=== PATIENT | male | born 1940 | race Hispanic/Latino ===

== ENCOUNTER 2017-07-30 11:17 | Observation (INO) | payer MEDICARE ==
[2017-07-30] MEDS ORDERED: Dextrose 50% SYRINGE Inj (50 ml) ONE (11:34)
[2017-07-30 11:49] LABS: VENOUS BLOOD GAS BASE EXCESS -1.8 mmol/L (0.0-2.0); VENOUS BLOOD PH 7.32 (7.32-7.43)
--- NOTE | 2017-07-30 11:58 | ED PDOC ---
Arrival/HPI - General Chief Complaint: Altered Mental Status Time Seen by Provider: 07/30/17 11:31 Historian: Spouse - History of Present Illness Narrative History of Present Illness (Text): 07/30/17 11:52 A 77 year old male h/o Afib (on Xarelto), DM, RA, CVAx3, brought into the emergency department by EMS for altered mental status. reports patient was very drowsy this morning and was unable to wake him up. Patient last seen normal yesterday night. On evaluation, patients glucose level in the 50's, amp of D50 administered. reports similar symptoms to prior hypoglycemia episodes. denies any other complaints. ROS limited due to patients state. PMD: Dr. Loren Huerta Time/Duration: Prior to Arrival Symptom Course: Unchanged Quality: Other Context: Home Past Medical History - Provider Review Nursing Documentation Reviewed: Yes - Infectious Disease Hx of Infectious Diseases: None - Tetanus Immunization Tetanus Immunization: Up to Date - Cardiac Hx Cardiac Arrhythmia: Yes (Afib) Hx Hypertension: Yes Hx Pacemaker: No - Neurological HX Cerebrovascular Accident: Yes (x 3) Hx Dementia: Yes - Endocrine/Metabolic Hx Diabetes Mellitus Type 2: Yes - Hematological/Oncological Hx Blood Transfusions: (pt unable to verify) Hx Blood Transfusion Reaction: (pt unable to verify) - Musculoskeletal/Rheumatological Hx Musculoskeletal Disorders: Yes - Psychiatric Hx Depression: No Hx Emotional Abuse: No Hx Physical Abuse: No Hx Substance Use: No - Surgical History Hx Orthopedic Surgery: Yes (titanium bess in back, left hip) - Anesthesia Hx Anesthesia Reactions: (pt unable to verify) Hx Malignant Hyperthermia: (pt unable to verify) - Suicidal Assessment Feels Threatened In Home Enviroment: No Family/Social History - Physician Review Nursing Documentation Reviewed: Yes Family/Social History: No Known Family HX Smoking Status: Never Smoked Hx Alcohol Use: Yes (SOCIAL) Hx Substance Use: No Hx Substance Use Treatment: No Allergies/Home Meds Allergies/Adverse Reactions: Allergies morphine Allergy (Verified 07/30/17 11:28) DIZZINESS Home Medications: Home Meds Medication Instructions Recorded Confirmed Dronedarone HCl [Multaq] 400 mg PO BID 10/03/12 07/30/17 Glipizide [Glipizide Xl] 10 mg PO DAILY 10/03/12 07/30/17 Metformin HCl [Metformin] 500 mg PO BID 10/03/12 07/30/17 Metoprolol Tartrate 50 mg PO BID 10/03/12 07/30/17 Sertraline [Zoloft] 100 mg PO BID 10/03/12 07/30/17 predniSONE [Prednisone] 5 mg PO DAILY 10/03/12 07/30/17 Amlodipine Besylate 10 mg PO DAILY 01/28/13 07/30/17 Atorvastatin Calcium 40 mg PO DAILY 01/28/13 07/30/17 Folic Acid 1 mg PO DAILY 01/28/13 07/30/17 Memantine [Namenda] 10 mg PO BID 01/28/13 07/30/17 Rivastigmine 9.5 mg/24 hr [Exelon 1 ea TD DAILY 01/28/13 07/30/17 9.5 mg Patch] Trazodone Hydrochloride [Trazodone 50 mg PO HS 01/28/13 07/30/17 HCl] Rivaroxaban [Xarelto] 20 mg PO DAILY 06/07/16 07/30/17 Cholecalciferol (Vitamin D3) 1,000 unit PO DAILY 07/30/17 07/30/17 [Vitamin D3] Cranberry Fruit Extract/Vit C [Azo 1 each PO BID 07/30/17 07/30/17 Cranberry Softgel] Cyanocobalamin [Vitamin B12 1000 1,000 mcg PO BID 07/30/17 07/30/17 mcg Tab] Review of Systems - Review of Systems Systems not reviewed;Unavailable: Altered Mental Status Physical Exam Vital Signs Reviewed: Yes Vital Signs Temp Pulse Resp BP Pulse Ox 07/30/17 11:20 98.4 F 45 L 20 146/55 L 98 Blood Pressure: Hypertensive Pulse: Bradycardic Respiratory Rate: Normal Appearance: Positive for: Non-Toxic, Comfortable, Ill-Appearing Mental Status: Positive for: Confused - Systems Exam Head: Present: Atraumatic, Normocephalic Pupils: Present: PERRL (3mm diameter, PEERL bilaterally) Extroacular Muscles: Present: EOMI Conjunctiva: Present: Normal Mouth: Present: Moist Mucous Membranes Nose (External): No: Atraumatic Neck: Present: Normal Range of Motion. No: Meningeal Signs, MIDLINE TENDERNESS Respiratory/Chest: Present: Clear to Auscultation, Good Air Exchange. No: Respiratory Distress, Accessory Muscle Use Cardiovascular: Present: Regular Rate and Rhythm, Normal S1, S2. No: Murmurs Abdomen: Present: Normal Bowel Sounds. No: Tenderness, Distention, Peritoneal Signs Upper Extremity: Present: Normal Inspection. No: Cyanosis, Edema Lower Extremity: Present: Normal Inspection. No: Edema Skin: Present: Warm, Dry, Normal Color. No: Rashes Psychiatric: Present: Other (Arousable to painful stimuli in all extremities) Medical Decision Making ED Course and Treatment: 07/30/17 11:52 Impression: A 77 year old male brought in for altered mental status. Differential Diagnosis included but are not limited to: Altered Mental Status secondary to Hypoglycemia vs CVA vs Electrolyte Abnormalities Plan: -- Head CT -- Chest xray -- EKG -- Labs -- Blood and Urine culture -- Urinalysis -- Reassess and disposition Progress Notes: EKG shows sinus bradycardia at 48 BPM with bifascicular block. Interpreted by me. 07/30/17 12:11 On re-evaluation, patient is alert and speaking full sentences after D50. Report Date : 07/30/2017 13:18:50 Procedure: Chest xray Dictator : Hernan Diaz MD IMPRESSION: Trace left basilar atelectasis is favored over infiltrate infiltrate. No right-sided infiltrate. No pleural effusion bilaterally. Prominence of the paratracheal soft tissues at the upper chest is noted for which potential CT of the chest with contrast may be useful for better characterization. This may reflect great vessel ectasis or substernal thyroid tissue. 07/30/17 13:10 Patient woke up and started to become more at this baseline as per . He is AAOx3 and tells me that he is in the hospital but is unsure why he came. He denies fever, cough or urinary symptoms. Case discussed with Dr. Loren Carbajal, patient's PMD who agrees to place on observation for UTI, Hypoglycemia, WINDY. States to admit to the hospitalist. I discussed this case with Dr. Zaman who will admit the patient. 07/30/17 14:00 Patient's CXR with LLL PNA. Treated with Rocephin and Azithromycin. - Critical Care Critical Care Minutes: 30 minutes - Lab Interpretations Lab Results: 07/30/17 11:45 07/30/17 11:45 Lab Results 07/30/17 12:46: Triglycerides 173 H, Cholesterol 100 L, LDL Cholesterol Direct 36, HDL Cholesterol 26 L 07/30/17 11:56: Urine Color Yellow, Urine Appearance Clear, Urine pH 6.0, Ur Specific Chandler 1.020, Urine Protein 100 H, Urine Glucose (UA) Negative, Urine Ketones Negative, Urine Blood Large H, Urine Nitrate Negative, Urine Bilirubin Negative, Urine Urobilinogen 0.2, Ur Leukocyte Esterase Trace H, Urine RBC 1 - 3 , Urine WBC Tntc, Urine Bacteria Few 07/30/17 11:45: Sodium 142, Chloride 111 H, Potassium 4.2, Carbon Dioxide 24, Anion Gap 11, BUN 28 H, Creatinine 1.5 H, Est GFR ( Amer) 55, Est GFR ( Non-Af Amer) 46, Random Glucose 51 L, Calcium 10.2, Phosphorus 2.5, Magnesium 1.9, Total Bilirubin 0.4, AST 18, ALT 25, Alkaline Phosphatase 70, Troponin I < 0.01, NT-Pro-B Natriuret Pep 2630 H, Total Protein 6.1, Albumin 3.4, Globulin 2.7, Albumin/Globulin Ratio 1.3 07/30/17 11:45: pO2 52, VBG pH 7.32, VBG pCO2 48.0, VBG HCO3 24.7, VBG Total CO2 26.2, VBG O2 Sat (Calc) 92.4 H, VBG Base Excess -1.8 L, VBG Potassium 4.2, Sodium 139.0, Chloride 112.0 H, Glucose 53 L, Lactate 0.7, FiO2 21.0, Venous Blood Potassium 4.2 07/30/17 11:45: PT 12.4 H, INR 1.15 H, APTT 29.7 07/30/17 11:45: WBC 8.7, RBC 3.74, Hgb 10.6 L, Hct 34.4 L, MCV 92.0, MCH 28.3, MCHC 30.8 L, RDW 14.9 H, Plt Count 244, MPV 9.0, Gran % 68.4 H, Lymph % (Auto) 18.5 L, Florence % (Auto) 10.7 H, Eos % (Auto) 2.3, Baso % (Auto) 0.1, Gran # 5.97, Lymph # 1.6, Florence # 0.9 H, Eos # 0.2, Baso # 0.01 07/30/17 11:31: POC Glucose (mg/dL) 54 L I have reviewed the lab results: Yes Interpretation: Abnormal lab values (BUN/Cr elevation) - RAD Interpretation Radiology Orders: 07/30/17 11:43 CHEST PORTABLE [RAD] Stat 07/30/17 11:45 HEAD W/O CONTRAST [CT] Stat CXR shows LLL PNA. Advanced Solutions Architect: ED Physician, Radiologist - Medication Orders Current Medication Orders: Amlodipine Besylate (Norvasc) 10 mg PO DAILY BONNIE Atorvastatin Calcium (Lipitor) 40 mg PO DAILY BONNIE Dextrose/Sodium Chloride (Dextrose 5%/0.45% Ns 1000 Ml) 1,000 mls @ 100 mls/hr IV .Q10H BONNIE Last Admin: 07/30/17 13:13 Dose: 100 mls/hr eMAR Start Stop Document 07/30/17 13:13 CNR (Rec: 07/30/17 13:15 CNR [id number]) Intravenous Solution Start Date 07/30/17 Start Time 13:15 Memantine (Namenda) 10 mg PO BID BONNIE Metoprolol Tartrate (Lopressor) 25 mg PO BID BONNIE Non-Formulary Medication (Dronedarone Hcl [Multaq]) 400 mg PO BID BONNIE Rivaroxaban (Xarelto) 20 mg PO DAILY BONNIE PRN Reason: Protocol Discontinued Medications Dextrose (Dextrose 50% Inj) Confirm Administered Dose 50 ml .ROUTE .STK-MED ONE Stop: 07/30/17 11:35 Last Admin: 07/30/17 11:34 Dose: 50 ml Ceftriaxone Sodium (Rocephin 1 Gram Ivpb) 1 gm in 100 mls @ 200 mls/hr IVPB STAT STA PRN Reason: Protocol Stop: 07/30/17 12:42 Last Admin: 07/30/17 12:43 Dose: 200 mls/hr eMAR Start Stop Document 07/30/17 12:43 CNR (Rec: 07/30/17 12:49 CNR [id number]) Intravenous Solution Start Date 07/30/17 Start Time 12:49 - Scribe Statement The provider has reviewed the documentation as recorded by the Scribjane Benitez Provider Scribe Attestation: All medical record entries made by the Scribe were at my direction and personally dictated by me. I have reviewed the chart and agree that the record accurately reflects my personal performance of the history, physical exam, medical decision making, and the department course for this patient. I have also personally directed, reviewed, and agree with the discharge instructions and disposition. Disposition/Present on Arrival - Present on Arrival Any Indicators Present on Arrival: No History of DVT/PE: No History of Uncontrolled Diabetes: No Urinary Catheter: No History of Decub. Ulcer: No History Surgical Site Infection Following: Orthopedic Procedures - Disposition Have Diagnosis and Disposition been Completed?: Yes Diagnosis: Pneumonia, UTI (urinary tract infection), Hypoglycemia, Altered mental status Disposition: HOSPITALIZED Disposition Time: 13:10 Patient Plan: Observation Condition: FAIR
[2017-07-30 12:00] LABS: INR 1.15 (0.93-1.08); PARTIAL THROMBOPLASTIN TIME 29.7 Seconds (23.7-30.8)
[2017-07-30 12:00] LABS: URINE BILIRUBIN NEGATIVE (NEGATIVE); URINE BLOOD LARGE (NEGATIVE); URINE GLUCOSE (UA) NEGATIVE (NEGATIVE); URINE KETONE NEGATIVE (NEGATIVE); URINE LEUKOCYTE ESTERASE TRACE Leu/uL (NEGATIVE); URINE PROTEIN 100 mg/dL (<30 mg/dL); URINE UROBILINOGEN 0.2 E.U./dL (<1 E.U./dL)
[2017-07-30 12:01] LABS: URINE APPEARANCE CLEAR (CLEAR); URINE COLOR YELLOW (YELLOW)
[2017-07-30 12:03] LABS: ALB/GLOB RATIO 1.3 (1.1-1.8); ALKALINE PHOSPHATASE 70 U/L (38-126); ALT/SGPT 25 U/L (7-56); AST/SGOT 18 U/L (17-59); BILIRUBIN,TOTAL 0.4 mg/dL (0.2-1.3); BLOOD UREA NITROGEN 28 mg/dL (7-21); CALCIUM 10.2 mg/dL (8.4-10.5); CARBON DIOXIDE 24 mmol/L (21-33); CHLORIDE 111 mmol/L (98-107); GFR AFRICAN-AMERICAN 55; GLUCOSE,RANDOM 51 mg/dL (70-110); MAGNESIUM 1.9 mg/dL (1.7-2.2); PHOSPHOROUS 2.5 mg/dL (2.5-4.5); POTASSIUM 4.2 mmol/L (3.6-5.0); SODIUM 142 mmol/L (132-148); TOTAL PROTEIN 6.1 g/dL (5.8-8.3)
[2017-07-30 12:07] LABS: BASO # 0.01 K/mm3 (0.0-2.0); BASO % 0.1 % (0.0-3.0); EOS # 0.2 (0.0-0.7); EOS % 2.3 % (1.5-5.0); GRAN # 5.97 (1.4-6.5); GRAN % 68.4 % (50.0-68.0); HEMATOCRIT 34.4 % (42.0-52.0); LYMPH # 1.6 (1.2-3.4); LYMPH % 18.5 % (22.0-35.0); MEAN CORPUSCULAR HEMOGLOBIN 28.3 pg (25.0-35.0); MEAN CORPUSCULAR HGB CONC 30.8 g/dl (31.0-37.0); MONO # 0.9 (0.1-0.6); MONO % 10.7 % (1.0-6.0); RED CELL DISTRIBUTION WIDTH 14.9 % (11.5-14.5); WHITE BLOOD COUNT 8.7 10^3/ul (4.5-11.0)
[2017-07-30 12:12] LABS: TROPONIN I < 0.01 ng/mL
[2017-07-30 12:12] LABS: URINE BACTERIA FEW (NEG); URINE WBC TNTC /hpf (0-6)
[2017-07-30] MEDS ORDERED: cefTRIAXone 1 gm 1 GM/100 ML BAG IVPB STA (12:13)
[2017-07-30 12:54] LABS: CHOLESTEROL 100 mg/dL (130-200)
[2017-07-30] MEDS: Dextrose 5%/0.45% NS 1,000 ML IV SCH (13:13)
--- NOTE | 2017-07-30 13:20 | RAD ---
HISTORY: Sepsis Patient COMPARISON: Right rib series with chest 01/28/2013. FINDINGS: LUNGS: Trace atelectasis favored over potential infiltrate at the left base obscuring left hemidiaphragm somewhat. Right chest remains clear appearing. PLEURA: No significant pleural effusion identified, no pneumothorax apparent. CARDIOVASCULAR: Cardiac silhouette appears stable. No pulmonary vascular derangement identified. Peritracheal soft tissues at the upper mediastinum appear prominent in the interval potentially reflecting substernal thyroid prominence or increasing great vessel ectasis. This pattern may be exaggerated by frontal technique and angle of capture. OSSEOUS STRUCTURES: No significant abnormalities. VISUALIZED UPPER ABDOMEN: Normal. OTHER FINDINGS: None. IMPRESSION: Trace left basilar atelectasis is favored over infiltrate infiltrate. No right-sided infiltrate. No pleural effusion bilaterally. Prominence of the paratracheal soft tissues at the upper chest is noted for which potential CT of the chest with contrast may be useful for better characterization. This may reflect great vessel ectasis or substernal thyroid tissue.
--- NOTE | 2017-07-30 14:35 | CP.PCM.HP ---
<SHAWN LOCK - Last Filed: 07/30/17 16:44> History of Present Illness - History of Present Illness History of Present Illness: Mr. Cox is a 77yo Male with PMH DM2, CVA, HTN, Dementia, AFib, Anemia, B12 def, and polymyalgia rheumatica who presents with AMS and difficulty arising from sleep this morning. Pt is altered at baseline due to dementia and HPI was obtained through who is bedside. states that the pt woke up to get some water and went back to sleep, and then was lethargic and would not wake up after. Pt was scheduled for a neurology outpatient appointment this morning, and was getting picked up by the ambulance and so the ambulance instead took the patient to the ED. On presentation, the pt's FS was 54, and he was given D50 x1 amp. Pt now more awake and at baseline, per . When asked about eating, the states that there are times when the pt will not eat dinner because he doesn't want to or because he doesn't like the food, and that it is those times that he has these hypoglycemic episodes, which he has had in the past. the pt was not given anything at home or ED, to my knowledge. The states that the pt is wheelchair bound due to dementia, and that his hx of CVA, which she states was " 3 mini strokes" left no focal deficits. 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 Per , the patient urinates in a bottle and sometimes she can't get to him in time and he would have urinary or bowel incontinence because of immobility. The patient is aware that his heart beats slowly and says it's always been like that and that he doesn't have episodes of palpitation. The patient is also chronically anemic and f/u Dr. Phoenix for its management. the pt denies cp, palpitations, sob, fever, cough, dysuria, abdominal pain, numbness /tingling, slurring of speech, facial droop or other focal deficits. 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 10-point ROS reviewed and is otherwise unremarkable. PMH: DM2, CVA, HTN, Dementia, AFib, Anemia of chronic dz, B12 def, PMR PSH: L hip surgery, spinal surgery (2010) Meds: prednosone 5mg daily prescribed by Dr Huerta, rivastigamine 9.5mg daily, xarelto 20mg daily, norvasc 10mg daily, lipitor 40mg daily, multaq 400mg bid, sertraline prescribed by Dr. Perez, trazodone 50mg, folic acid 1mg prescribed by Dr. Phoenix. Metformin and Metoprolol haven't been filled since February. Allergies: morphine SHx: former smoker and ETOH use; denies substance use. former [employer] worker FHx: non-contributory PMD: Deanna Heme: Alban Neuro: Ana Present on Admission - Present on Admission Any Indicators Present on Admission: No History of DVT/PE: No History of Uncontrolled Diabetes: No Review of Systems - Review of Systems All systems: reviewed and no additional remarkable complaints except (as per HPI ) Past Patient History - Infectious Disease Hx of Infectious Diseases: None - Tetanus Immunizations Tetanus Immunization: Up to Date - Past Medical History & Family History Past Medical History?: Yes Pertinent Family History: reviewed and non-significant - Past Social History Smoking Status: Former Smoker Alcohol: None Drugs: Denies Home Situation {Lives}: With Family - CARDIAC Hx Atrial Fibrillation: Yes Hx Hypertension: Yes Hx Pacemaker: No - PULMONARY Hx Respiratory Disorders: No - NEUROLOGICAL Hx Neurological Disorder: Yes HX Cerebrovascular Accident: Yes (x 3) Hx Dementia: Yes Other/Comment: dementia (unclassified) - HEENT Hx HEENT Problems: No - RENAL Hx Chronic Kidney Disease: Yes Hx Renal Failure: Yes - ENDOCRINE/METABOLIC Hx Endocrine Disorders: Yes Hx Diabetes Mellitus Type 2: Yes - HEMATOLOGICAL/ONCOLOGICAL Hx Blood Transfusions: (pt unable to verify) Hx Blood Transfusion Reaction: (pt unable to verify) - MUSCULOSKELETAL/RHEUMATOLOGICAL Hx Musculoskeletal Disorders: Yes Hx Falls: Yes Hx Fractures: Yes Hx Unsteady Gait: Yes - GASTROINTESTINAL Hx Gastrointestinal Disorders: No - GENITOURINARY/GYNECOLOGICAL Hx Genitourinary Disorders: Yes Hx Prostate Problems: Yes (BPH) - PSYCHIATRIC Hx Depression: No Hx Emotional Abuse: No Hx Physical Abuse: No Hx Substance Use: No - SURGICAL HISTORY Hx Orthopedic Surgery: Yes (titanium bess in back, left hip) - ANESTHESIA Hx Anesthesia Reactions: (pt unable to verify) Hx Malignant Hyperthermia: (pt unable to verify) Meds Allergies/Adverse Reactions: Allergies Allergy/AdvReac Type Severity Reaction Status Date / Time morphine Allergy DIZZINESS Verified 07/30/17 19:39 Physical Exam - Constitutional Appears: Well, No Acute Distress, Confused, Chronically Ill - Head Exam Head Exam: ATRAUMATIC, NORMAL INSPECTION - Eye Exam Eye Exam: EOMI, Normal appearance, PERRL Pupil Exam: NORMAL ACCOMODATION - ENT Exam ENT Exam: Mucous Membranes Dry, Normal Exam - Neck Exam Neck exam: Positive for: Normal Inspection - Respiratory Exam Respiratory Exam: Clear to Auscultation Bilateral, NORMAL BREATHING PATTERN. absent: Accessory Muscle Use, Rales, Wheezes, Respiratory Distress - Cardiovascular Exam Cardiovascular Exam: Bradycardia, REGULAR RHYTHM, +S1, +S2 - GI/Abdominal Exam GI & Abdominal Exam: Normal Bowel Sounds, Soft. absent: Distended, Guarding, Rebound, Tenderness - Extremities Exam Extremities exam: Positive for: normal inspection. Negative for: pedal edema - Back Exam Additional comments: kyphosis noted - Neurological Exam Neurological exam: Alert Additional comments: gait was not assessed - Expanded Neurological Exam Expanded Neurological exam: Memory Loss-Recent Event, Tremor (R hand pill-rolling tremor at rest) Patient oriented to: person Speech: Fluid Speech Cranial nerves: EOM's Intact: Normal, Facial Palsey w/Forehead Movement: Normal , Facial Palsey w/o Forehead Movement: Normal, Facial Sensation: Normal Neuro motor strength exam: Left Upper Extremity: 5, Right Upper Extremity: 5, Left Lower Extremity: 4, Right Lower Extremity: 5 - Psychiatric Exam Psychiatric exam: Normal Affect, Normal Mood - Skin Skin Exam: Normal Color, Warm Additional comments: multiple areas of ecchymosis - Additional Findings Additional findings: wearing adult diaper Results - Vital Signs Recent Vital Signs: Last Vital Signs Temp 98.4 F 07/30/17 11:20 Pulse 42 L 07/30/17 13:18 Resp 14 07/30/17 13:18 BP 137/55 L 07/30/17 13:18 Pulse Ox 99 07/30/17 13:18 - Labs Result Diagrams: 07/30/17 11:45 07/30/17 11:45 Assessment & Plan - Assessment and Plan (Free Text) Assessment: 77yo M with PMH DM2, CVA, HTN, Dementia, AFib, Anemia of chronic dz, B12 def, PMR and prior falls who presents w/ AMS and trouble waking up from sleep. Patient found to have FS 54 in Ed and improved after 1amp of D50. AMS likely 2/ 2 hypoglycemia r/o CVA. Anemia is likely secondary due to B12 deficiency vs chronic disease. Cr elevation likely 2/2 WINDY due to dehydration. UA shows UTI. Plan: 1. AMS likely 2/2 hypoglycemia vs CVA vs dementia - FS 54 in ED - mental status improved w/ D50 - metformin held, especially in setting of WINDY - ISS - FS QACHS - CT Head shows no acute hemorrhage with moderate chronic ischemic changes - no focal deficits so CVA is unlikely - High fall risk - PT eval - Neurology consulted, recs appreciated 2. WINDY - likely due to dehydration - D5 1/2 NS @ 100 - monitor signs of renal failure 3. UTI - Rocephin and Zithromax x1 in ED - cont cefepime d1 - blood and urine cx - procal ordered - ID consulted, recs appreciated 4. HTN - cont Norvasc, Metoprolol 5. Anemia - likely 2/2 B12 deficiency - macrocytic anemia - folic acid 6. BPH - salcedo inserted - monitor post-void residual on bladder scanner - bladder not currently distended - renal U/S to r/o hydronephrosis 7. Dementia - cont home meds - neurology consulted, recs appreciated HHD D5 1/2 NS @ 100 Xarelto/PTX Patient was seen, evaluated and discussed with attending, Dr. Jose Lock PGY1 - Date & Time Date: 07/30/17 Time: 14:00 <Kirti Garcia - Last Filed: 07/31/17 17:30> Results - Vital Signs Recent Vital Signs: Last Vital Signs Temp 97.7 F 07/31/17 06:00 Pulse 49 L 07/31/17 06:00 Resp 20 07/31/17 06:00 BP 150/70 07/31/17 10:28 Pulse Ox 98 07/31/17 06:00 - Labs Result Diagrams: 07/31/17 06:46 07/31/17 06:46 Attending/Attestation - Attestation I have personally seen and examined this patient.: Yes I have fully participated in the care of the patient.: Yes I have reviewed all pertinent clinical information: Yes Notes (Text): 07/31/17 15:41 attending note; Patient seen and examined with resident. Patient is a 77yo Male with PMH DM2, CVA, HTN, Dementia, AFib, Anemia , B12 def, and polymyalgia rheumatica who presents with AMS. The patient was found to have hypoglycemia with fingerstick of 51. Patient had poor by mouth intake and continue to take metformin and glipizide. metformin and glipizide stopped. acute kidney injury; secondary to poor by mouth intake.Patient also had elevated creatinine. Started on IVF. Patient's mental status improved. Baseline dementia.CT head is negative for acute infarct.neurology evaluation appreciated. Cardiology evaluation appreciated. UA urine culture, blood culture ordered. Started on cefepime. Monitor closely. 07/31/17 17:29
--- NOTE | 2017-07-30 14:47 | CT ---
PROCEDURE: CT HEAD WITHOUT CONTRAST. HISTORY: altered mental status COMPARISON: Comparison made with CT scan of the brain dated 01/28/2013. TECHNIQUE: Axial computed tomography images were obtained through the head/brain without intravenous contrast. Radiation dose: Total exam DLP = 746.78 mGy-cm. This CT exam was performed using one or more of the following dose reduction techniques: Automated exposure control, adjustment of the mA and/or kV according to patient size, and/or use of iterative reconstruction technique. FINDINGS: HEMORRHAGE: No int acute parenchymal, subarachnoid or extra-axial hemorrhage. BRAIN: Moderate chronic white matter ischemic changes seen extending peripherally into the deep and subcortical white matter both cerebral hemispheres. Additionally, there is a chronic appearing right posterior temporoparietal watershed zone infarct. More discrete chronic right superior frontal lobe infarct also present. . . . Chronic infarct right anterolateral basal ganglia also again seen. Note that the possibility of an underlying hyperacute -acute infarcts may not be visualized on initial -early CT imaging and therefore cannot be completely excluded. Need Moderate to significant central volume loss evidenced by disproportionate enlargement of the ventricles compared sulci. Vascular calcifications are present. VENTRICLES: Ventricular dilatation presumed to be on ex vacuo basis. CALVARIUM: No acute calvarial fractures. . PARANASAL SINUSES: Paranasal sinuses well-developed and currently well-aerated. MASTOID AIR CELLS: Unremarkable as visualized. No inflammatory changes. OTHER FINDINGS: Orbits and contents unremarkable. IMPRESSION: No acute intracranial hemorrhage. The the Moderate confluent white matter ischemic changes with more discrete infarct changes in the right posterior temporoparietal watershed zone right frontal lobe and right anterolateral basal ganglia. Moderate -significant central volume loss as detailed above.
[2017-07-30] MEDS ORDERED: Dextrose 50% SYRINGE Inj (50 ml) IVP STA (16:06)
[2017-07-30] MEDS: Insulin Reg-LOW-Coverage SC SCH ×2 (16:46→21:40)
--- NOTE | 2017-07-30 17:15 | US ---
PROCEDURE: Ultrasound of the Kidneys HISTORY: rule out hydronephrosis COMPARISON: None available. TECHNIQUE: Sonogram of the kidneys. FINDINGS: RIGHT KIDNEY: Measures: 9.4 x 4.3 x 5.4 cm. Renal cortical atrophy is appreciated diffusely as well as poor corticomedullary differentiation. Normal size is apparent nevertheless. No definite solid mass lesion or hydronephrosis visualized. A 10 mm intrarenal calculus identified at the upper pole right kidney as well as a 5 mm calculus. At the lower pole, there is a 7 mm calculus in the medially inferior to it is an 8 mm calculus. LEFT KIDNEY: Measures: 10.9 x 5.4 x 5.2 cm. Renal cortical atrophy is appreciated diffusely as well as poor corticomedullary differentiation. The left kidney nevertheless appears normal size. No definite solid mass lesion or hydronephrosis visualized. A solitary calculus identified at the lower pole left kidney measuring 10 mm greatest dimension. OTHER FINDINGS: None. IMPRESSION: 1. No obstructive uropathy is appreciated bilaterally although multiple intrarenal calculi are identified bilaterally as discussed above. 2. Intrinsic medical renal diseases is suggested bilateral as discussed above.
[2017-07-30] MEDS ORDERED: DRONEDARONE HCL 400 MG PO SCH (18:00)
--- NOTE | 2017-07-30 18:32 | CP.PCM.CON ---
<Jose Sparks - Last Filed: 07/30/17 18:14> History of Present Illness - History of Present Illness History of Present Illness: Neurology Consult Note for Dr. Diaz service Consulted for: dementia, AMS This is a 77 yo M with PMH of AFib on Xarelto, DM, RA, 3x CVA, and Dementia who [place] [facility] [place] becoming increasingly somnolent and unarousable. HPI and ROS limited as patient is demented (unreliable historian) , and is not present at time of exam. As per ED and Primary team, reported patient woke early this AM for water, had a drink, then went back to sleep, and became excessively somnolent/lethargic. He was scheduled to present to his outpatient Neurologist (Dr. Perez) office today, but when Medical Transport came to pick him up, he was brought to the ED. Blood Glucose in the ED was noted to be 51, so patient was given x1 amp of D50, and he gradually become more awake and responsive. As per , he has had prior hypoglycemic episodes, due to not eating some meals, and has had similar symptoms with prior hypoglycemic episodes. Patient admits to days where he won't eat despite taking his insulin medications, due to lack of appetite. At time of exam, he is awake, alert, and oriented to self and location, but not to time. He thinks that his mother is alive and is 77 (his current age). He has wandering thought and speech. Denies acute complaint, has no recall of event causing him to come to the hospital, only reports a sensation of "being really out of it." PMH: as above PSH: L hip surgery, spinal surgery (2010) SHx: former tobacco/ETOH use, denies current use; denies IVDA/illicits FHx: patient unsure/unable to recall PMD: Dr. Huerta Review of Systems - Review of Systems Systems not reviewed;Unavailable: Dementia Past Patient History - Infectious Disease Hx of Infectious Diseases: None - Tetanus Immunizations Tetanus Immunization: Up to Date - Past Medical History & Family History Past Medical History?: Yes - Past Social History Smoking Status: Former Smoker Alcohol: None Drugs: Denies Home Situation {Lives}: With Family - CARDIAC Hx Atrial Fibrillation: Yes Hx Hypertension: Yes Hx Pacemaker: No - PULMONARY Hx Respiratory Disorders: No - NEUROLOGICAL Hx Neurological Disorder: Yes HX Cerebrovascular Accident: Yes (x 3) Hx Dementia: Yes Other/Comment: dementia (unclassified) - HEENT Hx HEENT Problems: No - RENAL Hx Chronic Kidney Disease: Yes Hx Renal Failure: Yes - ENDOCRINE/METABOLIC Hx Endocrine Disorders: Yes Hx Diabetes Mellitus Type 2: Yes - HEMATOLOGICAL/ONCOLOGICAL Hx Blood Transfusions: (pt unable to verify) Hx Blood Transfusion Reaction: (pt unable to verify) - MUSCULOSKELETAL/RHEUMATOLOGICAL Hx Musculoskeletal Disorders: Yes Hx Falls: Yes Hx Fractures: Yes Hx Unsteady Gait: Yes - GASTROINTESTINAL Hx Gastrointestinal Disorders: No - GENITOURINARY/GYNECOLOGICAL Hx Genitourinary Disorders: Yes Hx Prostate Problems: Yes (BPH) - PSYCHIATRIC Hx Depression: No Hx Emotional Abuse: No Hx Physical Abuse: No Hx Substance Use: No - SURGICAL HISTORY Hx Orthopedic Surgery: Yes (titanium bess in back, left hip) - ANESTHESIA Hx Anesthesia Reactions: (pt unable to verify) Hx Malignant Hyperthermia: (pt unable to verify) Meds Allergies/Adverse Reactions: Allergies Allergy/AdvReac Type Severity Reaction Status Date / Time morphine Allergy DIZZINESS Verified 07/30/17 19:39 - Medications Medications: Current Medications Amlodipine Besylate (Norvasc) 10 mg PO DAILY [facility] Atorvastatin Calcium (Lipitor) 40 mg PO DAILY [facility] Cholecalciferol (Vitamin D) 1,000 iu PO DAILY [facility] Cyanocobalamin (Vitamin B12 1000 Mcg Tab) 1,000 mcg PO BID [facility] Folic Acid (Folic Acid) 1 mg PO DAILY [facility] Dextrose/Sodium Chloride (Dextrose 5%/0.45% Ns 1000 Ml) 1,000 mls @ 100 mls/hr IV .Q10H [facility] Last Admin: 07/30/17 13:13 Dose: 100 mls/hr Cefepime HCl (Maxipime 1gm) 1 gm in 100 mls @ 100 mls/hr IVPB Q12 [facility] PRN Reason: Protocol Insulin Human Regular (Humulin R Low) 0 units SC ACHS [facility] PRN Reason: Protocol Last Admin: 07/30/17 16:46 Dose: Not Given Memantine (Namenda) 10 mg PO BID [facility] Metoprolol Tartrate (Lopressor) 25 mg PO BID [facility] Dronedarone Hcl [ (Multaq] 400 Mg) 400 mg PO BID [facility] Pantoprazole Sodium (Protonix Ec Tab) 40 mg PO 0600 [facility] Prednisone (Prednisone Tab) 5 mg PO DAILY [facility] Rivaroxaban (Xarelto) 20 mg PO DAILY [facility] PRN Reason: Protocol Physical Exam - Constitutional Appears: Non-toxic, No Acute Distress - Head Exam Head Exam: ATRAUMATIC, NORMAL INSPECTION, NORMOCEPHALIC - Eye Exam Eye Exam: EOMI, Normal appearance, PERRL. absent: Conjunctival injection, Nystagmus, Scleral icterus Pupil Exam: NORMAL ACCOMODATION, PERRL. absent: Fixed, Irregular, Unequal - ENT Exam ENT Exam: Mucous Membranes Moist - Neck Exam Neck exam: Positive for: Full Rom. Negative for: Lymphadenopathy, Thyromegaly - Respiratory Exam Respiratory Exam: Clear to Auscultation Bilateral, NORMAL BREATHING PATTERN. absent: Accessory Muscle Use, Chest Wall Tenderness, Decreased Breath Sounds, Rales, Rhonchi, Wheezes - Cardiovascular Exam Cardiovascular Exam: Irregular Rhythm, +S1, +S2. absent: Bradycardia, Tachycardia, REGULAR RHYTHM, JVD, RRR, +S4 - GI/Abdominal Exam GI & Abdominal Exam: Normal Bowel Sounds, Soft. absent: Diminished Bowel Sounds , Distended, Firm, Hyperactive Bowel Sounds, Hypoactive Bowel Sounds, Rigid, Tenderness - Extremities Exam Extremities exam: Positive for: normal capillary refill, normal inspection, pedal pulses present (+2 radials, faintly palpable dorsalis pedis bilaterally). Negative for: calf tenderness, joint swelling, pedal edema, tenderness - Neurological Exam Additional comments: awake and alert, following all commands appropriately, moving all extremities spontaneously motor strength 5/5 for RLE, RUE, LUE, and bilateral special services coordinator; 3/5 for LLE - Psychiatric Exam Psychiatric exam: Normal Affect, Normal Mood - Skin Skin Exam: Dry, Intact, Warm Additional comments: multiple scattered echymosis along bilateral arms Results - Vital Signs Recent Vital Signs: Last Vital Signs Temp 98.6 F 07/30/17 16:00 Pulse 60 07/30/17 16:00 Resp 18 07/30/17 16:00 BP 126/55 L 07/30/17 16:00 Pulse Ox 97 07/30/17 16:00 - Labs Result Diagrams: 07/30/17 11:45 07/30/17 11:45 Labs: Laboratory Results - last 24 hr 07/30/17 07/30/17 07/30/17 13:13 16:00 18:09 POC Glucose (mg/dL) 63 L 130 H Blood Type AB POSITIVE Antibody Screen Negative BBK History Checked Patient has bt Assessment & Plan - Assessment and Plan (Free Text) Assessment: This is a 77 yo M with PMH of AFib on Xarelto, DM, RA, 3x CVA, and Dementia who was [place] [facility] [place] becoming increasingly somnolent and unarousable. He was found to be hypoglycemic to the 50's, but after given an amp of D50 and increasing his blood glucose, his symptoms appear to have improved. His altered mental status is mostly likely 2/2 acute hypoglycemia in the setting of poor PO intake while on Glipizide. May also have been underlying cardiac factor as he has been fluctuating bradycardic to the 40's, which is not his baseline per prior charting. He has a history of multiple prior CVAs and residual LLE weakness, which appears to be at baseline. Otherwise no clear sided-deficits. CT head was negative for acute process. Plan: 1) ASA and Lipitor for stroke prevention, already on Xarelto for AC in setting of AFib 2) Continue home Namenda for Dementia, avoid any Aricept in given his current Bradycardia 3) Maintain Blood glucose 140-180; reviewed need to maintain PO intake while on oral hypoglycemia agents with patient 4) F/u Cardio's recs for Bradycardia 5) PT/OT Patient reviewed and discussed with attending, Dr. Diaz. <Andrey Diaz - Last Filed: 07/31/17 10:27> Meds - Medications Medications: Current Medications Amlodipine Besylate (Norvasc) 10 mg PO DAILY [facility] Atorvastatin Calcium (Lipitor) 40 mg PO DAILY [facility] Cholecalciferol (Vitamin D) 1,000 iu PO DAILY [facility] Cyanocobalamin (Vitamin B12 1000 Mcg Tab) 1,000 mcg PO BID [facility] Last Admin: 07/30/17 18:05 Dose: 1,000 mcg Folic Acid (Folic Acid) 1 mg PO DAILY [facility] Cefepime HCl (Maxipime 1gm) 1 gm in 100 mls @ 100 mls/hr IVPB Q12 [facility] PRN Reason: Protocol Last Admin: 07/30/17 21:19 Dose: 100 mls/hr Insulin Human Regular (Humulin R Low) 0 units SC ACHS [facility] PRN Reason: Protocol Last Admin: 07/31/17 08:18 Dose: 2 units Memantine (Namenda) 10 mg PO BID [facility] Last Admin: 07/30/17 18:20 Dose: 10 mg Metoprolol Tartrate (Lopressor) 25 mg PO BID [facility] Last Admin: 07/30/17 18:24 Dose: Not Given Dronedarone Hcl [ (Multaq] 400 Mg) 400 mg PO BID [facility] Last Admin: 07/30/17 18:45 Dose: Not Given Pantoprazole Sodium (Protonix Ec Tab) 40 mg PO 0600 [facility] Last Admin: 07/31/17 05:35 Dose: 40 mg Prednisone (Prednisone Tab) 5 mg PO DAILY [facility] Last Admin: 07/30/17 18:31 Dose: 5 mg Rivaroxaban (Xarelto) 20 mg PO DAILY [facility] PRN Reason: Protocol Tamsulosin HCl (Flomax) 0.4 mg PO DAILY [facility] Results - Vital Signs Recent Vital Signs: Last Vital Signs Temp 97.7 F 07/31/17 06:00 Pulse 49 L 07/31/17 06:00 Resp 20 07/31/17 06:00 BP 150/70 07/31/17 06:00 Pulse Ox 98 07/31/17 06:00 - Labs Result Diagrams: 07/31/17 06:46 07/31/17 06:46 Labs: Laboratory Results - last 24 hr 07/30/17 07/30/17 07/30/17 13:13 16:00 18:09 WBC RBC Hgb Hct MCV MCH MCHC RDW Plt Count MPV Gran % Lymph % (Auto) [place] % (Auto) Eos % (Auto) Baso % (Auto) Gran # Lymph # [place] # Eos # Baso # Sodium Potassium Chloride Carbon Dioxide Anion Gap BUN Creatinine Est GFR ( Amer) Est GFR (Non-Af Amer) POC Glucose (mg/dL) 63 L 130 H Random Glucose Calcium Phosphorus Magnesium Total Bilirubin AST ALT Alkaline Phosphatase Total Protein Albumin Globulin Albumin/Globulin Ratio Triglycerides Cholesterol LDL Cholesterol Direct HDL Cholesterol Prostate Specific Ag TSH 3rd Generation Blood Type AB POSITIVE Blood Type Confirm Antibody Screen Negative BBK History Checked Patient has bt 07/30/17 07/31/17 07/31/17 21:04 05:00 06:46 WBC RBC Hgb Hct MCV MCH MCHC RDW Plt Count MPV Gran % Lymph % (Auto) [place] % (Auto) Eos % (Auto) Baso % (Auto) Gran # Lymph # [place] # Eos # Baso # Sodium Potassium Chloride Carbon Dioxide Anion Gap BUN Creatinine Est GFR ( Amer) Est GFR (Non-Af Amer) POC Glucose (mg/dL) 221 H Random Glucose Calcium Phosphorus Magnesium Total Bilirubin AST ALT Alkaline Phosphatase Total Protein Albumin Globulin Albumin/Globulin Ratio Triglycerides Cholesterol LDL Cholesterol Direct HDL Cholesterol Prostate Specific Ag 0.2 TSH 3rd Generation 1.32 Blood Type Blood Type Confirm AB POSITIVE Antibody Screen BBK History Checked 07/31/17 07/31/17 07/31/17 06:46 06:46 07:42 WBC 6.8 D RBC 3.68 Hgb 10.3 L Hct 33.5 L MCV 91.0 MCH 28.0 MCHC 30.7 L RDW 14.7 H Plt Count 229 MPV 9.1 Gran % 70.9 H Lymph % (Auto) 16.5 L [place] % (Auto) 10.5 H Eos % (Auto) 2.0 Baso % (Auto) 0.1 Gran # 4.84 Lymph # 1.1 L [place] # 0.7 H Eos # 0.1 Baso # 0.01 Sodium 139 Potassium 4.4 Chloride 107 Carbon Dioxide 25 Anion Gap 11 BUN 26 H Creatinine 1.4 Est GFR ( Amer) 60 Est GFR (Non-Af Amer) 49 POC Glucose (mg/dL) 246 H Random Glucose 223 H Calcium 10.0 Phosphorus 2.5 Magnesium 1.9 Total Bilirubin 0.3 AST 24 ALT 27 Alkaline Phosphatase 68 Total Protein 6.0 Albumin 3.3 Globulin 2.7 Albumin/Globulin Ratio 1.2 Triglycerides 135 Cholesterol 105 L LDL Cholesterol Direct 47 HDL Cholesterol 30 Prostate Specific Ag TSH 3rd Generation Blood Type Blood Type Confirm Antibody Screen BBK History Checked Attending/Attestation - Attestation I have personally seen and examined this patient.: Yes I have fully participated in the care of the patient.: Yes I have reviewed all pertinent clinical information: Yes
--- NOTE | 2017-07-30 18:44 | CARD ---
APPROVED REPORT EKG Measurement Heart [id number] <Conclusion> Marked sinus bradycardia Right bundle branch block Left anterior fascicular block Bifascicular block Moderate voltage criteria for LVH, may be normal variant Abnormal ECG
[2017-07-30] MEDS: Cefepime 1gm in NS 100ml 1 GM/100 ML BAG IVPB SCH (21:19)
[2017-07-30 21:45] VITALS: BMI 22.1
--- NOTE | 2017-07-31 00:17 | CON ---
DATE: 07/30/2017 REASON FOR CONSULTATION: Followup cardiac evaluation, history of CVA, admitted with hypoglycemia, urinary tract infection, hypertension. BRIEF CLINICAL HISTORY: This is a 77-year-old male with past medical history significant for dementia, being followed by Dr. Perez; CVA and hypertension, being followed by Dr. Huerta; who took glipizide and Glucophage in the morning and did not wake up in the night. He was supposed to have the breakfast, but the patient did not wake up until 10:00 or11:00, by the time the ambulance came in to pick him up to take to Dr. Perez for office visit, but the patient was very weak and lethargic, tried to wake him up, but the EMT people found the patient very weak, so they refused to take to Dr. Perez's office and suggested to take to the emergency room. The patient was brought to the emergency room, found to have blood sugar 50, one amp of D50 was given, the patient woke up. The patient said that he feels he was awake, but his jaw got locked and so he was unable to talk and was very weak and lethargic. PAST MEDICAL HISTORY: Significant for diabetes, hypertension, hyperlipidemia, Alzheimer disease, history of CVA, multiple stroke with residual left-sided weakness, especially more in the lower extremity than upper extremity. PAST SURGICAL HISTORY: Significant for back surgery in 2010. ALLERGIES: POSSIBLE ALLERGY TO MORPHINE. THE PATIENT REFUSES ALLERGY, BUT IT IS DOCUMENTED IN THE CHART THAT HE IS PROBABLY ALLERGIC TO MORPHINE. CURRENT MEDICATIONS: The patient before coming to the emergency room was taking vitamin D3, B12, trazodone hydrochloride, Namenda, folic acid, Xarelto, metformin, glipizide, prednisone, metoprolol tartrate, atorvastatin, and amlodipine. SOCIAL HISTORY: Denies any history of alcohol abuse. REVIEW OF SYSTEMS: As per HPI. PHYSICAL EXAMINATION VITAL SIGNS: Temperature afebrile, heart rate 60, and blood pressure 142/55. HEENT: PERRLA, Intact. NECK: Supple. No carotid bruits. No thyromegaly. CHEST: Clear to auscultation. CARDIOPULMONARY: S1 and S2, regular. ABDOMEN: Soft. EXTREMITIES: Clubbing and cyanosis negative LABORATORY DATA: WBC 8.7, hemoglobin 10.7, hematocrit 34.4, platelet count 244. Chemistry shows sodium 142, potassium 4.2, chloride 111, carbon dioxide 24, anion gap of 11, BUN 20, creatinine 1.5. BNP 2630. Troponin negative. Urine looks large blood, trace leukocyte. Blood sugar 54 and . ASSESSMENT AND PLAN: A 77-year-old male with past medical history of diabetes, hypertension, hyperlipidemia, and cerebrovascular accident, admitted with hypoglycemia, probably worsened renal insufficiency precipitated as well as the urinary tract infection. Recommended broad spectrum antibiotics, ceron-culture and gentle hydration. Though BNP is elevated, but clinically the patient is not in failure. Echo to assess left ventricular function. We will get lipid profile, TSH, and hemoglobin A1c. Also, chest x-ray is consistent with more emphysematous chest. We will follow with you. Thank you Dr. Garcia for providing us the opportunity in taking care of Yaakov Benymontrell. Charo Coto MD
[2017-07-31] MEDS: Dextrose 5%/0.45% NS 1,000 ML IV SCH (03:03)
[2017-07-31] MEDS ORDERED: Pantoprazole 40 mg EC Tab PO SCH (06:00)
[2017-07-31 07:04] LABS: BASO # 0.01 K/mm3 (0.0-2.0); BASO % 0.1 % (0.0-3.0); EOS # 0.1 (0.0-0.7); GRAN # 4.84 (1.4-6.5); GRAN % 70.9 % (50.0-68.0); HEMATOCRIT 33.5 % (42.0-52.0); LYMPH # 1.1 (1.2-3.4); LYMPH % 16.5 % (22.0-35.0); MEAN CORPUSCULAR HGB CONC 30.7 g/dl (31.0-37.0); MEAN PLATELET VOLUME 9.1 fl (7.0-11.0); MONO # 0.7 (0.1-0.6); MONO % 10.5 % (1.0-6.0); RED CELL DISTRIBUTION WIDTH 14.7 % (11.5-14.5); WHITE BLOOD COUNT 6.8 10^3/ul (4.5-11.0)
[2017-07-31 07:14] LABS: ALB/GLOB RATIO 1.2 (1.1-1.8); BILIRUBIN,TOTAL 0.3 mg/dL (0.2-1.3); MAGNESIUM 1.9 mg/dL (1.7-2.2); PHOSPHOROUS 2.5 mg/dL (2.5-4.5); POTASSIUM 4.4 mmol/L (3.6-5.0)
[2017-07-31 07:41] LABS: PROSTATE SPECIFIC ANTIGEN 0.2 ng/mL (0.00-2.5); THYROID STIMULATING HORMONE 1.32 mIU/mL (0.46-4.68)
[2017-07-31] MEDS: Insulin Reg-LOW-Coverage SC SCH ×2 (08:18→12:24)
[2017-07-31 09:46] VITALS: BP 150/70; PULSE 49; RESP 20; TEMP 97.7; O2SAT 98
[2017-07-31] MEDS: Cefepime 1gm in NS 100ml 1 GM/100 ML BAG IVPB SCH (10:29)
[2017-07-31] MEDS ORDERED: Home Med 1 UNIT PO SCH (11:00)
--- NOTE | 2017-07-31 12:20 | CP.PCM.CON ---
History of Present Illness - History of Present Illness History of Present Illness: 77 year old male with PMH of HTN, DM, atrial fibrillation on anticoagulation, CVA, S/P left hip and back surgery was brought in to [facility] because of lethargy. In the ED, he was found to be hypoglycemic and was given D50 and improved. Work up was done in the ED, which showing pyuria. Infectious Diseases consult is requested to further evaluate and manage. Currently the patient is resting comfortably in bed, no fever or chills, no nausea or vomiting , no hematuria, no dysuria, has some urinary frequency, no flank pain, no SOB, no cough or colds, no headache or dizziness. Review of Systems - Review of Systems All systems: reviewed and no additional remarkable complaints except (as per HPI ) Past Patient History - Infectious Disease Hx of Infectious Diseases: None - Tetanus Immunizations Tetanus Immunization: Up to Date - Past Social History Smoking Status: Never Smoked - CARDIAC Hx Cardia Arrhythmia: Yes (Afib) Hx Hypertension: Yes Hx Pacemaker: No - NEUROLOGICAL HX Cerebrovascular Accident: Yes (x 3) Hx Dementia: Yes - ENDOCRINE/METABOLIC Hx Diabetes Mellitus Type 2: Yes - HEMATOLOGICAL/ONCOLOGICAL Hx Blood Transfusions: (pt unable to verify) Hx Blood Transfusion Reaction: (pt unable to verify) - MUSCULOSKELETAL/RHEUMATOLOGICAL Hx Musculoskeletal Disorders: Yes - PSYCHIATRIC Hx Depression: No Hx Emotional Abuse: No Hx Physical Abuse: No Hx Substance Use: No - SURGICAL HISTORY Hx Orthopedic Surgery: Yes (titanium bess in back, left hip) - ANESTHESIA Hx Anesthesia Reactions: (pt unable to verify) Hx Malignant Hyperthermia: (pt unable to verify) Meds Allergies/Adverse Reactions: Allergies Allergy/AdvReac Type Severity Reaction Status Date / Time morphine Allergy DIZZINESS Verified 07/30/17 19:39 - Medications Medications: Current Medications Amlodipine Besylate (Norvasc) 10 mg PO DAILY [facility] Atorvastatin Calcium (Lipitor) 40 mg PO DAILY [facility] Dextrose/Sodium Chloride (Dextrose 5%/0.45% Ns 1000 Ml) 1,000 mls @ 100 mls/hr IV .Q10H [facility] Last Admin: 07/30/17 13:13 Dose: 100 mls/hr Cefepime HCl (Maxipime 1gm) 1 gm in 100 mls @ 100 mls/hr IVPB Q12 [facility] PRN Reason: Protocol Insulin Human Regular (Humulin R Low) 0 units SC ACHS [facility] PRN Reason: Protocol Memantine (Namenda) 10 mg PO BID [facility] Metoprolol Tartrate (Lopressor) 25 mg PO BID [facility] Dronedarone Hcl [ (Multaq] 400 Mg) 400 mg PO BID [facility] Rivaroxaban (Xarelto) 20 mg PO DAILY [facility] PRN Reason: Protocol Physical Exam - Constitutional Appears: Non-toxic, No Acute Distress - Head Exam Head Exam: NORMAL INSPECTION - ENT Exam ENT Exam: Mucous Membranes Moist - Neck Exam Neck exam: Negative for: Lymphadenopathy, Meningismus - Respiratory Exam Respiratory Exam: Decreased Breath Sounds - Cardiovascular Exam Cardiovascular Exam: +S1, +S2 - GI/Abdominal Exam GI & Abdominal Exam: Soft. absent: Tenderness Results - Vital Signs Recent Vital Signs: Last Vital Signs Temp 98.4 F 07/30/17 11:20 Pulse 42 L 07/30/17 13:18 Resp 14 07/30/17 13:18 BP 137/55 L 07/30/17 13:18 Pulse Ox 99 07/30/17 13:18 - Labs Result Diagrams: 07/31/17 06:46 07/31/17 06:46 Assessment & Plan - Assessment and Plan (Free Text) Plan: Assessment consider urinary tract infection in this patient with multiple non-obstructing renal calculi S/P hypoglycemic episode with encephalopathy HTN DM atrial fibrillation on anticoagulation CVA S/P left hip and back surgery Plan Started Cefepime pending blood and urine cx; PSA levels are normal; reviewed renal ultrasound which showed the kidney stones will monitor clinically
--- NOTE | 2017-07-31 14:09 | CP.PCM.PN ---
<SHAWN PURVIS - Last Filed: 07/31/17 14:22> Subjective - Date & Time of Evaluation Date of Evaluation: 07/31/17 Time of Evaluation: 10:25 - Subjective Subjective: patient was seen and examined bedside. the is not bedside today. the patient offers no complaints of cp, sob, fevers, n/v/d, coughs, hematuria or abd pain. Objective - Vital Signs/Intake and Output Vital Signs (last 24 hours): Temp Pulse Resp BP Pulse Ox 97.7 F 49 L 20 150/70 98 07/31/17 06:00 07/31/17 06:00 07/31/17 06:00 07/31/17 10:28 07/31/17 06:00 - Medications Medications: Current Medications Amlodipine Besylate (Norvasc) 10 mg PO DAILY [facility] Last Admin: 07/31/17 10:28 Dose: 10 mg Atorvastatin Calcium (Lipitor) 40 mg PO DAILY [facility] Last Admin: 07/31/17 10:28 Dose: 40 mg Cholecalciferol (Vitamin D) 1,000 iu PO DAILY [facility] Last Admin: 07/31/17 10:28 Dose: 1,000 iu Cyanocobalamin (Vitamin B12 1000 Mcg Tab) 1,000 mcg PO BID [facility] Last Admin: 07/31/17 10:29 Dose: 1,000 mcg Folic Acid (Folic Acid) 1 mg PO DAILY [facility] Last Admin: 07/31/17 10:30 Dose: 1 mg Home Med (Home Med) 1 unit PO BID [facility] Last Admin: 07/31/17 11:09 Dose: 1 unit Cefepime HCl (Maxipime 1gm) 1 gm in 100 mls @ 100 mls/hr IVPB Q12 [facility] PRN Reason: Protocol Last Admin: 07/31/17 10:29 Dose: 100 mls/hr Insulin Human Regular (Humulin R Low) 0 units SC ACHS [facility] PRN Reason: Protocol Last Admin: 07/31/17 12:24 Dose: 1 units Memantine (Namenda) 10 mg PO BID [facility] Last Admin: 07/31/17 10:29 Dose: 10 mg Metoprolol Tartrate (Lopressor) 25 mg PO BID [facility] Last Admin: 07/31/17 10:29 Dose: 25 mg Pantoprazole Sodium (Protonix Ec Tab) 40 mg PO 0600 [facility] Last Admin: 07/31/17 05:35 Dose: 40 mg Prednisone (Prednisone Tab) 5 mg PO DAILY [facility] Last Admin: 07/31/17 10:29 Dose: 5 mg Rivaroxaban (Xarelto) 20 mg PO DAILY [facility] PRN Reason: Protocol Last Admin: 07/31/17 10:29 Dose: 20 mg Tamsulosin HCl (Flomax) 0.4 mg PO DAILY [facility] Last Admin: 07/31/17 10:29 Dose: 0.4 mg - Labs Labs: PT 12.4 Seconds (9.9-11.8) H 07/30/17 11:45 INR 1.15 (0.93-1.08) H 07/30/17 11:45 APTT 29.7 Seconds (23.7-30.8) 07/30/17 11:45 - Additional Findings Additional findings: - Constitutional Appears: Well, No Acute Distress, Confused, Chronically Ill - Head Exam Head Exam: ATRAUMATIC, NORMAL INSPECTION - Eye Exam Eye Exam: EOMI, Normal appearance, PERRL Pupil Exam: NORMAL ACCOMODATION - ENT Exam ENT Exam: Mucous Membranes Dry, Normal Exam - Neck Exam Neck exam: Positive for: Normal Inspection - Respiratory Exam Respiratory Exam: Clear to Auscultation Bilateral, NORMAL BREATHING PATTERN. absent: Accessory Muscle Use, Rales, Wheezes, Respiratory Distress - Cardiovascular Exam Cardiovascular Exam: Bradycardia, REGULAR RHYTHM, +S1, +S2 - GI/Abdominal Exam GI & Abdominal Exam: Normal Bowel Sounds, Soft. absent: Distended, Guarding, Rebound, Tenderness - Extremities Exam Extremities exam: Positive for: normal inspection. Negative for: pedal edema - Back Exam Additional comments: kyphosis noted - Neurological Exam Neurological exam: Alert Additional comments: gait was not assessed Memory Loss-Recent Event, Tremor (R hand pill-rolling tremor at rest) Oriented to person only, fluid Speech - Psychiatric Exam Psychiatric exam: Normal Affect, Normal Mood - Skin Skin Exam: Normal Color, Warm Additional comments: multiple areas of ecchymosis wearing adult diaper Assessment and Plan - Assessment and Plan (Free Text) Assessment: 77 yo M with PMH DM2, CVA, HTN, Dementia, AFib, Anemia of chronic dz, B12 def, PMR and prior falls who presents w/ AMS and trouble waking up from sleep. Patient found to have FS 54 in ED and improved after 1 amp of D50. AMS likely 2/ 2 hypoglycemia r/o CVA. Anemia is likely secondary due to B12 deficiency vs chronic disease. Cr elevation likely 2/2 WINDY due to dehydration. UA shows UTI. Plan: 1. AMS likely 2/2 hypoglycemia (less likely CVA or dementia) - mental status improved to baseline - metformin held, especially in setting of WINDY - A1C 6.8 - given A1C, the patient may not need to be on dual anti-glycemic agents ( Metformin and Glipizide) - ISS - FS QACHS - no focal deficits so CVA is unlikely - High fall risk - PT eval - Neurology consulted, recs appreciated - echo ordered, f/u results 2. WINDY - likely due to dehydration - D5 1/2 NS @ 100 - monitor renal function - cont to measure I/O - improving 3. UTI - cont cefepime d2 - blood and urine cx show no growth after 24 hrs - procal ordered, f/u results - ID consulted, recs appreciated 4. Bradycardia (pt at baseline) - chronic - monitor for any changes - cardiology consulted, recs appreciated 5. Hypocalcemia - cont vit D - start calcium supp 6. Hx HTN - cont Norvasc, Metoprolol 7. Anemia - likely 2/2 B12 deficiency - macrocytic anemia - cont folic acid and B12 8. BPH - salcedo inserted - cont Flomax - renal U/S showed no hydronephrosis, multiple R renal calculi (largest 10mm) 9. Dementia - cont home meds - neurology consulted, recs appreciated HHD Xarelto/PTX Patient was seen, evaluated and discussed with attending, Dr. Jose Purvis PGY1 <Kirti Garcia - Last Filed: 07/31/17 17:32> Objective - Vital Signs/Intake and Output Vital Signs (last 24 hours): Temp Pulse Resp BP Pulse Ox 97.7 F 49 L 20 150/70 98 07/31/17 06:00 07/31/17 06:00 07/31/17 06:00 07/31/17 10:28 07/31/17 06:00 Intake and Output: 07/31/17 07/31/17 06:59 18:59 Intake Total 1740 Output Total 400 Balance 1340 - Medications Medications: Current Medications Amlodipine Besylate (Norvasc) 10 mg PO DAILY [facility] Last Admin: 07/31/17 10:28 Dose: 10 mg Atorvastatin Calcium (Lipitor) 40 mg PO DAILY [facility] Last Admin: 07/31/17 10:28 Dose: 40 mg Cholecalciferol (Vitamin D) 1,000 iu PO DAILY [facility] Last Admin: 07/31/17 10:28 Dose: 1,000 iu Cyanocobalamin (Vitamin B12 1000 Mcg Tab) 1,000 mcg PO BID [facility] Last Admin: 07/31/17 10:29 Dose: 1,000 mcg Folic Acid (Folic Acid) 1 mg PO DAILY [facility] Last Admin: 07/31/17 10:30 Dose: 1 mg Home Med (Home Med) 1 unit PO BID [facility] Last Admin: 07/31/17 11:09 Dose: 1 unit Cefepime HCl (Maxipime 1gm) 1 gm in 100 mls @ 100 mls/hr IVPB Q12 [facility] PRN Reason: Protocol Last Admin: 07/31/17 10:29 Dose: 100 mls/hr Insulin Human Regular (Humulin R Low) 0 units SC ACHS [facility] PRN Reason: Protocol Last Admin: 07/31/17 12:24 Dose: 1 units Memantine (Namenda) 10 mg PO BID [facility] Last Admin: 07/31/17 10:29 Dose: 10 mg Metoprolol Tartrate (Lopressor) 25 mg PO BID [facility] Last Admin: 07/31/17 10:29 Dose: 25 mg Pantoprazole Sodium (Protonix Ec Tab) 40 mg PO 0600 [facility] Last Admin: 07/31/17 05:35 Dose: 40 mg Prednisone (Prednisone Tab) 5 mg PO DAILY [facility] Last Admin: 07/31/17 10:29 Dose: 5 mg Rivaroxaban (Xarelto) 20 mg PO DAILY [facility] PRN Reason: Protocol Last Admin: 07/31/17 10:29 Dose: 20 mg Tamsulosin HCl (Flomax) 0.4 mg PO DAILY [facility] Last Admin: 07/31/17 10:29 Dose: 0.4 mg - Labs Labs: 07/31/17 06:46 07/31/17 06:46 PT 12.4 Seconds (9.9-11.8) H 07/30/17 11:45 INR 1.15 (0.93-1.08) H 07/30/17 11:45 APTT 29.7 Seconds (23.7-30.8) 07/30/17 11:45 Attending/Attestation - Attestation I have personally seen and examined this patient.: Yes I have fully participated in the care of the patient.: Yes I have reviewed all pertinent clinical information, including history, physical exam and plan: Yes Notes (Text): 07/31/17 17:30 attending note; Patient seen and examined with resident. Patient is a 77yo Male with PMH DM2, CVA, HTN, Dementia, AFib, Anemia , B12 def, and polymyalgia rheumatica who presents with AMS. The patient was found to have hypoglycemia with fingerstick of 51. hypoglycemia and acute kidney injury resolved; treated with IV fluids. Advised to stop metformin. Started on glipizide only if fingerstick is [id number] and patient is able to take adequate diet. Patient's mental status improved. Baseline dementia.CT head is negative for acute infarct.neurology evaluation appreciated. Cardiology evaluation appreciated. urine culture, blood culture is negative. Patient will be discharged home. Follow-up with PMD . diagnosis; Hypoglycemia History of CVA Diabetes Bedbound Anemia Atrial fibrilation
--- NOTE | 2017-07-31 16:22 | CARD ---
APPROVED REPORT EXAM: Two-dimensional and M-mode echocardiogram with Doppler and color Doppler. INDICATION CVA/TIA Congestive Heart Failure 2D DIMENSIONS Left Atrium (2D)4.1 (1.6-4.0cm)IVSd1.1 (0.7-1.1cm) LVDd5.2 (3.9-5.9cm)PWd1.3 (0.7-1.1cm) M-Mode DIMENSIONS Aortic Root3.40 (2.2-3.7cm)Aortic Cusp Exc.1.50 (1.5-2.0cm) Aortic Valve AoV Peak Kxpkxbvk925.0cm/Katelyn Peak GR.6mmHg Mitral Valve MV E Dhznwpsl67.6cm/sMV A Kqtmdloi39.0cm/sE/A ratio0.9 TDI Lateral E' Peak V7.21cm/sE/Lateral E'9.2E/Medial E'0.0 Pulmonary Valve PV Peak Hdzmeyol09.7cm/sPV Peak Grad.2mmHg Tricuspid Valve TR Peak Vqgifzcd167um/sRAP QPNNRMGB18qzQrTX Peak Gr.11mmHg [id number] LEFT VENTRICLE The left ventricle is normal size. There is mild concentric left ventricular hypertrophy. The systolic function is mildly impaired.EF-40-45% There is normal LV segmental wall motion. Transmitral Doppler flow pattern is Grade III-reversible restrictive diastolic dysfunction. No left ventricle thrombus noted on this study. There is no ventricular septal defect visualized. There is no left ventricular aneurysm. There is no mass noted in the left ventricle. RIGHT VENTRICLE The right ventricle is normal size. There is normal right ventricular wall thickness. The right ventricular systolic function is normal. ATRIA The left atrium is borderline dilated. The right atrium size is normal. The interatrial septum is intact with no evidence for an atrial septal defect. AORTIC VALVE The aortic valve is calcified and displays decreased opening. There is trace to mild aortic regurgitation. Aortic Sclerosis Vs Mild There is no aortic valvular vegetation. MITRAL VALVE The mitral valve is thickened but opens well. Mitral regurgitation is mild. There is no mitral valve stenosis. There is no evidence of mitral valve prolapse. TRICUSPID VALVE The tricuspid valve leaflets are thickened , but open well. There is trace tricuspid regurgitation.RVSP-21 mmof Hg. There is no tricuspid valve stenosis. There is no tricuspid valve prolapse or vegetation. PULMONIC VALVE The pulmonary valve is normal in structure. There is no pulmonic valvular regurgitation. There is no pulmonic valvular stenosis. GREAT VESSELS The aortic root is normal in size. The ascending aorta is normal in size. The pulmonary artery is normal. The IVC is normal in size and collapses >50% with inspiration. PERICARDIAL EFFUSION There is no pleural effusion. There is no pericardial effusion. <Conclusion> The left ventricle is normal size. There is mild concentric left ventricular hypertrophy. The systolic function is mildly impaired.EF-40-45% There is trace to mild aortic regurgitation. Aortic Sclerosis Vs Mild There is trace tricuspid regurgitation.RVSP-21 mmof Hg. No Vegetation or thrombus noted
--- NOTE | 2017-07-31 17:57 | CP.PCM.PN ---
<Jose Sparks - Last Filed: 07/31/17 19:09> Subjective - Date & Time of Evaluation Date of Evaluation: 07/31/17 Time of Evaluation: 10:00 - Subjective Subjective: Neurology Progress Note for Dr. Diaz Service Patient seen and examined at bedside. No acute events overnight. Resting comfortably in bed. Still only oriented to self and location, remains pleasantly demented with wandering thought content. No acute complaints, denies shortness of breath, chest pain, vision changes, or feeling of pending syncope. Objective - Vital Signs/Intake and Output Vital Signs (last 24 hours): Temp Pulse Resp BP Pulse Ox 97.7 F 49 L 20 150/70 98 07/31/17 06:00 07/31/17 06:00 07/31/17 06:00 07/31/17 10:28 07/31/17 06:00 Intake and Output: 07/31/17 07/31/17 06:59 18:59 Intake Total 1740 Output Total 400 Balance 1340 - Medications Medications: Current Medications Amlodipine Besylate (Norvasc) 10 mg PO DAILY [facility] Last Admin: 07/31/17 10:28 Dose: 10 mg Atorvastatin Calcium (Lipitor) 40 mg PO DAILY [facility] Last Admin: 07/31/17 10:28 Dose: 40 mg Cholecalciferol (Vitamin D) 1,000 iu PO DAILY [facility] Last Admin: 07/31/17 10:28 Dose: 1,000 iu Cyanocobalamin (Vitamin B12 1000 Mcg Tab) 1,000 mcg PO BID [facility] Last Admin: 07/31/17 10:29 Dose: 1,000 mcg Folic Acid (Folic Acid) 1 mg PO DAILY [facility] Last Admin: 07/31/17 10:30 Dose: 1 mg Home Med (Home Med) 1 unit PO BID [facility] Last Admin: 07/31/17 11:09 Dose: 1 unit Cefepime HCl (Maxipime 1gm) 1 gm in 100 mls @ 100 mls/hr IVPB Q12 [facility] PRN Reason: Protocol Last Admin: 07/31/17 10:29 Dose: 100 mls/hr Insulin Human Regular (Humulin R Low) 0 units SC ACHS [facility] PRN Reason: Protocol Last Admin: 07/31/17 12:24 Dose: 1 units Memantine (Namenda) 10 mg PO BID [facility] Last Admin: 07/31/17 10:29 Dose: 10 mg Metoprolol Tartrate (Lopressor) 25 mg PO BID [facility] Last Admin: 07/31/17 10:29 Dose: 25 mg Pantoprazole Sodium (Protonix Ec Tab) 40 mg PO 0600 [facility] Last Admin: 07/31/17 05:35 Dose: 40 mg Prednisone (Prednisone Tab) 5 mg PO DAILY [facility] Last Admin: 07/31/17 10:29 Dose: 5 mg Rivaroxaban (Xarelto) 20 mg PO DAILY [facility] PRN Reason: Protocol Last Admin: 07/31/17 10:29 Dose: 20 mg Tamsulosin HCl (Flomax) 0.4 mg PO DAILY [facility] Last Admin: 07/31/17 10:29 Dose: 0.4 mg - Labs Labs: 07/31/17 06:46 07/31/17 06:46 PT 12.4 Seconds (9.9-11.8) H 07/30/17 11:45 INR 1.15 (0.93-1.08) H 07/30/17 11:45 APTT 29.7 Seconds (23.7-30.8) 07/30/17 11:45 - Additional Findings Additional findings: - Constitutional Appears: Non-toxic, No Acute Distress - Head Exam Head Exam: ATRAUMATIC, NORMAL INSPECTION, NORMOCEPHALIC - Eye Exam Eye Exam: EOMI, Normal appearance. absent: Conjunctival injection, Nystagmus, Scleral icterus - ENT Exam ENT Exam: Mucous Membranes Moist - Neck Exam Neck exam: Positive for: Full Rom - Respiratory Exam Respiratory Exam: Clear to Auscultation Bilateral, NORMAL BREATHING PATTERN. absent: Accessory Muscle Use, Chest Wall Tenderness, Decreased Breath Sounds, Rales, Rhonchi, Wheezes - Cardiovascular Exam Cardiovascular Exam: Irregular Rhythm, Bradycardic +S1, +S2. absent: Tachycardia, REGULAR RHYTHM, JVD, RRR, +S4 - GI/Abdominal Exam GI & Abdominal Exam: Normal Bowel Sounds, Soft. absent: Diminished Bowel Sounds , Distended, Firm, Hyperactive Bowel Sounds, Hypoactive Bowel Sounds, Rigid, Tenderness - Extremities Exam Extremities exam: Positive for: normal capillary refill, normal inspection, pedal pulses present (+2 radials, faintly palpable dorsalis pedis bilaterally). Negative for: calf tenderness, joint swelling, pedal edema, tenderness - Neurological Exam awake and alert, following all commands appropriately, moving all extremities spontaneously motor strength 5/5 for RLE, RUE, LUE, and bilateral corporate development associate; 3/5 for LLE - Psychiatric Exam Psychiatric exam: Normal Affect, Normal Mood, Pleasantly demented - Skin Skin Exam: Dry, Intact, Warm multiple scattered echymosis along bilateral arms Assessment and Plan - Assessment and Plan (Free Text) Assessment: This is a 77 yo M with PMH of AFib on Xarelto, DM, RA, 3x CVA, and Dementia who was sent to [facility] [place] after becoming increasingly somnolent and unarousable. He was found to be hypoglycemic to the 50's, but after given an amp of D50 and increasing his blood glucose, his symptoms appear to have improved. His altered mental status is mostly likely 2/2 acute hypoglycemia in the setting of poor PO intake while on Glipizide. May also have been underlying cardiac factor as he has been fluctuating bradycardic to the 40's, which is not his baseline per prior charting. He has a history of multiple prior CVAs and residual LLE weakness, which appears to be at baseline. Otherwise no clear sided-deficits. CT head was negative for acute process. His alertness and mentation have remained stable since the resolution of his hypoglycemia. Neurologically stable at this time, will sign off. Plan: 1) ASA and Lipitor for stroke prevention, already on Xarelto for AC in setting of AFib 2) Continue home Namenda for Dementia, avoid any Aricept in given his current Bradycardia 3) Maintain Blood glucose 140-180; reviewed need to maintain PO intake while on oral hypoglycemia agents with patient 4) F/u Cardio's recs for Bradycardia 5) PT/OT Patient reviewed and discussed with attending, Dr. Diaz. <Andrey Diaz - Last Filed: 07/31/17 22:35> Objective - Vital Signs/Intake and Output Vital Signs (last 24 hours): Temp Pulse Resp BP Pulse Ox 97.7 F 49 L 20 150/70 98 07/31/17 06:00 07/31/17 06:00 07/31/17 06:00 07/31/17 10:28 07/31/17 06:00 - Labs Labs: 07/31/17 06:46 07/31/17 06:46 PT 12.4 Seconds (9.9-11.8) H 09/21/17 11:45 INR 1.15 (0.93-1.08) H 07/30/17 11:45 APTT 29.7 Seconds (23.7-30.8) 07/30/17 11:45 Attending/Attestation - Attestation I have personally seen and examined this patient.: Yes I have fully participated in the care of the patient.: Yes I have reviewed all pertinent clinical information, including history, physical exam and plan: Yes
--- NOTE | 2017-08-01 11:35 | CP.PCM.DIS ---
<SHAWN LOCK - Last Filed: 08/01/17 11:41> Provider - Provider Date of Admission: 07/30/17 13:10 Attending physician: Kirti Garcia MD Primary care physician: Charo Huerta MD Time Spent in preparation of Discharge (in minutes): 45 Hospital Course - Lab Results Lab Results: Most Recent Lab Values WBC 6.8 10^3/ul (4.5-11.0) D 07/31/17 06:46 RBC 3.68 10^6/uL (3.5-6.1) 07/31/17 06:46 Hgb 10.3 g/dL (14.0-18.0) L 07/31/17 06:46 Hct 33.5 % (42.0-52.0) L 07/31/17 06:46 MCV 91.0 fl (80.0-105.0) 07/31/17 06:46 MCH 28.0 pg (25.0-35.0) 07/31/17 06:46 MCHC 30.7 g/dl (31.0-37.0) L 07/31/17 06:46 RDW 14.7 % (11.5-14.5) H 07/31/17 06:46 Plt Count 229 10^3/uL (120.0-450.0) 07/31/17 06:46 MPV 9.1 fl (7.0-11.0) 07/31/17 06:46 Gran % 70.9 % (50.0-68.0) H 07/31/17 06:46 Lymph % (Auto) 16.5 % (22.0-35.0) L 07/31/17 06:46 [place] % (Auto) 10.5 % (1.0-6.0) H 07/31/17 06:46 Eos % (Auto) 2.0 % (1.5-5.0) 07/31/17 06:46 Baso % (Auto) 0.1 % (0.0-3.0) 07/31/17 06:46 Gran # 4.84 (1.4-6.5) 07/31/17 06:46 Lymph # 1.1 (1.2-3.4) L 07/31/17 06:46 [place] # 0.7 (0.1-0.6) H 07/31/17 06:46 Eos # 0.1 (0.0-0.7) 07/31/17 06:46 Baso # 0.01 K/mm3 (0.0-2.0) 07/31/17 06:46 PT 12.4 Seconds (9.9-11.8) H 07/30/17 11:45 INR 1.15 (0.93-1.08) H 07/30/17 11:45 APTT 29.7 Seconds (23.7-30.8) 07/30/17 11:45 pO2 52 mm/Hg (30-55) 07/30/17 11:45 VBG pH 7.32 (7.32-7.43) 07/30/17 11:45 VBG pCO2 48.0 (40-60) 07/30/17 11:45 VBG HCO3 24.7 mmol/l (21-28) 07/30/17 11:45 VBG Total CO2 26.2 mmol.L (22-28) 07/30/17 11:45 VBG O2 Sat (Calc) 92.4 % (40-65) H 07/30/17 11:45 VBG Base Excess -1.8 mmol/L (0.0-2.0) L 07/30/17 11:45 VBG Potassium 4.2 mmol/L (3.6-5.2) 07/30/17 11:45 Sodium 139.0 mmol/L (132-148) 07/30/17 11:45 Chloride 112.0 mmol/L (98-107) H 07/30/17 11:45 Glucose 53 mg/dl (75-110) L 07/30/17 11:45 Lactate 0.7 mmol/L (0.7-2.1) 07/30/17 11:45 FiO2 21.0 % 07/30/17 11:45 Sodium 139 mmol/L (132-148) 07/31/17 06:46 Potassium 4.4 mmol/L (3.6-5.0) 07/31/17 06:46 Chloride 107 mmol/L (98-107) 07/31/17 06:46 Carbon Dioxide 25 mmol/L (21-33) 07/31/17 06:46 Anion Gap 11 (10-20) 07/31/17 06:46 BUN 26 mg/dL (7-21) H 07/31/17 06:46 Creatinine 1.4 mg/dL (0.5-1.4) 07/31/17 06:46 Est GFR ( Amer) 60 07/31/17 06:46 Est GFR (Non-Af Amer) 49 07/31/17 06:46 POC Glucose (mg/dL) 163 mg/dL (65-110) H 07/31/17 11:13 Random Glucose 223 mg/dL (70-110) H 07/31/17 06:46 Hemoglobin A1c 6.8 % (4.2-6.5) H 07/31/17 06:46 Calcium 10.0 mg/dL (8.4-10.5) 07/31/17 06:46 Phosphorus 2.5 mg/dL (2.5-4.5) 07/31/17 06:46 Magnesium 1.9 mg/dL (1.7-2.2) 07/31/17 06:46 Total Bilirubin 0.3 mg/dL (0.2-1.3) 07/31/17 06:46 AST 24 U/L (17-59) 07/31/17 06:46 ALT 27 U/L (7-56) 07/31/17 06:46 Alkaline Phosphatase 68 U/L (38-126) 07/31/17 06:46 Troponin I < 0.01 ng/mL 07/30/17 11:45 NT-Pro-B Natriuret Pep 2630 pg/mL (0-450) H 07/30/17 11:45 Total Protein 6.0 g/dL (5.8-8.3) 07/31/17 06:46 Albumin 3.3 g/dL (3.0-4.8) 07/31/17 06:46 Globulin 2.7 gm/dL 07/31/17 06:46 Albumin/Globulin Ratio 1.2 (1.1-1.8) 07/31/17 06:46 Triglycerides 135 mg/dL (35-160) 07/31/17 06:46 Cholesterol 105 mg/dL (130-200) L 07/31/17 06:46 LDL Cholesterol Direct 47 mg/dL (0-129) 07/31/17 06:46 HDL Cholesterol 30 mg/dL (29-60) 07/31/17 06:46 Prostate Specific Ag 0.2 ng/mL (0.00-2.5) 07/31/17 06:46 Procalcitonin 0.07 NG/ML (0.19-0.49) L 07/30/17 11:45 TSH 3rd Generation 1.32 mIU/mL (0.46-4.68) 07/31/17 06:46 Venous Blood Potassium 4.2 mmol/L (3.6-5.2) 07/30/17 11:45 Urine Color Yellow (YELLOW) 07/30/17 11:56 Urine Appearance Clear (CLEAR) 07/30/17 11:56 Urine pH 6.0 (4.7-8.0) 07/30/17 11:56 Ur Specific [place] 1.020 (1.005-1.035) 07/30/17 11:56 Urine Protein 100 mg/dL (<30 mg/dL) H 07/30/17 11:56 Urine Glucose (UA) Negative mg/dL (NEGATIVE) 07/30/17 11:56 Urine Ketones Negative mg/dL (NEGATIVE) 07/30/17 11:56 Urine Blood Large (NEGATIVE) H 07/30/17 11:56 Urine Nitrate Negative (NEGATIVE) 07/30/17 11:56 Urine Bilirubin Negative (NEGATIVE) 07/30/17 11:56 Urine Urobilinogen 0.2 E.U./dL (<1 E.U./dL) 07/30/17 11:56 Ur Leukocyte Esterase Trace Isaías/uL (NEGATIVE) H 07/30/17 11:56 Urine RBC 1 - 3 /hpf (0-2) 07/30/17 11:56 Urine WBC Tntc /hpf (0-6) 07/30/17 11:56 Urine Bacteria Few (NEG) 07/30/17 11:56 Blood Type AB POSITIVE 07/30/17 13:13 Blood Type Confirm AB POSITIVE 07/31/17 05:00 Antibody Screen Negative 07/30/17 13:13 BBK History Checked Patient has bt 07/30/17 13:13 - Hospital Course Hospital Course: Mr. Cox is a 77yo Male with PMH DM2, CVA, HTN, Dementia, AFib, Anemia, B12 def, and polymyalgia rheumatica who presents with AMS and difficulty arising from sleep this morning. Pt is altered at baseline due to dementia and HPI was obtained through who is bedside. states that the pt woke up to get some water and went back to sleep, and then was lethargic and would not wake up after. Pt was scheduled for a neurology outpatient appointment this morning w/ Dr. Perez, and was getting picked up by the ambulance and so the ambulance instead took the patient to the ED. On presentation, the pt's FS was 54, and he was given D50 x1 amp in ED. Pt now more awake and at baseline, per . When asked about eating, the states that there are times when the pt will not eat dinner because he doesn't want to or because he doesn't like the food, and that it is those times that he has these hypoglycemic episodes, which he has had in the past. The states that the pt is wheelchair bound due to dementia, and that his hx of CVA, which she states was " 3 mini strokes" left no focal deficits. CT head was done and showed no acute intracranial hemorrhage, but was positive for moderate to significant central volume loss. Patient was transferred to remote Telemetry unit for closer monitoring. Cardiology was consulted. Echo was done and showed mild concentric left ventricular hypertrophy, and EF of 40 to 45%. ID was consulted for a possible UTI, and started on antibiotics. Neurology was also consulted due to the AMS and history of dementia. A renal ultrasound was done And showed no obstructive uropathy but was positive for multiple intrarenal calculi b/l. PT evaluated the patient and recommended home with Services as patient has who takes close care of him at home full-time. Patient was cleared for discharge and on the morning of the discharge, the patient had no complaints and had returned to baseline. Urine cultures showed that there was no bacterial growth and UTI was ruled out. Patient was cleared by ID for discharge on no PO antibiotics. Patient is to follow up with his PMD in 3 days, and due to his optimal A1c, the team recommended that he hold metformin and continue with only Glipizide if his finger stick is above 160 to avoid hypoglycemic episodes. Patient is encouraged to increase his PO intake. Also patient should follow up with Dr. Perez for continued dementia management. Discharge Exam - Additional Findings Additional findings: - Constitutional Appears: Well, No Acute Distress, Confused, Chronically Ill - Head Exam Head Exam: ATRAUMATIC, NORMAL INSPECTION - Eye Exam Eye Exam: EOMI, Normal appearance, PERRL Pupil Exam: NORMAL ACCOMODATION - ENT Exam ENT Exam: Mucous Membranes Dry, Normal Exam - Neck Exam Neck exam: Positive for: Normal Inspection - Respiratory Exam Respiratory Exam: Clear to Auscultation Bilateral, NORMAL BREATHING PATTERN. absent: Accessory Muscle Use, Rales, Wheezes, Respiratory Distress - Cardiovascular Exam Cardiovascular Exam: Bradycardia, REGULAR RHYTHM, +S1, +S2 - GI/Abdominal Exam GI & Abdominal Exam: Normal Bowel Sounds, Soft. absent: Distended, Guarding, Rebound, Tenderness - Extremities Exam Extremities exam: Positive for: normal inspection. Negative for: pedal edema - Back Exam Additional comments: kyphosis noted - Neurological Exam Neurological exam: Alert Additional comments: gait was not assessed due to pt being wheelchair bound Memory Loss-Recent Event, Tremor (R hand pill-rolling tremor at rest) Oriented to person only, fluid Speech - Psychiatric Exam Psychiatric exam: Normal Affect, Normal Mood - Skin Skin Exam: Normal Color, Warm Additional comments: multiple areas of ecchymosis wearing adult diaper Discharge Plan - Follow Up Plan Condition: FAIR Disposition: HOME/ ROUTINE Instructions: Urinary Tract Infection in Men (DC), Diabetic Hypoglycemia (GEN) Additional Instructions: 1. Follow up with PMd DR. Huerta in 3 days. 2. Hold metformin. Start glipizide only if the FS above 160. Dont give glipizide if he is not eating. 3. Encourage increase po intake. 4. Follow up with Dr. Perez Neurology. Referrals: Charo Huerta MD [Primary Care Provider] - <Kirti Garcia - Last Filed: 08/01/17 13:12> Provider - Provider Date of Admission: 07/30/17 13:10 Attending physician: Kirti Garcia MD Primary care physician: Charo Huerta MD Hospital Course - Lab Results Lab Results: Most Recent Lab Values WBC 6.8 10^3/ul (4.5-11.0) D 07/31/17 06:46 RBC 3.68 10^6/uL (3.5-6.1) 07/31/17 06:46 Hgb 10.3 g/dL (14.0-18.0) L 07/31/17 06:46 Hct 33.5 % (42.0-52.0) L 07/31/17 06:46 MCV 91.0 fl (80.0-105.0) 07/31/17 06:46 MCH 28.0 pg (25.0-35.0) 07/31/17 06:46 MCHC 30.7 g/dl (31.0-37.0) L 07/31/17 06:46 RDW 14.7 % (11.5-14.5) H 07/31/17 06:46 Plt Count 229 10^3/uL (120.0-450.0) 07/31/17 06:46 MPV 9.1 fl (7.0-11.0) 07/31/17 06:46 Gran % 70.9 % (50.0-68.0) H 07/31/17 06:46 Lymph % (Auto) 16.5 % (22.0-35.0) L 07/31/17 06:46 [place] % (Auto) 10.5 % (1.0-6.0) H 07/31/17 06:46 Eos % (Auto) 2.0 % (1.5-5.0) 07/31/17 06:46 Baso % (Auto) 0.1 % (0.0-3.0) 07/31/17 06:46 Gran # 4.84 (1.4-6.5) 07/31/17 06:46 Lymph # 1.1 (1.2-3.4) L 07/31/17 06:46 [place] # 0.7 (0.1-0.6) H 07/31/17 06:46 Eos # 0.1 (0.0-0.7) 07/31/17 06:46 Baso # 0.01 K/mm3 (0.0-2.0) 07/31/17 06:46 PT 12.4 Seconds (9.9-11.8) H 07/30/17 11:45 INR 1.15 (0.93-1.08) H 07/30/17 11:45 APTT 29.7 Seconds (23.7-30.8) 07/30/17 11:45 pO2 52 mm/Hg (30-55) 07/30/17 11:45 VBG pH 7.32 (7.32-7.43) 07/30/17 11:45 VBG pCO2 48.0 (40-60) 07/30/17 11:45 VBG HCO3 24.7 mmol/l (21-28) 07/30/17 11:45 VBG Total CO2 26.2 mmol.L (22-28) 07/30/17 11:45 VBG O2 Sat (Calc) 92.4 % (40-65) H 07/30/17 11:45 VBG Base Excess -1.8 mmol/L (0.0-2.0) L 07/30/17 11:45 VBG Potassium 4.2 mmol/L (3.6-5.2) 07/30/17 11:45 Sodium 139.0 mmol/L (132-148) 07/30/17 11:45 Chloride 112.0 mmol/L (98-107) H 07/30/17 11:45 Glucose 53 mg/dl (75-110) L 07/30/17 11:45 Lactate 0.7 mmol/L (0.7-2.1) 07/30/17 11:45 FiO2 21.0 % 07/30/17 11:45 Sodium 139 mmol/L (132-148) 07/31/17 06:46 Potassium 4.4 mmol/L (3.6-5.0) 07/31/17 06:46 Chloride 107 mmol/L (98-107) 07/31/17 06:46 Carbon Dioxide 25 mmol/L (21-33) 07/31/17 06:46 Anion Gap 11 (10-20) 07/31/17 06:46 BUN 26 mg/dL (7-21) H 07/31/17 06:46 Creatinine 1.4 mg/dL (0.5-1.4) 07/31/17 06:46 Est GFR ( Amer) 60 07/31/17 06:46 Est GFR (Non-Af Amer) 49 07/31/17 06:46 POC Glucose (mg/dL) 163 mg/dL (65-110) H 07/31/17 11:13 Random Glucose 223 mg/dL (70-110) H 07/31/17 06:46 Hemoglobin A1c 6.8 % (4.2-6.5) H 07/31/17 06:46 Calcium 10.0 mg/dL (8.4-10.5) 07/31/17 06:46 Phosphorus 2.5 mg/dL (2.5-4.5) 07/31/17 06:46 Magnesium 1.9 mg/dL (1.7-2.2) 07/31/17 06:46 Total Bilirubin 0.3 mg/dL (0.2-1.3) 07/31/17 06:46 AST 24 U/L (17-59) 07/31/17 06:46 ALT 27 U/L (7-56) 07/31/17 06:46 Alkaline Phosphatase 68 U/L (38-126) 07/31/17 06:46 Troponin I < 0.01 ng/mL 07/30/17 11:45 NT-Pro-B Natriuret Pep 2630 pg/mL (0-450) H 07/30/17 11:45 Total Protein 6.0 g/dL (5.8-8.3) 07/31/17 06:46 Albumin 3.3 g/dL (3.0-4.8) 07/31/17 06:46 Globulin 2.7 gm/dL 07/31/17 06:46 Albumin/Globulin Ratio 1.2 (1.1-1.8) 07/31/17 06:46 Triglycerides 135 mg/dL (35-160) 07/31/17 06:46 Cholesterol 105 mg/dL (130-200) L 07/31/17 06:46 LDL Cholesterol Direct 47 mg/dL (0-129) 07/31/17 06:46 HDL Cholesterol 30 mg/dL (29-60) 07/31/17 06:46 Prostate Specific Ag 0.2 ng/mL (0.00-2.5) 07/31/17 06:46 Procalcitonin 0.07 NG/ML (0.19-0.49) L 07/30/17 11:45 TSH 3rd Generation 1.32 mIU/mL (0.46-4.68) 07/31/17 06:46 Venous Blood Potassium 4.2 mmol/L (3.6-5.2) 07/30/17 11:45 Urine Color Yellow (YELLOW) 07/30/17 11:56 Urine Appearance Clear (CLEAR) 07/30/17 11:56 Urine pH 6.0 (4.7-8.0) 07/30/17 11:56 Ur Specific [place] 1.020 (1.005-1.035) 07/30/17 11:56 Urine Protein 100 mg/dL (<30 mg/dL) H 07/30/17 11:56 Urine Glucose (UA) Negative mg/dL (NEGATIVE) 07/30/17 11:56 Urine Ketones Negative mg/dL (NEGATIVE) 07/30/17 11:56 Urine Blood Large (NEGATIVE) H 07/30/17 11:56 Urine Nitrate Negative (NEGATIVE) 07/30/17 11:56 Urine Bilirubin Negative (NEGATIVE) 07/30/17 11:56 Urine Urobilinogen 0.2 E.U./dL (<1 E.U./dL) 07/30/17 11:56 Ur Leukocyte Esterase Trace Isaías/uL (NEGATIVE) H 07/30/17 11:56 Urine RBC 1 - 3 /hpf (0-2) 07/30/17 11:56 Urine WBC Tntc /hpf (0-6) 07/30/17 11:56 Urine Bacteria Few (NEG) 07/30/17 11:56 Blood Type AB POSITIVE 07/30/17 13:13 Blood Type Confirm AB POSITIVE 07/31/17 05:00 Antibody Screen Negative 07/30/17 13:13 BBK History Checked Patient has bt 07/30/17 13:13 Attending/Attestation - Attestation I have personally seen and examined this patient.: Yes I have fully participated in the care of the patient.: Yes I have reviewed all pertinent clinical information, including history, physical exam and plan: Yes Notes (Text): 08/01/17 13:12 attending note; Patient seen and examined with resident. Patient is a 77yo Male with PMH DM2, CVA, HTN, Dementia, AFib, Anemia , B12 def, and polymyalgia rheumatica who presents with AMS. The patient was found to have hypoglycemia with fingerstick of 51. hypoglycemia and acute kidney injury resolved; treated with IV fluids. Advised to stop metformin. Started on glipizide only if fingerstick is [id number] and patient is able to take adequate diet. Patient's mental status improved. Baseline dementia.CT head is negative for acute infarct.neurology evaluation appreciated. Cardiology evaluation appreciated. urine culture, blood culture is negative. Patient will be discharged home. Follow-up with PMD . diagnosis; Hypoglycemia History of CVA Diabetes Bedbound Anemia Atrial fibrilation
--- NOTE | 2017-08-03 08:52 | PN ---
DATE: 07/31/2017 LOCATION: The patient is in room 362, bed 2. REASON FOR CONSULTATION: Followup of CVA, hypoglycemia, urinary tract infection, hypertension. The patient was drowsy, has hard time to waking him up. SUBJECTIVE: The patient is conscious, alert, answers all questions, moving all extremities. Denies any chest pain, shortness of breath, or palpitation. PHYSICAL EXAMINATION: VITAL SIGNS: Blood pressure 150/70, respirations 20, pulse 49, and temperature 97.7. HEENT: Head is normocephalic. Eyes: Pupils normal, conjunctivae slightly pale. NECK: JVP low. Carotids are equal. Thorax, AP diameter normal. LUNGS: Clear. CARDIOVASCULAR: S1 and S2. ABDOMEN: Soft. No tenderness. No organomegaly. EXTREMITIES: No clubbing. No cyanosis. LABORATORY DATA: WBC 6.8, hemoglobin 10.3, hematocrit 33.5, platelets 229. Sodium 139, potassium 4.4, BUN 26, creatinine 1.4, random sugar 153. Calcium, phosphorous, magnesium, bilirubin, AST, ALT, total protein, albumin normal. On admission, sugar was 54. DIAGNOSES: Diabetes mellitus, episodes of hypoglycemia, hypertension, hyperlipidemia, old CVA, renal insufficiency, urinary tract infection. PLAN: The patient had echocardiogram today. We will follow that. In the meantime, the patient's sugar is elevated now. The patient is on Flomax 0.4 daily, folic acid 1 mg daily, metoprolol 25 b.i.d., amlodipine 10 mg daily, Namenda 10 mg b.i.d., prednisone 5 mg p.o. daily, Protonix 40 daily, Rocephin 1 g IV was given 1 time, vitamin D 1000 international units p.o. daily, cefepime 1 g IV q. 12 hours, Lipitor 40 daily. We will monitor heart rate. If heart rate stays persistently low, then we will start the metoprolol. We will follow up. Charo Huerta MD
== END 2017-07-31 17:50 | disposition home or self-care (01) ==
LOC: ED 11:17 → ERH 13:10 → 3RNO 15:01 → INTOOBSV 07-31 11:26 → OBSVTOIN 07-31 11:26
PROVIDERS: ADMIT Internal Medicine; ATTEND Internal Medicine
DX: E11.649 Type 2 diabetes mellitus with hypoglycemia without coma (principal); I12.9 Hypertensive chronic kidney disease with stage 1 through stage 4 chronic kidney disease, or unspecified chronic kidney disease; N18.9 Chronic kidney disease, unspecified; G93.40 Encephalopathy, unspecified; M35.3 Polymyalgia rheumatica; G30.9 Alzheimer's disease, unspecified; F02.80 Dementia in other diseases classified elsewhere, unspecified severity, without behavioral disturbance, psychotic disturbance, mood disturbance, and anxiety; N17.9 Acute kidney failure, unspecified; N39.0 Urinary tract infection, site not specified; E11.22 Type 2 diabetes mellitus with diabetic chronic kidney disease; E86.0 Dehydration; D53.9 Nutritional anemia, unspecified; I69.354 Hemiplegia and hemiparesis following cerebral infarction affecting left non-dominant side; N20.0 Calculus of kidney; D63.8 Anemia in other chronic diseases classified elsewhere; D51.9 Vitamin B12 deficiency anemia, unspecified; N40.0 Benign prostatic hyperplasia without lower urinary tract symptoms; I48.91 Unspecified atrial fibrillation; E78.5 Hyperlipidemia, unspecified; E83.51 Hypocalcemia; Z74.01 Bed confinement status; Z88.5 Allergy status to narcotic agent; Z79.84 Long term (current) use of oral hypoglycemic drugs; Z79.01 Long term (current) use of anticoagulants; Z87.891 Personal history of nicotine dependence
CPT/HCPCS: 36415; 70450; 71010; 76770; 80053; 80061; 81001; 82803; 82948; 83036; 83735; 83880; 84100; 84145; 84153; 84443; 84484; 85025; 85610; 85730; 86850; 86900; 87040; 87086; 93005; 93306; 96365; 96366; 96375; 97162; 97530; 99285; G0378; G8978; G8979; G8980; J0692; J0696; J7042

== ENCOUNTER 2017-08-28 14:43 | Inpatient (IN) | payer MEDICARE ==
[2017-08-28 14:49] VITALS: BMI 21.8
--- NOTE | 2017-08-28 15:04 | ED PDOC ---
Arrival/HPI - General Chief Complaint: Chest Pain Time Seen by Provider: 08/28/17 14:49 - History of Present Illness Narrative History of Present Illness (Text): 08/28/17 15:03 77 yo mal,e hx of afib on xarelto, htn, dm, chf, presnets with cp/sob. pt reports chronic cough x 2 weeks, but noted cp this am, midsternal pressure pain , now resolved. called pmd, and came to er. no fevers, no n/v/d, no abd pain, no diaphoreisis. Past Medical History - Provider Review Nursing Documentation Reviewed: Yes - Infectious Disease Hx of Infectious Diseases: None - Tetanus Immunization Tetanus Immunization: Up to Date - Cardiac Hx Hypertension: Yes - Pulmonary Hx Respiratory Disorders: Yes (SMOKED CIGARETTES SOCIALLY) Hx Pneumonia: Yes (H/O OF 3 CVA'S) - Neurological HX Cerebrovascular Accident: Yes (x 3) Hx Dementia: Yes - HEENT Hx HEENT Disorder: No - Renal Hx Renal Disorder: Yes Hx Renal Failure: Yes - Endocrine/Metabolic Hx Diabetes Mellitus Type 2: Yes - Hematological/Oncological Hx Blood Transfusions: (pt unable to verify) Hx Blood Transfusion Reaction: (pt unable to verify) - Musculoskeletal/Rheumatological Hx Musculoskeletal Disorders: Yes - Gastrointestinal Hx Gastrointestinal Disorders: No - Genitourinary/Gynecological Hx Genitourinary Disorders: Yes Hx Prostate Problems: Yes (BPH) - Psychiatric Hx Depression: Yes Hx Emotional Abuse: No Hx Physical Abuse: No Hx Substance Use: No - Surgical History Hx Orthopedic Surgery: Yes (titanium bess in back, left hip) - Anesthesia Hx Anesthesia Reactions: (pt unable to verify) Hx Malignant Hyperthermia: (pt unable to verify) - Suicidal Assessment Feels Threatened In Home Enviroment: No Family/Social History - Physician Review Nursing Documentation Reviewed: Yes Family/Social History: Unknown Family HX Smoking Status: Never Smoked Hx Alcohol Use: No Hx Substance Use: No Hx Substance Use Treatment: No Allergies/Home Meds Allergies/Adverse Reactions: Allergies morphine Allergy (Verified 07/30/17 19:39) DIZZINESS Home Medications: Home Meds Medication Instructions Recorded Confirmed Dronedarone HCl [Multaq] 400 mg PO BID 10/03/12 08/28/17 Sertraline [Zoloft] 100 mg PO BID 10/03/12 08/28/17 predniSONE [predniSONE Oral Soln] 5 mg PO DAILY 10/03/12 08/28/17 Amlodipine Besylate 10 mg PO DAILY 01/28/13 08/28/17 Memantine [Namenda] 10 mg PO BID 01/28/13 08/28/17 Rivastigmine 9.5 mg/24 hr [Exelon 1 ea TD DAILY 01/28/13 08/28/17 9.5 mg/24 hr Patch] Rivaroxaban [Xarelto] 20 mg PO DAILY 06/07/16 08/28/17 Atorvastatin Calcium 40 mg PO DAILY 07/30/17 08/28/17 Cholecalciferol (Vitamin D3) 1,000 unit PO DAILY 07/30/17 08/28/17 [Vitamin D3] Cranberry Fruit Extract/Vit C [Azo 1 each PO BID 07/30/17 08/28/17 Cranberry Softgel] Cyanocobalamin [Vitamin B12 1000 1,000 mcg PO BID 07/30/17 08/28/17 mcg Tab] Folic Acid 1 mg PO DAILY 07/30/17 08/28/17 GlipiZIDE [Glucotrol] 10 mg PO DAILY 07/30/17 08/28/17 Metoprolol Tartrate [Lopressor] 50 mg PO BID 07/30/17 08/28/17 traZODone [Desyrel] 50 mg PO HS 07/30/17 08/28/17 Review of Systems - Review of Systems Constitutional: Normal Eyes: Normal ENT: Normal Respiratory: SOB, Cough Cardiovascular: Chest Pain Gastrointestinal: Normal Genitourinary Male: Normal Musculoskeletal: Normal Skin: Normal Neurological: Normal Endocrine: Normal Hemo/Lymphatic: Normal Psychiatric: Normal Physical Exam Vital Signs Pulse Pulse Resp BP BP Pulse Ox 08/28/17 17:03 56 L 22 140/68 98 08/28/17 16:58 140/68 08/28/17 15:24 53 L 155/62 H 08/28/17 14:52 55 L 18 155/62 H 93 L Temperature: Afebrile Blood Pressure: Normal Pulse: Regular Respiratory Rate: Normal Appearance: Positive for: Well-Appearing, Non-Toxic, Comfortable Pain Distress: None Mental Status: Positive for: Alert and Oriented X 3 - Systems Exam Head: Present: Atraumatic, Normocephalic Pupils: Present: PERRL Extroacular Muscles: Present: EOMI Conjunctiva: Present: Normal Mouth: Present: Moist Mucous Membranes Neck: Present: Normal Range of Motion Respiratory/Chest: Present: Good Air Exchange, Decreased Breath Sounds (at bases ). No: Respiratory Distress, Accessory Muscle Use Cardiovascular: Present: Regular Rate and Rhythm, Normal S1, S2. No: Murmurs Abdomen: Present: Normal Bowel Sounds. No: Tenderness, Distention, Peritoneal Signs Back: Present: Normal Inspection Upper Extremity: Present: Normal Inspection. No: Cyanosis, Edema Lower Extremity: Present: Normal Inspection. No: Edema Neurological: Present: GCS=15, CN II-XII Intact, Speech Normal Skin: Present: Warm, Dry, Normal Color. No: Rashes Psychiatric: Present: Alert, Oriented x 3, Normal Insight, Normal Concentration Medical Decision Making ED Course and Treatment: 08/28/17 15:04 ekg sinus [place] [address] t wave chagnes, no interval changes rbbb 08/28/17 15:56 chest xray: Creator : Matt Mederos MD FINDINGS: LUNGS: No infiltrate identified. There is mild diffuse interstitial prominence. This is nonspecific. PLEURA: Small left pleural effusion. No right pleural effusion. No pneumothorax. CARDIOVASCULAR: Normal heart size. Mild congestive change. Please note that in conjunction with a small left pleural effusion and interstitial prominence the findings may reflect interstitial pulmonary edema. Please correlate. OSSEOUS STRUCTURES: No significant abnormalities. VISUALIZED UPPER ABDOMEN: Normal. IMPRESSION: Possible interstitial pulmonary edema. Small left pleural effusion. Mild congestive change. No acute infiltrate. - Lab Interpretations Lab Results: 08/28/17 15:30 08/28/17 15:30 Lab Results 08/28/17 15:30: Sodium 141, Potassium 4.5, Chloride 109 H, Carbon Dioxide 21, Anion Gap 16, BUN 39 H, Creatinine 1.5, Est GFR ( Amer) 55, Est GFR (Non- Af Amer) 46, Random Glucose 154 H, Calcium 10.5, Magnesium 2.1, Total Bilirubin 0.4, AST 34, ALT 68 H, Alkaline Phosphatase 118, Lactate Dehydrogenase 330 L, Total Creatine Kinase < 20 L, Troponin I < 0.01, NT-Pro-B Natriuret Pep 1540 H, Total Protein 6.9, Albumin 3.8, Globulin 3.0, Albumin/Globulin Ratio 1.3 08/28/17 15:30: PT 17.3 H, INR 1.57 H, APTT 33.6 08/28/17 15:30: WBC 9.6 D, RBC 4.20, Hgb 12.1 L, Hct 39.3 L, MCV 93.6, MCH 28.8 , MCHC 30.8 L, RDW 15.9 H, Plt Count 301, MPV 9.3, Gran % 82.5 H, Lymph % (Auto ) 8.2 L, [place] % (Auto) 7.5 H, Eos % (Auto) 1.7, Baso % (Auto) 0.1, Gran # 7.89 H , Lymph # 0.8 L, [place] # 0.7 H, Eos # 0.2, Baso # 0.01 - RAD Interpretation Radiology Orders: 08/28/17 15:01 CHEST PORTABLE [RAD] Stat - Medication Orders Current Medication Orders: Amlodipine Besylate (Norvasc) 10 mg PO DAILY [facility] Atorvastatin Calcium (Lipitor) 40 mg PO DIN [facility] Cholecalciferol (Vitamin D) 1,000 iu PO DAILY [facility] Cyanocobalamin (Vitamin B12 1000 Mcg Tab) 1,000 mcg PO BID [facility] Folic Acid (Folic Acid) 1 mg PO DAILY [facility] Glipizide (Glucotrol) 10 mg PO ACB [facility] Home Med (Home Med) 1 unit PO BID [facility] Home Med (Home Med) 1 unit PO BID [facility] Levofloxacin/Dextrose (Levaquin 500mg) 500 mg in 100 mls @ 100 mls/hr IVPB DAILY [facility] Insulin Human Regular (Humulin R Low) 0 units SC ACHS [facility] PRN Reason: Protocol Memantine (Namenda) 10 mg PO BID [facility] Metoprolol Tartrate (Lopressor) 25 mg PO BRKDIN [facility] Pantoprazole Sodium (Protonix Ec Tab) 40 mg PO ACB [facility] Prednisone (Prednisone Tab) 5 mg PO DAILY [facility] Rivaroxaban (Xarelto) 20 mg PO DIN [facility] PRN Reason: Protocol Rivastigmine (Exelon 9.5 Mg/24 Hr Patch) 1 patch TD DAILY [facility] Sertraline HCl (Zoloft) 100 mg PO BID [facility] Trazodone HCl (Desyrel) 50 mg PO HS [facility] Discontinued Medications Aspirin (Aspirin) 325 mg PO STAT STA Stop: 08/28/17 16:13 Last Admin: 08/28/17 16:58 Dose: 325 mg Furosemide (Lasix) 40 mg IVP STAT STA Stop: 08/28/17 16:13 Last Admin: 08/28/17 16:58 Dose: 40 mg MAR Blood Pressure Document 08/28/17 16:58 MR (Rec: 08/28/17 16:58 [id number]) Blood Pressure Blood Pressure (100/60-150/90) 140/68 IVP Administration Document 08/28/17 16:58 MR (Rec: 08/28/17 16:58 MR [id number]) Charges for Administration # of IVP Administrations 1 Metoprolol Tartrate (Lopressor) 50 mg PO BID [facility] Disposition/Present on Arrival - Present on Arrival Any Indicators Present on Arrival: No History of DVT/PE: No History of Uncontrolled Diabetes: No Urinary Catheter: No History of Decub. Ulcer: No History Surgical Site Infection Following: None - Disposition Have Diagnosis and Disposition been Completed?: Yes Diagnosis: CHF (congestive heart failure), Chest pain Disposition: HOSPITALIZED Disposition Time: 06:00 Patient Problems: Current Active Problems Problem Status Onset CHF (congestive heart failure) Acute Chest pain Acute Condition: STABLE
[2017-08-28 15:37] LABS: BASO # 0.01 K/mm3 (0.0-2.0); BASO % 0.1 % (0.0-3.0); EOS # 0.2 (0.0-0.7); EOS % 1.7 % (1.5-5.0); GRAN # 7.89 (1.4-6.5); GRAN % 82.5 % (50.0-68.0); HEMATOCRIT 39.3 % (42.0-52.0); LYMPH # 0.8 (1.2-3.4); LYMPH % 8.2 % (22.0-35.0); MEAN CELL VOLUME 93.6 fl (80.0-105.0); MEAN CORPUSCULAR HEMOGLOBIN 28.8 pg (25.0-35.0); MEAN CORPUSCULAR HGB CONC 30.8 g/dl (31.0-37.0); MEAN PLATELET VOLUME 9.3 fl (7.0-11.0); MONO # 0.7 (0.1-0.6); MONO % 7.5 % (1.0-6.0); RED CELL DISTRIBUTION WIDTH 15.9 % (11.5-14.5); WHITE BLOOD COUNT 9.6 10^3/ul (4.5-11.0)
[2017-08-28 15:49] LABS: INR 1.57 (0.93-1.08); PARTIAL THROMBOPLASTIN TIME 33.6 Seconds (25.1-36.5)
[2017-08-28 15:53] LABS: ALB/GLOB RATIO 1.3 (1.1-1.8); ALKALINE PHOSPHATASE 118 U/L (38-126); ALT/SGPT 68 U/L (7-56); AST/SGOT 34 U/L (17-59); BILIRUBIN,TOTAL 0.4 mg/dL (0.2-1.3); BLOOD UREA NITROGEN 39 mg/dL (7-21); CALCIUM 10.5 mg/dL (8.4-10.5); CARBON DIOXIDE 21 mmol/L (21-33); CHLORIDE 109 mmol/L (98-107); GFR AFRICAN-AMERICAN 55; GLUCOSE,RANDOM 154 mg/dL (70-110); MAGNESIUM 2.1 mg/dL (1.7-2.2); POTASSIUM 4.5 mmol/L (3.6-5.0); SODIUM 141 mmol/L (132-148); TOTAL PROTEIN 6.9 g/dL (5.8-8.3)
--- NOTE | 2017-08-28 15:53 | RAD ---
HISTORY: cp COMPARISON: 07/30/2017 FINDINGS: LUNGS: No infiltrate identified. There is mild diffuse interstitial prominence. This is nonspecific. PLEURA: Small left pleural effusion. No right pleural effusion. No pneumothorax. CARDIOVASCULAR: Normal heart size. Mild congestive change. Please note that in conjunction with a small left pleural effusion and interstitial prominence the findings may reflect interstitial pulmonary edema. Please correlate. OSSEOUS STRUCTURES: No significant abnormalities. VISUALIZED UPPER ABDOMEN: Normal. OTHER FINDINGS: None. IMPRESSION: Possible interstitial pulmonary edema. Small left pleural effusion. Mild congestive change. No acute infiltrate.
[2017-08-28 16:07] LABS: TROPONIN I < 0.01 ng/mL
[2017-08-28] MEDS ORDERED: DRONEDARONE HCL 400 MG PO SCH ×2 (18:00)
[2017-08-28] MEDS ORDERED: VIT C PO SCH (18:00)
[2017-08-28] MEDS ORDERED: CRANBERRY FRUIT EXTRACT PO SCH (18:00)
--- NOTE | 2017-08-28 18:19 | CP.PCM.HP ---
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 He describes the pain as a mid sternal pressure , 10/10 and non radiating. He stated that he also felt phlegm in his throat at the moment he felt the pain. The pain did not increased with exertion. He cleared his throat, burped and the pain went away. Currently, he states the pain is no longer present. Patients was at bedside to help with history. Patient ambulated with wheelchair at [facility] and lives with . He denies any SOB, palpitations, nausea, vomiting, sweating, numbness, tingling, or any other complaints. PMH: DM2, CVA, HTN, Dementia, AFib, Anemia of chronic dz, B12 def, PMR PSH: L hip surgery, spinal surgery/laminectomy 2010 Medicine: Amlodipine 10mg, Atorvastatin 40mg, Metoprolol, Multaq 400, Prednisone 5mg, xarelto 20mg , glipizide XL 10mg, folic acid 1mg, memantine 10mg , sertraline 100mg, trazadone 50mg, rivastigmine 9.5ml/24hr 1 patch each day Allergies: Morphine- patient states he zones out SHx: former smoker and ETOH use; denies substance use. 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 absent: Diaphoresis, Dyspnea, Dyspnea on Exertion, Irregular Heart Rhythm, Pain Radiating to Arm/Neck/Jaw, Lightheadedness, Palpitations, Pedal Edema, Radiating Pain, Rapid Heart Rate - Respiratory Respiratory: Excessive Mucous Production Additional comments: clear mucous - Gastrointestinal Gastrointestinal: absent: Abdominal Pain, Constipation, Diarrhea, Dysphagia, Nausea, Vomiting - Genitourinary Genitourinary: absent: Difficulty Urinating, Dysuria - Musculoskeletal Musculoskeletal: absent: Arthralgias, Numbness, Tingling - Neurological Neurological: absent: Dizziness, Numbness, Headaches, Syncope, Tingling, Vertigo , Weakness Past Patient History - Infectious Disease Hx of Infectious Diseases: None - Tetanus Immunizations Tetanus Immunization: Up to Date - Past Medical History & Family History Past Medical History?: Yes - Past Social History Smoking Status: Never Smoked - CARDIAC Hx Hypertension: Yes - PULMONARY Hx Respiratory Disorders: Yes (SMOKED CIGARETTES SOCIALLY) Hx Pneumonia: Yes (H/O OF 3 CVA'S) - NEUROLOGICAL HX Cerebrovascular Accident: Yes (x 3) Hx Dementia: Yes - HEENT Hx HEENT Problems: No - RENAL Hx Chronic Kidney Disease: Yes Hx Renal Failure: Yes - ENDOCRINE/METABOLIC Hx Diabetes Mellitus Type 2: Yes - HEMATOLOGICAL/ONCOLOGICAL Hx Blood Transfusions: (pt unable to verify) Hx Blood Transfusion Reaction: (pt unable to verify) - MUSCULOSKELETAL/RHEUMATOLOGICAL Hx Musculoskeletal Disorders: Yes - GASTROINTESTINAL Hx Gastrointestinal Disorders: No - GENITOURINARY/GYNECOLOGICAL Hx Genitourinary Disorders: Yes Hx Prostate Problems: Yes (BPH) - PSYCHIATRIC Hx Depression: Yes Hx Emotional Abuse: No Hx Physical Abuse: No Hx Substance Use: No - SURGICAL HISTORY Hx Orthopedic Surgery: Yes (titanium bess in back, left hip) - ANESTHESIA Hx Anesthesia Reactions: (pt unable to verify) Hx Malignant Hyperthermia: (pt unable to verify) Meds Home Medications: Home Medication List Medication Instructions Recorded Confirmed Type Furosemide [Lasix] 40 mg PO DAILY #30 tab 08/29/17 Rx Metoprolol Tartrate 25 mg PO BID #60 tablet 08/29/17 Rx levoFLOXacin [Levaquin] 500 mg PO DAILY #5 tab 08/29/17 Rx Allergies/Adverse Reactions: Allergies Allergy/AdvReac Type Severity Reaction Status Date / Time morphine Allergy DIZZINESS Verified 07/30/17 19:39 Physical Exam - Constitutional Appears: Non-toxic, No Acute Distress - Head Exam Head Exam: ATRAUMATIC, NORMAL INSPECTION, NORMOCEPHALIC - Eye Exam Eye Exam: EOMI, Normal appearance, PERRL Pupil Exam: NORMAL ACCOMODATION, PERRL - ENT Exam ENT Exam: Normal Exam - Neck Exam Neck exam: Positive for: Normal Inspection - Respiratory Exam Respiratory Exam: Rhonchi, NORMAL BREATHING PATTERN Additional comments: rhonchi lung bases bilaterally - Cardiovascular Exam Cardiovascular Exam: REGULAR RHYTHM, +S1, +S2 - GI/Abdominal Exam GI & Abdominal Exam: Normal Bowel Sounds - Extremities Exam Extremities exam: Positive for: normal inspection - Neurological Exam Neurological exam: Alert, Oriented x3 - Psychiatric Exam Psychiatric exam: Normal Affect - Skin Skin Exam: Normal Color Results - Vital Signs Recent Vital Signs: Last Vital Signs Temp 97.7 F 08/28/17 14:52 Pulse 56 L 08/28/17 17:03 Resp 22 08/28/17 17:03 BP 140/68 08/28/17 17:03 Pulse Ox 98 08/28/17 17:03 - Labs Result Diagrams: 08/28/17 15:30 08/28/17 15:30 Assessment & Plan - Assessment and Plan (Free Text) Assessment: 77yo Male with PMH DM2, CVA, HTN, Dementia, AFib, Anemia, B12 def, and polymyalgia rheumatica presents with chest pain which began this morning. Patient is being treated for chest pain and rule out ACS. Plan: 1. Chest Pain - rule out ACS, possibly secondary to URI -EKG ordered and obtained: sinus [place] no specific ST chages, pending official reead -Chest xray ordered and obtained : possible interstitial pulmonary edema, small left pleural effusion, mild congestive change, no acute infiltrate -intial troponins: negative, follow serial trops -cardio consulted: Nnamdi -Lipitor 40 -Mag 2.1 -Phosphate ordered -TSH ordered -Sputum culture ordered, urine culture ordered, will follw up -Started on Levo 500mg -Aspiration precautions -Strict I/O 2. Afib -chronic - continue xarelto - continue Multaq 3. HTN -cont Norvasc, Metoprolol 4. Dementia -cont home meds memantine and rivastigmine, -continue sertraline, trazadone 5. DM -continue glipizide -ISS Humulin low with ACHS -A1c ordered 6. B12 defiency-chronic -continue B12 -continue folic acid 7. Polymyalgia Rheumatica -continue prednisone 8. GI/DVT Prophylaxis -xarelto, protonix <Rangasamy,Ajantha - Last Filed: 08/29/17 16:47> Results - Vital Signs Recent Vital Signs: Last Vital Signs Temp 98.7 F 08/29/17 12:00 Pulse 56 L 08/29/17 12:00 Resp 20 08/29/17 12:00 BP 138/95 H 08/29/17 12:00 Pulse Ox 97 08/29/17 06:00 - Labs Result Diagrams: 08/29/17 07:59 08/29/17 07:59 Labs: Laboratory Results - last 24 hr 08/28/17 08/28/17 08/29/17 21:34 22:54 07:59 WBC 7.9 RBC 3.99 Hgb 11.6 L Hct 37.0 L MCV 92.7 MCH 29.1 MCHC 31.4 RDW 15.7 H Plt Count 275 MPV 8.7 Gran % 72.4 H Lymph % (Auto) 14.2 L [place] % (Auto) 9.7 H Eos % (Auto) 3.6 Baso % (Auto) 0.1 Gran # 5.69 Lymph # 1.1 L [place] # 0.8 H Eos # 0.3 Baso # 0.01 Sodium Potassium Chloride Carbon Dioxide Anion Gap BUN Creatinine Est GFR ( Amer) Est GFR (Non-Af Amer) POC Glucose (mg/dL) 181 H Random Glucose Calcium Phosphorus Magnesium Total Bilirubin AST ALT Alkaline Phosphatase Troponin I 0.02 D Total Protein Albumin Globulin Albumin/Globulin Ratio Triglycerides Cholesterol LDL Cholesterol Direct HDL Cholesterol TSH 3rd Generation Urine Color Urine Appearance Urine pH Ur Specific [place] Urine Protein Urine Glucose (UA) Urine Ketones Urine Blood Urine Nitrate Urine Bilirubin Urine Urobilinogen Ur Leukocyte Esterase Urine RBC Urine WBC Ur Epithelial Cells Amorphous Sediment Urine Bacteria Hyaline Casts 08/29/17 08/29/17 08/29/17 07:59 07:59 09:39 WBC RBC Hgb Hct MCV MCH MCHC RDW Plt Count MPV Gran % Lymph % (Auto) [place] % (Auto) Eos % (Auto) Baso % (Auto) Gran # Lymph # [place] # Eos # Baso # Sodium 140 Potassium 4.3 Chloride 107 Carbon Dioxide 23 Anion Gap 10 BUN 36 H Creatinine 1.5 Est GFR ( Amer) 55 Est GFR (Non-Af Amer) 46 POC Glucose (mg/dL) Random Glucose 119 H Calcium 10.3 Phosphorus 3.2 Magnesium 2.0 Total Bilirubin 0.5 AST 27 ALT 58 H Alkaline Phosphatase 98 Troponin I 0.01 D Total Protein 6.3 Albumin 3.6 Globulin 2.7 Albumin/Globulin Ratio 1.3 Triglycerides 183 H Cholesterol 125 L LDL Cholesterol Direct 57 HDL Cholesterol 29 TSH 3rd Generation 3.11 Urine Color Light yellow Urine Appearance Clear Urine pH 5.5 Ur Specific [place] 1.015 Urine Protein Negative Urine Glucose (UA) Negative Urine Ketones Negative Urine Blood Large H Urine Nitrate Negative Urine Bilirubin Negative Urine Urobilinogen 0.2 Ur Leukocyte Esterase Negative Urine RBC 25 - 30 Urine WBC 0 - 2 Ur Epithelial Cells 0 - 2 Amorphous Sediment Few Urine Bacteria Small Hyaline Casts 0 - 2 Attending/Attestation - Attestation I have personally seen and examined this patient.: Yes I have fully participated in the care of the patient.: Yes I have reviewed all pertinent clinical information: Yes Notes (Text): 08/29/17 16:43 attending note; Patient seen and examined with resident. patient is a 77 year old male with past medical history of DM2, CVA with residual left sided weakness , HTN, Dementia, AFib, Anemia, B12 def, and polymyalgia rheumatica presents with chest pain. EKG showed right bundle branc block/left anterior fascicular block. CEx1 negative. cardiology evaluation with Dr. Coto appreciated. metoprolol dosage decreased. Started on Lasix. bronchitis; started on Levaquin. Dark urine; UA urine culture ordered. currently afebrile and nontoxic. Patient denies any urinary symptoms. dementia; continue Exelon patch. Upon discharge the patient will follow-up with PMD Dr. Huerta.
[2017-08-28] MEDS: levoFLOXacin 500 mg in D5W 500 MG/100 ML BAG IVPB SCH (21:26)
--- NOTE | 2017-08-28 22:36 | CARD ---
APPROVED REPORT EKG Measurement Heart [id number] <Conclusion> Sinus bradycardia Right bundle branch block Left anterior fascicular block Bifascicular block Minimal voltage criteria for LVH, may be normal variant Abnormal ECG
[2017-08-28] MEDS: CRANBERRY FRUIT EXTRACT PO SCH (22:38)
[2017-08-28] MEDS: VIT C PO SCH (22:38)
[2017-08-28] MEDS: DRONEDARONE HCL 400 MG PO SCH (22:39)
--- NOTE | 2017-08-28 22:45 | CARD ---
APPROVED REPORT EKG Measurement Heart [id number] <Conclusion> Sinus bradycardia Right bundle branch block Left anterior fascicular block Bifascicular block Moderate voltage criteria for LVH, may be normal variant Abnormal ECG
[2017-08-28] MEDS: Insulin Reg-LOW-Coverage SC SCH (22:55)
[2017-08-29 00:30] VITALS: O2SAT 97
[2017-08-29] MEDS ORDERED: Pantoprazole 40 mg EC Tab PO SCH (07:30)
[2017-08-29] MEDS: Insulin Reg-LOW-Coverage SC SCH ×2 (07:59→12:59)
[2017-08-29 08:03] LABS: BASO # 0.01 K/mm3 (0.0-2.0); BASO % 0.1 % (0.0-3.0); EOS # 0.3 (0.0-0.7); EOS % 3.6 % (1.5-5.0); GRAN # 5.69 (1.4-6.5); GRAN % 72.4 % (50.0-68.0); LYMPH # 1.1 (1.2-3.4); LYMPH % 14.2 % (22.0-35.0); MEAN CELL VOLUME 92.7 fl (80.0-105.0); MEAN CORPUSCULAR HEMOGLOBIN 29.1 pg (25.0-35.0); MEAN CORPUSCULAR HGB CONC 31.4 g/dl (31.0-37.0); MEAN PLATELET VOLUME 8.7 fl (7.0-11.0); MONO # 0.8 (0.1-0.6); MONO % 9.7 % (1.0-6.0); RED CELL DISTRIBUTION WIDTH 15.7 % (11.5-14.5); WHITE BLOOD COUNT 7.9 10^3/ul (4.5-11.0)
[2017-08-29 08:30] LABS: ALB/GLOB RATIO 1.3 (1.1-1.8); BILIRUBIN,TOTAL 0.5 mg/dL (0.2-1.3); CALCIUM 10.3 mg/dL (8.4-10.5); PHOSPHOROUS 3.2 mg/dL (2.5-4.5); TOTAL PROTEIN 6.3 g/dL (5.8-8.3)
--- NOTE | 2017-08-29 08:57 | CON ---
DATE: 08/28/2017 REASON FOR CONSULTATION: Followup chest pain, cough with sputum, history of atrial fibrillation, on Xarelto. BRIEF CLINICAL HISTORY: This is a 77-year-old male with past medical history significant for dementia, being followed by Dr. Perez; history of CVA; history of hypertension, being followed by Dr. Huerta; history of diabetes, who states that last two days history of atrial fibrillation on Xarelto, complaining of throat pain just below the nape of the neck and bringing some phlegm, who came to the emergency room. He states that as soon as ambulance brought him here opened the door to come to the ER, the pain completely went away. Denies any chest pain. Denies any shortness of breath or any palpitation. Denies any dyspnea on exertion. The patient has rheumatoid arthritis, so limited activity. PAST MEDICAL HISTORY: Significant for rheumatoid arthritis; diabetes; hypertension; hyperlipidemia; chronic atrial fibrillation on Xarelto; history of CVA; history of dementia; history of multiple strokes with left-sided weakness most with the lower extremity than upper extremity; history of hypertension; and hyperlipidemia. PAST SURGICAL HISTORY: Significant for back surgery in 2010, followed by a year ago a left hip surgery in 2011. ALLERGIES: TO MORPHINE BUT THE PATIENT REFUSES THAT HE IS ALLERGIC TO MORPHINE, BUT IT IS DOCUMENTED IN THE CHART THAT PROBABLY ALLERGIC TO MORPHINE. CURRENT MEDICATIONS: The patient was taking cyanocobalamin tablet 1000 mcg b.i.d., vitamin D3, trazodone, Zoloft 100 b.i.d., Xarelto 20 mg daily, Namenda, folic acid, cranberry, prednisone, glipizide, Multaq, atorvastatin, and amlodipine. SOCIAL HISTORY: The patient denies any history of alcohol abuse. Denies any history of tobacco abuse, quit more than 30 years ago. REVIEW OF SYSTEMS: As per HPI. PHYSICAL EXAMINATION: VITAL SIGNS: Temperature afebrile, heart rate , and blood pressure 140/68. HEENT: PERRLA. Extraocular muscles Intact. NECK: Supple. No carotid bruits. No thyromegaly. CHEST: Clear to auscultation. HEART: S1 and S2, regular. ABDOMEN: Soft. EXTREMITIES: Clubbing and cyanosis negative. LABORATORY DATA: WBC 9.6, hemoglobin 12.8, hematocrit 39.3, platelet count 301. Chemistry shows sodium 141, potassium 4.5, chloride 109, carbon dioxide 21, anion gap of 16, BUN 39, creatinine 1.5. AST 68, ALT 118. Troponin is 0.01, BNP 1540. Chest x-ray: Poor inspiratory effort. Possibly mild congestion, but not definitely. Mild encephalization or prominent vascular marking. Mild CHF. PREVIOUS CARDIAC WORKUP: As follows; the patient had an echocardiography on 07/31/2017 that showed aortic sclerosis with mild aortic stenosis. No vegetation or thrombus noted. Ejection fraction 40% to 45%. Trace to mild aortic regurgitation, mild mitral regurgitation. Trace tricuspid regurgitation, systolic pressure 21. No PI. EKG today shows possibly flutter with sinus bradycardia, right bundle-branch block, 3:1 conduction possibly versus sinus bradycardia, poor baseline. IMPRESSION: A 77-year-old male with past medical history significant for paroxysmal atrial fibrillation, on Xarelto; dementia; history of multiple cerebrovascular accidents with right-sided residual weakness; rheumatoid arthritis; Alzheimer's disease; hypertension; hyperlipidemia, admitted with throat pain below the nape of the neck with coughing bringing phlegm for a couple of days. Denies any left sided chest pain, but pain in the throat, rule out unstable angina, rule out non-ST myocardial infarction, history of paroxysmal atrial fibrillation, possibly flutter with 3:1 conduction, diabetes, hypertension, hyperlipidemia, and obesity. RECOMMENDATIONS: Resume back the medication, monitor for the heart rate. Follow up CPK, troponin, lipid profile, TSH, hemoglobin A1c. The patient had last echocardiography done on 08/03/2017 that shows an ejection fraction 45% to 50% mild MR, mild TR. He was started on antibiotic for bronchitis, possibly early bronchitis. His throat pain could be secondary to early bronchitis, but cannot rule out underlying coronary artery disease. We will follow up serial CPK and troponin; if remains negative, possible discharge home in a.m. with followup stress test as an outpatient with Dr. Huerta. Discussed with , discussed with the patient, discussed with Dr. Garcia. Thank you Dr. Garcia for providing us the opportunity in taking care of the patient, Yaakov Cox. Mohammad Nnamdi, MD
[2017-08-29 09:09] LABS: POTASSIUM 4.3 mmol/L (3.6-5.0)
[2017-08-29 09:13] LABS: TROPONIN I 0.01 ng/mL
[2017-08-29 09:54] LABS: PH,URINE 5.5 (4.7-8.0); URINE BILIRUBIN NEGATIVE (NEGATIVE); URINE BLOOD LARGE (NEGATIVE); URINE GLUCOSE (UA) NEGATIVE (NEGATIVE); URINE KETONE NEGATIVE (NEGATIVE); URINE LEUKOCYTE ESTERASE NEGATIVE Leu/uL (NEGATIVE); URINE PROTEIN NEGATIVE mg/dL (<30 mg/dL); URINE UROBILINOGEN 0.2 E.U./dL (<1 E.U./dL)
[2017-08-29 09:58] LABS: URINE APPEARANCE CLEAR (CLEAR); URINE COLOR LIGHT YELLOW (YELLOW)
[2017-08-29] MEDS ORDERED: Non Formulary Medication (Cholecalciferol (Vitamin D3) [Vitamin D3] 1,000 UNIT) PO SCH (10:00)
[2017-08-29] MEDS ORDERED: predniSONE 5 mg/5 mL Oral Soln UD PO SCH (10:00)
[2017-08-29] MEDS: levoFLOXacin 500 mg in D5W 500 MG/100 ML BAG IVPB SCH (10:14)
[2017-08-29 10:28] LABS: URINE EPITHELIAL CELLS 0 - 2 /hpf (0-5); URINE RBC 25 - 30 /hpf (0-2); URINE WBC 0 - 2 /hpf (0-6)
[2017-08-29 10:29] LABS: URINE AMORPHOUS SEDIMENT FEW; URINE BACTERIA SMALL (NEG)
[2017-08-29] MEDS: CRANBERRY FRUIT EXTRACT PO SCH (10:38)
[2017-08-29] MEDS: VIT C PO SCH (10:38)
[2017-08-29] MEDS: DRONEDARONE HCL 400 MG PO SCH (10:39)
--- NOTE | 2017-08-29 10:49 | CP.PCM.DIS ---
<Tere Harry - Last Filed: 08/29/17 11:28> Provider - Provider Date of Admission: 08/28/17 16:16 Attending physician: Kirti Garcia MD Primary care physician: Charo Huerta MD Consults: Cardiology: Deanna Time Spent in preparation of Discharge (in minutes): 30 Hospital Course - Lab Results Lab Results: Most Recent Lab Values WBC 7.9 10^3/ul (4.5-11.0) 08/29/17 07:59 RBC 3.99 10^6/uL (3.5-6.1) 08/29/17 07:59 Hgb 11.6 g/dL (14.0-18.0) L 08/29/17 07:59 Hct 37.0 % (42.0-52.0) L 08/29/17 07:59 MCV 92.7 fl (80.0-105.0) 08/29/17 07:59 MCH 29.1 pg (25.0-35.0) 08/29/17 07:59 MCHC 31.4 g/dl (31.0-37.0) 08/29/17 07:59 RDW 15.7 % (11.5-14.5) H 08/29/17 07:59 Plt Count 275 10^3/uL (120.0-450.0) 08/29/17 07:59 MPV 8.7 fl (7.0-11.0) 08/29/17 07:59 Gran % 72.4 % (50.0-68.0) H 08/29/17 07:59 Lymph % (Auto) 14.2 % (22.0-35.0) L 08/29/17 07:59 Pinal % (Auto) 9.7 % (1.0-6.0) H 08/29/17 07:59 Eos % (Auto) 3.6 % (1.5-5.0) 08/29/17 07:59 Baso % (Auto) 0.1 % (0.0-3.0) 08/29/17 07:59 Gran # 5.69 (1.4-6.5) 08/29/17 07:59 Lymph # 1.1 (1.2-3.4) L 08/29/17 07:59 Pinal # 0.8 (0.1-0.6) H 08/29/17 07:59 Eos # 0.3 (0.0-0.7) 08/29/17 07:59 Baso # 0.01 K/mm3 (0.0-2.0) 08/29/17 07:59 PT 17.3 SECONDS (9.4-12.5) H 08/28/17 15:30 INR 1.57 (0.93-1.08) H 08/28/17 15:30 APTT 33.6 Seconds (25.1-36.5) 08/28/17 15:30 Sodium 140 mmol/L (132-148) 08/29/17 07:59 Potassium 4.3 mmol/L (3.6-5.0) 08/29/17 07:59 Chloride 107 mmol/L (98-107) 08/29/17 07:59 Carbon Dioxide 23 mmol/L (21-33) 08/29/17 07:59 Anion Gap 10 (-20) 08/29/17 07:59 BUN 36 mg/dL (7-21) H 08/29/17 07:59 Creatinine 1.5 mg/dL (0.8-1.5) 08/29/17 07:59 Est GFR ( Amer) 55 08/29/17 07:59 Est GFR (Non-Af Amer) 46 08/29/17 07:59 POC Glucose (mg/dL) 181 mg/dL (65-110) H 08/28/17 22:54 Random Glucose 119 mg/dL (70-110) H 08/29/17 07:59 Calcium 10.3 mg/dL (8.4-10.5) 08/29/17 07:59 Phosphorus 3.2 mg/dL (2.5-4.5) 08/29/17 07:59 Magnesium 2.0 mg/dL (1.7-2.2) 08/29/17 07:59 Total Bilirubin 0.5 mg/dL (0.2-1.3) 08/29/17 07:59 AST 27 U/L (17-59) 08/29/17 07:59 ALT 58 U/L (7-56) H 08/29/17 07:59 Alkaline Phosphatase 98 U/L (38-126) 08/29/17 07:59 Lactate Dehydrogenase 330 U/L (333-699) L 08/28/17 15:30 Total Creatine Kinase < 20 U/L (35-230) L 08/28/17 15:30 Troponin I 0.01 ng/mL D 08/29/17 07:59 NT-Pro-B Natriuret Pep 1540 pg/mL (0-450) H 08/28/17 15:30 Total Protein 6.3 g/dL (5.8-8.3) 08/29/17 07:59 Albumin 3.6 g/dL (3.0-4.8) 08/29/17 07:59 Globulin 2.7 gm/dL 08/29/17 07:59 Albumin/Globulin Ratio 1.3 (1.1-1.8) 08/29/17 07:59 Triglycerides 183 mg/dL (35-160) H 08/29/17 07:59 Cholesterol 125 mg/dL (130-200) L 08/29/17 07:59 LDL Cholesterol Direct 57 mg/dL (0-129) 08/29/17 07:59 HDL Cholesterol 29 mg/dL (29-60) 08/29/17 07:59 TSH 3rd Generation 3.11 mIU/mL (0.46-4.68) 08/29/17 07:59 Urine Color Light yellow (YELLOW) 08/29/17 09:39 Urine Appearance Clear (CLEAR) 08/29/17 09:39 Urine pH 5.5 (4.7-8.0) 08/29/17 09:39 Ur Specific [place] 1.015 (1.005-1.035) 08/29/17 09:39 Urine Protein Negative mg/dL (<30 mg/dL) 08/29/17 09:39 Urine Glucose (UA) Negative mg/dL (NEGATIVE) 08/29/17 09:39 Urine Ketones Negative mg/dL (NEGATIVE) 08/29/17 09:39 Urine Blood Large (NEGATIVE) H 08/29/17 09:39 Urine Nitrate Negative (NEGATIVE) 08/29/17 09:39 Urine Bilirubin Negative (NEGATIVE) 08/29/17 09:39 Urine Urobilinogen 0.2 E.U./dL (<1 E.U./dL) 10/21/17 09:39 Ur Leukocyte Esterase Negative Isaías/uL (NEGATIVE) 08/29/17 09:39 Urine RBC 25 - 30 /hpf (0-2) 08/29/17 09:39 Urine WBC 0 - 2 /hpf (0-6) 08/29/17 09:39 Ur Epithelial Cells 0 - 2 /hpf (0-5) 08/29/17 09:39 Amorphous Sediment Few 08/29/17 09:39 Urine Bacteria Small (NEG) 08/29/17 09:39 Hyaline Casts 0 - 2 /hpf 08/29/17 09:39 - Hospital Course Hospital Course: Patient is a 77 yo male with past medical history of DM2, CVA with residual left sided weakness , HTN, Dementia, AFib, Anemia, B12 def, and polymyalgia rheumatica presents with chest pain which began laser cutter while he was sleeping. He describes the pain as a mid sternal pressure , 10/10 and non radiating. He stated that he also felt phlegm in his throat at the moment he felt the pain. Patient was admitted for chest pain, r/o ACS. Patient was monitored on telemetry. EKG on admission showed sinus bradycardia with LAFB and RBBB. Cardiology was consulted and on the case. Troponins were negative x 3. Echo from 08/03/2017 showed LVEF of 45-50% with mild TR, mild MR. BNP on admission 1450. CXR showed mild congestive changes, possible interstitial pulmondary edema (see full report). Patient was started on lasix. Patient states that chest pain had resolved. Per cardio, patient to follow up for outpatient stress test. For acute bronchitis, patient was started on levaquin. UA showed +RBCs, urine cx and sputum cx pending. Patient was started on home medications. On day of discharge, patient was feeling well. Coughing improved and chest pain resolved. Patient was tolerated diet and is medically stable for discharge. All medications were reconciled. Patient to follow up with PMD and certified orthotic fitter within 1 week. Continue Levofloxacin 500mg x 5 days. All questions and concerns were addressed. Discharge Exam - Head Exam Head Exam: ATRAUMATIC, NORMAL INSPECTION, NORMOCEPHALIC - Eye Exam Eye Exam: EOMI, Normal appearance Pupil Exam: NORMAL ACCOMODATION - Neck Exam Neck exam: Full Rom - Respiratory Exam Respiratory Exam: Rhonchi, NORMAL BREATHING PATTERN. absent: Rales, Wheezes, Respiratory Distress - Cardiovascular Exam Cardiovascular Exam: REGULAR RHYTHM, +S1, +S2 - GI/Abdominal Exam GI & Abdominal Exam: Normal Bowel Sounds, Soft. absent: Guarding, Rebound, Rigid - Extremities Exam Extremities exam: normal inspection - Back Exam Back exam: NORMAL INSPECTION - Neurological Exam Neurological exam: Alert Additional comments: AAO x 2 (not orientated to place) - Psychiatric Exam Psychiatric exam: Normal Affect, Normal Mood - Skin Skin Exam: Dry, Normal Color, Warm Discharge Plan - Discharge Medications Prescriptions: Furosemide [Lasix] 40 mg PO DAILY #30 tab levoFLOXacin [Levaquin] 500 mg PO DAILY #5 tab Metoprolol Tartrate 25 mg PO BID #60 tablet - Follow Up Plan Condition: STABLE Disposition: HOME/ ROUTINE Instructions: Heart Failure (DC), Chest Pain (DC), Acute Bronchitis (GEN), Chronic Cough (DC) Additional Instructions: 1. Continue Levofloxaxin 500 mg x 5 days 2. Continue medications as prescribed 3. Please follow up with Dr Huerta for outpatient stress test 4. Please follow up with PMD within 1 week. 5. Follow up UA as outpatient. 6. metoprolol decreased to 25 mg po bid. Referrals: Charo Huerta MD [Primary Care Provider] - <Kirti Garcia - Last Filed: 08/30/17 10:33> Provider - Provider Date of Admission: 08/28/17 16:16 Attending physician: Kirti Garcia MD Primary care physician: Charo Huerta MD Hospital Course - Lab Results Lab Results: Micro Results 08/28/17 23:00 Urine Urine Culture - Final No Growth (<1,000 CFU/ML) Most Recent Lab Values WBC 7.9 10^3/ul (4.5-11.0) 08/29/17 07:59 RBC 3.99 10^6/uL (3.5-6.1) 08/29/17 07:59 Hgb 11.6 g/dL (14.0-18.0) L 08/29/17 07:59 Hct 37.0 % (42.0-52.0) L 08/29/17 07:59 MCV 92.7 fl (80.0-105.0) 08/29/17 07:59 MCH 29.1 pg (25.0-35.0) 08/29/17 07:59 MCHC 31.4 g/dl (31.0-37.0) 08/29/17 07:59 RDW 15.7 % (11.5-14.5) H 08/29/17 07:59 Plt Count 275 10^3/uL (120.0-450.0) 08/29/17 07:59 MPV 8.7 fl (7.0-11.0) 08/29/17 07:59 Gran % 72.4 % (50.0-68.0) H 08/29/17 07:59 Lymph % (Auto) 14.2 % (22.0-35.0) L 08/29/17 07:59 Pinal % (Auto) 9.7 % (1.0-6.0) H 08/29/17 07:59 Eos % (Auto) 3.6 % (1.5-5.0) 08/29/17 07:59 Baso % (Auto) 0.1 % (0.0-3.0) 08/29/17 07:59 Gran # 5.69 (1.4-6.5) 08/29/17 07:59 Lymph # 1.1 (1.2-3.4) L 08/29/17 07:59 Pinal # 0.8 (0.1-0.6) H 08/29/17 07:59 Eos # 0.3 (0.0-0.7) 08/29/17 07:59 Baso # 0.01 K/mm3 (0.0-2.0) 08/29/17 07:59 PT 17.3 SECONDS (9.4-12.5) H 08/28/17 15:30 INR 1.57 (0.93-1.08) H 08/28/17 15:30 APTT 33.6 Seconds (25.1-36.5) 08/28/17 15:30 Sodium 140 mmol/L (132-148) 08/29/17 07:59 Potassium 4.3 mmol/L (3.6-5.0) 08/29/17 07:59 Chloride 107 mmol/L (98-107) 08/29/17 07:59 Carbon Dioxide 23 mmol/L (21-33) 08/29/17 07:59 Anion Gap 10 (10-20) 08/29/17 07:59 BUN 36 mg/dL (7-21) H 08/29/17 07:59 Creatinine 1.5 mg/dL (0.8-1.5) 08/29/17 07:59 Est GFR ( Amer) 55 08/29/17 07:59 Est GFR (Non-Af Amer) 46 08/29/17 07:59 POC Glucose (mg/dL) 152 mg/dL (65-110) H 08/29/17 11:37 Random Glucose 119 mg/dL (70-110) H 08/29/17 07:59 Calcium 10.3 mg/dL (8.4-10.5) 08/29/17 07:59 Phosphorus 3.2 mg/dL (2.5-4.5) 08/29/17 07:59 Magnesium 2.0 mg/dL (1.7-2.2) 08/29/17 07:59 Total Bilirubin 0.5 mg/dL (0.2-1.3) 08/29/17 07:59 AST 27 U/L (17-59) 08/29/17 07:59 ALT 58 U/L (7-56) H 08/29/17 07:59 Alkaline Phosphatase 98 U/L (38-126) 08/29/17 07:59 Lactate Dehydrogenase 330 U/L (333-699) L 08/28/17 15:30 Total Creatine Kinase < 20 U/L (35-230) L 08/28/17 15:30 Troponin I 0.01 ng/mL D 08/29/17 07:59 NT-Pro-B Natriuret Pep 1540 pg/mL (0-450) H 08/28/17 15:30 Total Protein 6.3 g/dL (5.8-8.3) 08/29/17 07:59 Albumin 3.6 g/dL (3.0-4.8) 08/29/17 07:59 Globulin 2.7 gm/dL 08/29/17 07:59 Albumin/Globulin Ratio 1.3 (1.1-1.8) 08/29/17 07:59 Triglycerides 183 mg/dL (35-160) H 08/29/17 07:59 Cholesterol 125 mg/dL (130-200) L 08/29/17 07:59 LDL Cholesterol Direct 57 mg/dL (0-129) 08/29/17 07:59 HDL Cholesterol 29 mg/dL (29-60) 08/29/17 07:59 TSH 3rd Generation 3.11 mIU/mL (0.46-4.68) 08/29/17 07:59 Urine Color Light yellow (YELLOW) 08/29/17 09:39 Urine Appearance Clear (CLEAR) 08/29/17 09:39 Urine pH 5.5 (4.7-8.0) 08/29/17 09:39 Ur Specific [place] 1.015 (1.005-1.035) 08/29/17 09:39 Urine Protein Negative mg/dL (<30 mg/dL) 08/29/17 09:39 Urine Glucose (UA) Negative mg/dL (NEGATIVE) 08/29/17 09:39 Urine Ketones Negative mg/dL (NEGATIVE) 08/29/17 09:39 Urine Blood Large (NEGATIVE) H 08/29/17 09:39 Urine Nitrate Negative (NEGATIVE) 08/29/17 09:39 Urine Bilirubin Negative (NEGATIVE) 08/29/17 09:39 Urine Urobilinogen 0.2 E.U./dL (<1 E.U./dL) 08/29/17 09:39 Ur Leukocyte Esterase Negative Isaías/uL (NEGATIVE) 08/29/17 09:39 Urine RBC 25 - 30 /hpf (0-2) 08/29/17 09:39 Urine WBC 0 - 2 /hpf (0-6) 08/29/17 09:39 Ur Epithelial Cells 0 - 2 /hpf (0-5) 08/29/17 09:39 Amorphous Sediment Few 08/29/17 09:39 Urine Bacteria Small (NEG) 08/29/17 09:39 Hyaline Casts 0 - 2 /hpf 08/29/17 09:39 Attending/Attestation - Attestation I have personally seen and examined this patient.: Yes I have fully participated in the care of the patient.: Yes I have reviewed all pertinent clinical information, including history, physical exam and plan: Yes Notes (Text): 08/30/17 10:32 attending note; Patient seen and examined with resident. patient is a 77 year old male with past medical history of DM2, CVA with residual left sided weakness , HTN, Dementia, AFib, Anemia, B12 def, and polymyalgia rheumatica presents with chest pain.. cardiology evaluation with Dr. Coto appreciated. metoprolol dosage decreased. Started on Lasix. Cex3 negative. currently chest pain-free. Patient wanted to go home. bronchitis; started on Levaquin. Continue by mouth Zithromax. Dark urine; UA showed RBCs. Urine culture is negative. Follow-up with urology as needed. Case discussed with PMD Dr. Huerta in detail. patient will get a stress test as outpatient. currently afebrile and nontoxic. Patient denies any urinary symptoms. Upon discharge the patient will follow-up with PMD Dr. Huerta. Diagnosis; Chest pain dementia CVA with left-sided weakness Hypertension A. fib bedbound 08/30/17 10:33
[2017-08-29 13:02] VITALS: BP 138/95; PULSE 56; RESP 20; TEMP 98.7
--- NOTE | 2017-08-31 09:10 | PN ---
DATE: 08/29/2017 LOCATION: The patient in room 276, bed 2. REASON FOR CONSULTATION AND FOLLOWUP: Chest pain, cough, history of CVAs, the patient on Xarelto. SUBJECTIVE: The patient denies any cough or chest pain at present. The patient's chest pain was at localized point below the nape of the neck and he thought that he is also bringing up some expectoration. The patient now is symptom free. PHYSICAL EXAMINATION: VITAL SIGNS: Blood pressure 130/73, respirations 20, pulse 56, and temperature 98.7. HEENT: Head is normocephalic. Eyes: Pupils normal, conjunctivae slightly pale. NECK: JVP low. Carotids are equal. THORAX: AP diameter normal. LUNGS: Clear. CARDIOVASCULAR: S1 and S2. ABDOMEN: Soft. No tenderness. No organomegaly. EXTREMITIES: No clubbing. No cyanosis. LABORATORY DATA: WBC 7.9, hemoglobin 11.6, hematocrit 37.0, platelets 275. Sodium 140, potassium 4.3, BUN 36, creatinine 1.5, random sugar 119. AST 58, ALT 98, troponin x3 negative. Triglyceride 183. Cholesterol 125, LDL 57, HDL 29. TSH 3.11. The patient had echo on 07/31/2017, which showed aortic sclerosis versus mild aortic stenosis, ejection fraction of 40% to 45%, [id number] aortic regurgitation, mild mitral regurgitation, trace tricuspid regurgitation. RV systolic pressure 21 mmHg. EKG shows sinus bradycardia, poor baseline. DIAGNOSES: Chest pain, atypical with cough, dementia, history of cerebrovascular accidents in the past, right-sided residual weakness, rheumatoid arthritis, Alzheimer's disease, hypertension, hyperlipidemia, mild left ventricular systolic dysfunction on echo, ejection fraction 40% to 45%, respiratory tract infection, diabetes mellitus, hyperlipidemia, and obesity. PLAN: Chest x-ray is read as mild congestion, but I am not sure there may be chronic changes. The patient lying flat in bed without any respiratory distress. Lungs are clear on auscultation. The patient on glipizide 10 mg daily, furosemide 40 mg p.o. daily, levofloxacin 500 mg IV was given daily, Lipitor 40 mg daily, metoprolol 25 mg twice a day, amlodipine 10 mg daily, prednisone 5 mg daily, vitamin D 1000 international units p.o. daily, Xarelto 20 mg p.o. daily, and Zoloft 100 mg b.i.d. The patient neurologically follows with Dr. Perez. We will continue present therapy and the patient has no evidence of any coronary artery syndrome, chest pain is probably atypical. We will follow with you. Charo Huerta MD
--- NOTE | 2017-09-01 15:20 | PQF CHF ---
09/01/17 Dr. Coto, You document mild CHF on your consult. Please specify type and severity, as listed below. Thank you. Clarification of your documentation is requested to better reflect the severity of illness and intensity of treatment of your patient. Indicators present [] Diagnosis of CHF and/or history of CHF [] BNP > 200 [] Imaging Finding of Pulmonary Edema /Pleural Effusions [] Fluid/Volume Overload [] Pitting edema [] Ejection Fraction < 40% (Indicative of Systolic Heart Failure) [] Ejection Fraction > 40% (Indicative of Diastolic Heart Failure) [] Dyspnea / Orthopenea / Paroxysmal Nocturnal Dyspnea [] Other: Location in the medical record that reflects the above clinical findings: [] Treatment Provided: [] PHYSICIAN'S RESPONSE Based on your medical judgment of the clinical indicators outlined above, are you treating this patient for a known or suspected: [] Acute CHF [] Systolic [] Diastolic [] Combined [] Chronic CHF [] Systolic [] Diastolic [] Combined [x] Acute on Chronic CHF [x]Systolic [] Diastolic [] Combined [] CHF due hypertension [] Acute systolic []Chronic systolic [] Acute/ chronic systolic [] Other, please indicate: [] [] If Unable to Determine, please check the box, sign and date. Present On Admission (POA) Indicator: [] Present at the time of admission [] Not present at the time of admission [] Clinically Undetermined In responding to this query, please exercise your independent professional judgment. The fact that a question is asked does not imply that any particular answer is desired or expected. Thank you for your clarification on this documentation. If you have any questions please call:[ ] * Thank you, [ ] powder blender and pourer SKYLAR
== END 2017-08-29 16:08 | disposition home or self-care (01) | DRG 291 ==
LOC: ED 14:43 → ERH 16:16 → 2RSO 17:59
PROVIDERS: ADMIT Internal Medicine; ATTEND Internal Medicine
DX: I13.0 Hypertensive heart and chronic kidney disease with heart failure and stage 1 through stage 4 chronic kidney disease, or unspecified chronic kidney disease (principal); I50.23 Acute on chronic systolic (congestive) heart failure; E11.22 Type 2 diabetes mellitus with diabetic chronic kidney disease; I69.354 Hemiplegia and hemiparesis following cerebral infarction affecting left non-dominant side; G30.9 Alzheimer's disease, unspecified; F02.80 Dementia in other diseases classified elsewhere, unspecified severity, without behavioral disturbance, psychotic disturbance, mood disturbance, and anxiety; I48.0 Paroxysmal atrial fibrillation; I45.10 Unspecified right bundle-branch block; I48.2 Chronic atrial fibrillation; D63.8 Anemia in other chronic diseases classified elsewhere; E78.5 Hyperlipidemia, unspecified; J20.9 Acute bronchitis, unspecified; M06.9 Rheumatoid arthritis, unspecified; M35.3 Polymyalgia rheumatica; N18.9 Chronic kidney disease, unspecified; N40.0 Benign prostatic hyperplasia without lower urinary tract symptoms; Z74.01 Bed confinement status; Z79.01 Long term (current) use of anticoagulants; Z79.899 Other long term (current) drug therapy; Z87.01 Personal history of pneumonia (recurrent); Z87.891 Personal history of nicotine dependence; F32.89 Other specified depressive episodes; Z88.5 Allergy status to narcotic agent; I08.3 Combined rheumatic disorders of mitral, aortic and tricuspid valves

== ENCOUNTER 2017-11-26 18:42 | Inpatient (IN) | payer MEDICARE ==
[2017-11-26] MEDS ORDERED: Oxycodone/Acetaminophen 5/325 mg Tab PO STA (19:20)
[2017-11-26] MEDS ORDERED: Sodium Chloride 0.9% 500 ML IV STA (19:20)
--- NOTE | 2017-11-26 19:20 | ED PDOC ---
Arrival/HPI <Alexandria Herndon - Last Filed: 11/26/17 20:44> <Aviva Colunga Vic - Last Filed: 11/26/17 22:03> - General Chief Complaint: Male Genitourinary Time Seen by Provider: 11/26/17 18:47 - History of Present Illness Narrative History of Present Illness (Text): 11/26/17 19:13 CC: Left sided abdominal/flank pain and red-urine HPI: Patient's answers most of the questions at bedside due to dementia. Patient 's is worried about red colored urine and the patient's left sided flank and left sided abdominal pain. is worried patient had diluted lopez colored urine for the past two days. Patient does not always drink a lot of fluid so his urine color changes. Patient states his pain is sharp and can be dull. Patient states it's worse when he moves. It's present when he's sitting. Patient feels that he may have pulled a muscle. Patient states he stood during physical therapy and may have pulled a muscle. Patient also has a history of constipation for which his gives patient an enema. Last BM 3 days ago. PMH: DM2, CVA, CHF, HTN, Dementia, AFib, Anemia of chronic disease, Vitamin B12 def, PMR, Patient takes Epocrit for inability to form enough hemoglobin. PSH: L hip surgery, spinal surgery/laminectomy 2010 Medicine: Amlodipine 10mg, Atorvastatin 40mg, Metoprolol, Multaq 400, Prednisone 5mg, Xarelto 20mg , glipizide XL 10mg, folic acid 1mg, memantine 10mg , sertraline 100mg, trazadone 50mg, rivastigmine 9.5ml/24hr 1 patch each day Allergies: Morphine ("zones out" per prior EHR notes) SHx: former smoker and ETOH use; denies substance use. former truck railroad and bus motor mechanic FHx: non-contributory PMD: Dr. Huerta Heme: Dr. Phoenix Neuro: Dr. Perez 11/26/17 19:38 (Alexandria Herndon) Past Medical History - Infectious Disease Hx of Infectious Diseases: None - Tetanus Immunization Tetanus Immunization: Up to Date - Cardiac Hx Cardiac Disorders: Yes Hx Hypertension: Yes - Pulmonary Hx Respiratory Disorders: Yes (SMOKED CIGARETTES SOCIALLY) Hx Pneumonia: Yes (H/O OF 3 CVA'S) - Neurological HX Cerebrovascular Accident: Yes (x 3) Hx Dementia: Yes - HEENT Hx HEENT Disorder: No - Renal Hx Renal Disorder: Yes Hx Renal Failure: Yes - Endocrine/Metabolic Hx Diabetes Mellitus Type 2: Yes - Hematological/Oncological Hx Blood Disorders: Yes (B12 DEFIECIENCY) Hx Anemia: Yes - Musculoskeletal/Rheumatological Hx Musculoskeletal Disorders: Yes Hx Falls: No - Gastrointestinal Hx Gastrointestinal Disorders: No - Genitourinary/Gynecological Hx Genitourinary Disorders: Yes Hx Prostate Problems: Yes (BPH) - Psychiatric Hx Depression: Yes Hx Emotional Abuse: No Hx Physical Abuse: No Hx Substance Use: No - Surgical History Hx Orthopedic Surgery: Yes (titanium bess in back, left hip) - Anesthesia Hx Anesthesia Reactions: (pt unable to verify) Hx Malignant Hyperthermia: (pt unable to verify) - Suicidal Assessment Feels Threatened In Home Enviroment: No <Alexandria Herndon - Last Filed: 11/26/17 20:44> Family/Social History Family/Social History: Unknown Family HX Smoking Status: Former Smoker Hx Alcohol Use: No Hx Substance Use: No Hx Substance Use Treatment: No <Alexandria Herndon - Last Filed: 11/26/17 20:44> Allergies/Home Meds <Alexandria Herndon - Last Filed: 11/26/17 20:44> <Aviva Colunga - Last Filed: 11/26/17 22:03> Allergies/Adverse Reactions: Allergies morphine Allergy (Verified 07/30/17 19:39) DIZZINESS Home Medications: Home Meds Medication Instructions Recorded Confirmed Dronedarone HCl [Multaq] 400 mg PO BID 10/03/12 11/26/17 Sertraline [Zoloft] 100 mg PO BID 10/03/12 11/26/17 predniSONE [predniSONE Oral Soln] 5 mg PO DAILY 10/03/12 11/26/17 Amlodipine Besylate 10 mg PO DAILY 01/28/13 11/26/17 Memantine [Namenda] 10 mg PO BID 01/28/13 11/26/17 Rivastigmine 9.5 mg/24 hr [Exelon 1 ea TD DAILY 01/28/13 11/26/17 9.5 mg/24 hr Patch] Rivaroxaban [Xarelto] 20 mg PO DAILY 06/07/16 11/26/17 Atorvastatin Calcium 40 mg PO DAILY 07/30/17 11/26/17 Cholecalciferol (Vitamin D3) 1,000 unit PO DAILY 07/30/17 11/26/17 [Vitamin D3] Cranberry Fruit Extract/Vit C [Azo 1 each PO BID 07/30/17 11/26/17 Cranberry Softgel] Cyanocobalamin [Vitamin B12 1000 1,000 mcg PO BID 07/30/17 11/26/17 mcg Tab] Folic Acid 1 mg PO DAILY 07/30/17 11/26/17 GlipiZIDE [Glucotrol] 10 mg PO DAILY 07/30/17 11/26/17 traZODone [Desyrel] 50 mg PO HS 07/30/17 11/26/17 Review of Systems - Physician Review All systems were reviewed & negative as marked: Yes (Full ROS was unable to be updated due to patient has a history of dementia) - Review of Systems Constitutional: Normal. absent: Fatigue, Weight Change Eyes: Normal. absent: Vision Changes, Photophobia ENT: Normal Respiratory: Normal. absent: SOB, Cough, Sputum Cardiovascular: Normal. absent: Chest Pain, Palpitations Gastrointestinal: Abdominal Pain, Constipation. absent: Stool Changes, Diarrhea , Nausea, Vomiting, Appetite Changes Genitourinary Male: Hematuria (per ) Musculoskeletal: Back Pain (flank pain (right sided)). absent: Arthralgias Skin: absent: Rash, Pruritis, Skin Lesions Neurological: Normal. absent: Headache, Dizziness, Focal Weakness Endocrine: absent: Diaphoresis, Polyuria, Polydipsia Hemo/Lymphatic: Easy Bruising Psychiatric: Other (patient is pleasantly demented) <Alexandria Herndon - Last Filed: 11/26/17 20:44> Physical Exam Temperature: Afebrile Blood Pressure: Hypertensive Pulse: Bradycardic Appearance: Positive for: Comfortable Mental Status: Positive for: Alert and Oriented X 3 - Systems Exam Pupils: Present: PERRL Extroacular Muscles: Present: EOMI Conjunctiva: Present: Normal Ears: Present: Normal. No: NORMAL TM, Erythema, Normal Canal Mouth: Present: Moist Mucous Membranes. No: Dry, Drooling, Trismus Pharnyx: No: ERYTHEMA, EXUDATE, TONSILS ENLARGED, Peritonsilar Swelling Nose (External): Present: Atraumatic Neck: Present: Normal Range of Motion. No: Trachea Midline Respiratory/Chest: Present: Accessory Muscle Use. No: Clear to Auscultation, Good Air Exchange, Respiratory Distress Cardiovascular: Present: Regular Rate and Rhythm, Normal S1, S2. No: Murmurs Abdomen: Present: Distention, Normal Bowel Sounds. No: Peritoneal Signs, Rebound, Guarding Back: No: CVA Tenderness, Paraspinal Tenderness Upper Extremity: Present: Normal Inspection, Capillary Refill < 2s Lower Extremity: Present: Normal Inspection, NORMAL PULSES, Normal ROM, Capillary Refill < 2 s. No: Edema Neurological: Present: GCS=15, CN II-XII Intact Skin: Present: Warm, Dry Psychiatric: Present: Alert, Other (patient has a history of dementia. said this is his baseline. patient is not oriented to time, place, but is alert to person (AAOx1)) <Alexandria Herndon - Last Filed: 11/26/17 20:44> Vital Signs Temp Pulse Resp BP Pulse Ox 11/26/17 18:56 98.7 F 54 L 14 189/85 H 99 Medical Decision Making - Lab Interpretations I have reviewed the lab results: Yes Interpretation: Abnormal lab values <Alexandria Herndon - Last Filed: 11/26/17 20:44> <Aviva Colunga - Last Filed: 11/26/17 22:03> ED Course and Treatment: Urinalysis, Urine cx, tylenol for pain CT abd&pelvis w/o po or IV contrast f/u PT/PTT/INR f/u CBC f/u CMP (Alexandria Herndon) 11/26/17 21:37 CT shows Large staghorn calculus causing obstructive change in the right kidney, appears chronic. Approximately 1 x 2 cm calculus in the left kidney near the ureteropelvic junction with moderate left hydroureteronephrosis and surrounding perinephric stranding. Bladder wall appears mildly thickened. Correlate clinically to evaluate for superimposed infection. Please see additional details/findings as above. Correlate clinically. Followup as warranted. Please note evaluation for underlying visceral lesions/abnormalities limited without intravenous contrast. 11/26/17 21:45 Patient given 250cc IVF and now getting 80cc/hr due to CHF. Patient has WBC:12 , worsening renal function 1.5 to 2.3 in 3 months, positive ua and obstruction on CT, combined with co-morbid condition of dementia, will place in observation under Dr. Crump for IV hydration, antibiotics and flomax, pending ucx with urology consult. (Aviva Colunga) - Lab Interpretations Lab Results: 11/26/17 20:05 11/26/17 20:05 Lab Results 11/26/17 20:05: Sodium 132, Potassium 4.5, Chloride 103, Carbon Dioxide 19 L, Anion Gap 14, BUN 48 H, Creatinine 2.3 H, Est GFR ( Amer) 34, Est GFR ( Non-Af Amer) 28, Random Glucose 235 H, Calcium 10.1, Phosphorus 4.1, Magnesium 2.2, Total Bilirubin 0.4, AST 39, ALT 94 H, Alkaline Phosphatase 123, Total Protein 6.7, Albumin 3.7, Globulin 3.1, Albumin/Globulin Ratio 1.2 11/26/17 20:05: PT 15.0 H, INR 1.31 H, APTT 32.9 11/26/17 20:05: WBC 12.0 H D, RBC 4.06, Hgb 11.4 L, Hct 37.3 L, MCV 91.9, MCH 28.1, MCHC 30.6 L, RDW 15.5 H, Plt Count 255, MPV 9.4, Gran % 83.1 H, Lymph % ( Auto) 7.2 L, [place] % (Auto) 8.3 H, Eos % (Auto) 1.3 L, Baso % (Auto) 0.1, Gran # 9.98 H, Lymph # 0.9 L, [place] # 1.0 H, Eos # 0.2, Baso # 0.01 11/26/17 20:05: Urine Color Yellow, Urine Appearance Cloudy, Urine pH 6.0, Ur Specific [place] 1.020, Urine Protein 30 H, Urine Glucose (UA) 500 H, Urine Ketones Negative, Urine Blood Large H, Urine Nitrate Negative, Urine Bilirubin Negative, Urine Urobilinogen 0.2, Ur Leukocyte Esterase Small H, Urine RBC Tntc , Urine WBC 2 - 5, Ur Epithelial Cells 3 - 4, Urine Bacteria Few Urinalysis glucose 500, small leukocyte esterase, negative nitrate. tntc urine RBC WBC 12.0 BUN/Cr 48/2.3 elevated from previous visit in August 2017 36/1.5 (Alexandria Herndon) - RAD Interpretation Radiology Orders: 11/26/17 19:18 ABD & PELVIS W/O PO OR IV CONT [CT] Stat - Medication Orders Current Medication Orders: Ceftriaxone Sodium (Rocephin 1 Gram Ivpb) 1 gm in 100 mls @ 200 mls/hr IVPB STAT STA Stop: 11/26/17 22:12 Sodium Chloride (Sodium Chloride 0.9%) 500 mls @ 80 mls/hr IV .Q6H15M ONE Stop: 11/27/17 04:14 Discontinued Medications Acetaminophen (Tylenol 325mg Tab) 650 mg PO STAT STA Stop: 11/26/17 19:21 Last Admin: 11/26/17 19:35 Dose: 650 mg Re-Assess: LAMINE Pain/Vitals Document 11/26/17 20:35 RG (Rec: 11/26/17 20:47 RG [id number]) Pain Reassessment Is This A Pain ReAssessment? Yes Sleep Is patient sleeping during reassessment? No Presence of Pain Presence of Pain Yes Pain Scale Used Pain Scale Used Numeric Location Intensity 2 Scale Used Numeric Tamsulosin HCl (Flomax) 0.4 mg PO STAT STA Stop: 11/26/17 21:39 Disposition/Present on Arrival - Present on Arrival Any Indicators Present on Arrival: No History of DVT/PE: No History of Uncontrolled Diabetes: No Urinary Catheter: No History of Decub. Ulcer: Yes (Patient's treats ulcers when found) History Surgical Site Infection Following: None <Alexandria Herndon - Last Filed: 11/26/17 20:44> - Present on Arrival Any Indicators Present on Arrival: No - Disposition Have Diagnosis and Disposition been Completed?: Yes Disposition Time: 22:02 Patient Plan: Observation <Aviva Colunga - Last Filed: 11/26/17 22:03> - Disposition Diagnosis: UTI (urinary tract infection), Renal stone, Acute kidney injury, Dementia Disposition: HOSPITALIZED Condition: FAIR
[2017-11-26 20:20] LABS: URINE BILIRUBIN NEGATIVE (NEGATIVE); URINE BLOOD LARGE (NEGATIVE); URINE GLUCOSE (UA) 500 mg/dL (NEGATIVE); URINE LEUKOCYTE ESTERASE SMALL Leu/uL (NEGATIVE); URINE NITRATE NEGATIVE (NEGATIVE); URINE PROTEIN 30 mg/dL (<30 mg/dL); URINE UROBILINOGEN 0.2 E.U./dL (<1 E.U./dL)
[2017-11-26 20:22] LABS: BASO # 0.01 K/mm3 (0.0-2.0); BASO % 0.1 % (0.0-3.0); EOS # 0.2 (0.0-0.7); EOS % 1.3 % (1.5-5.0); GRAN # 9.98 (1.4-6.5); GRAN % 83.1 % (50.0-68.0); HEMOGLOBIN 11.4 g/dL (14.0-18.0); LYMPH # 0.9 (1.2-3.4); LYMPH % 7.2 % (22.0-35.0); MEAN CELL VOLUME 91.9 fl (80.0-105.0); MEAN CORPUSCULAR HEMOGLOBIN 28.1 pg (25.0-35.0); MEAN CORPUSCULAR HGB CONC 30.6 g/dl (31.0-37.0); MEAN PLATELET VOLUME 9.4 fl (7.0-11.0); MONO % 8.3 % (1.0-6.0); RBC 4.06 10^6/uL (3.5-6.1); RED CELL DISTRIBUTION WIDTH 15.5 % (11.5-14.5)
[2017-11-26 20:24] LABS: URINE APPEARANCE CLOUDY (CLEAR); URINE COLOR YELLOW (YELLOW)
[2017-11-26 20:28] LABS: URINE RBC TNTC /hpf (0-2)
[2017-11-26 20:29] LABS: URINE BACTERIA FEW (NEG)
[2017-11-26 20:30] LABS: ALB/GLOB RATIO 1.2 (1.1-1.8); ALBUMIN 3.7 g/dL (3.0-4.8); CALCIUM 10.1 mg/dL (8.4-10.5); MAGNESIUM 2.2 mg/dL (1.7-2.2)
[2017-11-26 20:34] LABS: INR 1.31 (0.93-1.08); PARTIAL THROMBOPLASTIN TIME 32.9 Seconds (25.1-36.5)
[2017-11-26] MEDS ORDERED: Sodium Chloride 0.9% 250 ML IV SCH (20:45)
[2017-11-26] MEDS ORDERED: Sodium Chloride 0.9% 1,000 ML IV SCH (21:00)
--- NOTE | 2017-11-26 21:27 | CT ---
EXAM: CT Abdomen and Pelvis Without Intravenous Contrast CLINICAL HISTORY: 77 years old, male; Pain; Abdominal pain; Flank; Left; Additional info: Hematuria TECHNIQUE: Axial computed tomography images of the abdomen and pelvis without intravenous contrast. All CT scans at this facility use one or more dose reduction techniques, viz.: automated exposure control; ma/kV adjustment per patient size (including targeted exams where dose is matched to indication; i.e. head); or iterative reconstruction technique. Coronal and sagittal reformatted images were created and reviewed. COMPARISON: US - RENAL 2017-07-30 16:38 FINDINGS: Lower thorax: Atelectasis. ABDOMEN: Liver: No acute abnormality as visualized. Gallbladder and bile ducts: No acute abnormality as visualized. Ultrasound can provide more sensitive evaluation of the biliary system as warranted. Pancreas: Extensive pancreatic calcifications and atrophy. Correlate for history of pancreatitis. Spleen: No splenomegaly. Adrenals: Question sub-centimeter nodule involving the right adrenal gland. Kidneys and ureters/bladder: Large staghorn calculus causing obstructive change in the right kidney, appears chronic. Approximately 1 x 2 cm calculus in the left kidney near the ureteropelvic junction with moderate left hydroureteronephrosis and surrounding perinephric stranding. Bladder wall appears mildly thickened. Stomach and bowel: Minimal hiatal hernia/thickening of distal esophageal wall. Evaluation of bowel limited without enteric contrast. No small bowel obstruction. Some retained fecal material in the colon. Reproductive: No acute abnormality as visualized. Intraperitoneal space: No free air. No significant fluid collection. Bones: Degenerative changes. Rods and screws stabilize L3-S1. The Vasculature: Significant atherosclerosis. Descending thoracic aorta measured at 2.9 cm. Benjamin and screw stabilizes left femur. IMPRESSION: Large staghorn calculus causing obstructive change in the right kidney, appears chronic. Approximately 1 x 2 cm calculus in the left kidney near the ureteropelvic junction with moderate left hydroureteronephrosis and surrounding perinephric stranding. Bladder wall appears mildly thickened. Correlate clinically to evaluate for superimposed infection. Please see additional details/findings as above. Correlate clinically. Followup as warranted. Please note evaluation for underlying visceral lesions/abnormalities limited without intravenous contrast.
[2017-11-26] MEDS ORDERED: cefTRIAXone (Rocephin) 1 gm Inj IVPB STA (21:38)
[2017-11-26] MEDS ORDERED: cefTRIAXone 1 GM/100 ML BAG IVPB STA (21:43)
[2017-11-26] MEDS ORDERED: Sodium Chloride 0.9% 500 ML IV ONE (22:00)
[2017-11-26 22:45] VITALS: BMI 24.4
[2017-11-27] MEDS: Sodium Chloride 0.9% 1,000 ML IV SCH (14:37)
[2017-11-27] MEDS: cefTRIAXone 1 gm 1 GM/100 ML BAG IVPB SCH (14:37)
[2017-11-28] MEDS: Sodium Chloride 0.9% 1,000 ML IV SCH (00:44)
[2017-11-28 08:20] LABS: ALBUMIN 2.8 g/dL (3.0-4.8); CALCIUM 9.3 mg/dL (8.4-10.5)
[2017-11-28 08:45] LABS: HEMOGLOBIN 10.1 g/dL (14.0-18.0); MEAN CELL VOLUME 89.5 fl (80.0-105.0); MEAN CORPUSCULAR HEMOGLOBIN 27.2 pg (25.0-35.0); MEAN CORPUSCULAR HGB CONC 30.3 g/dl (31.0-37.0); MEAN PLATELET VOLUME 9.7 fl (7.0-11.0); RBC 3.72 10^6/uL (3.5-6.1); RED CELL DISTRIBUTION WIDTH 15.5 % (11.5-14.5); WHITE BLOOD COUNT 10.7 10^3/ul (4.5-11.0)
[2017-11-28] MEDS: cefTRIAXone 1 gm 1 GM/100 ML BAG IVPB SCH (13:28)
--- NOTE | 2017-11-29 00:03 | CP.PCM.HP ---
History of Present Illness - History of Present Illness History of Present Illness: Patient is a 77 year old male presented with left flank pain. He had hematuria also. CT abdomen showed large staghorn calculus in right kidney and large calculus in left kidney. He has chronic anemia of CKD . B12 deficiency. CBC showed leukocytosis. No chest pain. No nausea, vomiting. CKD is stable. BP controlled . anemia stable. Has not required blood transfusion. Present on Admission - Present on Admission Any Indicators Present on Admission: No Review of Systems - Constitutional Constitutional: As Per HPI - EENT Eyes: absent: As Per HPI, Blind Spots, Blurred Vision, Change in Vision, Decreased Night Vision, Diplopia, Discharge, Dry Eye, Exophthalmos, Floaters, Irritation, Itchy Eyes, Loss of Peripheral Vision, Pain, Photophobia, Requires Corrective Lenses, Sees Flashes, Spots in Vision, Tunnel Vision, Other Visual Disturbances, Loss of Vision, Other Ears: absent: As Per HPI, Decreased Hearing, Ear Discharge, Ear Pain, Tinnitus, Abnormal Hearing, Disequilibrium, Dizziness, Other - Cardiovascular Cardiovascular: As Per HPI - Respiratory Respiratory: absent: As Per HPI, Cough, Dyspnea, Hemoptysis, Dyspnea on Exertion , Wheezing, Snoring, Stridor, Pain on Inspiration, Chest Congestion, Excessive Mucous Production, Change in Mucous Color, Pain with Coughing, Other - Gastrointestinal Gastrointestinal: absent: As Per HPI, Abdominal Pain, Belching, Bloating, Change in Bowel Habits, Change in Stool Character, Coffee Ground Emesis, Constipation, Cramping, Diarrhea, Dyspepsia, Dysphagia, Early Satiety, Excessive Flatus, Fecal Incontinence, Heartburn, Hematemesis, Hematochezia, Loose Stools, Melena, Nausea, Odynophagia, Temesmus, Vomiting, Other - Genitourinary Genitourinary: As Per HPI - Musculoskeletal Musculoskeletal: absent: As Per HPI, Abnormal Gait, Arthralgias, Atrophy, Back Pain, Deformity, Joint Swelling, Limited Range of Motion, Loss of Height, Muscle Cramps, Muscle Weakness, Myalgias, Neck Pain, Numbness, Radiating Pain into Limb, Stiffness, Tingling, Other - Integumentary Integumentary: absent: As Per HPI, Acne, Alopecia, Bleeding Lesions, Change in Hair, Change in Nails, Change in Pigmentation, Changing Lesions, Dry Skin, Erythema, Furuncle, Hirsutism, Lesions, New Lesions, Non-Healing Lesions, Photosensitivity, Pruritus, Rash, Skin Pain, Skin Ulcer, Sores, Striae, Swelling , Unusual Bruising, Wounds, Jaundice, Other - Neurological Neurological: absent: As Per HPI, Abnormal Gait, Abnormal Hearing, Abnormal Movements, Abnormal Speech, Behavioral Changes, Burning Sensations, Confusion, Convulsions, Disequilibrium, Dizziness, Numbness, Focal Weakness, Frequent Falls , Headaches, Lack of Coordination, Loss of Vision, Memory Loss, Paresthesias, Radicular Pain, Restless Legs, Sensory Deficit, Syncope, Tingling, Tremor, Vertigo, Weakness, Other Visual Disturbances, Other - Psychiatric Psychiatric: absent: As Per HPI, Abnormal Sleep Pattern, Anhedonia, Anxiety, Auditory Hallucinations, Behavioral Changes, Change in Appetite, Change in Libido, Confusion, Depression, Difficulty Concentrating, Hallucinations, Homicidal Ideation, Hopelessness, Irritability, Memory Loss, Mood Swings, Panic Attacks, Paranoia, Suicidal Ideation, Visual Hallucinations, Tactile Hallucinations, Other - Endocrine Endocrine: absent: As Per HPI, Change in Body Appearance, Change in Libido, Cold Intolorance, Deepening of Voice, Excessive Sweating, Fatigue, Flushing, Heat Intolorance, Increase in Ring/Shoe/Hat Size, Palpitations, Polydipsia, Polyphagia, Polyuria, Other - Hematologic/Lymphatic Hematologic: As Per HPI Past Patient History - Infectious Disease Hx of Infectious Diseases: None - Tetanus Immunizations Tetanus Immunization: Up to Date - Past Medical History & Family History Past Medical History?: Yes - Past Social History Smoking Status: Former Smoker - CARDIAC Hx Cardiac Disorders: Yes Hx Cardia Arrhythmia: Yes Hx Congestive Heart Failure: Yes Other/Comment: A-Fib - PULMONARY Hx Respiratory Disorders: No - NEUROLOGICAL Hx Neurological Disorder: Yes Hx Dementia: Yes - HEENT Hx HEENT Problems: No - RENAL Hx Kidney Stones: Yes Hx Renal Failure: Yes - ENDOCRINE/METABOLIC Hx Endocrine Disorders: Yes Hx Diabetes Mellitus Type 2: Yes - HEMATOLOGICAL/ONCOLOGICAL Hx Blood Disorders: Yes Hx Anemia: Yes - INTEGUMENTARY Hx Dermatological Problems: No - MUSCULOSKELETAL/RHEUMATOLOGICAL Hx Musculoskeletal Disorders: Yes Hx Falls: Yes Hx Fractures: Yes (left hip fracture about 2 yrs ago) - GASTROINTESTINAL Hx Gastrointestinal Disorders: No - GENITOURINARY/GYNECOLOGICAL Hx Genitourinary Disorders: Yes Hx Hematuria: Yes Hx Urinary Tract Infection: Yes - PSYCHIATRIC Hx Psychophysiologic Disorder: Yes Hx Depression: Yes Hx Substance Use: No - SURGICAL HISTORY Hx Surgeries: Yes - ANESTHESIA Hx Anesthesia Reactions: (pt unable to verify) Hx Malignant Hyperthermia: (pt unable to verify) Meds Allergies/Adverse Reactions: Allergies Allergy/AdvReac Type Severity Reaction Status Date / Time morphine Allergy DIZZINESS Verified 07/30/17 19:39 Physical Exam - Constitutional Appears: Well, Non-toxic - Head Exam Head Exam: ATRAUMATIC, NORMAL INSPECTION, NORMOCEPHALIC - Eye Exam Eye Exam: Normal appearance - ENT Exam ENT Exam: Mucous Membranes Moist - Neck Exam Neck exam: Positive for: Normal Inspection - Respiratory Exam Respiratory Exam: Clear to Auscultation Bilateral, NORMAL BREATHING PATTERN - Cardiovascular Exam Cardiovascular Exam: REGULAR RHYTHM, +S1, +S2 - Extremities Exam Extremities exam: Positive for: normal inspection - Neurological Exam Neurological exam: Alert, CN II-XII Intact, Normal Gait, Oriented x3 - Psychiatric Exam Psychiatric exam: Normal Affect, Normal Mood - Skin Skin Exam: Normal Color, Warm Results - Vital Signs Recent Vital Signs: Last Vital Signs Temp 99.4 F 11/28/17 16:30 Pulse 54 L 11/28/17 16:30 Resp 20 11/28/17 16:30 BP 145/72 11/28/17 17:29 Pulse Ox 96 11/28/17 16:30 - Labs Result Diagrams: 11/28/17 07:30 11/28/17 07:30 Assessment & Plan - Assessment and Plan (Free Text) Assessment: 1. Renal colic left. 2. Hematuria 3. leukocytosis 4. Chronic anemia 5. CKD stage III. Plan : admit hospital. IVF NS at 70 cc/hr. IV ceftrioxone, urine culture to be sent. Urology consult Dr. Velazco . Renal ; BUN, creatinine stable. Montior CBC. Hb/Hct stable. Pain : dilaudid 0.5 mg IV prn. Monitor urine output.
--- NOTE | 2017-11-29 00:10 | CP.PCM.PN ---
Subjective - Date & Time of Evaluation Date of Evaluation: 11/28/17 Time of Evaluation: 12:00 - Subjective Subjective: comfortable in bed. Hematuria resolved. No abdominal pain. No fever, cough. ambulating in room. No nausea,vomiting. Objective - Vital Signs/Intake and Output Vital Signs (last 24 hours): Temp Pulse Resp BP Pulse Ox 99.4 F 54 L 20 145/72 96 11/28/17 16:30 11/28/17 16:30 11/28/17 16:30 11/28/17 17:29 11/28/17 16:30 Intake and Output: 11/28/17 11/29/17 18:59 06:59 Intake Total 300 Output Total 200 Balance 100 - Medications Medications: Current Medications Amlodipine Besylate (Norvasc) 10 mg PO DAILY [facility] Last Admin: 11/28/17 10:30 Dose: 10 mg Atorvastatin Calcium (Lipitor) 40 mg PO DAILY [facility] Last Admin: 11/28/17 10:30 Dose: 40 mg Glipizide (Glucotrol) 10 mg PO DAILY [facility] Last Admin: 11/28/17 10:31 Dose: 10 mg Ceftriaxone Sodium (Rocephin 1 Gram Ivpb) 1 gm in 100 mls @ 100 mls/hr IVPB Q24H [facility] PRN Reason: Protocol Stop: 12/01/17 14:01 Last Admin: 11/28/17 13:28 Dose: 100 mls/hr Sodium Chloride (Sodium Chloride 0.9%) 1,000 mls @ 100 mls/hr IV .Q10H [facility] Last Admin: 11/28/17 00:44 Dose: 100 mls/hr Memantine (Namenda) 10 mg PO BID [facility] Last Admin: 11/28/17 17:30 Dose: 10 mg Metoprolol Tartrate (Lopressor) 25 mg PO BID [facility] Last Admin: 11/28/17 17:29 Dose: 25 mg (Dronedarone Hcl [ (Multaq] 400 Mg)) 400 mg PO BID [facility] Last Admin: 11/28/17 17:29 Dose: 400 mg Rivastigmine (Exelon 9.5 Mg/24 Hr Patch) 1 patch TD DAILY [facility] Sertraline HCl (Zoloft) 100 mg PO BID [facility] Last Admin: 11/28/17 17:30 Dose: 100 mg Trazodone HCl (Desyrel) 50 mg PO HS [facility] Last Admin: 11/28/17 23:01 Dose: 50 mg - Labs Labs: PT 15.0 SECONDS (9.4-12.5) H 11/26/17 20:05 INR 1.31 (0.93-1.08) H 11/26/17 20:05 APTT 32.9 Seconds (25.1-36.5) 11/26/17 20:05 - Constitutional Appears: Well, Non-toxic - Head Exam Head Exam: ATRAUMATIC, NORMAL INSPECTION, NORMOCEPHALIC - Eye Exam Eye Exam: Normal appearance - ENT Exam ENT Exam: Mucous Membranes Moist - Neck Exam Neck Exam: Normal Inspection - Respiratory Exam Respiratory Exam: Clear to Ausculation Bilateral, NORMAL BREATHING PATTERN - Cardiovascular Exam Cardiovascular Exam: REGULAR RHYTHM, +S1, +S2 - GI/Abdominal Exam GI & Abdominal Exam: Soft, Normal Bowel Sounds - Extremities Exam Extremities Exam: Normal Inspection - Back Exam Back Exam: NORMAL INSPECTION - Neurological Exam Neurological Exam: Alert, Awake, CN II-XII Intact, Normal Gait, Oriented x3 - Psychiatric Exam Psychiatric exam: Normal Affect, Normal Mood - Skin Skin Exam: Normal Color, Warm Assessment and Plan - Assessment and Plan (Free Text) Assessment: 1. B/L renal calculi- Urology Dr. Velazco consulted. Plan for ureteral stents placement on Thursday. 2. Hematuria - resolved. 3. Chronic anemia - Hb/Hct stable. 4. CKD III- stable. 5. Continue IV hydration. 6. Continue IV ceftrioxone, urine culture pending.
[2017-11-29] MEDS: POLYETHYLENE GLYCOL 3350 17 GM/Dose PACKET PO SCH ×3 (09:45→17:58)
--- NOTE | 2017-11-29 10:47 | RAD ---
HISTORY: routine COMPARISON: Chest x-ray performed 08/28/17 TECHNIQUE: Chest, one view. FINDINGS: Examination limited by habitus. LUNGS: No focal consolidation. Please note that chest x-ray has limited sensitivity for the detection of pulmonary masses. PLEURA: No significant pleural effusion identified. No definite pneumothorax . CARDIOVASCULAR: Cardiomegaly. Atherosclerotic calcifications the aortic knob. Prominent upper mediastinum possibly due to tortuous vasculature ; alternatives including adenopathy cannot be excluded. OSSEOUS STRUCTURES: Degenerative changes. Osseous demineralization. VISUALIZED UPPER ABDOMEN: Unremarkable. OTHER FINDINGS: None. IMPRESSION: No focal consolidation, significant pleural effusion, or definite pneumothorax identified. Cardiomegaly. Atherosclerotic calcifications the aortic knob. Prominent upper mediastinum possibly due to tortuous vasculature ; alternatives including adenopathy cannot be excluded.
[2017-11-29] MEDS: cefTRIAXone 1 gm 1 GM/100 ML BAG IVPB SCH (13:40)
[2017-11-29] MEDS: Sodium Chloride 0.9% 1,000 ML IV SCH (23:04)
--- NOTE | 2017-11-30 00:39 | PN ---
DATE: 11/29/2017 SUBJECTIVE: The patient has no complaints of any chest pain. No shortness of breath. No headaches. He has no pain. He states he slept well. PHYSICAL EXAMINATION: VITAL SIGNS: Temperature is 98.3, pulse is 56, blood pressure is 127/58, and respirations are 20. GENERAL: The patient is lying in bed, flat, comfortable. HEENT: No oral lesion. Anicteric sclerae. Moist mucosa. NECK: No JVD, adenopathy, or thyromegaly. CARDIOVASCULAR: S1 and S2, regular. No murmurs, rubs, or gallops. LUNGS: Clear to auscultation bilaterally. No wheeze, rales, or rhonchi. ABDOMEN: Bowel sounds are positive, soft, nontender and nondistended. EXTREMITIES: No cyanosis, clubbing or edema. LABORATORY DATA: White count of 10.7 and hemoglobin 10.1. Creatinine is 3.0 and bicarb is 17. ASSESSMENT: 1. Bilateral renal calculi. 2. Hematuria, improved. 3. Dyslipidemia. 4. Diabetes type 2. 5. Hypertension. 6. Acute kidney injury. PLAN: The patient is currently comfortable. He is on his glipizide for his diabetes. He is on Lipitor for dyslipidemia. The patient is on MiraLax for constipation. He is on amlodipine for hypertension. He is receiving IV antibiotics. The patient is on IV fluids. I will discontinue his IV fluids at this point. He has urine cultures that is 10,000 to 50,000. He is being followed by Dr. Velazco. His kidney function is elevated, we will repeat the patient's blood work. Jimmy Cox MD
[2017-11-30 06:39] LABS: HEMOGLOBIN 9.8 g/dL (14.0-18.0); MEAN CELL VOLUME 88.9 fl (80.0-105.0); MEAN CORPUSCULAR HEMOGLOBIN 27.2 pg (25.0-35.0); MEAN CORPUSCULAR HGB CONC 30.6 g/dl (31.0-37.0); MEAN PLATELET VOLUME 9.9 fl (7.0-11.0); RBC 3.6 10^6/uL (3.5-6.1); RED CELL DISTRIBUTION WIDTH 15.7 % (11.5-14.5); WHITE BLOOD COUNT 12.6 10^3/ul (4.5-11.0)
[2017-11-30 06:59] LABS: ALB/GLOB RATIO 0.9 (1.1-1.8); ALBUMIN 2.7 g/dL (3.0-4.8); CALCIUM 9.9 mg/dL (8.4-10.5)
--- NOTE | 2017-11-30 08:52 | CON ---
DATE: 11/28/2017 CHIEF COMPLAINT: Abdominal pain. HISTORY OF PRESENT ILLNESS: This is a 77-year-old male who is seen in [facility]. The patient was admitted 2 days ago with apparent left-sided abdominal pain. The patient has multiple medical issues including dementia. He is seen with his present, was providing history. The patient had a CVA in the past; has a history of CHF, hypertension, dementia, atrial fibrillation, anemia, chronic renal disease. consultation was requested as a CT scan was done which showed bilateral renal calculi on the right, there is what appears to be a large staghorn calculus. There is thinning of the renal parenchyma on the left, there appears to be a UPJ stone. There appears to be some mild fullness of the renal pelvis. The patient's reports as far as urologic history, he was never told about stones in the past. He did have a history of urinary frequency in the past and had been on Myrbetriq but that was stopped a while ago. He has been voiding without difficulty. Stream is good with no straining. He denies any dysuria. There was a question of some gross hematuria. However, the urine has now cleared. He denies any nausea or vomiting. Denies any fever or chills. PAST MEDICAL HISTORY: Significant for type 2 diabetes, CVA, CHF, hypertension, dementia, atrial fibrillation, anemia, vitamin deficiencies. MEDICATIONS: Include Epogen, trazodone, glipizide, Lipitor, Lopressor, Namenda, Norvasc, Rocephin, Zoloft. ALLERGIES: ALLERGIC TO MORPHINE. FAMILY HISTORY: Noncontributory. SOCIAL HISTORY: Positive for smoking. reports social EtOH use. REVIEW OF SYSTEMS: These are obtained from his and the patient. Positives for acute problems include abdominal pain which has resolved, chronic weakness, nonambulatory from prior CVA, dementia, blindness. PHYSICAL EXAMINATION: GENERAL: The patient is awake, alert. He is eating lunch. He is in no acute distress. VITAL SIGNS: He is afebrile. Pulse currently 80, blood pressure 126/77. NECK: Supple. No adenopathy. CHEST: Reveals normal inspiratory effort. CARDIAC: Showed an irregular rhythm. There is no peripheral edema. ABDOMEN: The abdomen is soft, nontender, nondistended. There is no hepatosplenomegaly. There is no costovertebral angle tenderness. : Phallus is normal. Bladder is not palpably distended. Scrotum is normal. Testes bilaterally descended, nontender, no masses. Epididymides are normal. LABORATORY DATA: On laboratory exam, WBC count of 10.7, creatinine 3.0 with BUN of 49. Urinalysis showed too numerous to count rbc's, 2 to 5 wbc's, positive for glucose. Urine culture 10,000 to 50,000 multiple species, likely contamination. On radiologic exam, CT scan showed bilateral stones as documented in the HPI. IMPRESSION AND PLAN: I had a long discussion with the patient and his . The patient wants to go home. My recommendation is that the patient should have a cystoscopy, bilateral retrograde pyelograms, and I would plan on a likely stent placement on the left. I discussed this with his . The patient will need to follow up for a procedure to remove the left stone. The left kidney appears to be the better functioning kidney, and I would plan on a repeat renal function testing after the stent is in place. We would consider a renal scan to assess the function of both kidneys. If the left kidney is the better functioning kidney, I would plan on either an outpatient shockwave lithotripsy or possibly a ureteroscopy with laser once the ureter has dilated enough with the stent in place. I discussed with the that the stent is not permanent, and given his multiple stones, I would not leave it for too long as it will become encrusted and will not be able to be removed. The patient has multiple other medical issues, and he will need to be optimized. I would hold any blood thinners for now, and I would keep him n.p.o. after midnight tomorrow, and I will schedule him for the elective procedure. Alternatively, the patient can go home and be scheduled as an outpatient. However, given his medical condition, it is preferable in my opinion that the patient would remain here for now on IV fluids and IV antibiotics until the stent is placed. Thank you for allowing me to participate in the care of this patient. I will follow him with you. Walter Velazco MD [facility] # [id number]
[2017-11-30] MEDS: POLYETHYLENE GLYCOL 3350 17 GM/Dose PACKET PO SCH ×2 (10:20→18:06)
--- NOTE | 2017-11-30 11:40 | PN ---
DATE: SUBJECTIVE: A 77-year-old white male with history of dementia, history of Staghorn calculus, admitted to the hospital with back pain, found to have decreasing renal function. At this point, BUN and creatinine are 52 and 3.2. Potassium is okay at 4.4, bicarbonate is 16. White count is 12,600 and hemoglobin is 9.8. The patient was seen in consultation of Dr. Velazco. He is scheduled to have stents placed to alleviate obstructive uropathy and possible followup with lithotripsy to remove the stone on the one side and possibly the Staghorn calculus on the other side. The patient has history of dementia. PHYSICAL EXAMINATION: VITAL SIGNS: His temperature is 99.1 and blood pressure is 155/76. GENERAL: He is at the bedside with his family, trying to keep the patient calm despite his dementia. CHEST: Clear to auscultation and percussion. HEART: Reveals regular sinus rhythm. No S3 or murmurs. EXTREMITIES: Without cyanosis, clubbing, or edema. The patient has no pain at this point. IMPRESSION: Obstructive uropathy, bilateral renal stones, hydronephrosis, Staghorn calculus, and renal azotemia. Ray Crump MD
[2017-11-30] MEDS: cefTRIAXone 1 gm 1 GM/100 ML BAG IVPB SCH (13:22)
[2017-11-30] MEDS ORDERED: Midazolam 2 MG/2 ML VIAL ONE (14:53)
[2017-11-30] MEDS ORDERED: Propofol 10 mg/ml Inj (20 ML) ONE (14:53)
[2017-11-30] MEDS ORDERED: Lactated Ringer's 1,000 ML IV SCH (15:00)
[2017-11-30] MEDS ORDERED: Gentamicin 80mg/50ml NS 80 MG/50 ML BAG IVPB ONE (15:13)
[2017-11-30] MEDS: Iohexol 240 (50 ml) ONE ×2 (15:14→15:20)
[2017-11-30] MEDS ORDERED: Gentamicin IV 80mg/50ml NS(PREMIX) IVPB ONE (15:14)
--- NOTE | 2017-11-30 16:41 | CARD ---
APPROVED REPORT EKG Measurement Heart [id number] <Conclusion> Normal sinus rhythm Right bundle branch block Left anterior fascicular block Bifascicular block Abnormal ECG
[2017-11-30] MEDS: Sodium Chloride 0.9% 1,000 ML IV SCH (18:06)
[2017-11-30] MEDS ORDERED: Loperamide Hydrochloride 1 mg/5 ml Cup PO ONE (18:22)
[2017-11-30 18:48] VITALS: RESP 20
[2017-12-01 06:24] LABS: HEMOGLOBIN 10.3 g/dL (14.0-18.0); MEAN CELL VOLUME 90.2 fl (80.0-105.0); MEAN CORPUSCULAR HEMOGLOBIN 27.2 pg (25.0-35.0); MEAN CORPUSCULAR HGB CONC 30.2 g/dl (31.0-37.0); MEAN PLATELET VOLUME 9.3 fl (7.0-11.0); RBC 3.78 10^6/uL (3.5-6.1); RED CELL DISTRIBUTION WIDTH 16.1 % (11.5-14.5); WHITE BLOOD COUNT 7.9 10^3/ul (4.5-11.0)
[2017-12-01 07:23] LABS: ALB/GLOB RATIO 0.9 (1.1-1.8); ALBUMIN 2.8 g/dL (3.0-4.8)
--- NOTE | 2017-12-01 08:28 | OP ---
PROCEDURE DATE: 11/30/2017 PREOPERATIVE DIAGNOSES: Bilateral renal calculi and renal insufficiency. POSTOPERATIVE DIAGNOSES: Bilateral renal calculi and renal insufficiency. PROCEDURE: Cystoscopy, bilateral retrograde pyelograms, placement of a left ureteral stent. ATTENDING SURGEON: Walter Velazco MD. ANESTHESIA: General. SPECIMENS: There were none. DRAINS: A 6 x 26 left ureteral stent. COMPLICATIONS: There were none. OPERATIVE FINDINGS: After informed consent was obtained, the patient was taken to the operating room, placed on the operating table, anesthesia was administered. The patient was placed in a dorsal lithotomy position and prepped and draped in the usual sterile fashion. A 22-German cystoscope was placed in the patient's urethra, advanced proximally under direct vision until the bladder was entered. A full survey inspection of bladder was then performed which revealed no stones, tumors, or foreign bodies of the bladder. Bladder had grade 1 to 2 trabeculation noted. Both ureteral orifices were visualized and appeared within normal limits. At this point on fluoroscopy, a large calcific density was seen in the area of the left kidney, multiple large calcific densities were seen in the area of the right kidney. At this point, an open-ended ureteral catheter was advanced through the cystoscope and guided into the left ureteral orifice. Once inside the orifice, contrast was then instilled into the system. The large noted density appeared to be a large calculus in the left renal pelvis. There was some fullness above the stone. At this point, a sensor wire was obtained. It was passed through the open-ended ureteral catheter and advanced up the ureter. It was able to be guided past the renal pelvic stone which was actually pushed back into the kidney. It was coiled in the upper collecting system. A 6 x 26 stent was then obtained and passed over the wire through the cystoscope and into the left ureter. The stent was advanced proximally under direct and fluoroscopic guidance until it was in appropriate position. Guidewire was then removed. A coil was seen in the upper collecting system on fluoroscopy and a coil was seen in the bladder on cystoscopy. At this point, the open-ended ureteral catheter was re-passed and guided into the right ureteral orifice. Contrast was then instilled into the system for retrograde pyelogram. There were multiple large renal calculi noted. There was no hydronephrosis noted. There was some fullness, but there did not appear to be any obstructing calculi in the renal pelvis. At this point, the procedure was complete, the open-ended ureteral catheter was withdrawn. Bladder was drained and the cystoscope was removed. The patient tolerated the procedure well and was taken to the recovery room awake, in stable condition. Walter Velazco MD
[2017-12-01 08:32] VITALS: BP 141/70; PULSE 68; TEMP 98.2; O2SAT 97
[2017-12-01] MEDS: POLYETHYLENE GLYCOL 3350 17 GM/Dose PACKET PO SCH (10:53)
--- NOTE | 2017-12-01 17:26 | RAD ---
PROCEDURE: Fluoroscopy up to 1 hour HISTORY: RETROGRADE PYELOGRAM / STENT INSERTION (LEFT) COMPARISON: TECHNIQUE: Fluoroscopy was provided in the operating room. 48.7 seconds of fluoro time were used. Fourteen images were submitted FINDINGS: The study shows a moderate size stone at the ureteropelvic junction of the left kidney. There is passage of a wire and placement of a ureteral stent. On the right side there are multiple large stones in the renal pelvis. The stones extend into the lower pole infundibulum and calices. The study was performed by Dr. Velazco IMPRESSION: As above
--- NOTE | 2017-12-02 01:39 | DS ---
HOSPITAL COURSE: A 77-year-old white male admitted to hospital with dementia, chronic nephrolithiasis, and admitted to hospital with acute renal failure with hydronephrosis. The patient taken to surgery by that he had bilateral stents placed. He will need an outpatient procedure for lithotripsy. His BUN and creatinine is stable at 47 and 2.8. He is afebrile, vital signs are stable, and will be discharged home today on p.o. antibiotics, to be followed as an outpatient. FINAL DISCHARGE DIAGNOSES: Staghorn calculus, nephroureterolithiasis with hydronephrosis, acute renal failure, dementia, and hypertension. Ray Crump MD
== END 2017-12-01 14:42 | disposition home or self-care (01) | DRG 694 ==
LOC: ED 18:42 → ERH 21:48 → 3RNO 22:27 → OBSVTOIN 11-28 19:14
PROVIDERS: ADMIT Internal Medicine; ATTEND Internal Medicine
PROC: 0T778DZ Dilation of Left Ureter with Intraluminal Device, Via Natural or Artificial Opening Endoscopic (ICD-10-PCS; principal; 2017-11-30 14:00)
PROC: BT141ZZ Fluoroscopy of Kidneys, Ureters and Bladder using Low Osmolar Contrast (ICD-10-PCS; 2017-11-30 14:00)
DX: N13.2 Hydronephrosis with renal and ureteral calculous obstruction (principal); N17.9 Acute kidney failure, unspecified; I13.0 Hypertensive heart and chronic kidney disease with heart failure and stage 1 through stage 4 chronic kidney disease, or unspecified chronic kidney disease; E11.22 Type 2 diabetes mellitus with diabetic chronic kidney disease; N18.3 Chronic kidney disease, stage 3 (moderate); I50.9 Heart failure, unspecified; N39.0 Urinary tract infection, site not specified; R31.9 Hematuria, unspecified; I48.91 Unspecified atrial fibrillation; F03.90 Unspecified dementia, unspecified severity, without behavioral disturbance, psychotic disturbance, mood disturbance, and anxiety; E53.8 Deficiency of other specified B group vitamins; D63.1 Anemia in chronic kidney disease; E78.5 Hyperlipidemia, unspecified; K59.00 Constipation, unspecified; Z86.73 Personal history of transient ischemic attack (TIA), and cerebral infarction without residual deficits; Z79.84 Long term (current) use of oral hypoglycemic drugs; Z87.891 Personal history of nicotine dependence; Z88.5 Allergy status to narcotic agent

== ENCOUNTER 2017-12-07 11:27 | Observation (INO) | payer MEDICARE ==
--- NOTE | 2017-12-07 12:17 | ED PDOC ---
Arrival/HPI - General Chief Complaint: Altered Mental Status Time Seen by Provider: 12/07/17 11:51 Historian: Patient, Spouse - History of Present Illness Narrative History of Present Illness (Text): you were treated in the ED today for history of stroke with baseline left side weakness which your at, dementia and your at baseline, diabetes on glipizide, atrial fibrilliation on xeralto, renal stones and you had stents placed 12/01/17 and now per your confused with low blood sugar 54 and 30 and given food/ drink and now at baseline mental status and otherwise without any nausea/ vomiting/headache/dizziness/difficulty breathing/chest pain/abdomen pain/ numbness/tingling/loss of limb function/pain with urination. 12/07/17 12:14 Time/Duration: Prior to Arrival Symptom Onset: Sudden Symptom Course: Resolved Activities at Onset: Rest Context: Sitting Past Medical History - Provider Review Nursing Documentation Reviewed: Yes - Travel History Have you recently traveled outside [place] w/in the past 3 mons?: No - Infectious Disease Hx of Infectious Diseases: None - Tetanus Immunization Tetanus Immunization: Up to Date - Cardiac Hx Cardiac Disorders: Yes Hx Cardiac Arrhythmia: Yes Hx Congestive Heart Failure: Yes Other/Comment: A-Fib - Pulmonary Hx Respiratory Disorders: No - Neurological Hx Neurological Disorder: Yes Hx Dementia: Yes - HEENT Hx HEENT Disorder: No - Renal Hx Kidney Stones: Yes Hx Renal Failure: Yes - Endocrine/Metabolic Hx Endocrine Disorders: Yes Hx Diabetes Mellitus Type 2: Yes - Hematological/Oncological Hx Blood Transfusions: (pt unable to verify) Hx Blood Transfusion Reaction: (pt unable to verify) - Integumentary Hx Dermatological Disorder: No - Musculoskeletal/Rheumatological Hx Musculoskeletal Disorders: Yes Hx Falls: Yes Hx Fractures: Yes (left hip fracture about 2 yrs ago) - Gastrointestinal Hx Gastrointestinal Disorders: No - Genitourinary/Gynecological Hx Genitourinary Disorders: Yes Hx Hematuria: Yes Hx Urinary Tract Infection: Yes - Psychiatric Hx Psychophysiologic Disorder: Yes Hx Depression: Yes Hx Substance Use: No - Surgical History Hx Orthopedic Surgery: Yes (titanium bess in back, left hip) - Anesthesia Hx Anesthesia Reactions: (pt unable to verify) Hx Malignant Hyperthermia: (pt unable to verify) - Suicidal Assessment Feels Threatened In Home Enviroment: No Family/Social History - Physician Review Nursing Documentation Reviewed: Yes Family/Social History: No Known Family HX Smoking Status: Former Smoker Hx Alcohol Use: Yes (social) Hx Substance Use: No Hx Substance Use Treatment: No Allergies/Home Meds Allergies/Adverse Reactions: Allergies morphine Allergy (Verified 12/07/17 11:33) DIZZINESS Home Medications: Home Meds Medication Instructions Recorded Confirmed Dronedarone HCl [Multaq] 400 mg PO BID 10/03/12 11/26/17 Sertraline [Zoloft] 100 mg PO BID 10/03/12 11/26/17 predniSONE [predniSONE Oral Soln] 5 mg PO DAILY 10/03/12 11/26/17 Amlodipine Besylate 10 mg PO DAILY 01/28/13 11/26/17 Memantine [Namenda] 10 mg PO BID 01/28/13 11/26/17 Rivastigmine 9.5 mg/24 hr [Exelon 1 ea TD DAILY 01/28/13 11/26/17 9.5 mg/24 hr Patch] Rivaroxaban [Xarelto] 20 mg PO DAILY 06/07/16 11/26/17 Atorvastatin Calcium 40 mg PO DAILY 07/30/17 11/26/17 Cholecalciferol (Vitamin D3) 1,000 unit PO DAILY 07/30/17 11/26/17 [Vitamin D3] Cranberry Fruit Extract/Vit C [Azo 1 each PO BID 07/30/17 11/26/17 Cranberry Softgel] Cyanocobalamin [Vitamin B12 1000 1,000 mcg PO BID 07/30/17 11/26/17 mcg Tab] Folic Acid 1 mg PO DAILY 07/30/17 11/26/17 GlipiZIDE [Glucotrol] 10 mg PO DAILY 07/30/17 11/26/17 traZODone [Desyrel] 50 mg PO HS 07/30/17 11/26/17 Review of Systems - Review of Systems Constitutional: Normal Eyes: Normal ENT: Normal Respiratory: Normal Cardiovascular: Normal Gastrointestinal: Normal Genitourinary Male: Normal Musculoskeletal: Normal Skin: Normal Neurological: Normal Endocrine: Normal Hemo/Lymphatic: Normal Psychiatric: Normal Physical Exam Vital Signs Reviewed: Yes Vital Signs Temp Pulse Resp BP Pulse Ox 12/07/17 14:57 62 18 122/48 L 98 12/07/17 11:40 97.5 F L 58 L 18 124/50 L 98 Appearance: Positive for: Well-Appearing, Non-Toxic, Comfortable Pain Distress: None Mental Status: Positive for: Alert and Oriented X 3 Finger Stick Blood Glucose: 108 - Systems Exam Head: Present: Atraumatic, Normocephalic Pupils: Present: PERRL Extroacular Muscles: Present: EOMI Conjunctiva: Present: Normal Ears: Present: Normal Mouth: Present: Moist Mucous Membranes Pharnyx: Present: Normal Nose (External): Present: Atraumatic Nose (Internal): Present: Normal Inspection Neck: Present: Normal Range of Motion Respiratory/Chest: Present: Clear to Auscultation, Good Air Exchange Cardiovascular: Present: Regular Rate and Rhythm Abdomen: No: Tenderness, Distention, Normal Bowel Sounds, Peritoneal Signs, Rebound, Guarding, McBurney's Point Tender, Rovsing's Sign Present, Hernias, Feeding Tubes, Ostomy Tubes, Mass/Organomegaly, Scars, Other Back: Present: Normal Inspection Upper Extremity: Present: Normal Inspection Lower Extremity: Present: Normal Inspection Neurological: Present: GCS=15, CN II-XII Intact, Speech Normal, Motor Func Grossly Intact Skin: Present: Warm, Normal Color Psychiatric: Present: Alert, Oriented x 3, Normal Insight, Normal Concentration Medical Decision Making ED Course and Treatment: you were treated in the ED today for history of stroke with baseline left side weakness which your at, dementia and your at baseline, diabetes on glipizide, atrial fibrilliation on xeralto, renal stones and you had stents placed 12/01/17 and now per your confused with low blood sugar 54 and 30 and given food/ drink and now at baseline mental status and otherwise without any nausea/ vomiting/headache/dizziness/difficulty breathing/chest pain/abdomen pain/ numbness/tingling/loss of limb function/pain with urination. You were otherwise breathing easily, pink/moist lips, smiling talking with your , baseline strength/sensation, alert/oriented, clear lungs, no abdomen tenderness. Report Date : 12/07/2017 14:02:37 PROCEDURE: CT HEAD WITHOUT CONTRAST. Dictator : Elaine Tomas MD IMPRESSION: No acute intracranial abnormality. Old multifocal right MCA and border zone territory infarctions. Mild chronic microangiopathic changes and moderate age-related global parenchymal volume loss. Fluid levels in the maxillary and sphenoid sinus may represent acute sinusitis in the appropriate clinical setting. Report Date : 12/07/2017 14:20:12 Procedure: Chest xray Dictator : Lex Monroe MD IMPRESSION: Mild vascular congestion and small bilateral pleural effusions 12/07/17 14:[address] Crump. 12/07/17 15:33 d/w Dr. Crump who stated just oral hydration due to mild vascular congestion cxr and admit to remote telemetry for hypoglycemia and glipezide usage. - Lab Interpretations Lab Results: 12/07/17 11:47 12/07/17 11:47 Lab Results 12/07/17 11:47: Sodium 138, Potassium 3.6, Chloride 112 H, Carbon Dioxide 14 L, Anion Gap 16, BUN 47 H, Creatinine 2.4 H, Est GFR ( Amer) 32, Est GFR ( Non-Af Amer) 26, Random Glucose 142 H, Calcium 8.7, Magnesium 1.5 L, Total Bilirubin 0.1 L, AST 43, ALT 50, Alkaline Phosphatase 89, Lactate Dehydrogenase 313 L, Total Creatine Kinase 28 L, Troponin I 0.02 D, Total Protein 5.6 L, Albumin 2.8 L, Globulin 2.8, Albumin/Globulin Ratio 1.0 L 12/07/17 11:47: PT 20.3 H, INR 1.75 H, APTT 35.8 12/07/17 11:47: WBC 4.6 D, RBC 3.29 L, Hgb 8.9 L, Hct 28.6 L, MCV 86.9 D, MCH 27.1, MCHC 31.1, RDW 16.6 H, Plt Count 262, MPV 9.1, Gran % 72.1 H, Lymph % ( Auto) 13.0 L, Sampson % (Auto) 14.9 H, Eos % (Auto) 0.0 L, Baso % (Auto) 0.0, Gran # 3.28, Lymph # 0.6 L, Sampson # 0.7 H, Eos # 0.0, Baso # 0.00 I have reviewed the lab results: Yes - RAD Interpretation Radiology Orders: 12/07/17 12:12 CHEST TWO VIEWS (PA/LAT) [RAD] Stat 12/07/17 12:13 HEAD W/O CONTRAST [CT] Stat [employer]way Rep[employer] Supervisor: Radiologist - EKG Interpretation Interpreted by ED Physician: Yes (afib) Type: 12 lead EKG - Medication Orders Current Medication Orders: Discontinued Medications Magnesium Sulfate/Dextrose (Magnesium Sulfate 1 Gm/100 Ml D5w) 1 gm in 100 mls @ 100 mls/hr IVPB ONCE ONE Stop: 12/07/17 14:15 Last Admin: 12/07/17 13:58 Dose: 100 mls/hr eMAR Start Stop Document 12/07/17 13:58 RAMU (Rec: 12/07/17 13:58 RAMU [id number]) Intravenous Solution Start Date 12/07/17 Start Time 13:58 End Date 12/07/17 End time 14:58 Total Infusion Time 60 Disposition/Present on Arrival - Present on Arrival Any Indicators Present on Arrival: No History of DVT/PE: No History of Uncontrolled Diabetes: No Urinary Catheter: No History of Decub. Ulcer: No History Surgical Site Infection Following: Orthopedic Procedures - Disposition Have Diagnosis and Disposition been Completed?: Yes Diagnosis: Hypoglycemia Disposition: HOSPITALIZED Disposition Time: 15:35 Patient Plan: Admission Condition: IMPROVED Referrals: Pennie Rodriguez, [Primary Care Provider] - Follow up with primary Forms: [employer] ([place])
[2017-12-07 12:30] LABS: GRAN # 3.28 (1.4-6.5); GRAN % 72.1 % (50.0-68.0); HEMOGLOBIN 8.9 g/dL (14.0-18.0); LYMPH # 0.6 (1.2-3.4); MEAN CELL VOLUME 86.9 fl (80.0-105.0); MEAN CORPUSCULAR HEMOGLOBIN 27.1 pg (25.0-35.0); MEAN CORPUSCULAR HGB CONC 31.1 g/dl (31.0-37.0); MEAN PLATELET VOLUME 9.1 fl (7.0-11.0); MONO # 0.7 (0.1-0.6); MONO % 14.9 % (1.0-6.0); RBC 3.29 10^6/uL (3.5-6.1); RED CELL DISTRIBUTION WIDTH 16.6 % (11.5-14.5); WHITE BLOOD COUNT 4.6 10^3/ul (4.5-11.0)
[2017-12-07 12:43] LABS: INR 1.75 (0.93-1.08); PARTIAL THROMBOPLASTIN TIME 35.8 Seconds (25.1-36.5); PROTHROMBIN TIME 20.3 SECONDS (9.4-12.5)
[2017-12-07 12:46] LABS: ALBUMIN 2.8 g/dL (3.0-4.8); CALCIUM 8.7 mg/dL (8.4-10.5); MAGNESIUM 1.5 mg/dL (1.7-2.2)
[2017-12-07 12:49] LABS: TROPONIN I 0.02 ng/mL
[2017-12-07] MEDS ORDERED: Magnesium Sulfate 1 gm in D5W 1 GM/100 ML BAG IVPB ONE (13:16)
--- NOTE | 2017-12-07 14:04 | CT ---
PROCEDURE: CT HEAD WITHOUT CONTRAST. HISTORY: Altered mental status COMPARISON: 07/30/2017. TECHNIQUE: Axial computed tomography images were obtained through the head/brain without intravenous contrast. Radiation dose: Total exam DLP = 998.19 mGy-cm. This CT exam was performed using one or more of the following dose reduction techniques: Automated exposure control, adjustment of the mA and/or kV according to patient size, and/or use of iterative reconstruction technique. FINDINGS: HEMORRHAGE: No intracranial hemorrhage. BRAIN: Again seen is cystic encephalomalacia in the right frontal, parietal and parieto-occipital lobes, sequela of remote MCA and border zone territory infarctions. There is an old lacunar infarction in the right basal ganglia. There are mild chronic microangiopathic changes. There is no mass, mass effect or abnormal extra-axial fluid collection. VENTRICLES: There is moderate age-related global parenchymal volume loss and proportionate enlargement of the ventricles and cortical sulci. CALVARIUM: The skull base and calvarium are normal. PARANASAL SINUSES: There is fluid in the maxillary and sphenoid sinuses and mucoperiosteal thickening in the ethmoid air cells with retention cyst/ polyp in the right frontal sinus. MASTOID AIR CELLS: Unremarkable as visualized. No inflammatory changes. OTHER FINDINGS: None. IMPRESSION: No acute intracranial abnormality. Old multifocal right MCA and border zone territory infarctions. Mild chronic microangiopathic changes and moderate age-related global parenchymal volume loss. Fluid levels in the maxillary and sphenoid sinus may represent acute sinusitis in the appropriate clinical setting.
--- NOTE | 2017-12-07 14:22 | RAD ---
HISTORY: 77yoM, with AMS COMPARISON: 11/28/2017 TECHNIQUE: Chest PA and lateral FINDINGS: LUNGS: No active pulmonary disease. PLEURA: Minimal bilateral pleural effusions CARDIOVASCULAR: The heart is normal in size. Mild vascular congestion OSSEOUS STRUCTURES: No significant abnormalities. VISUALIZED UPPER ABDOMEN: Normal. OTHER FINDINGS: None. IMPRESSION: Mild vascular congestion and small bilateral pleural effusions
--- NOTE | 2017-12-07 18:11 | CARD ---
APPROVED REPORT EKG Measurement Heart [id number] <Conclusion> Atrial fibrillation with slow ventricular response Left axis deviation Right bundle branch block Minimal voltage criteria for LVH, may be normal variant ST- T changes, with base line artefact, Pl repeat. Abnormal ECG
[2017-12-07] MEDS ORDERED: Dextrose 50% SYRINGE Inj (50 ml) ONE (19:35)
[2017-12-07] MEDS ORDERED: Dextrose 50% SYRINGE Inj (50 ml) IVP STA (19:40)
[2017-12-07] MEDS: Insulin Reg-LOW-Coverage SC SCH (22:21)
[2017-12-07 23:14] VITALS: BMI 25.1
[2017-12-08 06:34] LABS: BASO # 0.01 K/mm3 (0.0-2.0); BASO % 0.3 % (0.0-3.0); GRAN # 2.29 (1.4-6.5); GRAN % 58.4 % (50.0-68.0); HEMOGLOBIN 8.5 g/dL (14.0-18.0); LYMPH # 0.8 (1.2-3.4); LYMPH % 20.4 % (22.0-35.0); MEAN CELL VOLUME 86.3 fl (80.0-105.0); MEAN CORPUSCULAR HEMOGLOBIN 26.6 pg (25.0-35.0); MEAN CORPUSCULAR HGB CONC 30.8 g/dl (31.0-37.0); MEAN PLATELET VOLUME 9.3 fl (7.0-11.0); MONO # 0.8 (0.1-0.6); MONO % 19.9 % (1.0-6.0); RBC 3.2 10^6/uL (3.5-6.1); RED CELL DISTRIBUTION WIDTH 16.6 % (11.5-14.5); WHITE BLOOD COUNT 3.9 10^3/ul (4.5-11.0)
[2017-12-08 06:39] LABS: IRON 15 ug/dL (45-180)
[2017-12-08 06:49] LABS: % IRON SATURATION 7 % (20-55); TOTAL IRON BINDING CAPACITY 211 ug/dL (261-462)
[2017-12-08] MEDS: Insulin Reg-LOW-Coverage SC SCH ×4 (08:12→23:21)
[2017-12-08] MEDS: Cholecalciferol 1,000 INTLU TAB PO SCH (09:19)
[2017-12-08] MEDS: DRONEDARONE HCL 400 MG PO SCH ×2 (09:27→17:30)
[2017-12-08] MEDS ORDERED: levoFLOXacin 500 MG TAB PO SCH (10:00)
--- NOTE | 2017-12-08 11:55 | CON ---
DATE: 12/08/2017 CONSULT REQUESTED BY: Ray Crump MD REASON FOR CONSULTATION: Severe anemia. HISTORY OF PRESENT ILLNESS: Mr. Cox is a 77-year-old male admitted to the hospital with hypoglycemia, hemoglobin in the ER was 8.9 gm/dl. He has a history of chronic anemia and history of hematuria because of renal stones. He is also on Xarelto for atrial fibrillation. He was recently admitted to the hospital with hematuria. He is scheduled for lithotripsy next Thursday. He has a history of stroke and left-sided weakness for which he is not able to ambulate. He denies any nausea or vomiting. No shortness of breath. He is bedbound. PAST MEDICAL HISTORY: Renal stone, atrial fibrillation, dementia, history of stroke, left-sided weakness, diabetes mellitus type 2, history of blood transfusion in the past, fractured left hip, history of UTI, and depression. PAST SURGICAL HISTORY: Left hip surgery. PERSONAL HISTORY: Former smoker. No history of alcohol abuse. SOCIAL HISTORY: He lives at home with . FAMILY HISTORY: Noncontributory. ALLERGIES: MORPHINE CAUSES DIZZINESS. MEDICATIONS: Multaq 400 mg p.o. b.i.d., Zoloft 100 mg p.o. b.i.d., prednisone 5 mg daily, amlodipine 10 mg daily, Namenda 10 mg p.o. b.i.d, Xarelto 20 mg daily, atorvastatin 40 mg daily, and B12 1000 mcg p.o. b.i.d. REVIEW OF SYSTEMS: As per HPI. Rest of 12-point review of systems reviewed and negative. PHYSICAL EXAMINATION: GENERAL: Comfortable in bed, in no acute distress. VITAL SIGNS: Temperature is 97.5, heart rate is 58 per minute, respiratory rate is 18 per minute, blood pressure is 124/50, and pulse oximetry is 98% on room air. HEENT: Pallor positive. NECK: Supple. No lymphadenopathy. CHEST: Air entry present and equal bilaterally. No added sounds CARDIOVASCULAR: S1 and S2 normal. No murmur. No gallop. ABDOMEN: Soft and nontender. No hepatosplenomegaly. EXTREMITIES: No edema. Left-sided hemiparesis present. SPINE: Nontender. DIAGNOSTIC DATA: CT head without contrast: Mild chronic microangiopathic changes present. LABORATORY DATA: White count of 4.6, hemoglobin of 8.9, and hematocrit of 28.6. Sodium of 138, potassium of 3.6, BUN of 47, creatinine of 2.4, and glucose of 142. Iron 15, percentage saturation 7. ASSESSMENT AND PLAN: 1. Severe anemia. 2. Iron-deficiency. 3. Chronic kidney disease. 4. History of renal stone. 5. Atrial fibrillation on anticoagulation with Xarelto. 6. Cerebrovascular accident, left-sided hemiparesis. PLAN: Hb is 8.2 today. His baseline is between 9-10 g/dL. 2 units of blood transfusion today. Lasix 20 mg IV in between 2 units. He has severe iron-deficiency with iron of 15, likely related to chronic bleed, hematuria. he might have occult GI bleed too because of anticoagulation use. stool occult blood for evaluation. He will need continuation of IV iron as out patient. he might need Procrit for chronic kidney disease. Discussed my recommendation with the , she agreed with the 2 units of blood transfusion. UA to rule out hematuria. He is also has B12 deficiency, On PO B12, folic acid. to continue . lithotripsy planned for Thursday. Thank you Dr. Crump for allowing us to participate in Mr. Cox's care. Jessica Crawley MD MTDJaycee
[2017-12-08 15:56] VITALS: RESP 20
--- NOTE | 2017-12-08 16:51 | HP ---
HISTORY OF PRESENT ILLNESS: A 77-year-old white male with renal insufficiency, nephrolithiasis, status post stents. The patient is preparing to go for lithotripsy with Dr. Velazco, however, he developed some extremely low sugars, down to as low as 30, came to emergency room, was given D50 IV fluids. He was also found to be more anemic than in the past, with a hemoglobin of 8.5, white count of 3.9, and platelet count was normal. BUN and creatinine stable at 47 and 2.4. He has a slightly low bicarb of 14 as well as low-grade temperature of 100, and as stated hemoglobin of 8.5. The patient denies any bleeding. Has no history of bleeding in the past. His hemoglobin in the past has been elevated. The patient does have mild history of dementia, hypertension, non-insulin dependent diabetes mellitus. PHYSICAL EXAMINATION GENERAL: Shows a well-developed, well-nourished white male without complaints. No nausea or vomiting. ABDOMEN: Benign. Soft, bowel sounds are normoactive. There is no hepatosplenomegaly. EXTREMITIES: No cyanosis, clubbing or edema. HEENT: Conjunctivae are clear. Sclerae are pale. HEART: Reveals sinus rhythm. CHEST: Clear to auscultation and percussion. NEUROLOGIC: Patient is grossly intact except for dementia. Patient is oriented to person only. IMPRESSION: Anemia with normal iron indices, normal MCV, temperature 100.5, renal insufficiency at stage III, nephrolithiasis with Staghorn calculus, status post stent. PLAN: Work up anemia with possible transfusion prior to lithotripsy, take the patient off long-acting sulfonylurea and adjust his sugar with other means. Continue to monitor his renal function, also check erythropoietin levels. Ray Crump MD
[2017-12-09 06:44] LABS: MEAN CORPUSCULAR HGB CONC 31.4 g/dl (31.0-37.0); MEAN PLATELET VOLUME 9.4 fl (7.0-11.0); RBC 4.44 10^6/uL (3.5-6.1); RED CELL DISTRIBUTION WIDTH 16.3 % (11.5-14.5); WHITE BLOOD COUNT 4.8 10^3/ul (4.5-11.0)
[2017-12-09] MEDS: Insulin Reg-LOW-Coverage SC SCH (08:28)
[2017-12-09] MEDS: Cholecalciferol 1,000 INTLU TAB PO SCH (10:09)
[2017-12-09 10:10] VITALS: TEMP 98.1; O2SAT 98
[2017-12-09] MEDS: DRONEDARONE HCL 400 MG PO SCH (10:12)
[2017-12-09 10:13] VITALS: BP 158/60; PULSE 60
== END 2017-12-09 11:46 | disposition home or self-care (01) ==
LOC: ED 11:27 → ERH 15:26 → 3RNO 20:34
PROVIDERS: ADMIT Internal Medicine; ATTEND Internal Medicine
DX: E11.649 Type 2 diabetes mellitus with hypoglycemia without coma (principal); N20.0 Calculus of kidney; I48.91 Unspecified atrial fibrillation; I69.354 Hemiplegia and hemiparesis following cerebral infarction affecting left non-dominant side; N18.9 Chronic kidney disease, unspecified; E11.22 Type 2 diabetes mellitus with diabetic chronic kidney disease; I13.0 Hypertensive heart and chronic kidney disease with heart failure and stage 1 through stage 4 chronic kidney disease, or unspecified chronic kidney disease; I50.9 Heart failure, unspecified; F03.90 Unspecified dementia, unspecified severity, without behavioral disturbance, psychotic disturbance, mood disturbance, and anxiety; E53.8 Deficiency of other specified B group vitamins; D64.9 Anemia, unspecified; Z79.01 Long term (current) use of anticoagulants; Z74.01 Bed confinement status; Z87.440 Personal history of urinary (tract) infections; Z87.891 Personal history of nicotine dependence
CPT/HCPCS: 36415; 36430; 70450; 71046; 80053; 82550; 82607; 82948; 83540; 83550; 83615; 83735; 84484; 85025; 85027; 85610; 85730; 86850; 86900; 86920; 93005; 96365; 99285; G0378; J1940; J3475; P9016

== ENCOUNTER 2017-12-20 12:24 | Emergency (ER) | payer MEDICARE ==
[2017-12-20 12:33] VITALS: BMI 21.8
--- NOTE | 2017-12-20 12:43 | ED PDOC ---
Arrival/HPI - General Time Seen by Provider: 12/20/17 12:34 Historian: Patient, Spouse () - History of Present Illness Narrative History of Present Illness (Text): 12/20/17 12:40 A 77 year old male, whose past medical history includes dementia, atrial fibrillation, CHF, diabetes, rheumatoid arthritis, and kidney stones, whom is accompanied by his , presents to the emergency department complaining of right-side abdominal pain. Patient's reports patient began experiencing pain since 23:00 last night. At this time, patient states he feels no pain now, although upon arrival to ER, patient had been experiencing pain. Per , patient has not taken any medications yesterday and patient was also not eating or drinking any fluid. Patient's denies patient any fever, vomiting, diarrhea, constipation, chest pain, shortness of breath, cough, or any other complaints at this time. Also, mentions patient had left-side lithotripsy operation done 12/16/2017. PMD: Dr. Crump Time/Duration: Other (yesterday at 23:00 patient had began experiencing pain) Symptom Onset: Sudden Symptom Course: Unchanged Context: Home Past Medical History - Provider Review Nursing Documentation Reviewed: Yes - Infectious Disease Hx of Infectious Diseases: None - Tetanus Immunization Tetanus Immunization: Up to Date - Cardiac Hx Cardiac Disorders: Yes Hx Cardiac Arrhythmia: Yes Hx Congestive Heart Failure: Yes Hx Hypertension: Yes Hx Peripheral Edema: Yes Other/Comment: A-Fib - Pulmonary Hx Respiratory Disorders: Yes Hx Pneumonia: Yes - Neurological Hx Neurological Disorder: Yes HX Cerebrovascular Accident: Yes (x3, left side weakness) Hx Dementia: Yes - HEENT Hx HEENT Disorder: No - Renal Hx Kidney Stones: Yes Hx Renal Failure: Yes Other/Comment: kidney stents 12/01/17. lithotripsy on 12/16/17 - Endocrine/Metabolic Hx Endocrine Disorders: Yes Hx Diabetes Mellitus Type 2: Yes - Hematological/Oncological Hx Blood Disorders: Yes Hx Anemia: Yes - Integumentary Hx Dermatological Disorder: Yes Other/Comment: b/l skin discolorations both arms/ flakey dry skin to feet and thick hard toenails, left buttock stage 1 opening buttocks rred, bandaid on left pinky toe for protection - Musculoskeletal/Rheumatological Hx Musculoskeletal Disorders: Yes Hx Falls: Yes (past) Hx Fractures: Yes (left hip fracture about 2 yrs ago) Hx Unsteady Gait: Yes (w/ch) Other/Comment: titanium bess in back - Gastrointestinal Hx Gastrointestinal Disorders: No - Genitourinary/Gynecological Hx Genitourinary Disorders: Yes Hx Hematuria: Yes Hx Incontinence: Yes (urine and stool) Hx Prostate Problems: Yes (bph) Hx Urinary Tract Infection: Yes - Psychiatric Hx Psychophysiologic Disorder: Yes Hx Depression: Yes Hx Substance Use: No - Surgical History Hx Orthopedic Surgery: Yes (titanium bess in back, left hip) Other/Comment: lithotripsy 12/16/17 - Anesthesia Hx Anesthesia: Yes Hx Anesthesia Reactions: No (as per ) Hx Malignant Hyperthermia: No (as per ) - Suicidal Assessment Feels Threatened In Home Enviroment: No Family/Social History - Physician Review Nursing Documentation Reviewed: Yes Family/Social History: No Known Family HX Smoking Status: Former Smoker Hx Alcohol Use: No Hx Substance Use: No Hx Substance Use Treatment: No Allergies/Home Meds Allergies/Adverse Reactions: Allergies morphine Allergy (Intermediate, Verified 12/20/17 12:34) DIZZINESS Home Medications: Home Meds Medication Instructions Recorded Confirmed Dronedarone HCl [Multaq] 400 mg PO BID 10/03/12 12/20/17 Sertraline [Zoloft] 100 mg PO BID 10/03/12 12/20/17 predniSONE [predniSONE Oral Soln] 5 mg PO DAILY 10/03/12 12/20/17 Amlodipine Besylate 10 mg PO DAILY 01/28/13 12/20/17 Memantine [Namenda] 10 mg PO BID 01/28/13 12/20/17 Rivastigmine 9.5 mg/24 hr [Exelon 1 ea TD DAILY 01/28/13 12/20/17 9.5 mg/24 hr Patch] Rivaroxaban [Xarelto] 20 mg PO DAILY 06/07/16 12/20/17 Atorvastatin Calcium 40 mg PO DAILY 07/30/17 12/20/17 Cholecalciferol (Vitamin D3) 1,000 unit PO DAILY 07/30/17 12/20/17 [Vitamin D3] Cranberry Fruit Extract/Vit C [Azo 1 each PO BID 07/30/17 12/20/17 Cranberry Softgel] Cyanocobalamin [Vitamin B12 1000 1,000 mcg PO BID 07/30/17 12/20/17 mcg Tab] Folic Acid 1 mg PO DAILY 07/30/17 12/20/17 GlipiZIDE [Glucotrol] 10 mg PO DAILY 07/30/17 12/20/17 traZODone [Desyrel] 50 mg PO HS 07/30/17 12/20/17 Review of Systems - Physician Review All systems were reviewed & negative as marked: Yes - Review of Systems Constitutional: absent: Fevers Respiratory: absent: SOB, Cough Cardiovascular: absent: Chest Pain Gastrointestinal: absent: Abdominal Pain (patient was experiencing right-sided abdominal pain earlier but is no longer experiencing so at this time), Constipation, Diarrhea, Vomiting Physical Exam Vital Signs Reviewed: Yes Vital Signs Temp Pulse Resp BP Pulse Ox 12/20/17 12:48 98.0 F 69 16 137/60 96 Appearance: Positive for: Well-Appearing Pain Distress: None Mental Status: Positive for: Alert and Oriented X 3 - Systems Exam Head: Present: Atraumatic, Normocephalic Pupils: Present: PERRL Extroacular Muscles: Present: EOMI Conjunctiva: Present: Normal Mouth: Present: Moist Mucous Membranes Neck: Present: Normal Range of Motion. No: Lymphadenopathy Respiratory/Chest: Present: Clear to Auscultation, Good Air Exchange. No: Respiratory Distress, Accessory Muscle Use Cardiovascular: Present: Regular Rate and Rhythm, Normal S1, S2. No: Murmurs Abdomen: Present: Normal Bowel Sounds. No: Tenderness, Distention, Peritoneal Signs, Rebound, Guarding, Mass/Organomegaly Back: Present: Normal Inspection Upper Extremity: Present: Normal Inspection. No: Cyanosis, Edema Lower Extremity: Present: Normal Inspection. No: Edema, CALF TENDERNESS Neurological: Present: GCS=15, CN II-XII Intact, Speech Normal Skin: Present: Warm, Dry, Normal Color. No: Rashes Psychiatric: Present: Alert, Oriented x 3, Normal Insight, Normal Concentration Medical Decision Making ED Course and Treatment: 12/20/17 12:43 Impression: 77 year old male accompanied by is brought in for right-sided abdominal pain, which patient currently is not experiencing. No acute findings on physical examination. Plan: -- Abdominal X-Ray -- Abd/Pelvis CT -- Labs -- Urinalysis -- Reassess and disposition Prior Visits: Notes and results from previous visits were reviewed. Patient was last seen in the emergency department on 12/07/2017 for baseline left side weakness. Patient was admitted. Progress Notes: 12/20/2017 15:20 Abdominal X-Ray IMPRESSION: No acute findings related to/accounting for the clinical presentation. Dictator: Johny Jones MD 12/20/17 15:38 Patient remains asymptomatic. Isolated findings in urine show blood. Abd/pelvis CT (non-contrast) currently pending to consider possible passage of kidney stones. 12/20/17 16:[address] report reviewed. Probably passed a calculus. F/U with urology. stable. - Lab Interpretations Lab Results: 12/20/17 13:06 12/20/17 13:06 Lab Results 12/20/17 15:11: Urine Color Yellow, Urine Appearance Sl cloudy, Urine pH 6.0, Ur Specific [place] 1.025, Urine Protein 30 H, Urine Glucose (UA) Negative, Urine Ketones Negative, Urine Blood Large H, Urine Nitrate Negative, Urine Bilirubin Negative, Urine Urobilinogen 0.2, Ur Leukocyte Esterase Trace H, Urine RBC Pending, Urine WBC Pending 12/20/17 13:06: Sodium 140, Potassium 4.1, Chloride 111 H, Carbon Dioxide 16 L, Anion Gap 17, BUN 29 H, Creatinine 1.9 H, Est GFR ( Amer) 42, Est GFR ( Non-Af Amer) 35, Random Glucose 123 H, Calcium 10.5, Total Bilirubin 0.4, AST 34 , ALT 38, Alkaline Phosphatase 121, Total Protein 6.5, Albumin 3.3, Globulin 3.2 , Albumin/Globulin Ratio 1.0 L 12/20/17 13:06: WBC 13.4 H D, RBC 4.36, Hgb 11.7 L, Hct 37.6 L, MCV 86.2, MCH 26.8, MCHC 31.1, RDW 16.8 H, Plt Count 300, MPV 9.2, Gran % 78.5 H, Lymph % ( Auto) 10.1 L, [place] % (Auto) 11.0 H, Eos % (Auto) 0.3 L, Baso % (Auto) 0.1, Gran # 10.54 H, Lymph # (Auto) 1.4, [place] # (Auto) 1.5 H, Eos # (Auto) 0.0, Baso # ( Auto) 0.02 I have reviewed the lab results: Yes - RAD Interpretation Radiology Orders: 12/20/17 12:45 ABDOMEN (FLAT PLATE) 1VIEW [RAD] Stat 12/20/17 15:32 ABD & PELVIS W/O PO OR IV CONT [CT] Stat - Scribe Statement The provider has reviewed the documentation as recorded by the Khushi Nix Provider Scribe Attestation: All medical record entries made by the Scribe were at my direction and personally dictated by me. I have reviewed the chart and agree that the record accurately reflects my personal performance of the history, physical exam, medical decision making, and the department course for this patient. I have also personally directed, reviewed, and agree with the discharge instructions and disposition. Disposition/Present on Arrival - Present on Arrival Any Indicators Present on Arrival: No History of DVT/PE: No History of Uncontrolled Diabetes: Yes Urinary Catheter: No History of Decub. Ulcer: No History Surgical Site Infection Following: None - Disposition Have Diagnosis and Disposition been Completed?: Yes Diagnosis: Renal stone, Ureter colic Disposition: HOME/ ROUTINE Disposition Time: 16:45 Patient Plan: Discharge Condition: IMPROVED Referrals: Ray Crump MD [Primary Care Provider] - Follow up with primary
[2017-12-20 12:49] VITALS: RESP 16; TEMP 98
[2017-12-20 13:16] LABS: BASO # 0.02 K/mm3 (0.0-2.0); BASO % 0.1 % (0.0-3.0); EOS % 0.3 % (1.5-5.0); GRAN # 10.54 (1.4-6.5); GRAN % 78.5 % (50.0-68.0); HEMOGLOBIN 11.7 g/dL (14.0-18.0); LYMPH # 1.4 (1.2-3.4); LYMPH % 10.1 % (22.0-35.0); MEAN CELL VOLUME 86.2 fl (80.0-105.0); MEAN CORPUSCULAR HEMOGLOBIN 26.8 pg (25.0-35.0); MEAN CORPUSCULAR HGB CONC 31.1 g/dl (31.0-37.0); MEAN PLATELET VOLUME 9.2 fl (7.0-11.0); MONO # 1.5 (0.1-0.6); RBC 4.36 10^6/uL (3.5-6.1); RED CELL DISTRIBUTION WIDTH 16.8 % (11.5-14.5); WHITE BLOOD COUNT 13.4 10^3/ul (4.5-11.0)
[2017-12-20 14:25] LABS: ALBUMIN 3.3 g/dL (3.0-4.8); CALCIUM 10.5 mg/dL (8.4-10.5)
--- NOTE | 2017-12-20 15:22 | RAD ---
HISTORY: Right flank pain. COMPARISON: 11/26/2017 CT abdomen and pelvis. FINDINGS: BOWEL: Normal. No obstruction. No free air. BONES: Orthopedic hardware identified lower lumbar spine and upper sacral elements. OTHER FINDINGS: Position of the double J stent catheter(s): Satisfactory on the left. No visible calculi overlying the expected location of the right kidney and ureter. Prior CT documented staghorn calculus on the right. However the fat portion of the abdomen is obscured by overlying bowel gas and fecal debris. IMPRESSION: No acute findings related to/accounting for the clinical presentation.
[2017-12-20 15:26] LABS: URINE BILIRUBIN NEGATIVE (NEGATIVE); URINE BLOOD LARGE (NEGATIVE); URINE GLUCOSE (UA) NEGATIVE (NEGATIVE); URINE LEUKOCYTE ESTERASE TRACE Leu/uL (NEGATIVE); URINE NITRATE NEGATIVE (NEGATIVE); URINE PROTEIN 30 mg/dL (<30 mg/dL); URINE UROBILINOGEN 0.2 E.U./dL (<1 E.U./dL)
[2017-12-20 15:27] LABS: URINE APPEARANCE SL CLOUDY (CLEAR); URINE COLOR YELLOW (YELLOW)
--- NOTE | 2017-12-20 16:33 | CT ---
PROCEDURE: CT Abdomen and Pelvis without intravenous contrast HISTORY: Right flank pain COMPARISON: 11/26/2017 CT abdomen and pelvis TECHNIQUE: Unenhanced study. Neither oral nor intravenous contrast administered. Radiation dose: Total exam DLP = 891.64 mGy-cm. This CT exam was performed using one or more of the following dose reduction techniques: Automated exposure control, adjustment of the mA and/or kV according to patient size, and/or use of iterative reconstruction technique. FINDINGS: LOWER THORAX: Platelike atelectasis at the lung bases similar findings identified previously. LIVER: Unremarkable. No gross lesion or ductal dilatation. GALLBLADDER AND BILE DUCTS: Unremarkable. PANCREAS: Unremarkable. No gross lesion or ductal dilatation. SPLEEN: Unremarkable. ADRENALS: Unremarkable. No mass. KIDNEYS AND URETERS: Right kidney in ureter: Stable right staghorn calculus and calcified fragments within the collecting system and proximal ureter. Left kidney: The previous proximal left ureteral calculus is no longer visualized. There are multiple small fragments within the a decompressed collecting system on the left. Position of the double J stent catheter(s): Satisfactory VASCULATURE: Unremarkable. No aortic aneurysm. BOWEL: Unremarkable. No obstruction. No gross mural thickening. APPENDIX: Unremarkable. Normal appendix. PERITONEUM: Unremarkable. No free fluid. No free air. LYMPH NODES: Unremarkable. No enlarged lymph nodes. BLADDER: Tiny fragments, calculus disease identified layering in the bladder near the left ureterovesical junction. REPRODUCTIVE: Unremarkable. BONES: No acute fracture. No significant interval change compared to the prior examination(s). Orthopedic hardware again identified from prior lower lumbar laminectomy and fusion. OTHER FINDINGS: None. IMPRESSION: Stable position, configuration of right staghorn calculus multiple smaller fragments within the right collecting system. Double-J stent catheter identified on the left decompressed collecting system. Multiple small fragments identified in the nondistended collecting system. Multiple tiny calculus fragments identified in the urinary bladder.
[2017-12-20 16:54] VITALS: BP 141/62; PULSE 61; O2SAT 98
[2017-12-20 16:58] LABS: URINE AMORPHOUS SEDIMENT SMALL; URINE BACTERIA LARGE (NEG); URINE EPITHELIAL CELLS 0 - 2 /hpf (0-5); URINE RBC 25 - 30 /hpf (0-2)
== END 2017-12-20 17:43 | disposition home or self-care (01) ==
LOC: ED 12:24
DX: N20.0 Calculus of kidney (principal); I10 Essential (primary) hypertension; E11.9 Type 2 diabetes mellitus without complications; Z87.891 Personal history of nicotine dependence
CPT/HCPCS: 74018; 74176; 80053; 81001; 85025; 87086; 96374; 99285; J1885

== ENCOUNTER 2017-12-28 08:37 | Day surgery (SDC) | payer MEDICARE ==
[2017-12-28 09:30] LABS: ALBUMIN 3.4 g/dL (3.0-4.8); CALCIUM 10.8 mg/dL (8.4-10.5)
[2017-12-28] MEDS ORDERED: Lidocaine 2% Jelly (Uro-Jet) ONE (12:04)
[2017-12-28] MEDS ORDERED: cefTRIAXone (Rocephin) 1 gm Inj ONE (12:04)
[2017-12-28] MEDS ORDERED: Iohexol 240 (50 ml) ONE (12:04)
[2017-12-28] MEDS ORDERED: Lidocaine 1% Inj (20ml) ONE (12:21)
[2017-12-28] MEDS ORDERED: Propofol 10 mg/ml Inj (20 ML) ONE (12:22)
[2017-12-28] MEDS ORDERED: Gentamicin 80mg/50ml NS 80 MG/50 ML BAG IVPB ONE (12:27)
[2017-12-28] MEDS ORDERED: ePHEDrine 50 mg/ml Inj ONE ×2 (12:34→12:35)
[2017-12-28] MEDS ORDERED: Sodium Chloride 0.9% 1,000 ML IV SCH (13:15)
[2017-12-28 14:15] VITALS: RESP 18; TEMP 97.7
[2017-12-28 14:41] VITALS: BP 133/70; PULSE 59; O2SAT 97
--- NOTE | 2017-12-28 15:02 | RAD ---
PROCEDURE: Fluoroscopy up to 1 hour HISTORY: STENT REMOVAL / RETROGADE PYELOGRAM (LEFT) COMPARISON: TECHNIQUE: Fluoroscopy was provided in the operating room. 84 seconds of fluoro time. Seventeen images were submitted FINDINGS: The study shows removal of the left ureteral stent. The nephrogram show some areas of stenosis in the proximal and distal ureter. This could be secondary to spasm IMPRESSION: As above
--- NOTE | 2017-12-29 00:03 | OP ---
PROCEDURE DATE: 12/28/2017 PREOPERATIVE DIAGNOSIS: Bilateral renal calculi. POSTOPERATIVE DIAGNOSIS: Bilateral renal calculi. PROCEDURE: Cystoscopy, removal of left ureteral stent and left retrograde pyelogram. ATTENDING SURGEON: Walter Velazco MD ANESTHESIA: General. SPECIMENS: There were none. DRAINS: There were none. COMPLICATIONS: There were none. OPERATIVE FINDINGS: After informed consent was obtained, the patient was taken to operating room, placed on operating table. Anesthesia was administered. Patient was placed in the dorsal lithotomy position and prepped and draped in usual sterile fashion. A 21[place] cystoscope was placed in the patient's urethra and advanced proximally under direct vision until the bladder was entered. A full survey inspection of bladder was then performed, which revealed multiple small stone fragments. There was a stent that was exiting from the left ureteral orifice. Right ureteral orifice was visualized and appeared within normal limits and no bladder tumors noted. The stones were able to be irrigated out of the bladder. At this point, the grasping forceps was passed. The ureteral stent was then grasped at its end and withdrawn through the urethral meatus. On fluoroscopy, the upper loop was noted to uncoil and the stent was grasped the meatus and withdrawn in its entirety. At this point, a cystoscope was repassed and an open-ended ureteral catheter was placed. The open-ended ureteral catheter was passed into the left ureteral orifice and left retrograde pyelogram was performed by instilling contrast through the open-ended ureteral catheter into the left ureter. The left ureter was markedly dilated and some tortuosity. There was no hydronephrosis. There were multiple small defects, which appeared to be some encrustation from the stent, which had come off in the ureter, possibly some ureteritis. On delayed views, contrast noted to be exiting from the collecting system into the renal pelvis down the ureter and into the bladder without any evidence of obstruction. There were no large calculi noted. At this point, the procedure was completed, the bladder was drained. The cystoscope was removed. The patient tolerated procedure well. He received intravenous antibiotics prior to start of the procedure. He was returned to the supine position and taken to the recovery room awake in stable condition. Walter Velazco MD [facility] # [id number]
== END 2017-12-28 16:10 | disposition home or self-care (01) ==
LOC: SDS 08:37
PROVIDERS: ATTEND Urology
DX: N20.0 Calculus of kidney (principal); I10 Essential (primary) hypertension; E11.9 Type 2 diabetes mellitus without complications; Z87.891 Personal history of nicotine dependence
CPT/HCPCS: 36415; 52310; 76000; 80053; C1769; J0696; J1580; J2704; J3010; J7040; J7120; Q9966

== ENCOUNTER 2018-04-20 08:20 | Inpatient (IN) | payer MEDICARE ==
[2018-04-20] MEDS ORDERED: Dextrose 5%/0.45% NS 1,000 ML IV SCH (08:45)
--- NOTE | 2018-04-20 08:46 | ED PDOC ---
Arrival/HPI <Leonel Ayala - Last Filed: 04/20/18 11:36> - General Historian: Spouse - History of Present Illness Time/Duration: Prior to Arrival Symptom Onset: Gradual Symptom Course: Unchanged Activities at Onset: Rest Context: Home <Adarsh Dutton - Last Filed: 04/20/18 14:33> - General Chief Complaint: Altered Mental Status Time Seen by Provider: 04/20/18 08:23 - History of Present Illness Narrative History of Present Illness (Text): 04/20/18 08:46 Pt is a 77 yo M with PMH of mike sky on xarelto, CHF, dementia, nephrolithiasis, hypertension, NIDDM presents to emergency department due to hypoglycemia. Patient is only oriented to himself, however is at bedside to provide history. She states that two days ago he had been complaining of insomnia, so he was give 0.5 mg of Ativan. However, he immediately vomited that medication. The day after the states that his PO intake was poor. She checked his blood glucose throughout the day, the lowest being 73, at which point she gave him Boost. She did not check his blood glucose after. This morning the patient was minimally responsive, had diarrhea and soiled himself. At this point, the called EMS. On arrival, his blood glucose was 46 and was given 1/2 amp of D50, which raised his glucose to 106. On exam, patient is awake and responding to some questioning, but is unable to follow some commands. Patient's says at baseline he is confused due to his history of dementia, but is able to move extremities on commands even though he is wheelchair bound. Of note, patient's also stated that he had been complaining of some chest congestion and pink- tinged urine. ROS limited due to patient's current mental status. PMD: Alisia Neuro: Anselmi Cardio: Deanna Heme/onc: Alban (Adarsh Dutton) Past Medical History - Infectious Disease Hx of Infectious Diseases: None - Tetanus Immunization Tetanus Immunization: Up to Date - Cardiac Hx Atrial Fibrillation: Yes Hx Hypotension: Yes Hx Pacemaker: No - Pulmonary Hx Respiratory Disorders: Yes Hx Pneumonia: Yes - Neurological Hx Dementia: Yes Hx Paralysis: No - HEENT Hx HEENT Disorder: No - Renal Hx Kidney Stones: Yes Hx Renal Failure: Yes Other/Comment: kidney stents 12/01/17. lithotripsy on 12/16/17 - Endocrine/Metabolic Hx Endocrine Disorders: Yes Hx Diabetes Mellitus Type 2: Yes - Hematological/Oncological Hx Blood Transfusions: Yes Hx Blood Transfusion Reaction: No - Integumentary Hx Dermatological Disorder: Yes Other/Comment: b/l skin discolorations both arms/ flakey dry skin to feet and thick hard toenails, left buttock stage 1 opening buttocks rred, bandaid on left pinky toe for protection - Musculoskeletal/Rheumatological Hx Musculoskeletal Disorders: Yes - Gastrointestinal Hx Gastrointestinal Disorders: No - Genitourinary/Gynecological Hx Genitourinary Disorders: Yes Hx Hematuria: Yes Hx Incontinence: Yes (urine and stool) Hx Prostate Problems: Yes (bph) Hx Urinary Tract Infection: Yes - Psychiatric Hx Emotional Abuse: No Hx Physical Abuse: No Hx Substance Use: No - Surgical History Hx Orthopedic Surgery: Yes (bilat hips) - Anesthesia Hx Anesthesia Reactions: No Hx Malignant Hyperthermia: No - Suicidal Assessment Feels Threatened In Home Enviroment: No <Adarsh Dutton - Last Filed: 04/20/18 14:33> Family/Social History Family/Social History: No Known Family HX Smoking Status: Former Smoker Hx Alcohol Use: Yes (NOT SINCE 2011) Hx Substance Use: No Hx Substance Use Treatment: No <Adarsh Dutton - Last Filed: 04/20/18 14:33> Allergies/Home Meds <Leonel Ayala - Last Filed: 04/20/18 11:36> <Adarsh Dutton - Last Filed: 04/20/18 14:33> Allergies/Adverse Reactions: Allergies morphine Allergy (Intermediate, Verified 12/20/17 12:34) DIZZINESS Home Medications: Home Meds Medication Instructions Recorded Confirmed Dronedarone HCl [Multaq] 400 mg PO BID 10/03/12 04/20/18 Sertraline [Zoloft] 100 mg PO BID 10/03/12 04/20/18 predniSONE [predniSONE Oral Soln] 5 mg PO DAILY 10/03/12 04/20/18 Amlodipine Besylate 10 mg PO DAILY 01/28/13 04/20/18 Memantine [Namenda] 10 mg PO BID 01/28/13 04/20/18 Rivastigmine 9.5 mg/24 hr [Exelon 1 ea TD DAILY 01/28/13 04/20/18 9.5 mg/24 hr Patch] Rivaroxaban [Xarelto] 20 mg PO DAILY 06/07/16 04/20/18 Atorvastatin Calcium 40 mg PO DAILY 07/30/17 04/20/18 Cholecalciferol (Vitamin D3) 1,000 unit PO BID 07/30/17 04/20/18 [Vitamin D3] Cranberry Fruit Extract/Vit C [Azo 1 each PO BID 07/30/17 04/20/18 Cranberry Softgel] Cyanocobalamin [Vitamin B12 1000 1,000 mcg PO DAILY 07/30/17 04/20/18 mcg Tab] Folic Acid 1 mg PO DAILY 07/30/17 04/20/18 GlipiZIDE [Glucotrol] 10 mg PO BID 07/30/17 04/20/18 traZODone [Desyrel] 50 mg PO HS 07/30/17 04/20/18 Rivaroxaban [Xarelto] 20 mg PO DAILY 04/20/18 04/20/18 Review of Systems - Review of Systems Systems not reviewed;Unavailable: Altered Mental Status (ROS limited due to patient's current mental status) <Adarsh Dutton - Last Filed: 04/20/18 14:33> Physical Exam - Physical Exam Physical Exam Limitations: Altered Mental Status Vital Signs Reviewed: Yes Temperature: Febrile Blood Pressure: Normal Pulse: Regular Respiratory Rate: Normal Appearance: Positive for: Non-Toxic Pain Distress: None Mental Status: Positive for: Confused Finger Stick Blood Glucose: 97 - Systems Exam Head: Present: Atraumatic, Normocephalic Pupils: Present: PERRL Extroacular Muscles: Present: EOMI Conjunctiva: Present: Normal Mouth: Present: Dry Neck: Present: Normal Range of Motion Respiratory/Chest: Present: Clear to Auscultation. No: Respiratory Distress, Wheezes, Rales, Rhonchi Cardiovascular: Present: Regular Rate and Rhythm, Normal S1, S2. No: Murmurs, Rub, Gallop Abdomen: No: Tenderness, Distention, Rebound, Guarding Upper Extremity: Present: Normal Inspection. No: Cyanosis, Edema Lower Extremity: Present: Normal Inspection. No: Edema Neurological: No: Motor Func Grossly Intact (Chemist Instrumentation strength R 4/5, L 3/5, LE strength R 3/5, L 2/5), Memory Normal Skin: Present: Warm, Dry, Normal Color. No: Rashes Psychiatric: Present: Alert. No: Oriented x 3 (oriented only to self) <Adarsh Dutton - Last Filed: 04/20/18 14:33> Vital Signs Temp Pulse Resp BP Pulse Ox 04/20/18 12:02 97.9 F 98 H 20 99/50 L 100 04/20/18 11:32 88 18 91/54 L 100 04/20/18 10:39 101 H 20 99/51 L 98 04/20/18 09:30 92 H 18 98/62 L 97 04/20/18 09:00 98 H 20 102/66 96 04/20/18 08:48 100.5 F H 04/20/18 08:29 98.6 F 86 20 96/49 L 96 Medical Decision Making - Critical Care Critical Care Minutes: 30 minutes <Leonel Ayala - Last Filed: 04/20/18 11:36> <Adarsh Dutton - Last Filed: 04/20/18 14:33> ED Course and Treatment: 04/20/18 11:14 Patient seen and evaluated with medical secretary teacher. I reviewed history as well with family at bedside. Patient presented with hypoglycemia, responded to D50 given prior to arrival. Family states he has been ill for 2-3 days and not eating. Patient on exam noted to be febrile. Patient also hypotensive. Has reportedly had cough for 1-2 days. Also some diarrhea. Lactate elevated. WBC elevated. Creatinine elevated from baseline. CXR suspect component of pulmonary vascular congestion, cannot exclude infiltrate. Minimal urine obtained with urine cath. IV fluids ordered, ALTHOUGH GIVEN HX OF CHF AND RENAL FAILURE will monitor administration of iv fluids closely in ICU setting. IV antibitoics initiated. No peritoneal signs noted with serial exams. Will admit to ICU, d/w open shank coverer and Dr. Crump. Treatment plan reviewed with patient and family. Troponin elevated. Patient does not express chest pain. EKG reveals nsr, rate of 86 with right bundle branch block, left anterior fascicular block. Will consult patient's tuck pointer, d/w Dr. Coto. (Leonel Ayala) 04/20/18 09:00 77 yo M with presents to Emergency department with fever and hypoglycemia. Plan: - CBC, CMP - Coags - Cardiac ISO, BNP - Cultures - Chest X-ray - Head CT - EKG - UA - D5W - Tylenol EKG reviewed and showed rate of 86, NSR, RBBB, and left anterior fascicular block. 04/20/18 09:24 Code Sepsis called 9:24 am. Lactate 7.5, leukocytosis, febrile, hypotensive. - NS bolus - Zosyn renally dosed - ABG shock - CT abdomen/pelvis - ICU consult 04/20/18 10:02 Chest X-ray as read by radiologist shows no active disease. 04/20/18 10:[address] Coto was contacted and made aware. Discussed patient with Dr. Crump, who agrees with plan and accepts patient to his service. Dr. Colindres evaluated patient and agrees with admission to ICU. 04/20/18 12:41 CT abd/pelvis reviewed by radiologist Impression: Diffuse mural thickening of the gallbladder with stranding of the fat inferior to the gallbladder and lvier and along the right pericolic gutter. Please correlate with ultrasound examination in consideration of possible cholecystitis. No other acute abnormality. Stable appearance of right staghorn calculus. No hydronephrosis. Head CT without contrast reviewed by radiologist and shows no active disease. (Adarsh Dutton) - Lab Interpretations Lab Results: 04/20/18 08:40 04/20/18 08:40 Lab Results 04/20/18 09:10: pO2 43, VBG pH 7.04 L*, VBG pCO2 38.0 L, VBG HCO3 10.3 L, VBG Total CO2 11.5 L, VBG O2 Sat (Calc) 77.5 H, VBG Base Excess -19.7 L, VBG Potassium 3.7, Glucose 133 H, Lactate 7.5 H*, FiO2 21.0, Sodium 137.0, Chloride 109.0 H, Venous Blood Potassium 3.7 04/20/18 08:40: NT-Pro-B Natriuret Pep 47077 H 04/20/18 08:40: Sodium 142, Potassium 3.8, Chloride 111 H, Carbon Dioxide 11 L, Anion Gap 24 H, BUN 63 H, Creatinine 4.7 H, Est GFR ( Amer) 15, Est GFR ( Non-Af Amer) 12, Random Glucose 123 H, Calcium 9.6, Magnesium 1.5 L, Total Bilirubin 0.3, AST 65 H D, ALT 44, Alkaline Phosphatase 117, Lactate Dehydrogenase 449, Total Creatine Kinase 747 H, CK-MB (CK-2) 17.4 H, CK-MB (CK-2 ) % 2.3 L, Troponin I 3.48 H* D, Total Protein 5.9, Albumin 3.1, Globulin 2.8, Albumin/Globulin Ratio 1.1 04/20/18 08:40: PT 17.1 H, INR 1.48 H, APTT 31.7 04/20/18 08:40: WBC 36.0 H* D, RBC 4.18, Hgb 11.7 L, Hct 38.1 L, MCV 91.1 D, MCH 28.0, MCHC 30.7 L, RDW 16.2 H, Plt Count 207, MPV 10.1, Gran % 90.2 H, Lymph % (Auto) 3.1 L, Jerome % (Auto) 6.7 H, Eos % (Auto) 0.0 L, Baso % (Auto) 0.0 , Gran # 32.45 H, Lymph # (Auto) 1.1 L, Jerome # (Auto) 2.4 H, Eos # (Auto) 0.0, Baso # (Auto) 0.01, Neutrophils % (Manual) 74 H, Band Neutrophils % 10 H, Lymphocytes % (Manual) 2 L, Monocytes % (Manual) 13 H, Eosinophils % (Manual) 1 , Large Platelets Present - RAD Interpretation Radiology Orders: 04/20/18 08:34 CHEST PORTABLE [RAD] Stat 04/20/18 08:41 HEAD W/O CONTRAST [CT] Stat 04/20/18 09:42 ABD & PELVIS W/O PO OR IV CONT [CT] Stat - Medication Orders Current Medication Orders: Aspirin (Ecotrin) 81 mg PO DAILY [facility] Heparin Sodium (Porcine) (Heparin) 5,000 units SC Q8H [facility] PRN Reason: Protocol Last Admin: 04/20/18 11:10 Dose: 5,000 units Subcutaneous Administrations Document 04/20/18 11:10 RAMU (Rec: 04/20/18 11:10 RAMU [id number]) Injection Site MAR Injection Site Right Arm Charges for Administration # of Subcutaneous Administrations 1 Sodium Bicarbonate 150 meq/ (Dextrose) 1,150 mls @ 150 mls/hr IV .Q7H40M [facility] Last Admin: 04/20/18 11:08 Dose: 150 mls/hr eMAR Start Stop Document 04/20/18 11:08 RAMU (Rec: 04/20/18 11:09 RAMU [email or web address]) Intravenous Solution Start Date 04/20/18 Start Time 11:09 Metoprolol Tartrate (Lopressor) 25 mg PO BID [facility] Pantoprazole Sodium (Protonix Inj) 40 mg IVP DAILY [facility] Last Admin: 04/20/18 11:10 Dose: 40 mg IVP Administration Document 04/20/18 11:10 RAMU (Rec: 04/20/18 11:10 RAMU [email or web address]) Charges for Administration # of IVP Administrations 1 Discontinued Medications Acetaminophen (Tylenol 650 Mg Supp) 650 mg RC STAT STA Stop: 04/20/18 09:00 Last Admin: 04/20/18 09:07 Dose: 650 mg MAR Pain/Vitals Document 04/20/18 09:07 RAMU (Rec: 04/20/18 09:07 RAMU [email or web address]) Pain Reassessment Is This A Pain ReAssessment? No Sleep Is patient sleeping during reassessment? No Presence of Pain Presence of Pain No Aspirin (Aspirin) 325 mg PO STAT STA Stop: 04/20/18 12:08 Dextrose/Sodium Chloride (Dextrose 5%/0.45% Ns 1000 Ml) 1,000 mls @ 100 mls/hr IV .Q10H [facility] Last Admin: 04/20/18 09:07 Dose: 100 mls/hr eMAR Start Stop Document 04/20/18 09:07 RAMU (Rec: 04/20/18 09:07 RAMU [email or web address]) Intravenous Solution Start Date 04/20/18 Start Time 09:07 End Date 04/20/18 End time 11:10 Total Infusion Time 123 Sodium Chloride (Sodium Chloride 0.9%) 500 mls @ 1,000 mls/hr IV .Q30M STA Stop: 04/20/18 09:56 Last Admin: 04/20/18 09:30 Dose: 1,000 mls/hr eMAR Start Stop Document 04/20/18 09:30 RAMU (Rec: 04/20/18 09:51 RAMU [email or web address]) Intravenous Solution Start Date 04/20/18 Start Time 09:30 End Date 04/20/18 End time 10:00 Total Infusion Time 30 Piperacillin Sod/Tazobactam Sod (Zosyn 2.25 Gm In 0.9% 100 Ml) 2.25 gm in 100 mls @ 100 mls/hr IVPB STAT STA PRN Reason: Protocol Stop: 04/20/18 10:32 Last Admin: 04/20/18 09:51 Dose: 100 mls/hr eMAR Start Stop Document 04/20/18 09:51 RAMU (Rec: 04/20/18 09:52 RAMU [id number]) Intravenous Solution Start Date 04/20/18 Start Time 09:51 End Date 04/20/18 End time 10:30 Total Infusion Time 39 Magnesium 2 gm/50 ml NS (Magnesium Sulfate 2 Gm/50 Ml Ns) 2 gm in 50 mls @ 50 mls/hr IVPB ONCE ONE Stop: 04/20/18 10:36 Last Admin: 04/20/18 09:52 Dose: 50 mls/hr eMAR Start Stop Document 04/20/18 09:52 RAMU (Rec: 04/20/18 09:52 RAMU [id number]) Intravenous Solution Start Date 04/20/18 Start Time 09:52 End Date 04/20/18 End time 10:52 Total Infusion Time 60 Sodium Chloride (Sodium Chloride 0.9%) 1,000 mls @ 999 mls/hr IV .Q1H1M STA Stop: 04/20/18 11:18 Last Admin: 04/20/18 11:09 Dose: 999 mls/hr eMAR Start Stop Document 04/20/18 11:09 RAMU (Rec: 04/20/18 11:09 RAMU [id number]) Intravenous Solution Start Date 04/20/18 Start Time 10:40 End Date 04/20/18 End time 11:40 Total Infusion Time 60 Vancomycin HCl 1.5 gm/ Sodium (Chloride) 500 mls @ 167 mls/hr IVPB ONCE ONE PRN Reason: Protocol Stop: 04/20/18 13:18 Last Admin: 04/20/18 11:00 Dose: 167 mls/hr eMAR Start Stop Document 04/20/18 11:00 LUIS CARLOSA (Rec: 04/20/18 11:08 RAMU [id number]) Intravenous Solution Start Date 04/20/18 Start Time 11:00 End Date 04/20/18 End time 12:30 Total Infusion Time 90 Sodium Chloride (Sodium Chloride 0.9%) 1,000 mls @ 999 mls/hr IV .Q1H1M STA Stop: 04/20/18 14:10 Disposition/Present on Arrival - Present on Arrival Any Indicators Present on Arrival: Yes - Disposition Have Diagnosis and Disposition been Completed?: Yes Disposition Time: 10:30 Patient Plan: Admission, ICU <Leonel Ayala - Last Filed: 04/20/18 11:36> - Present on Arrival History of DVT/PE: No History of Uncontrolled Diabetes: Yes Urinary Catheter: No History of Decub. Ulcer: No History Surgical Site Infection Following: None <Adarsh Dutton - Last Filed: 04/20/18 14:33> - Disposition Diagnosis: Sepsis, Acute renal failure, Elevated troponin, Leukocytosis Disposition: HOSPITALIZED Patient Problems: Current Active Problems Problem Status Onset Acute renal failure Acute Elevated troponin Acute Leukocytosis Acute Sepsis Acute Condition: GUARDED
[2018-04-20 09:16] LABS: VENOUS BLOOD GAS BASE EXCESS -19.7 mmol/L (0.0-2.0); VENOUS BLOOD GAS PO2 43 mm/Hg (30-55)
[2018-04-20 09:16] LABS: BASO # 0.01 K/mm3 (0.0-2.0); GRAN # 32.45 (1.4-6.5); GRAN % 90.2 % (50.0-68.0); HEMOGLOBIN 11.7 g/dL (14.0-18.0); LYMPH # 1.1 (1.2-3.4); LYMPH % 3.1 % (22.0-35.0); MEAN CELL VOLUME 91.1 fl (80.0-105.0); MEAN CORPUSCULAR HGB CONC 30.7 g/dl (31.0-37.0); MEAN PLATELET VOLUME 10.1 fl (7.0-11.0); MONO # 2.4 (0.1-0.6); MONO % 6.7 % (1.0-6.0); PLATELET COUNT 207 10^3/uL (120.0-450.0); RBC 4.18 10^6/uL (3.5-6.1); RED CELL DISTRIBUTION WIDTH 16.2 % (11.5-14.5)
[2018-04-20 09:20] LABS: VENOUS BLOOD PH 7.04 (7.32-7.43)
[2018-04-20 09:22] LABS: ALB/GLOB RATIO 1.1 (1.1-1.8); ALBUMIN 3.1 g/dL (3.0-4.8); CALCIUM 9.6 mg/dL (8.4-10.5)
[2018-04-20] MEDS ORDERED: Sodium Chloride 0.9% 1,000 ML IV STA ×3 (09:25→13:10)
[2018-04-20] MEDS ORDERED: Sodium Chloride 0.9% 500 ML IV STA (09:27)
[2018-04-20 09:31] LABS: INR 1.48 (0.93-1.08); PARTIAL THROMBOPLASTIN TIME 31.7 Seconds (25.1-36.5); PROTHROMBIN TIME 17.1 SECONDS (9.4-12.5)
[2018-04-20] MEDS ORDERED: Piperacillin/Tazobact 2.25gm 2.25 GM/100 ML BAG IVPB STA (09:33)
[2018-04-20] MEDS ORDERED: Magnesium 2 gm/50 ml NS 2 GM/50 ML BAG IVPB ONE (09:37)
[2018-04-20 10:00] LABS: LYMPHOCYTE 2 % (22.0-35.0); NEUTROPHIL 74 % (50.0-70.0)
--- NOTE | 2018-04-20 10:00 | RAD ---
HISTORY: ams COMPARISON: 12/07/2017 FINDINGS: LUNGS: Probable subsegmental atelectasis at right base. No infiltrate elsewhere. PLEURA: No significant pleural effusion identified, no pneumothorax apparent. CARDIOVASCULAR: Normal. OSSEOUS STRUCTURES: No significant abnormalities. VISUALIZED UPPER ABDOMEN: Normal. OTHER FINDINGS: None. IMPRESSION: No active disease.
[2018-04-20 10:01] LABS: BAND 10 % (0-2); EOSINOPHIL 1 % (0.0-3.0); LARGE PLATELETS PRESENT; MONOCYTE 13 % (1.0-6.0)
[2018-04-20 10:02] LABS: CK MB% 2.3 % (2.5-3.0); CK-MB 17.4 ng/mL (0.0-3.6); TROPONIN I 3.48 ng/mL
[2018-04-20] MEDS ORDERED: Vancomycin 1.5 GM in Sodium Chloride 0.9% 500 ML IVPB ONE (10:19)
--- NOTE | 2018-04-20 10:45 | PCM.SEPTIC ---
Sepsis Progress Note - Reassessment Type Reassessment Type: Non-invasive reassessment - Non Invasive Reassessment Were the most recent vital sign reviewed: Yes Vital Sign (Latest): Temp Pulse Resp BP Pulse Ox 100.5 F H 101 H 20 99/51 L 98 04/20/18 08:48 04/20/18 10:39 04/20/18 10:39 04/20/18 10:39 04/20/18 10:39 Cardiovascular: Yes: Regular Rate, Rhythm Respiratory: Yes: Decreased Breath Sounds Capillary Refill: Delayed Pulses: Decreased Radial, Decreased Dorsalis Pedis, Decreased Posterior Tibialis Skin: Dry
[2018-04-20] MEDS: Sodium Bicarbonate 8.4% 150 MEQ in Dextrose 5% In Water 1,000 ML IV SCH ×2 (11:08→18:53)
[2018-04-20 11:57] LABS: ARTERIAL BLOOD GAS HCO3 7.5 mmol/L (21-28); ARTERIAL BLOOD GAS O2 SAT 98.3 % (95-98); ARTERIAL BLOOD GAS PCO2 20 mm/Hg (35-45); ARTERIAL BLOOD GAS TCO2 8.1 mmol.L (22-28)
[2018-04-20 12:00] LABS: PH,URINE 6.5 (4.7-8.0); URINE BILIRUBIN MODERATE (NEGATIVE); URINE BLOOD LARGE (NEGATIVE); URINE GLUCOSE (UA) 100 mg/dL (NEGATIVE); URINE LEUKOCYTE ESTERASE MODERATE Leu/uL (NEGATIVE); URINE PROTEIN >=300 mg/dL (<30 mg/dL)
[2018-04-20 12:00] LABS: ARTERIAL BLOOD GAS PH 7.18 (7.35-7.45)
--- NOTE | 2018-04-20 12:27 | CT ---
PROCEDURE: CT HEAD WITHOUT CONTRAST. HISTORY: AMS COMPARISON: 12/07/2017 TECHNIQUE: Axial computed tomography images were obtained through the head/brain without intravenous contrast. Radiation dose: Total exam DLP = 966 mGy-cm. This CT exam was performed using one or more of the following dose reduction techniques: Automated exposure control, adjustment of the mA and/or kV according to patient size, and/or use of iterative reconstruction technique. FINDINGS: HEMORRHAGE: No intracranial hemorrhage. BRAIN: Chronic encephalomalacia is seen in the right hemisphere involving the white matter as well as the right parietal and occipital lobes. Moderate atrophy. No acute findings VENTRICLES: Unremarkable. No hydrocephalus. CALVARIUM: Unremarkable. PARANASAL SINUSES: Unremarkable as visualized. No significant inflammatory changes. MASTOID AIR CELLS: Unremarkable as visualized. No inflammatory changes. OTHER FINDINGS: None. IMPRESSION: No acute findings
[2018-04-20 12:34] LABS: URINE APPEARANCE CLOUDY (CLEAR); URINE COLOR DARK BROWN (YELLOW)
--- NOTE | 2018-04-20 12:35 | CT ---
PROCEDURE: CT Abdomen and Pelvis without intravenous contrast HISTORY: sepsis, abdominal pain COMPARISON: 12/20/2017 TECHNIQUE: Without contrast.. Contrast dose: 0 Radiation dose: Total exam DLP = 885.52 mGy-cm. This CT exam was performed using one or more of the following dose reduction techniques: Automated exposure control, adjustment of the mA and/or kV according to patient size, and/or use of iterative reconstruction technique. FINDINGS: LOWER THORAX: Small right pleural effusion. Bilateral dependent lower lobe pleural thickening common nonspecific. No infiltrate. Mild cardiomegaly. LIVER: Unremarkable. No gross lesion or ductal dilatation. GALLBLADDER AND BILE DUCTS: Diffuse mural thickening. No calcified gallstones. Concerning for cholecystitis. No marianela pericholecystic fluid. Consider correlation with ultrasound examination. PANCREAS: Coarse pancreatic calcifications. No peripancreatic fluid collection. Findings consistent with chronic pancreatitis. SPLEEN: Unremarkable. ADRENALS: Unremarkable. No mass. KIDNEYS AND URETERS: Right staghorn calculus. No hydronephrosis. Several very small nonobstructing left renal calculi. No renal mass. VASCULATURE: Unremarkable. No aortic aneurysm. BOWEL: No evidence of bowel obstruction. APPENDIX: Not identified. PERITONEUM: No ascites. There is stranding seen inferior to the liver and along the right paracolic gutter which may arise from pericholecystic inflammation. However, it is a nonspecific finding. LYMPH NODES: Unremarkable. No enlarged lymph nodes. BLADDER: Charles catheter. Decompressed. REPRODUCTIVE: Normal prostate BONES: No acute fracture. Posterior lumbar fixation from L3 through S1. Status post ORIF left hip. OTHER FINDINGS: None. IMPRESSION: Diffuse mural thickening of the gallbladder with stranding of the fat inferior to the gallbladder and liver and along the right pericolic gutter. Please correlate with ultrasound examination in consideration of possible cholecystitis. No other acute abnormality. Stable appearance of right staghorn calculus. No hydronephrosis. Charles catheter. Minor findings as above.
[2018-04-20 12:45] LABS: URINE BACTERIA LARGE (NEG); URINE RBC TNTC /hpf (0-2); URINE WBC TNTC /hpf (0-6)
--- NOTE | 2018-04-20 12:47 | CON ---
DATE: 04/20/2018 HISTORY OF PRESENT ILLNESS: This is 77-year-old gentleman with history of diabetes; atrial fibrillation, on Xarelto; dementia; nephrolithiasis; hypertension who presented at this time after two days of not feeling well. First time, the patient started feeling fatigued, tired, and reported by having rigors and fevers Thursday. The patient received a little bit of orange juice with resolution of the symptoms initially; however, his appetite was going down and he continued to have those shivering episodes periodically. His mental status deteriorated. He became more lethargic and gibberish. At one point, he also had diarrhea; however, not melena and not BRBPR. When his symptoms did not go away and the patient continued to deteriorate, his brought him to [facility] ER on Thursday. Initially, the patient was also complaining of some abdominal tenderness; however, on physical exam, he did not appear to have this complaint anymore. No chest pain, no shortness of breath. PAST MEDICAL HISTORY: Atrial fibrillation, on Xarelto; CHF; dementia; nephrolithiasis; hypertension; diabetes mellitus type 2. Of note, the patient is not on insulin and recently was switched from metformin to glipizide. SOCIAL HISTORY: The patient is a former smoker; currently, no alcohol or illicit drug abuse. ALLERGIES: MORPHINE. HOME MEDICATIONS: Multaq, Zoloft, prednisone, amlodipine, Namenda, Xarelto, Lipitor, cranberry extract, vitamin B12, folic acid, glipizide, trazodone. REVIEW OF SYSTEMS: Review of 12-organ system other than mentioned in history of present illness is negative. FAMILY HISTORY Noncontributory. PHYSICAL EXAMINATION: VITAL SIGNS: Temperature 100.5, blood pressure 99/51, heart rate 101, respiratory rate 20, oxygen saturation 98% on nasal cannula. ENT: Head and neck atraumatic. LUNGS: Clear to auscultation bilaterally. HEART: Regular rate and rhythm. S1, S2 distant. ABDOMEN: Soft, nontender, nondistended. MUSCULOSKELETAL: Trace bilateral pedal and ankle edema. NEUROLOGICAL: The patient moves all extremities spontaneously. SKIN: Moist. PSYCHIATRIC: The patient somewhat somnolent and pleasantly confused. LABORATORY DATA: Sodium 142, potassium 3.8, chloride 111, carbon dioxide 11, BUN 63, creatinine 4.7 (jumped slightly above to several months ago), glucose 123, AST 65, ALT 44. Troponin 3.48. ProBNP 20,400. CPK 747. INR 1.48. VBG ph 7.04, lactic acid 7.5. ASSESSMENT AND PLAN: This is 77-year-old gentleman who presented with what appears to be severe sepsis/septic shock of unclear source, but urinary tract infection likely complicated by multiorgan system failure including septic cardiomyopathy, acute kidney injury, encephalopathy, severe lactic acidosis. At present time, we will start with aggressive fluid resuscitation, Charles catheter placement to monitor urine output with a goal of having more than 0.5 mL/kg per hour. Septic workup including blood and urine culture, procalcitonin. Of note, chest x-ray did not show any distinct infiltrate. However, in the setting of severe dehydration, consolidation may not be apparent on chest x-ray. CAT scan of the abdomen and pelvis is pending. Empiric antibiotics started. The patient received dose of Zosyn and one dose of vancomycin to be given as well. No new changes on EKG and no perceived/reported chest pain; thus, I think troponins spike rather represents septic cardiomyopathy; but, primary cardiac event cannot be ruled out at present time as well. Cardiology consult was requested. Echocardiogram was ordered. Troponin will be trended. The patient had been taking Xarelto and because the patient has acute kidney injury as well as his INR is slightly elevated, there is a high possibility that AC with Xarelto is within therapeutic range. I will hold on heparin drip; however, I will continue with heparin subcutaneous for DVT prophylaxis. We will continue with maintaining mean arterial pressure more than 65, avoiding hyperchloremia (D5 normal saline was switched to bicarbonate drip), avoiding nephrotoxins, treating sepsis and aim at euvolemia and euglycemia. Nephrology consult was requested. The patient will remain n.p.o. GI prophylaxis. Head of bed elevated >35 degrees. We will maintain blood glucose within 140 to 180 range. We will get Accu-Chek every 2 hours. The patient will be going to ICU for the management and monitoring. UA--suggests UTI CTAP: suggests acute cholecystitis: GI, ID and surgery consult called, Abdominal US and HIDA scan are ordered Cardiology started aspirin and b-blockers-->which based on available data, unlikely adversely affect severe sepsis/septic shock course ccm time 40 min Dinh Colindres MD SKYLAR
--- NOTE | 2018-04-20 13:50 | CARD ---
APPROVED REPORT EKG Measurement Heart [id number] CA [id number] <Conclusion> Normal sinus rhythm Right bundle branch block Left anterior fascicular block Bifascicular block Abnormal ECG
[2018-04-20] MEDS ORDERED: NOREPINEPHRINE BIT/0.9 % NACL 4 MG/250 ML BAG IV PRN (14:37)
[2018-04-20] MEDS ORDERED: Norepinephrine 8 MG in Sodium Chloride 0.9% 500 ML IV PRN ×3 (14:46→17:11)
--- NOTE | 2018-04-20 14:54 | PCM.PROC ---
Procedures Attestation:: I certify that I have explained the specified Operation(s) or Procedure(s), risks, benefits and reasonable alternatives to the Patient and/or other person responsible. The opportunity was given to ask questions and all questions answered - Central Line Placement Right Internal Jugular Triple Lumen Catheter Aseptic technique was employed throughout the procedure: Hand Hygiene done prior to procedure, Full sterile barriers (mask, hair cover, sterile gown, sterile gloves), Full body sterile drape, Chloraprep Antiseptic: 30 second prep for IJ or SC sites CVP Time Out Performed: Yes Pt. Placed on Pulse Ox Monitor: Yes Central Line Prep: Chlorhexidine-Alcohol Combination Local Anesthesia Used: Lidocaine 1% Amount of Anesthesia Used (mls): 4 Ultrasound Used for Placement: Yes Central Line Lumen Inserted: triple Central Line Length: 16 cm Post Procedure: Sutured in Place, Good Blood Return, All Ports Aspirated, Flushed, Capped, Sterile Dressing Applied Secured by: Securement device Post procedure dressing: Clear vapor permeable, Chlorhexidine disc (Biopatch) Post Procedure X-Ray: Yes Patient Tolerated Procedure: Well, No Complications Immediate Complications: None (Supervised and Assisted by Dr. Thomas Guadarrama)
[2018-04-20] MEDS ORDERED: DAPTOmycin 500 mg Inj (Cubicin) IV ONE (15:00)
--- NOTE | 2018-04-20 15:13 | CP.PCM.CON ---
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 Currently, the patient is able to answer simple yes/no questions but unable to provide history. Patient's is present to assist with history. The patient developed insomnia in the last week and was given Ativan 0.5mg PO PRN. With use , patient became disoriented and vomited. In the last 48 hours, oral intake has decreased and patient complained of shaking chills. Confusion worsened at home and noted patient had become incontinent of loose stool. EMS were contacted and patient brought to our facility for further evaluation. On arrival , patient was hypoglycemic but remained responsive. 12 system ROS cannot be performed given altered mentation PMHx: See HPI PSHx: Lumbar spine surgery, hip ORIF FHx: Father with colon cancer ( at 57yo); Brother with Non-Hodgkin lymphoma Social: Former tobacco user (quit 20 yrs ago) ~40+ pack years, social EtOH use previously, Endo: Last colonoscopy ~2009 - unremarkable per and no follow up recommended for screening purposes Past Patient History - Infectious Disease Hx of Infectious Diseases: None - Tetanus Immunizations Tetanus Immunization: Up to Date - Past Medical History & Family History Past Medical History?: Yes - Past Social History Smoking Status: Former Smoker - CARDIAC Hx Atrial Fibrillation: Yes Hx Hypotension: Yes Hx Pacemaker: No - PULMONARY Hx Respiratory Disorders: Yes Hx Pneumonia: Yes - NEUROLOGICAL Hx Dementia: Yes Hx Paralysis: No - HEENT Hx HEENT Problems: No - RENAL Hx Kidney Stones: Yes Hx Renal Failure: Yes Other/Comment: kidney stents 12/01/17. lithotripsy on 12/16/17 - ENDOCRINE/METABOLIC Hx Endocrine Disorders: Yes Hx Diabetes Mellitus Type 2: Yes - HEMATOLOGICAL/ONCOLOGICAL Hx Blood Transfusions: Yes Hx Blood Transfusion Reaction: No - INTEGUMENTARY Hx Dermatological Problems: Yes Other/Comment: b/l skin discolorations both arms/ flakey dry skin to feet and thick hard toenails, left buttock stage 1 opening buttocks rred, bandaid on left pinky toe for protection - MUSCULOSKELETAL/RHEUMATOLOGICAL Hx Musculoskeletal Disorders: Yes - GASTROINTESTINAL Hx Gastrointestinal Disorders: No - GENITOURINARY/GYNECOLOGICAL Hx Genitourinary Disorders: Yes Hx Hematuria: Yes Hx Incontinence: Yes (urine and stool) Hx Prostate Problems: Yes (bph) Hx Urinary Tract Infection: Yes - PSYCHIATRIC Hx Emotional Abuse: No Hx Physical Abuse: No Hx Substance Use: No - SURGICAL HISTORY Hx Orthopedic Surgery: Yes (bilat hips) - ANESTHESIA Hx Anesthesia Reactions: No Hx Malignant Hyperthermia: No Meds Allergies/Adverse Reactions: Allergies Allergy/AdvReac Type Severity Reaction Status Date / Time morphine Allergy Intermediate DIZZINESS Verified 12/20/17 12:34 - Medications Medications: Current Medications Aspirin (Ecotrin) 81 mg PO DAILY [facility] Heparin Sodium (Porcine) (Heparin) 5,000 units SC Q8H [facility] PRN Reason: Protocol Last Admin: 04/20/18 11:10 Dose: 5,000 units Hydrocortisone Sodium Succinate (Solu-Cortef) 50 mg IVP Q6H [facility] Sodium Bicarbonate 150 meq/ (Dextrose) 1,150 mls @ 150 mls/hr IV .Q7H40M [facility] Last Admin: 04/20/18 11:08 Dose: 150 mls/hr Vasopressin 20 units/ Sodium (Chloride) 101 mls @ 9.09 mls/hr IV .Q11H7M [facility]; 0.03 U/MIN PRN Reason: Protocol Norepinephrine Bitartrate 8 mg (/ Sodium Chloride) 508 mls @ 15.24 mls/hr IV .Q24H PRN; 4 MCG/MIN PRN Reason: TITRATE PER MD ORDER Meropenem 500 mg/ Sodium (Chloride) 50 mls @ 100 mls/hr IVPB Q12 [facility] PRN Reason: Protocol Stop: 04/27/18 22:01 Daptomycin 430 mg/ Sodium (Chloride) 100 mls @ 200 mls/hr IV ONCE ONE Stop: 04/20/18 15:29 Amikacin Sulfate 500 mg/ (Sodium Chloride) 102 mls @ 204 mls/hr IVPB ONCE ONE PRN Reason: Protocol Stop: 04/20/18 15:29 Metoprolol Tartrate (Lopressor) 25 mg PO BID [facility] Pantoprazole Sodium (Protonix Inj) 40 mg IVP DAILY [facility] Last Admin: 04/20/18 11:10 Dose: 40 mg Physical Exam - Constitutional Appears: No Acute Distress, Chronically Ill - Eye Exam Eye Exam: EOMI, PERRL - ENT Exam ENT Exam: Mucous Membranes Dry - Respiratory Exam Respiratory Exam: Clear to Auscultation Bilateral. absent: Rales, Rhonchi, Wheezes - Cardiovascular Exam Cardiovascular Exam: RRR, +S1, +S2 - GI/Abdominal Exam GI & Abdominal Exam: Normal Bowel Sounds, Soft. absent: Distended, Firm, Guarding, Hernia, Organomegaly, Tenderness Additional comments: Ge sign negative - Exam Additional comments: salcedo catheter in place - Extremities Exam Extremities exam: Negative for: pedal edema - Neurological Exam Neurological exam: Altered - Psychiatric Exam Psychiatric exam: Normal Affect, Normal Mood - Skin Skin Exam: Dry, Warm Results - Vital Signs Recent Vital Signs: Last Vital Signs Temp 97.9 F 04/20/18 12:02 Pulse 98 H 04/20/18 12:02 Resp 20 04/20/18 12:02 BP 99/50 L 04/20/18 12:02 Pulse Ox 100 04/20/18 12:02 - Labs Result Diagrams: 04/20/18 08:40 04/20/18 08:40 Labs: Laboratory Results - last 24 hr 04/20/18 04/20/18 11:35 11:50 pCO2 20 L pO2 95.0 HCO3 7.5 L* ABG pH 7.18 L* ABG Total CO2 8.1 L ABG O2 Saturation 98.3 H ABG Base Excess -18.8 L ABG Potassium 3.4 L Sodium 138.0 Chloride 114.0 H Glucose 283 H Lactate 5.6 H* FiO2 28.0 Arterial Blood Potassium 3.4 L Urine Color Dark brown Urine Appearance Cloudy Urine pH 6.5 Ur Specific [place] 1.020 Urine Protein >=300 H Urine Glucose (UA) 100 H Urine Ketones Trace H Urine Blood Large H Urine Nitrate Positive H Urine Bilirubin Moderate H Urine Urobilinogen 1.0 H Ur Leukocyte Esterase Moderate H Urine RBC Tntc Urine WBC Tntc Urine Bacteria Large Assessment & Plan - Assessment and Plan (Free Text) Assessment: Patient is a 77yo male with PMHx significant for atrial fibrillation on Xarelto , 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, dementia, nephrolithiasis, diabetes and HTN who presented to the ED for altered mentation -Septic shock -WINDY R/O acute renal failure -Elevated troponin R/O ACS -High anion gap metabolic acidosis -U/A suggestive of UTI -Systolic 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% -Dementia -H/O paroxysmal atrial fibrillation and CVA/TIA Plan: -Ongoing septic work up with ceron-cultures, IVF resuscitation and pressor support as needed -CT reviewed, recommend Abdominal U/S with dopplers of mesenteric vessels - R/O mesenteric ischemia in setting of lactic acidosis/HAGMA and significant vascular disease noted on CT -If mesenteric ischemia suspected, recommend IR evaluation for re- vascularization -Broad spectrum antibiotic coverage with Daptomycin/Merem/Amikacin -Cardiology, Nephrology, Surgery and ID consultations noted -Await results and plan per findings however, no plan for endoscopic interventions at this time - Date & Time Date: 04/20/18 Time: 15:15 <Willem Olivia - Last Filed: 04/20/18 16:29> Meds - Medications Medications: Current Medications Aspirin (Ecotrin) 81 mg PO DAILY [facility] Heparin Sodium (Porcine) (Heparin) 5,000 units SC Q8H [facility] PRN Reason: Protocol Last Admin: 04/20/18 11:10 Dose: 5,000 units Hydrocortisone Sodium Succinate (Solu-Cortef) 50 mg IVP Q6H [facility] Last Admin: 04/20/18 15:44 Dose: 50 mg Sodium Bicarbonate 150 meq/ (Dextrose) 1,150 mls @ 150 mls/hr IV .Q7H40M [facility] Last Admin: 04/20/18 11:08 Dose: 150 mls/hr Vasopressin 20 units/ Sodium (Chloride) 101 mls @ 9.09 mls/hr IV .Q11H7M [facility]; 0.03 U/MIN PRN Reason: Protocol Last Admin: 04/20/18 15:49 Dose: 9.09 mls/hr Meropenem 500 mg/ Sodium (Chloride) 50 mls @ 100 mls/hr IVPB Q12 [facility] PRN Reason: Protocol Stop: 04/27/18 22:01 Milrinone Lactate/Dextrose (Primacor 20mg/100ml D5w) 100 mls @ 5.971 mls/hr IV .[id number] PRN; Protocol; 0.28 MCG/KG/MIN PRN Reason: TITRATE PER MD ORDER Norepinephrine Bitartrate 8 mg (/ Sodium Chloride) 508 mls @ 38.1 mls/hr IV .[id number] PRN; Protocol; 10 MCG/MIN PRN Reason: TITRATE PER MD ORDER Sodium Chloride (Sodium Chloride 0.9%) 500 mls @ 1,000 mls/hr IV .Q30M [facility] Stop: 04/20/18 16:44 Metoprolol Tartrate (Lopressor) 25 mg PO BID [facility] Pantoprazole Sodium (Protonix Inj) 40 mg IVP DAILY [facility] Last Admin: 04/20/18 11:10 Dose: 40 mg Results - Vital Signs Recent Vital Signs: Last Vital Signs Temp 97.9 F 04/20/18 15:40 Pulse 86 04/20/18 15:44 Resp 29 H 04/20/18 15:40 BP 99/53 L 04/20/18 15:49 Pulse Ox 97 04/20/18 15:40 - Labs Result Diagrams: 04/20/18 08:40 04/20/18 08:40 Labs: Laboratory Results - last 24 hr 04/20/18 04/20/18 04/20/18 11:35 11:50 15:30 pCO2 20 L pO2 95.0 43 HCO3 7.5 L* ABG pH 7.18 L* ABG Total CO2 8.1 L ABG O2 Saturation 98.3 H ABG Base Excess -18.8 L ABG Potassium 3.4 L VBG pH 7.11 L* VBG pCO2 31.0 L VBG HCO3 9.8 L VBG Total CO2 10.8 L VBG O2 Sat (Calc) 81.6 H VBG Base Excess -18.5 L VBG Potassium 4.1 Sodium 138.0 136.0 Chloride 114.0 H 110.0 H Glucose 283 H 416 H* D Lactate 5.6 H* 6.1 H* FiO2 28.0 21.0 Arterial Blood Potassium 3.4 L Venous Blood Potassium 4.1 Urine Color Dark brown Urine Appearance Cloudy Urine pH 6.5 Ur Specific [place] 1.020 Urine Protein >=300 H Urine Glucose (UA) 100 H Urine Ketones Trace H Urine Blood Large H Urine Nitrate Positive H Urine Bilirubin Moderate H Urine Urobilinogen 1.0 H Ur Leukocyte Esterase Moderate H Urine RBC Tntc Urine WBC Tntc Urine Bacteria Large Attending/Attestation - Attestation I have personally seen and examined this patient.: Yes I have fully participated in the care of the patient.: Yes I have reviewed all pertinent clinical information: Yes Notes (Text): 04/20/18 16:27 77 year old male with h/o Afib, CHF, Dementia, DM, HTN, Kidney stones admitted to ICU with septic shock, AMS, renal failure, possible diarrhea. CT questioned possibility of cholecystitis. Lactic acidosis/sepsis in the setting of chronic cardiovascular disease and CT evidence of diffuse atherosclerotic disease of the abdominal aorta raise the possibility of mesenteric ischemia. He is unable to go for angio due to renal failure. Would recommend abdominal US to eval for cholecystitis, HIDA to eval for cholecystitis, as well as abdominal dopplers to eval for mesenteric ischemia. Recommend surgical eval as well as nephrology and cardiology. Suppotive care and broad spectrum abx.
--- NOTE | 2018-04-20 15:21 | RAD ---
HISTORY: s/p R IJ CVC COMPARISON: 04/20/2018 FINDINGS: LUNGS: No active pulmonary disease. PLEURA: No significant pleural effusion identified, no pneumothorax apparent. CARDIOVASCULAR: Normal heart size. Right internal jugular central venous catheter noted OSSEOUS STRUCTURES: No significant abnormalities. VISUALIZED UPPER ABDOMEN: Normal. OTHER FINDINGS: None. IMPRESSION: No pneumothorax status post central venous catheter insertion.
[2018-04-20] MEDS ORDERED: Milrinone 20mg/100ml D5W 100 ML IV PRN (15:24)
[2018-04-20 15:51] LABS: VENOUS BLOOD GAS BASE EXCESS -18.5 mmol/L (0.0-2.0); VENOUS BLOOD GAS PO2 43 mm/Hg (30-55)
[2018-04-20 15:55] LABS: VENOUS BLOOD PH 7.11 (7.32-7.43)
[2018-04-20 16:01] VITALS: BMI 25.2
[2018-04-20] MEDS ORDERED: Pneumococcal 23-Valent Vaccine IM ONE (16:02)
[2018-04-20] MEDS: Milrinone 20mg/100ml D5W 100 ML IV PRN (16:10)
--- NOTE | 2018-04-20 16:11 | CP.PCM.CON ---
History of Present Illness - History of Present Illness History of Present Illness: Nathaniel Purvis PGY1 Surgery Consult Note for Dr. Maloney Mr. Cox is a 77yo male with a PMH of atrial fibrillation on xarelto, dementia, prior TIA, CHF, nephrolithiasis (recently admitted within last 3 months for episode of nephrolithiasis requiring lithotripsy), hypertension, and NIDDM who was brought in by his for AMS, nausea/vomiting , soiling himself and hypoglycemia. Patient is a poor historian and history was offered by . states that at baseline, patient suffers from dementia and regularly sundowns causing him to speak illogically. Patient had episode of vomiting on Thursday, and has been fatigued with decreased PO intake. Surgery was consulted for cholecystitis shown on imaging. 12-pt ROS was limited due to AMS PMH: as above PSH: Lumbar spine surgery, hip ORIF FHx: Father- colon cancer; Brother with Non-Hodgkin lymphoma SHx: Former tobacco user (quit 20 yrs ago) ~40+ pack years, social EtOH use previously, no drug use Meds: as per MAR All: morphine Review of Systems - Review of Systems Systems not reviewed;Unavailable: Altered Mental Status Past Patient History - Infectious Disease Hx of Infectious Diseases: None - Tetanus Immunizations Tetanus Immunization: Up to Date - Past Medical History & Family History Past Medical History?: Yes - Past Social History Smoking Status: Former Smoker Alcohol: None Drugs: Denies Home Situation {Lives}: With Family - CARDIAC Hx Atrial Fibrillation: Yes Hx Congestive Heart Failure: Yes Hx Hypertension: Yes Hx Pacemaker: No - PULMONARY Hx Respiratory Disorders: Yes Hx Pneumonia: Yes - NEUROLOGICAL Hx Dementia: Yes Hx Paralysis: No - HEENT Hx HEENT Problems: No - RENAL Hx Kidney Stones: Yes Hx Renal Failure: Yes Other/Comment: kidney stents 12/01/17. lithotripsy on 12/16/17 - ENDOCRINE/METABOLIC Hx Endocrine Disorders: Yes Hx Diabetes Mellitus Type 2: Yes - HEMATOLOGICAL/ONCOLOGICAL Hx Blood Transfusions: Yes Hx Blood Transfusion Reaction: No - INTEGUMENTARY Hx Dermatological Problems: Yes - MUSCULOSKELETAL/RHEUMATOLOGICAL Hx Musculoskeletal Disorders: Yes - GASTROINTESTINAL Hx Gastrointestinal Disorders: No - GENITOURINARY/GYNECOLOGICAL Hx Genitourinary Disorders: Yes Hx Hematuria: Yes Hx Incontinence: Yes (urine and stool) Hx Prostate Problems: Yes (bph) Hx Urinary Tract Infection: Yes - PSYCHIATRIC Hx Emotional Abuse: No Hx Physical Abuse: No Hx Substance Use: No - SURGICAL HISTORY Hx Surgeries: Yes Hx Orthopedic Surgery: Yes (spine and bilat hips) - ANESTHESIA Hx Anesthesia Reactions: No Hx Malignant Hyperthermia: No Meds Allergies/Adverse Reactions: Allergies Allergy/AdvReac Type Severity Reaction Status Date / Time morphine Allergy Intermediate DIZZINESS Verified 12/20/17 12:34 - Medications Medications: Current Medications Aspirin (Ecotrin) 81 mg PO DAILY [facility] Heparin Sodium (Porcine) (Heparin) 5,000 units SC Q8H [facility] PRN Reason: Protocol Last Admin: 04/20/18 11:10 Dose: 5,000 units Hydrocortisone Sodium Succinate (Solu-Cortef) 50 mg IVP Q6H [facility] Last Admin: 04/20/18 15:44 Dose: 50 mg Sodium Bicarbonate 150 meq/ (Dextrose) 1,150 mls @ 150 mls/hr IV .Q7H40M [facility] Last Admin: 04/20/18 11:08 Dose: 150 mls/hr Vasopressin 20 units/ Sodium (Chloride) 101 mls @ 9.09 mls/hr IV .Q11H7M [facility]; 0.03 U/MIN PRN Reason: Protocol Last Admin: 04/20/18 15:49 Dose: 9.09 mls/hr Meropenem 500 mg/ Sodium (Chloride) 50 mls @ 100 mls/hr IVPB Q12 [facility] PRN Reason: Protocol Stop: 04/27/18 22:01 Milrinone Lactate/Dextrose (Primacor 20mg/100ml D5w) 100 mls @ 5.971 mls/hr IV .[id number] PRN; Protocol; 0.28 MCG/KG/MIN PRN Reason: TITRATE PER MD ORDER Norepinephrine Bitartrate 8 mg (/ Sodium Chloride) 508 mls @ 38.1 mls/hr IV .[id number] PRN; Protocol; 10 MCG/MIN PRN Reason: TITRATE PER MD ORDER Sodium Chloride (Sodium Chloride 0.9%) 500 mls @ 1,000 mls/hr IV .Q30M [facility] Stop: 04/20/18 16:44 Metoprolol Tartrate (Lopressor) 25 mg PO BID [facility] Pantoprazole Sodium (Protonix Inj) 40 mg IVP DAILY [facility] Last Admin: 04/20/18 11:10 Dose: 40 mg Physical Exam - Constitutional Appears: Non-toxic, No Acute Distress, Confused - Head Exam Head Exam: NORMAL INSPECTION - Eye Exam Eye Exam: Normal appearance - ENT Exam ENT Exam: Mucous Membranes Dry - Neck Exam Neck exam: Positive for: Normal Inspection - Respiratory Exam Respiratory Exam: Rales (mild at bases ), NORMAL BREATHING PATTERN. absent: Wheezes - Cardiovascular Exam Cardiovascular Exam: RRR, +S1, +S2 - GI/Abdominal Exam GI & Abdominal Exam: Normal Bowel Sounds, Soft. absent: Distended, Tenderness - Extremities Exam Extremities exam: Positive for: normal inspection. Negative for: pedal edema - Back Exam Back exam: NORMAL INSPECTION - Neurological Exam Neurological exam: Altered - Skin Skin Exam: Normal Color, Warm Results - Vital Signs Recent Vital Signs: Last Vital Signs Temp 97.9 F 04/20/18 15:40 Pulse 86 04/20/18 15:44 Resp 29 H 04/20/18 15:40 BP 99/53 L 04/20/18 15:49 Pulse Ox 97 04/20/18 15:40 - Labs Result Diagrams: 04/20/18 17:10 04/20/18 15:30 Labs: Laboratory Results - last 24 hr 04/20/18 04/20/18 04/20/18 11:35 11:50 15:30 pCO2 20 L pO2 95.0 43 HCO3 7.5 L* ABG pH 7.18 L* ABG Total CO2 8.1 L ABG O2 Saturation 98.3 H ABG Base Excess -18.8 L ABG Potassium 3.4 L VBG pH 7.11 L* VBG pCO2 31.0 L VBG HCO3 9.8 L VBG Total CO2 10.8 L VBG O2 Sat (Calc) 81.6 H VBG Base Excess -18.5 L VBG Potassium 4.1 Sodium 138.0 136.0 Chloride 114.0 H 110.0 H Glucose 283 H 416 H* D Lactate 5.6 H* 6.1 H* FiO2 28.0 21.0 Arterial Blood Potassium 3.4 L Venous Blood Potassium 4.1 Urine Color Dark brown Urine Appearance Cloudy Urine pH 6.5 Ur Specific [place] 1.020 Urine Protein >=300 H Urine Glucose (UA) 100 H Urine Ketones Trace H Urine Blood Large H Urine Nitrate Positive H Urine Bilirubin Moderate H Urine Urobilinogen 1.0 H Ur Leukocyte Esterase Moderate H Urine RBC Tntc Urine WBC Tntc Urine Bacteria Large Assessment & Plan - Assessment and Plan (Free Text) Assessment: 77yo male with a PMH of atrial fibrillation on xarelto, dementia ( altered at baseline), prior TIA, CHF, nephrolithiasis, hypertension, and NIDDM who presents with severe sepsis 2/2 UTI vs cholecystitis Plan: Sepsis likely 2/2 UTI vs cholecystitis - CT abd/pelvis showed diffuse mural thickening of gallbladder with stranding of fat and liver and along pericolic gutter. right staghorn calculus. - CT Head and CXR showed no acute processes - leukocytosis with metabolic acidosis noted - abd US ordered, f/u - HIDA ordered, f/u - cont IV abx - patient not a candidate for surgery at this time considering vital signs are unstable and DNR/DNI status - patient would benefit from cholecystostomy tubes, would recommend IR for placement - NPO - cont IVF - replete electrolyte imbalances - will f/u labs Case was reviewed and discussed with Dr. Maloney
[2018-04-20] MEDS ORDERED: Sodium Chloride 0.9% 500 ML IV SCH (16:15)
[2018-04-20 16:32] LABS: ALB/GLOB RATIO 0.9 (1.1-1.8); ALBUMIN 2.3 g/dL (3.0-4.8); CALCIUM 8.4 mg/dL (8.4-10.5); TROPONIN I 3.52 ng/mL
[2018-04-20] MEDS ORDERED: Insulin Regular 100 UNITS in Sodium Chloride 0.9% 99 ML IV PRN (16:36)
[2018-04-20 16:43] LABS: CK MB% 3.1 % (2.5-3.0); CK-MB 29.2 ng/mL (0.0-3.6)
[2018-04-20 17:18] LABS: BASO # 0.02 K/mm3 (0.0-2.0); BASO % 0.1 % (0.0-3.0); HEMOGLOBIN 10.3 g/dL (14.0-18.0); MEAN CELL VOLUME 91.1 fl (80.0-105.0); MEAN CORPUSCULAR HEMOGLOBIN 27.8 pg (25.0-35.0); MEAN CORPUSCULAR HGB CONC 30.5 g/dl (31.0-37.0); MEAN PLATELET VOLUME 10.2 fl (7.0-11.0); MONO # 2.3 (0.1-0.6); MONO % 6.9 % (1.0-6.0); RBC 3.71 10^6/uL (3.5-6.1); RED CELL DISTRIBUTION WIDTH 16.4 % (11.5-14.5)
[2018-04-20 17:29] LABS: LYMPH % 3.1 % (22.0-35.0)
--- NOTE | 2018-04-20 18:35 | US ---
HISTORY: acute cholecystitis COMPARISON: CT abdomen and pelvis performed earlier the same day P TECHNIQUE: Grayscale imaging was performed. FINDINGS: LIVER: Measures 18.3 cm. There are multiple echogenic foci in the liver parenchyma. No mass. No intrahepatic bile duct dilatation. GALLBLADDER: The gallbladder is partially contracted and there is severe gallbladder wall thickening with mild pericholecystic fluid. COMMON BILE DUCT: Measures 3.8 mm. No stones. No dilatation. PANCREAS: Unremarkable as visualized. No mass. No ductal dilatation. RIGHT KIDNEY: Measures 10.6cm. Normal echogenicity. There is a large staghorn calculus. LEFT KIDNEY: Measures 10.9cm. Normal echogenicity. No calculus, mass, or hydronephrosis. SPLEEN: Normal in size and contour. There is a 1.8 x 1 point over 1.3 cm cyst in the lower pole. AORTA: No aneurysmal dilatation. IVC: Unremarkable. OTHER FINDINGS: None. IMPRESSION: 1. Severe gallbladder wall thickening an edema which may represent acalculous cholecystitis in the appropriate clinical setting. 2. Multiple linear echogenic foci in the liver linear nonspecific, and could be related to diffuse liver disease such as hepatitis. Clinical follow-up is advised.
[2018-04-20] MEDS: Meropenem 500 MG in Sodium Chloride 0.9% 50 ML IVPB SCH (22:16)
[2018-04-20 22:47] LABS: BASO # 0.03 K/mm3 (0.0-2.0); BASO % 0.1 % (0.0-3.0); GRAN # 31.07 (1.4-6.5); GRAN % 94.4 % (50.0-68.0); HEMOGLOBIN 10.5 g/dL (14.0-18.0); LYMPH # 0.4 (1.2-3.4); LYMPH % 1.1 % (22.0-35.0); MEAN CELL VOLUME 89.3 fl (80.0-105.0); MEAN CORPUSCULAR HEMOGLOBIN 28.1 pg (25.0-35.0); MEAN CORPUSCULAR HGB CONC 31.4 g/dl (31.0-37.0); MEAN PLATELET VOLUME 10.2 fl (7.0-11.0); MONO # 1.5 (0.1-0.6); MONO % 4.4 % (1.0-6.0); RBC 3.74 10^6/uL (3.5-6.1); RED CELL DISTRIBUTION WIDTH 16.1 % (11.5-14.5)
[2018-04-20 22:59] LABS: CALCIUM 8.7 mg/dL (8.4-10.5); WHITE BLOOD COUNT 32.9 10^3/ul (4.5-11.0)
[2018-04-20 23:19] LABS: CK MB% 4.4 % (2.5-3.0); CK-MB 35.2 ng/mL (0.0-3.6); TROPONIN I 5.59 ng/mL
[2018-04-21] MEDS: Sodium Bicarbonate 8.4% 150 MEQ in Dextrose 5% In Water 1,000 ML IV SCH (02:00)
[2018-04-21] MEDS: Milrinone 20mg/100ml D5W 100 ML IV PRN (06:04)
[2018-04-21 07:05] LABS: BASO # 0.02 K/mm3 (0.0-2.0); BASO % 0.1 % (0.0-3.0); GRAN # 31.11 (1.4-6.5); GRAN % 91.3 % (50.0-68.0); HEMOGLOBIN 10.2 g/dL (14.0-18.0); LYMPH # 0.3 (1.2-3.4); LYMPH % 0.9 % (22.0-35.0); MEAN CELL VOLUME 86.4 fl (80.0-105.0); MEAN CORPUSCULAR HEMOGLOBIN 27.1 pg (25.0-35.0); MEAN CORPUSCULAR HGB CONC 31.4 g/dl (31.0-37.0); MEAN PLATELET VOLUME 10.4 fl (7.0-11.0); MONO # 2.6 (0.1-0.6); MONO % 7.7 % (1.0-6.0); RBC 3.76 10^6/uL (3.5-6.1); RED CELL DISTRIBUTION WIDTH 15.7 % (11.5-14.5)
[2018-04-21 07:24] LABS: BLOOD UREA NITROGEN 67 mg/dL (7-21); CALCIUM 8.4 mg/dL (8.4-10.5); GFR AFRICAN-AMERICAN 18; GFR NON-AFRICAN AMERICAN 15; HDL CHOLESTEROL 13 mg/dL (29-60); LDL CHOLESTEROL < 30 mg/dL (0-129); TROPONIN I 9.57 ng/mL
[2018-04-21 07:39] LABS: WHITE BLOOD COUNT 34.1 10^3/ul (4.5-11.0)
[2018-04-21 07:55] LABS: CK MB% 6.1 % (2.5-3.0); CK-MB 29.9 ng/mL (0.0-3.6)
--- NOTE | 2018-04-21 09:05 | CON ---
DATE: 04/20/2018 HISTORY OF PRESENT ILLNESS: I examined this patient personally in the ICU in the presence of the . The patient seemed to be 77-year-old, admitted from the emergency room with sepsis, lactic acidosis, multisystem organ failure, and multiple problems elucidated below. He is known to have multiple medical problems including atrial fibrillation, on Xarelto, congestive heart failure, dementia, nephrolithiasis with staghorn calculus, hypertension, non-insulin diabetes, hypoglycemia. The says that about 2 days prior, started feeling a little bit off, poor intake, this morning minimally reactive, some diarrhea. His glucose on admission was 46; treated with D50W. He is wheelchair-bound, and has dementia. He answers questions but slowly and . He is noted to have the kidney stents placed on 12/01/2017 and lithotripsy on 12/16/2017. He has apparently had bilateral hips, incontinence of stool, BPH. Former smoker. He has not used alcohol in 6 years. HOME MEDICATIONS: Include Zoloft, prednisone, amlodipine, , rivastigmine, Xarelto, atorvastatin, , cranberry juice, vitamin B12, folic acid, Glucotrol, Desyrel. PHYSICAL EXAMINATION: VITAL SIGNS: Remarkable for temperature of 98, high of 100.5; pulse about 100, respiratory rate about 20, blood pressure 99 to 100 over about 60, pulse ox is fine. GENERAL: Physical exam is remarkable for being confused, but he does not appear to be toxic. He denies pain. HEENT: Negative. CHEST: Clear. HEART: Without a murmur. ABDOMEN: Scaphoid. There is no liver, kidney, or spleen, and there is no tenderness. No guarding or rebound. EXTREMITIES: No clubbing, cyanosis, or edema. LABORATORY DATA: CAT scan is reviewed showing a thick walled gallbladder, sludge and stones, suggestive of acute cholecystitis, staghorn calculus. SMA-18 shows a glucose of 372 after being treated with glucose. His anion gap is 22, his BUN is 60, creatinine 4.2. AST is slightly elevated at 64. Alkaline phosphatase normal. Bilirubin normal. Troponin is 3.52. BNP is 20,400. Blood gas showed a pH of 7.18, lactate of 6.1. IMPRESSION: Multisystem organ failure, source unknown. Chest x-ray does not show a source, and the urine shows moderate nitrites, moderate bilirubin, high urobilinogen, ketones, dark brown cloudy, too numerous to count white cells, red cells, and large bacteria. Urine is the likely source. Cannot rule out gallbladder as the source. Ultrasound is reviewed; the common duct is normal in size. Patient has no tenderness there at all. He has dementia, but he seems to be able to express pain or the lack of it. CAT scan is remarkable for multiple vessels with calcification. Duplex scan of the belly vessels is pending. Patient has large lactic acidosis, but I do not believe this is a gallbladder source; in general, would be reluctant to offer a surgery even if it were, and if after the HIDA scan and duplex scan it is believed this is cholecystitis, we would probably suggest IR drainage. We will follow with you, but at the moment, not believing there is surgery indicated. Anand Maloney MD
--- NOTE | 2018-04-21 09:06 | CON ---
DATE: 04/20/2018 REASON FOR CONSULTATION: Rule out non-ST segment myocardial infarction, acute kidney injury, sepsis, history of CHF, history of AFib, cardiac evaluation. BRIEF CLINICAL HISTORY: This is a 77-year-old male with past medical history significant for dementia, history of CVA, history of hypertension, being followed by Dr. Huerta's office, history of diabetes, history of atrial fibrillation on Xarelto, brought by the because last night he had shaking chills, then it got better for a while, then it got better. This morning, the patient had incontinence to bowel and urine and then started shaking chills and cough, so the patient was brought here. Denies any chest pain, denies any shortness of breath, denies any palpitation, denies any fever at home, but appears mild feverish feeling. PAST MEDICAL HISTORY: Significant for rheumatoid arthritis, diabetes, hypertension, hyperlipidemia, chronic atrial fibrillation on Xarelto, history of CVA, history of dementia, history of multiple stroke, left-sided weakness. PAST SURGICAL HISTORY: Significant for back surgery in 2010 followed by hip surgery in 2011. ALLERGIES: ALLERGY TO MORPHINE. CURRENT MEDICATIONS: The patient is taking Xarelto, Trazodone, Zoloft, glipizide, Glucotrol, atorvastatin, amlodipine. REVIEW OF SYSTEMS: As per HPI. PREVIOUS CARDIAC WORKUP: As follows, the patient had echocardiography on 07/31/2017 that showed LV function 45 to 40%, trace to mild aortic regurgitation, mild aortic sclerosis, trace tricuspid regurgitation, RV systolic pressure of 21, no vegetation or thrombus noted dated 07/31/2017. The patient had EKG 11/2017 that shows atrial fibrillation with rapid rate. Prior to that, the patient had EKG on 07/30/2017, has sinus bradycardia, right bundle-branch, left anterior hemiblock. Today, EKG shows normal sinus, right bundle, left anterior hemiblock. PHYSICAL EXAMINATION VITAL SIGNS: Temperature afebrile, heart rate 88, blood pressure 91/50. HEENT: PERRLA. Extraocular muscles Intact. NECK: Supple. No carotid bruits or thyromegaly. CHEST: Clear to auscultation. HEART: S1 and S2 regular. ABDOMEN: Soft. EXTREMITIES: Clubbing and cyanosis negative. LABORATORY DATA: Blood workup as follows, WBC 36, hemoglobin 13.1, hematocrit 38.1, platelet count 207. Chemistry shows sodium 140, potassium 3, chloride 111, carbon dioxide 11, BUN 63, anion gap of 24, creatinine 4.7. Troponin 3.847. EKG shows normal sinus, right bundle, left anterior hemiblock, no acute ST-T changes noted. BNP 58038. IMPRESSION: Sepsis, rule out early septic shock; acute kidney injury, probably secondary to hypoperfusion. The patient's last admission creatinine is 4.7, positive troponin could be secondary to true non-ST elevation myocardial infarction versus sepsis versus hemodynamic instability versus acute kidney injury, history of paroxysmal atrial fibrillation, diabetes, hypertension, hyperlipidemia. RECOMMENDATION: We will continue broad-spectrum antibiotics. We will hold Xarelto and start IV fluid. Echo to assess LV function. Lipid profile, TSH, hemoglobin A1c, and will follow with you. Further recommendations depending on hospital course. We will follow with you. Overall, the patient's condition is critical. terminal make up operator prognosis is guarded. Thank you Dr. Crump for providing me the opportunity in taking care of the patient, Brooke. Charo Coto MD [facility]
[2018-04-21] MEDS ORDERED: Sodium Chloride 0.9% 1,000 ML IV STA (09:30)
[2018-04-21] MEDS ORDERED: Insulin Regular 100 UNITS in Sodium Chloride 0.9% 99 ML IV PRN (09:31)
[2018-04-21] MEDS ORDERED: Enoxaparin 60 mg Syringe SC SCH (10:00)
[2018-04-21] MEDS: Meropenem 500 MG in Sodium Chloride 0.9% 50 ML IVPB SCH ×2 (10:46→21:26)
--- NOTE | 2018-04-21 11:29 | NM ---
PROCEDURE: Nuclear Medicine Hepatobiliary Scan HISTORY: acute cholecystitis COMPARISON: None available. TECHNIQUE: 6.0 mCi of technetium 99m Mebrofenin was administered intravenously. Planar images of the abdomen were obtained at 5 min intervals to 60 mins. Delayed images were also obtained. FINDINGS: LIVER: Timely and homogenous uptake. COMMON BILE DUCT: identified at 60 mins. GALLBLADDER: identified at 30 mins. SMALL BOWEL: Identified on delayed imaging IMPRESSION: Normal Hepatobiliary Scan. The cystic duct is patent.
--- NOTE | 2018-04-21 11:39 | CP.CCUPN ---
<CherryTaj - Last Filed: 04/21/18 11:23> CCU Subjective - Physician Review Events Since Last Encounter (Free Text): 04/21/18 08:00A Patient seen and examined at bedside - patient was hypokalemic overnight, it was repleted. Patient was placed DNR/DNI after discussion with . Patient denies any complaints at current time, is at his baseline of being pleasantly confused. CCU Objective - Vital Signs / Intake & Output Vital Signs (Last 4 hours): Vital Signs Temp Pulse Resp BP Pulse Ox 04/21/18 10:30 93 H 20 101/53 L 96 04/21/18 10:20 93 H 94 L 04/21/18 10:15 89 26 H 110/49 L 98 04/21/18 10:10 87 20 96 04/21/18 10:00 90 100/57 L 89 L 04/21/18 09:50 84 19 98 04/21/18 09:45 93 H 21 113/44 L 90 L 04/21/18 09:40 82 20 96 04/21/18 09:30 88 21 96/48 L 92 L 04/21/18 09:20 87 25 H 95 04/21/18 09:15 96 H 21 124/90 88 L 04/21/18 09:10 82 19 97 04/21/18 09:01 90 21 87/54 L 97 04/21/18 09:00 84 21 84/51 L 96 04/21/18 08:50 87 23 97 04/21/18 08:40 91 H 17 88 L 04/21/18 08:30 91 H 36 H 90/54 L 91 L 04/21/18 08:24 91 H 18 85/58 L 96 04/21/18 08:20 84 20 93 L 04/21/18 08:10 78 21 89 L 04/21/18 08:07 88 16 90/47 L 94 L 04/21/18 08:00 79 20 86/47 L 94 L 04/21/18 07:52 97.6 F 92 H 20 102/47 L 95 04/21/18 07:50 86 19 94 L 04/21/18 07:40 98 H 21 80 L 04/21/18 07:30 89 39 H 95 Intake and Output (Last 8hrs): Intake & Output 04/20/18 04/21/18 04/21/18 22:59 06:59 14:59 Intake Total 3341 2343 126 Output Total 22 200 Balance 3319 2143 126 Weight 71.078 kg Intake: IV 3341 2343 126 Left Hand 3202 1800 Right Antecubital 150 Right Internal Jugular 66 352 Output: Urine 22 200 Urethral (Charles) 22 200 Other: Voiding Method Indwelling Catheter # Bowel Movements 2 2 - Physical Exam Head: Positive for: Atraumatic, Normocephalic Pupils: Positive for: PERRL Extroacular Muscles: Positive for: EOMI Conjunctiva: Positive for: Normal Mouth: Positive for: Dry Neck: Positive for: Normal Range of Motion Respiratory/Chest: Positive for: Clear to Auscultation. Negative for: Respiratory Distress, Wheezes, Rales, Rhonchi Cardiovascular: Positive for: Regular Rate and Rhythm, Normal S1, S2. Negative for: Murmurs, Rub, Gallop Abdomen: Negative for: Tenderness, Distention, Rebound, Guarding Upper Extremity: Positive for: Normal Inspection. Negative for: Cyanosis, Edema Lower Extremity: Positive for: Normal Inspection. Negative for: Edema Neurological: Negative for: Motor Func Grossly Intact (Digital Media Director strength R 4/5, L 3/ 5, LE strength R 3/5, L 2/5), Memory Normal Skin: Positive for: Warm, Dry, Normal Color. Negative for: Rashes Psychiatric: Positive for: Alert. Negative for: Oriented x 3 (oriented only to self) - Medications Active Medications: Active Medications Generic Name Dose Route Start Last Admin Trade Name Freq PRN Reason Stop Dose Admin Aspirin 81 mg 04/21/18 10:00 04/21/18 10:46 Ecotrin PO 81 mg DAILY BONNIE Administration Enoxaparin Sodium 60 mg 04/21/18 10:00 04/21/18 10:45 Lovenox SC 60 mg DAILY BONNIE Administration Protocol Hydrocortisone Sodium Succinate 50 mg 04/20/18 14:45 04/21/18 08:18 Solu-Cortef IVP 50 mg Q6H BONNIE Administration Vasopressin 20 units/ Sodium 101 mls @ 9.09 mls/hr 04/20/18 14:45 04/21/18 02 :00 Chloride IV 9.09 mls/hr .[id number] BONNIE Administration Protocol 0.03 U/MIN Meropenem 500 mg/ Sodium 50 mls @ 100 mls/hr 04/20/18 22:00 04/21/18 10:46 Chloride IVPB 04/27/18 22:01 100 mls/hr Q12 BONNIE Administration Protocol Milrinone Lactate/Dextrose 100 mls @ 5.971 mls/hr 04/20/18 16:04 04/21/18 06: 04 Primacor 20mg/100ml D5w IV 0.28 mcg/kg/min .[id number] PRN 5.971 mls/hr TITRATE PER MD ORDER Administration Protocol 0.28 MCG/KG/MIN Norepinephrine Bitartrate 8 mg 508 mls @ 19.05 mls/hr 04/20/18 17:11 08:28 / Sodium Chloride IV 5 mcg/min .Q24H PRN 19.05 mls/hr TITRATE PER MD ORDER Titration Protocol 5 MCG/MIN Potassium Chloride 20 meq in 100 mls @ 50 mls/hr 04/21/18 08:15 04/21/18 11: 05 Potassium Chloride 20 Meq/100 Ml IVPB 04/21/18 12:14 50 mls/hr Q2H BONNIE Administration Potassium Chloride 40 meq/ 1,020 mls @ 150 mls/hr 04/21/18 09:30 04/21/18 10: 44 Sodium Chloride IV 150 mls/hr .[id number] BONNIE Administration Protocol Metoprolol Tartrate 25 mg 04/20/18 18:00 04/20/18 17:30 Lopressor PO 25 mg BID BONNIE Administration Pantoprazole Sodium 40 mg 04/20/18 11:00 04/21/18 10:46 Protonix Inj IVP 40 mg DAILY BONNIE Administration - Patient Studies Lab Studies: Lab Studies 04/21/18 04/21/18 04/21/18 Range/Units 10:54 09:58 08:49 WBC (4.5-11.0) 10^3/ul RBC (3.5-6.1) 10^6/uL Hgb (14.0-18.0) g/dL Hct (42.0-52.0) % MCV (80.0-105.0) fl MCH (25.0-35.0) pg MCHC (31.0-37.0) g/dl RDW (11.5-14.5) % Plt Count (120.0-450.0) 10^3/uL MPV (7.0-11.0) fl Gran % (50.0-68.0) % Lymph % (Auto) (22.0-35.0) % [place] % (Auto) (1.0-6.0) % Eos % (Auto) (1.5-5.0) % Baso % (Auto) (0.0-3.0) % Gran # (1.4-6.5) Lymph # (Auto) (1.2-3.4) [place] # (Auto) (0.1-0.6) Eos # (Auto) (0.0-0.7) Baso # (Auto) (0.0-2.0) K/mm3 pCO2 (35-45) mm/Hg pO2 (80-100) mm/Hg HCO3 (21-28) mmol/L ABG pH (7.35-7.45) ABG Total CO2 (22-28) mmol.L ABG O2 Saturation (95-98) % ABG Base Excess (-2.0-3.0) mmol/L ABG Potassium (3.6-5.2) mmol/L VBG pH (7.32-7.43) VBG pCO2 (40-60) VBG HCO3 (21-28) mmol/l VBG Total CO2 (22-28) mmol.L VBG O2 Sat (Calc) (40-65) % VBG Base Excess (0.0-2.0) mmol/L VBG Potassium (3.6-5.2) mmol/L Sodium (132-148) mmol/L Chloride (98-107) mmol/L Glucose (75-110) mg/dl Lactate (0.7-2.1) mmol/L FiO2 % Potassium (3.6-5.0) mmol/L Carbon Dioxide (21-33) mmol/L Anion Gap (10-20) BUN (7-21) mg/dL Creatinine (0.8-1.5) mg/dl Est GFR ( Amer) Est GFR (Non-Af Amer) POC Glucose (mg/dL) 153 H 178 H 182 H (65-110) mg/dL Random Glucose (70-110) mg/dL Calcium (8.4-10.5) mg/dL Phosphorus (2.5-4.5) mg/dL Magnesium (1.7-2.2) mg/dL Total Bilirubin (0.2-1.3) mg/dL AST (17-59) U/L ALT (7-56) U/L Alkaline Phosphatase (38-126) U/L Lactate Dehydrogenase (333-699) U/L Total Creatine Kinase (35-230) U/L CK-MB (CK-2) (0.0-3.6) ng/mL CK-MB (CK-2) % (2.5-3.0) % Troponin I ng/mL Total Protein (5.8-8.3) g/dL Albumin (3.0-4.8) g/dL Globulin gm/dL Albumin/Globulin Ratio (1.1-1.8) Triglycerides (35-160) mg/dL Cholesterol (130-200) mg/dL LDL Cholesterol Direct (0-129) mg/dL HDL Cholesterol (29-60) mg/dL Procalcitonin (0.19-0.49) NG/ML TSH 3rd Generation (0.46-4.68) mIU/mL Arterial Blood Potassium (3.6-5.2) mmol/L Venous Blood Potassium (3.6-5.2) mmol/L Urine Color (YELLOW) Urine Appearance (CLEAR) Urine pH (4.7-8.0) Ur Specific [place] (1.005-1.035) Urine Protein (<30 mg/dL) mg/dL Urine Glucose (UA) (NEGATIVE) mg/dL Urine Ketones (NEGATIVE) mg/dL Urine Blood (NEGATIVE) Urine Nitrate (NEGATIVE) Urine Bilirubin (NEGATIVE) Urine Urobilinogen (<1 E.U./dL) E.U./dL Ur Leukocyte Esterase (NEGATIVE) Isaías/uL Urine RBC (0-2) /hpf Urine WBC (0-6) /hpf Urine Bacteria (NEG) 04/21/18 04/21/18 04/21/18 Range/Units 07:52 07:09 06:01 WBC (4.5-11.0) 10^3/ul RBC (3.5-6.1) 10^6/uL Hgb (14.0-18.0) g/dL Hct (42.0-52.0) % MCV (80.0-105.0) fl MCH (25.0-35.0) pg MCHC (31.0-37.0) g/dl RDW (11.5-14.5) % Plt Count (120.0-450.0) 10^3/uL MPV (7.0-11.0) fl Gran % (50.0-68.0) % Lymph % (Auto) (22.0-35.0) % [place] % (Auto) (1.0-6.0) % Eos % (Auto) (1.5-5.0) % Baso % (Auto) (0.0-3.0) % Gran # (1.4-6.5) Lymph # (Auto) (1.2-3.4) [place] # (Auto) (0.1-0.6) Eos # (Auto) (0.0-0.7) Baso # (Auto) (0.0-2.0) K/mm3 pCO2 (35-45) mm/Hg pO2 (80-100) mm/Hg HCO3 (21-28) mmol/L ABG pH (7.35-7.45) ABG Total CO2 (22-28) mmol.L ABG O2 Saturation (95-98) % ABG Base Excess (-2.0-3.0) mmol/L ABG Potassium (3.6-5.2) mmol/L VBG pH (7.32-7.43) VBG pCO2 (40-60) VBG HCO3 (21-28) mmol/l VBG Total CO2 (22-28) mmol.L VBG O2 Sat (Calc) (40-65) % VBG Base Excess (0.0-2.0) mmol/L VBG Potassium (3.6-5.2) mmol/L Sodium (132-148) mmol/L Chloride (98-107) mmol/L Glucose (75-110) mg/dl Lactate (0.7-2.1) mmol/L FiO2 % Potassium (3.6-5.0) mmol/L Carbon Dioxide (21-33) mmol/L Anion Gap (10-20) BUN (7-21) mg/dL Creatinine (0.8-1.5) mg/dl Est GFR ( Amer) Est GFR (Non-Af Amer) POC Glucose (mg/dL) 244 H 177 H 204 H (65-110) mg/dL Random Glucose (70-110) mg/dL Calcium (8.4-10.5) mg/dL Phosphorus (2.5-4.5) mg/dL Magnesium (1.7-2.2) mg/dL Total Bilirubin (0.2-1.3) mg/dL AST (17-59) U/L ALT (7-56) U/L Alkaline Phosphatase (38-126) U/L Lactate Dehydrogenase (333-699) U/L Total Creatine Kinase (35-230) U/L CK-MB (CK-2) (0.0-3.6) ng/mL CK-MB (CK-2) % (2.5-3.0) % Troponin I ng/mL Total Protein (5.8-8.3) g/dL Albumin (3.0-4.8) g/dL Globulin gm/dL Albumin/Globulin Ratio (1.1-1.8) Triglycerides (35-160) mg/dL Cholesterol (130-200) mg/dL LDL Cholesterol Direct (0-129) mg/dL HDL Cholesterol (29-60) mg/dL Procalcitonin (0.19-0.49) NG/ML TSH 3rd Generation (0.46-4.68) mIU/mL Arterial Blood Potassium (3.6-5.2) mmol/L Venous Blood Potassium (3.6-5.2) mmol/L Urine Color (YELLOW) Urine Appearance (CLEAR) Urine pH (4.7-8.0) Ur Specific [place] (1.005-1.035) Urine Protein (<30 mg/dL) mg/dL Urine Glucose (UA) (NEGATIVE) mg/dL Urine Ketones (NEGATIVE) mg/dL Urine Blood (NEGATIVE) Urine Nitrate (NEGATIVE) Urine Bilirubin (NEGATIVE) Urine Urobilinogen (<1 E.U./dL) E.U./dL Ur Leukocyte Esterase (NEGATIVE) Isaías/uL Urine RBC (0-2) /hpf Urine WBC (0-6) /hpf Urine Bacteria (NEG) 04/21/18 04/21/18 04/21/18 Range/Units 06:00 06:00 06:00 WBC 34.1 H* (4.5-11.0) 10^3/ul RBC 3.76 (3.5-6.1) 10^6/uL Hgb 10.2 L (14.0-18.0) g/dL Hct 32.5 L (42.0-52.0) % MCV 86.4 (80.0-105.0) fl MCH 27.1 (25.0-35.0) pg MCHC 31.4 (31.0-37.0) g/dl RDW 15.7 H (11.5-14.5) % Plt Count 134 (120.0-450.0) 10^3/uL MPV 10.4 (7.0-11.0) fl Gran % 91.3 H (50.0-68.0) % Lymph % (Auto) 0.9 L (22.0-35.0) % [place] % (Auto) 7.7 H (1.0-6.0) % Eos % (Auto) 0.0 L (1.5-5.0) % Baso % (Auto) 0.1 (0.0-3.0) % Gran # 31.11 H (1.4-6.5) Lymph # (Auto) 0.3 L (1.2-3.4) [place] # (Auto) 2.6 H (0.1-0.6) Eos # (Auto) 0.0 (0.0-0.7) Baso # (Auto) 0.02 (0.0-2.0) K/mm3 pCO2 (35-45) mm/Hg pO2 (80-100) mm/Hg HCO3 (21-28) mmol/L ABG pH (7.35-7.45) ABG Total CO2 (22-28) mmol.L ABG O2 Saturation (95-98) % ABG Base Excess (-2.0-3.0) mmol/L ABG Potassium (3.6-5.2) mmol/L VBG pH (7.32-7.43) VBG pCO2 (40-60) VBG HCO3 (21-28) mmol/l VBG Total CO2 (22-28) mmol.L VBG O2 Sat (Calc) (40-65) % VBG Base Excess (0.0-2.0) mmol/L VBG Potassium (3.6-5.2) mmol/L Sodium 141 (132-148) mmol/L Chloride 107 (98-107) mmol/L Glucose (75-110) mg/dl Lactate (0.7-2.1) mmol/L FiO2 % Potassium 3.2 L (3.6-5.0) mmol/L Carbon Dioxide 19 L (21-33) mmol/L Anion Gap 18 (10-20) BUN 67 H (7-21) mg/dL Creatinine 4.0 H (0.8-1.5) mg/dl Est GFR ( Amer) 18 Est GFR (Non-Af Amer) 15 POC Glucose (mg/dL) (65-110) mg/dL Random Glucose 193 H (70-110) mg/dL Calcium 8.4 (8.4-10.5) mg/dL Phosphorus 3.0 (2.5-4.5) mg/dL Magnesium 1.7 (1.7-2.2) mg/dL Total Bilirubin (0.2-1.3) mg/dL AST (17-59) U/L ALT (7-56) U/L Alkaline Phosphatase (38-126) U/L Lactate Dehydrogenase 467 (333-699) U/L Total Creatine Kinase 491 H (35-230) U/L CK-MB (CK-2) 29.9 H (0.0-3.6) ng/mL CK-MB (CK-2) % 6.1 H (2.5-3.0) % Troponin I 9.57 H* D ng/mL Total Protein (5.8-8.3) g/dL Albumin (3.0-4.8) g/dL Globulin gm/dL Albumin/Globulin Ratio (1.1-1.8) Triglycerides 75 (35-160) mg/dL Cholesterol < 50 L (130-200) mg/dL LDL Cholesterol Direct < 30 (0-129) mg/dL HDL Cholesterol 13 L (29-60) mg/dL Procalcitonin (0.19-0.49) NG/ML TSH 3rd Generation 1.54 (0.46-4.68) mIU/mL Arterial Blood Potassium (3.6-5.2) mmol/L Venous Blood Potassium (3.6-5.2) mmol/L Urine Color (YELLOW) Urine Appearance (CLEAR) Urine pH (4.7-8.0) Ur Specific [place] (1.005-1.035) Urine Protein (<30 mg/dL) mg/dL Urine Glucose (UA) (NEGATIVE) mg/dL Urine Ketones (NEGATIVE) mg/dL Urine Blood (NEGATIVE) Urine Nitrate (NEGATIVE) Urine Bilirubin (NEGATIVE) Urine Urobilinogen (<1 E.U./dL) E.U./dL Ur Leukocyte Esterase (NEGATIVE) Isaías/uL Urine RBC (0-2) /hpf Urine WBC (0-6) /hpf Urine Bacteria (NEG) 04/21/18 04/21/18 04/21/18 Range/Units 05:02 04:11 04:06 WBC (4.5-11.0) 10^3/ul RBC (3.5-6.1) 10^6/uL Hgb (14.0-18.0) g/dL Hct (42.0-52.0) % MCV (80.0-105.0) fl MCH (25.0-35.0) pg MCHC (31.0-37.0) g/dl RDW (11.5-14.5) % Plt Count (120.0-450.0) 10^3/uL MPV (7.0-11.0) fl Gran % (50.0-68.0) % Lymph % (Auto) (22.0-35.0) % [place] % (Auto) (1.0-6.0) % Eos % (Auto) (1.5-5.0) % Baso % (Auto) (0.0-3.0) % Gran # (1.4-6.5) Lymph # (Auto) (1.2-3.4) [place] # (Auto) (0.1-0.6) Eos # (Auto) (0.0-0.7) Baso # (Auto) (0.0-2.0) K/mm3 pCO2 (35-45) mm/Hg pO2 (80-100) mm/Hg HCO3 (21-28) mmol/L ABG pH (7.35-7.45) ABG Total CO2 (22-28) mmol.L ABG O2 Saturation (95-98) % ABG Base Excess (-2.0-3.0) mmol/L ABG Potassium (3.6-5.2) mmol/L VBG pH (7.32-7.43) VBG pCO2 (40-60) VBG HCO3 (21-28) mmol/l VBG Total CO2 (22-28) mmol.L VBG O2 Sat (Calc) (40-65) % VBG Base Excess (0.0-2.0) mmol/L VBG Potassium (3.6-5.2) mmol/L Sodium (132-148) mmol/L Chloride (98-107) mmol/L Glucose (75-110) mg/dl Lactate (0.7-2.1) mmol/L FiO2 % Potassium (3.6-5.0) mmol/L Carbon Dioxide (21-33) mmol/L Anion Gap (10-20) BUN (7-21) mg/dL Creatinine (0.8-1.5) mg/dl Est GFR ( Amer) Est GFR (Non-Af Amer) POC Glucose (mg/dL) 205 H 213 H 206 H (65-110) mg/dL Random Glucose (70-110) mg/dL Calcium (8.4-10.5) mg/dL Phosphorus (2.5-4.5) mg/dL Magnesium (1.7-2.2) mg/dL Total Bilirubin (0.2-1.3) mg/dL AST (17-59) U/L ALT (7-56) U/L Alkaline Phosphatase (38-126) U/L Lactate Dehydrogenase (333-699) U/L Total Creatine Kinase (35-230) U/L CK-MB (CK-2) (0.0-3.6) ng/mL CK-MB (CK-2) % (2.5-3.0) % Troponin I ng/mL Total Protein (5.8-8.3) g/dL Albumin (3.0-4.8) g/dL Globulin gm/dL Albumin/Globulin Ratio (1.1-1.8) Triglycerides (35-160) mg/dL Cholesterol (130-200) mg/dL LDL Cholesterol Direct (0-129) mg/dL HDL Cholesterol (29-60) mg/dL Procalcitonin (0.19-0.49) NG/ML TSH 3rd Generation (0.46-4.68) mIU/mL Arterial Blood Potassium (3.6-5.2) mmol/L Venous Blood Potassium (3.6-5.2) mmol/L Urine Color (YELLOW) Urine Appearance (CLEAR) Urine pH (4.7-8.0) Ur Specific [place] (1.005-1.035) Urine Protein (<30 mg/dL) mg/dL Urine Glucose (UA) (NEGATIVE) mg/dL Urine Ketones (NEGATIVE) mg/dL Urine Blood (NEGATIVE) Urine Nitrate (NEGATIVE) Urine Bilirubin (NEGATIVE) Urine Urobilinogen (<1 E.U./dL) E.U./dL Ur Leukocyte Esterase (NEGATIVE) Isaías/uL Urine RBC (0-2) /hpf Urine WBC (0-6) /hpf Urine Bacteria (NEG) 04/21/18 04/21/18 04/21/18 Range/Units 03:26 02:12 02:00 WBC (4.5-11.0) 10^3/ul RBC (3.5-6.1) 10^6/uL Hgb (14.0-18.0) g/dL Hct (42.0-52.0) % MCV (80.0-105.0) fl MCH (25.0-35.0) pg MCHC (31.0-37.0) g/dl RDW (11.5-14.5) % Plt Count (120.0-450.0) 10^3/uL MPV (7.0-11.0) fl Gran % (50.0-68.0) % Lymph % (Auto) (22.0-35.0) % [place] % (Auto) (1.0-6.0) % Eos % (Auto) (1.5-5.0) % Baso % (Auto) (0.0-3.0) % Gran # (1.4-6.5) Lymph # (Auto) (1.2-3.4) [place] # (Auto) (0.1-0.6) Eos # (Auto) (0.0-0.7) Baso # (Auto) (0.0-2.0) K/mm3 pCO2 (35-45) mm/Hg pO2 (80-100) mm/Hg HCO3 (21-28) mmol/L ABG pH (7.35-7.45) ABG Total CO2 (22-28) mmol.L ABG O2 Saturation (95-98) % ABG Base Excess (-2.0-3.0) mmol/L ABG Potassium (3.6-5.2) mmol/L VBG pH (7.32-7.43) VBG pCO2 (40-60) VBG HCO3 (21-28) mmol/l VBG Total CO2 (22-28) mmol.L VBG O2 Sat (Calc) (40-65) % VBG Base Excess (0.0-2.0) mmol/L VBG Potassium (3.6-5.2) mmol/L Sodium (132-148) mmol/L Chloride (98-107) mmol/L Glucose (75-110) mg/dl Lactate (0.7-2.1) mmol/L FiO2 % Potassium (3.6-5.0) mmol/L Carbon Dioxide (21-33) mmol/L Anion Gap (10-20) BUN (7-21) mg/dL Creatinine (0.8-1.5) mg/dl Est GFR ( Amer) Est GFR (Non-Af Amer) POC Glucose (mg/dL) 277 H 204 H 210 H (65-110) mg/dL Random Glucose (70-110) mg/dL Calcium (8.4-10.5) mg/dL Phosphorus (2.5-4.5) mg/dL Magnesium (1.7-2.2) mg/dL Total Bilirubin (0.2-1.3) mg/dL AST (17-59) U/L ALT (7-56) U/L Alkaline Phosphatase (38-126) U/L Lactate Dehydrogenase (333-699) U/L Total Creatine Kinase (35-230) U/L CK-MB (CK-2) (0.0-3.6) ng/mL CK-MB (CK-2) % (2.5-3.0) % Troponin I ng/mL Total Protein (5.8-8.3) g/dL Albumin (3.0-4.8) g/dL Globulin gm/dL Albumin/Globulin Ratio (1.1-1.8) Triglycerides (35-160) mg/dL Cholesterol (130-200) mg/dL LDL Cholesterol Direct (0-129) mg/dL HDL Cholesterol (29-60) mg/dL Procalcitonin (0.19-0.49) NG/ML TSH 3rd Generation (0.46-4.68) mIU/mL Arterial Blood Potassium (3.6-5.2) mmol/L Venous Blood Potassium (3.6-5.2) mmol/L Urine Color (YELLOW) Urine Appearance (CLEAR) Urine pH (4.7-8.0) Ur Specific [place] (1.005-1.035) Urine Protein (<30 mg/dL) mg/dL Urine Glucose (UA) (NEGATIVE) mg/dL Urine Ketones (NEGATIVE) mg/dL Urine Blood (NEGATIVE) Urine Nitrate (NEGATIVE) Urine Bilirubin (NEGATIVE) Urine Urobilinogen (<1 E.U./dL) E.U./dL Ur Leukocyte Esterase (NEGATIVE) Isaías/uL Urine RBC (0-2) /hpf Urine WBC (0-6) /hpf Urine Bacteria (NEG) 04/21/18 04/21/18 04/20/18 Range/Units 01:16 00:13 23:13 WBC (4.5-11.0) 10^3/ul RBC (3.5-6.1) 10^6/uL Hgb (14.0-18.0) g/dL Hct (42.0-52.0) % MCV (80.0-105.0) fl MCH (25.0-35.0) pg MCHC (31.0-37.0) g/dl RDW (11.5-14.5) % Plt Count (120.0-450.0) 10^3/uL MPV (7.0-11.0) fl Gran % (50.0-68.0) % Lymph % (Auto) (22.0-35.0) % [place] % (Auto) (1.0-6.0) % Eos % (Auto) (1.5-5.0) % Baso % (Auto) (0.0-3.0) % Gran # (1.4-6.5) Lymph # (Auto) (1.2-3.4) [place] # (Auto) (0.1-0.6) Eos # (Auto) (0.0-0.7) Baso # (Auto) (0.0-2.0) K/mm3 pCO2 (35-45) mm/Hg pO2 (80-100) mm/Hg HCO3 (21-28) mmol/L ABG pH (7.35-7.45) ABG Total CO2 (22-28) mmol.L ABG O2 Saturation (95-98) % ABG Base Excess (-2.0-3.0) mmol/L ABG Potassium (3.6-5.2) mmol/L VBG pH (7.32-7.43) VBG pCO2 (40-60) VBG HCO3 (21-28) mmol/l VBG Total CO2 (22-28) mmol.L VBG O2 Sat (Calc) (40-65) % VBG Base Excess (0.0-2.0) mmol/L VBG Potassium (3.6-5.2) mmol/L Sodium (132-148) mmol/L Chloride (98-107) mmol/L Glucose (75-110) mg/dl Lactate (0.7-2.1) mmol/L FiO2 % Potassium (3.6-5.0) mmol/L Carbon Dioxide (21-33) mmol/L Anion Gap (10-20) BUN (7-21) mg/dL Creatinine (0.8-1.5) mg/dl Est GFR ( Amer) Est GFR (Non-Af Amer) POC Glucose (mg/dL) 199 H 264 H 280 H (65-110) mg/dL Random Glucose (70-110) mg/dL Calcium (8.4-10.5) mg/dL Phosphorus (2.5-4.5) mg/dL Magnesium (1.7-2.2) mg/dL Total Bilirubin (0.2-1.3) mg/dL AST (17-59) U/L ALT (7-56) U/L Alkaline Phosphatase (38-126) U/L Lactate Dehydrogenase (333-699) U/L Total Creatine Kinase (35-230) U/L CK-MB (CK-2) (0.0-3.6) ng/mL CK-MB (CK-2) % (2.5-3.0) % Troponin I ng/mL Total Protein (5.8-8.3) g/dL Albumin (3.0-4.8) g/dL Globulin gm/dL Albumin/Globulin Ratio (1.1-1.8) Triglycerides (35-160) mg/dL Cholesterol (130-200) mg/dL LDL Cholesterol Direct (0-129) mg/dL HDL Cholesterol (29-60) mg/dL Procalcitonin (0.19-0.49) NG/ML TSH 3rd Generation (0.46-4.68) mIU/mL Arterial Blood Potassium (3.6-5.2) mmol/L Venous Blood Potassium (3.6-5.2) mmol/L Urine Color (YELLOW) Urine Appearance (CLEAR) Urine pH (4.7-8.0) Ur Specific [place] (1.005-1.035) Urine Protein (<30 mg/dL) mg/dL Urine Glucose (UA) (NEGATIVE) mg/dL Urine Ketones (NEGATIVE) mg/dL Urine Blood (NEGATIVE) Urine Nitrate (NEGATIVE) Urine Bilirubin (NEGATIVE) Urine Urobilinogen (<1 E.U./dL) E.U./dL Ur Leukocyte Esterase (NEGATIVE) Isaías/uL Urine RBC (0-2) /hpf Urine WBC (0-6) /hpf Urine Bacteria (NEG) 04/20/18 04/20/18 04/20/18 Range/Units 22:35 22:35 22:01 WBC 32.9 H* (4.5-11.0) 10^3/ul RBC 3.74 (3.5-6.1) 10^6/uL Hgb 10.5 L (14.0-18.0) g/dL Hct 33.4 L (42.0-52.0) % MCV 89.3 (80.0-105.0) fl MCH 28.1 (25.0-35.0) pg MCHC 31.4 (31.0-37.0) g/dl RDW 16.1 H (11.5-14.5) % Plt Count 152 (120.0-450.0) 10^3/uL MPV 10.2 (7.0-11.0) fl Gran % 94.4 H (50.0-68.0) % Lymph % (Auto) 1.1 L (22.0-35.0) % [place] % (Auto) 4.4 (1.0-6.0) % Eos % (Auto) 0.0 L (1.5-5.0) % Baso % (Auto) 0.1 (0.0-3.0) % Gran # 31.07 H (1.4-6.5) Lymph # (Auto) 0.4 L (1.2-3.4) [place] # (Auto) 1.5 H (0.1-0.6) Eos # (Auto) 0.0 (0.0-0.7) Baso # (Auto) 0.03 (0.0-2.0) K/mm3 pCO2 (35-45) mm/Hg pO2 (80-100) mm/Hg HCO3 (21-28) mmol/L ABG pH (7.35-7.45) ABG Total CO2 (22-28) mmol.L ABG O2 Saturation (95-98) % ABG Base Excess (-2.0-3.0) mmol/L ABG Potassium (3.6-5.2) mmol/L VBG pH (7.32-7.43) VBG pCO2 (40-60) VBG HCO3 (21-28) mmol/l VBG Total CO2 (22-28) mmol.L VBG O2 Sat (Calc) (40-65) % VBG Base Excess (0.0-2.0) mmol/L VBG Potassium (3.6-5.2) mmol/L Sodium 139 (132-148) mmol/L Chloride 109 H (98-107) mmol/L Glucose (75-110) mg/dl Lactate (0.7-2.1) mmol/L FiO2 % Potassium 3.3 L (3.6-5.0) mmol/L Carbon Dioxide 14 L (21-33) mmol/L Anion Gap 20 (10-20) BUN 65 H (7-21) mg/dL Creatinine 4.2 H (0.8-1.5) mg/dl Est GFR ( Amer) 17 Est GFR (Non-Af Amer) 14 POC Glucose (mg/dL) 338 H (65-110) mg/dL Random Glucose 280 H (70-110) mg/dL Calcium 8.7 (8.4-10.5) mg/dL Phosphorus (2.5-4.5) mg/dL Magnesium (1.7-2.2) mg/dL Total Bilirubin (0.2-1.3) mg/dL AST (17-59) U/L ALT (7-56) U/L Alkaline Phosphatase (38-126) U/L Lactate Dehydrogenase 434 (333-699) U/L Total Creatine Kinase 807 H (35-230) U/L CK-MB (CK-2) 35.2 H (0.0-3.6) ng/mL CK-MB (CK-2) % 4.4 H (2.5-3.0) % Troponin I 5.59 H* D ng/mL Total Protein (5.8-8.3) g/dL Albumin (3.0-4.8) g/dL Globulin gm/dL Albumin/Globulin Ratio (1.1-1.8) Triglycerides (35-160) mg/dL Cholesterol (130-200) mg/dL LDL Cholesterol Direct (0-129) mg/dL HDL Cholesterol (29-60) mg/dL Procalcitonin (0.19-0.49) NG/ML TSH 3rd Generation (0.46-4.68) mIU/mL Arterial Blood Potassium (3.6-5.2) mmol/L Venous Blood Potassium (3.6-5.2) mmol/L Urine Color (YELLOW) Urine Appearance (CLEAR) Urine pH (4.7-8.0) Ur Specific [place] (1.005-1.035) Urine Protein (<30 mg/dL) mg/dL Urine Glucose (UA) (NEGATIVE) mg/dL Urine Ketones (NEGATIVE) mg/dL Urine Blood (NEGATIVE) Urine Nitrate (NEGATIVE) Urine Bilirubin (NEGATIVE) Urine Urobilinogen (<1 E.U./dL) E.U./dL Ur Leukocyte Esterase (NEGATIVE) Isaías/uL Urine RBC (0-2) /hpf Urine WBC (0-6) /hpf Urine Bacteria (NEG) 04/20/18 04/20/18 04/20/18 Range/Units 19:16 17:48 17:10 WBC 34.0 H* (4.5-11.0) 10^3/ul RBC 3.71 (3.5-6.1) 10^6/uL Hgb 10.3 L (14.0-18.0) g/dL Hct 33.8 L (42.0-52.0) % MCV 91.1 (80.0-105.0) fl MCH 27.8 (25.0-35.0) pg MCHC 30.5 L (31.0-37.0) g/dl RDW 16.4 H (11.5-14.5) % Plt Count 153 (120.0-450.0) 10^3/uL MPV 10.2 (7.0-11.0) fl Gran % 91.0 H (50.0-68.0) % Lymph % (Auto) 3.1 L (22.0-35.0) % [place] % (Auto) 6.9 H (1.0-6.0) % Eos % (Auto) 0.0 L (1.5-5.0) % Baso % (Auto) 0.1 (0.0-3.0) % Gran # 0.00 L (1.4-6.5) Lymph # (Auto) 0.0 L (1.2-3.4) [place] # (Auto) 2.3 H (0.1-0.6) Eos # (Auto) 0.0 (0.0-0.7) Baso # (Auto) 0.02 (0.0-2.0) K/mm3 pCO2 (35-45) mm/Hg pO2 (80-100) mm/Hg HCO3 (21-28) mmol/L ABG pH (7.35-7.45) ABG Total CO2 (22-28) mmol.L ABG O2 Saturation (95-98) % ABG Base Excess (-2.0-3.0) mmol/L ABG Potassium (3.6-5.2) mmol/L VBG pH (7.32-7.43) VBG pCO2 (40-60) VBG HCO3 (21-28) mmol/l VBG Total CO2 (22-28) mmol.L VBG O2 Sat (Calc) (40-65) % VBG Base Excess (0.0-2.0) mmol/L VBG Potassium (3.6-5.2) mmol/L Sodium (132-148) mmol/L Chloride (98-107) mmol/L Glucose (75-110) mg/dl Lactate (0.7-2.1) mmol/L FiO2 % Potassium (3.6-5.0) mmol/L Carbon Dioxide (21-33) mmol/L Anion Gap (10-20) BUN (7-21) mg/dL Creatinine (0.8-1.5) mg/dl Est GFR ( Amer) Est GFR (Non-Af Amer) POC Glucose (mg/dL) 317 H 342 H (65-110) mg/dL Random Glucose (70-110) mg/dL Calcium (8.4-10.5) mg/dL Phosphorus (2.5-4.5) mg/dL Magnesium (1.7-2.2) mg/dL Total Bilirubin (0.2-1.3) mg/dL AST (17-59) U/L ALT (7-56) U/L Alkaline Phosphatase (38-126) U/L Lactate Dehydrogenase (333-699) U/L Total Creatine Kinase (35-230) U/L CK-MB (CK-2) (0.0-3.6) ng/mL CK-MB (CK-2) % (2.5-3.0) % Troponin I ng/mL Total Protein (5.8-8.3) g/dL Albumin (3.0-4.8) g/dL Globulin gm/dL Albumin/Globulin Ratio (1.1-1.8) Triglycerides (35-160) mg/dL Cholesterol (130-200) mg/dL LDL Cholesterol Direct (0-129) mg/dL HDL Cholesterol (29-60) mg/dL Procalcitonin (0.19-0.49) NG/ML TSH 3rd Generation (0.46-4.68) mIU/mL Arterial Blood Potassium (3.6-5.2) mmol/L Venous Blood Potassium (3.6-5.2) mmol/L Urine Color (YELLOW) Urine Appearance (CLEAR) Urine pH (4.7-8.0) Ur Specific [place] (1.005-1.035) Urine Protein (<30 mg/dL) mg/dL Urine Glucose (UA) (NEGATIVE) mg/dL Urine Ketones (NEGATIVE) mg/dL Urine Blood (NEGATIVE) Urine Nitrate (NEGATIVE) Urine Bilirubin (NEGATIVE) Urine Urobilinogen (<1 E.U./dL) E.U./dL Ur Leukocyte Esterase (NEGATIVE) Isaías/uL Urine RBC (0-2) /hpf Urine WBC (0-6) /hpf Urine Bacteria (NEG) 04/20/18 04/20/18 04/20/18 Range/Units 16:32 15:30 15:30 WBC (4.5-11.0) 10^3/ul RBC (3.5-6.1) 10^6/uL Hgb (14.0-18.0) g/dL Hct (42.0-52.0) % MCV (80.0-105.0) fl MCH (25.0-35.0) pg MCHC (31.0-37.0) g/dl RDW (11.5-14.5) % Plt Count (120.0-450.0) 10^3/uL MPV (7.0-11.0) fl Gran % (50.0-68.0) % Lymph % (Auto) (22.0-35.0) % [place] % (Auto) (1.0-6.0) % Eos % (Auto) (1.5-5.0) % Baso % (Auto) (0.0-3.0) % Gran # (1.4-6.5) Lymph # (Auto) (1.2-3.4) [place] # (Auto) (0.1-0.6) Eos # (Auto) (0.0-0.7) Baso # (Auto) (0.0-2.0) K/mm3 pCO2 (35-45) mm/Hg pO2 43 (80-100) mm/Hg HCO3 (21-28) mmol/L ABG pH (7.35-7.45) ABG Total CO2 (22-28) mmol.L ABG O2 Saturation (95-98) % ABG Base Excess (-2.0-3.0) mmol/L ABG Potassium (3.6-5.2) mmol/L VBG pH 7.11 L* (7.32-7.43) VBG pCO2 31.0 L (40-60) VBG HCO3 9.8 L (21-28) mmol/l VBG Total CO2 10.8 L (22-28) mmol.L VBG O2 Sat (Calc) 81.6 H (40-65) % VBG Base Excess -18.5 L (0.0-2.0) mmol/L VBG Potassium 4.1 (3.6-5.2) mmol/L Sodium 136.0 140 (132-148) mmol/L Chloride 110.0 H 112 H (98-107) mmol/L Glucose 416 H* D (75-110) mg/dl Lactate 6.1 H* (0.7-2.1) mmol/L FiO2 21.0 % Potassium 4.2 (3.6-5.0) mmol/L Carbon Dioxide 10 L (21-33) mmol/L Anion Gap 22 H (10-20) BUN 59 H (7-21) mg/dL Creatinine 4.2 H (0.8-1.5) mg/dl Est GFR ( Amer) 17 Est GFR (Non-Af Amer) 14 POC Glucose (mg/dL) 322 H (65-110) mg/dL Random Glucose 372 H* D (70-110) mg/dL Calcium 8.4 (8.4-10.5) mg/dL Phosphorus (2.5-4.5) mg/dL Magnesium (1.7-2.2) mg/dL Total Bilirubin 0.3 (0.2-1.3) mg/dL AST 64 H (17-59) U/L ALT 44 (7-56) U/L Alkaline Phosphatase 92 (38-126) U/L Lactate Dehydrogenase 328 L (333-699) U/L Total Creatine Kinase 947 H (35-230) U/L CK-MB (CK-2) 29.2 H (0.0-3.6) ng/mL CK-MB (CK-2) % 3.1 H (2.5-3.0) % Troponin I 3.52 H* ng/mL Total Protein 4.7 L (5.8-8.3) g/dL Albumin 2.3 L (3.0-4.8) g/dL Globulin 2.5 gm/dL Albumin/Globulin Ratio 0.9 L (1.1-1.8) Triglycerides (35-160) mg/dL Cholesterol (130-200) mg/dL LDL Cholesterol Direct (0-129) mg/dL HDL Cholesterol (29-60) mg/dL Procalcitonin (0.19-0.49) NG/ML TSH 3rd Generation (0.46-4.68) mIU/mL Arterial Blood Potassium (3.6-5.2) mmol/L Venous Blood Potassium 4.1 (3.6-5.2) mmol/L Urine Color (YELLOW) Urine Appearance (CLEAR) Urine pH (4.7-8.0) Ur Specific [place] (1.005-1.035) Urine Protein (<30 mg/dL) mg/dL Urine Glucose (UA) (NEGATIVE) mg/dL Urine Ketones (NEGATIVE) mg/dL Urine Blood (NEGATIVE) Urine Nitrate (NEGATIVE) Urine Bilirubin (NEGATIVE) Urine Urobilinogen (<1 E.U./dL) E.U./dL Ur Leukocyte Esterase (NEGATIVE) Isaías/uL Urine RBC (0-2) /hpf Urine WBC (0-6) /hpf Urine Bacteria (NEG) 04/20/18 04/20/18 04/20/18 Range/Units 11:50 11:35 10:00 WBC (4.5-11.0) 10^3/ul RBC (3.5-6.1) 10^6/uL Hgb (14.0-18.0) g/dL Hct (42.0-52.0) % MCV (80.0-105.0) fl MCH (25.0-35.0) pg MCHC (31.0-37.0) g/dl RDW (11.5-14.5) % Plt Count (120.0-450.0) 10^3/uL MPV (7.0-11.0) fl Gran % (50.0-68.0) % Lymph % (Auto) (22.0-35.0) % [place] % (Auto) (1.0-6.0) % Eos % (Auto) (1.5-5.0) % Baso % (Auto) (0.0-3.0) % Gran # (1.4-6.5) Lymph # (Auto) (1.2-3.4) [place] # (Auto) (0.1-0.6) Eos # (Auto) (0.0-0.7) Baso # (Auto) (0.0-2.0) K/mm3 pCO2 20 L (35-45) mm/Hg pO2 95.0 (80-100) mm/Hg HCO3 7.5 L* (21-28) mmol/L ABG pH 7.18 L* (7.35-7.45) ABG Total CO2 8.1 L (22-28) mmol.L ABG O2 Saturation 98.3 H (95-98) % ABG Base Excess -18.8 L (-2.0-3.0) mmol/L ABG Potassium 3.4 L (3.6-5.2) mmol/L VBG pH (7.32-7.43) VBG pCO2 (40-60) VBG HCO3 (21-28) mmol/l VBG Total CO2 (22-28) mmol.L VBG O2 Sat (Calc) (40-65) % VBG Base Excess (0.0-2.0) mmol/L VBG Potassium (3.6-5.2) mmol/L Sodium 138.0 (132-148) mmol/L Chloride 114.0 H (98-107) mmol/L Glucose 283 H (75-110) mg/dl Lactate 5.6 H* (0.7-2.1) mmol/L FiO2 28.0 % Potassium (3.6-5.0) mmol/L Carbon Dioxide (21-33) mmol/L Anion Gap (10-20) BUN (7-21) mg/dL Creatinine (0.8-1.5) mg/dl Est GFR ( Amer) Est GFR (Non-Af Amer) POC Glucose (mg/dL) (65-110) mg/dL Random Glucose (70-110) mg/dL Calcium (8.4-10.5) mg/dL Phosphorus (2.5-4.5) mg/dL Magnesium (1.7-2.2) mg/dL Total Bilirubin (0.2-1.3) mg/dL AST (17-59) U/L ALT (7-56) U/L Alkaline Phosphatase (38-126) U/L Lactate Dehydrogenase (333-699) U/L Total Creatine Kinase (35-230) U/L CK-MB (CK-2) (0.0-3.6) ng/mL CK-MB (CK-2) % (2.5-3.0) % Troponin I ng/mL Total Protein (5.8-8.3) g/dL Albumin (3.0-4.8) g/dL Globulin gm/dL Albumin/Globulin Ratio (1.1-1.8) Triglycerides (35-160) mg/dL Cholesterol (130-200) mg/dL LDL Cholesterol Direct (0-129) mg/dL HDL Cholesterol (29-60) mg/dL Procalcitonin 155.42 H (0.19-0.49) NG/ML TSH 3rd Generation (0.46-4.68) mIU/mL Arterial Blood Potassium 3.4 L (3.6-5.2) mmol/L Venous Blood Potassium (3.6-5.2) mmol/L Urine Color Dark brown (YELLOW) Urine Appearance Cloudy (CLEAR) Urine pH 6.5 (4.7-8.0) Ur Specific [place] 1.020 (1.005-1.035) Urine Protein >=300 H (<30 mg/dL) mg/dL Urine Glucose (UA) 100 H (NEGATIVE) mg/dL Urine Ketones Trace H (NEGATIVE) mg/dL Urine Blood Large H (NEGATIVE) Urine Nitrate Positive H (NEGATIVE) Urine Bilirubin Moderate H (NEGATIVE) Urine Urobilinogen 1.0 H (<1 E.U./dL) E.U./dL Ur Leukocyte Esterase Moderate H (NEGATIVE) Isaías/uL Urine RBC Tntc (0-2) /hpf Urine WBC Tntc (0-6) /hpf Urine Bacteria Large (NEG) Laboratory Results - last 24 hr 04/20/18 04/20/18 04/20/18 10:00 11:35 11:50 WBC RBC Hgb Hct MCV MCH MCHC RDW Plt Count MPV Gran % Lymph % (Auto) [place] % (Auto) Eos % (Auto) Baso % (Auto) Gran # Lymph # (Auto) [place] # (Auto) Eos # (Auto) Baso # (Auto) pCO2 20 L pO2 95.0 HCO3 7.5 L* ABG pH 7.18 L* ABG Total CO2 8.1 L ABG O2 Saturation 98.3 H ABG Base Excess -18.8 L ABG Potassium 3.4 L VBG pH VBG pCO2 VBG HCO3 VBG Total CO2 VBG O2 Sat (Calc) VBG Base Excess VBG Potassium Sodium 138.0 Chloride 114.0 H Glucose 283 H Lactate 5.6 H* FiO2 28.0 Potassium Carbon Dioxide Anion Gap BUN Creatinine Est GFR ( Amer) Est GFR (Non-Af Amer) POC Glucose (mg/dL) Random Glucose Calcium Phosphorus Magnesium Total Bilirubin AST ALT Alkaline Phosphatase Lactate Dehydrogenase Total Creatine Kinase CK-MB (CK-2) CK-MB (CK-2) % Troponin I Total Protein Albumin Globulin Albumin/Globulin Ratio Triglycerides Cholesterol LDL Cholesterol Direct HDL Cholesterol Procalcitonin 155.42 H TSH 3rd Generation Arterial Blood Potassium 3.4 L Venous Blood Potassium Urine Color Dark brown Urine Appearance Cloudy Urine pH 6.5 Ur Specific [place] 1.020 Urine Protein >=300 H Urine Glucose (UA) 100 H Urine Ketones Trace H Urine Blood Large H Urine Nitrate Positive H Urine Bilirubin Moderate H Urine Urobilinogen 1.0 H Ur Leukocyte Esterase Moderate H Urine RBC Tntc Urine WBC Tntc Urine Bacteria Large 04/20/18 04/20/18 04/20/18 15:30 15:30 16:32 WBC RBC Hgb Hct MCV MCH MCHC RDW Plt Count MPV Gran % Lymph % (Auto) [place] % (Auto) Eos % (Auto) Baso % (Auto) Gran # Lymph # (Auto) [place] # (Auto) Eos # (Auto) Baso # (Auto) pCO2 pO2 43 HCO3 ABG pH ABG Total CO2 ABG O2 Saturation ABG Base Excess ABG Potassium VBG pH 7.11 L* VBG pCO2 31.0 L VBG HCO3 9.8 L VBG Total CO2 10.8 L VBG O2 Sat (Calc) 81.6 H VBG Base Excess -18.5 L VBG Potassium 4.1 Sodium 140 136.0 Chloride 112 H 110.0 H Glucose 416 H* D Lactate 6.1 H* FiO2 21.0 Potassium 4.2 Carbon Dioxide 10 L Anion Gap 22 H BUN 59 H Creatinine 4.2 H Est GFR ( Amer) 17 Est GFR (Non-Af Amer) 14 POC Glucose (mg/dL) 322 H Random Glucose 372 H* D Calcium 8.4 Phosphorus Magnesium Total Bilirubin 0.3 AST 64 H ALT 44 Alkaline Phosphatase 92 Lactate Dehydrogenase 328 L Total Creatine Kinase 947 H CK-MB (CK-2) 29.2 H CK-MB (CK-2) % 3.1 H Troponin I 3.52 H* Total Protein 4.7 L Albumin 2.3 L Globulin 2.5 Albumin/Globulin Ratio 0.9 L Triglycerides Cholesterol LDL Cholesterol Direct HDL Cholesterol Procalcitonin TSH 3rd Generation Arterial Blood Potassium Venous Blood Potassium 4.1 Urine Color Urine Appearance Urine pH Ur Specific [place] Urine Protein Urine Glucose (UA) Urine Ketones Urine Blood Urine Nitrate Urine Bilirubin Urine Urobilinogen Ur Leukocyte Esterase Urine RBC Urine WBC Urine Bacteria 04/20/18 04/20/18 04/20/18 17:10 17:48 19:16 WBC 34.0 H* RBC 3.71 Hgb 10.3 L Hct 33.8 L MCV 91.1 MCH 27.8 MCHC 30.5 L RDW 16.4 H Plt Count 153 MPV 10.2 Gran % 91.0 H Lymph % (Auto) 3.1 L [place] % (Auto) 6.9 H Eos % (Auto) 0.0 L Baso % (Auto) 0.1 Gran # 0.00 L Lymph # (Auto) 0.0 L [place] # (Auto) 2.3 H Eos # (Auto) 0.0 Baso # (Auto) 0.02 pCO2 pO2 HCO3 ABG pH ABG Total CO2 ABG O2 Saturation ABG Base Excess ABG Potassium VBG pH VBG pCO2 VBG HCO3 VBG Total CO2 VBG O2 Sat (Calc) VBG Base Excess VBG Potassium Sodium Chloride Glucose Lactate FiO2 Potassium Carbon Dioxide Anion Gap BUN Creatinine Est GFR ( Amer) Est GFR (Non-Af Amer) POC Glucose (mg/dL) 342 H 317 H Random Glucose Calcium Phosphorus Magnesium Total Bilirubin AST ALT Alkaline Phosphatase Lactate Dehydrogenase Total Creatine Kinase CK-MB (CK-2) CK-MB (CK-2) % Troponin I Total Protein Albumin Globulin Albumin/Globulin Ratio Triglycerides Cholesterol LDL Cholesterol Direct HDL Cholesterol Procalcitonin TSH 3rd Generation Arterial Blood Potassium Venous Blood Potassium Urine Color Urine Appearance Urine pH Ur Specific [place] Urine Protein Urine Glucose (UA) Urine Ketones Urine Blood Urine Nitrate Urine Bilirubin Urine Urobilinogen Ur Leukocyte Esterase Urine RBC Urine WBC Urine Bacteria 04/20/18 04/20/18 04/20/18 22:01 22:35 22:35 WBC 32.9 H* RBC 3.74 Hgb 10.5 L Hct 33.4 L MCV 89.3 MCH 28.1 MCHC 31.4 RDW 16.1 H Plt Count 152 MPV 10.2 Gran % 94.4 H Lymph % (Auto) 1.1 L [place] % (Auto) 4.4 Eos % (Auto) 0.0 L Baso % (Auto) 0.1 Gran # 31.07 H Lymph # (Auto) 0.4 L [place] # (Auto) 1.5 H Eos # (Auto) 0.0 Baso # (Auto) 0.03 pCO2 pO2 HCO3 ABG pH ABG Total CO2 ABG O2 Saturation ABG Base Excess ABG Potassium VBG pH VBG pCO2 VBG HCO3 VBG Total CO2 VBG O2 Sat (Calc) VBG Base Excess VBG Potassium Sodium 139 Chloride 109 H Glucose Lactate FiO2 Potassium 3.3 L Carbon Dioxide 14 L Anion Gap 20 BUN 65 H Creatinine 4.2 H Est GFR ( Amer) 17 Est GFR (Non-Af Amer) 14 POC Glucose (mg/dL) 338 H Random Glucose 280 H Calcium 8.7 Phosphorus Magnesium Total Bilirubin AST ALT Alkaline Phosphatase Lactate Dehydrogenase 434 Total Creatine Kinase 807 H CK-MB (CK-2) 35.2 H CK-MB (CK-2) % 4.4 H Troponin I 5.59 H* D Total Protein Albumin Globulin Albumin/Globulin Ratio Triglycerides Cholesterol LDL Cholesterol Direct HDL Cholesterol Procalcitonin TSH 3rd Generation Arterial Blood Potassium Venous Blood Potassium Urine Color Urine Appearance Urine pH Ur Specific [place] Urine Protein Urine Glucose (UA) Urine Ketones Urine Blood Urine Nitrate Urine Bilirubin Urine Urobilinogen Ur Leukocyte Esterase Urine RBC Urine WBC Urine Bacteria 04/20/18 04/21/18 04/21/18 23:13 00:13 01:16 WBC RBC Hgb Hct MCV MCH MCHC RDW Plt Count MPV Gran % Lymph % (Auto) [place] % (Auto) Eos % (Auto) Baso % (Auto) Gran # Lymph # (Auto) [place] # (Auto) Eos # (Auto) Baso # (Auto) pCO2 pO2 HCO3 ABG pH ABG Total CO2 ABG O2 Saturation ABG Base Excess ABG Potassium VBG pH VBG pCO2 VBG HCO3 VBG Total CO2 VBG O2 Sat (Calc) VBG Base Excess VBG Potassium Sodium Chloride Glucose Lactate FiO2 Potassium Carbon Dioxide Anion Gap BUN Creatinine Est GFR ( Amer) Est GFR (Non-Af Amer) POC Glucose (mg/dL) 280 H 264 H 199 H Random Glucose Calcium Phosphorus Magnesium Total Bilirubin AST ALT Alkaline Phosphatase Lactate Dehydrogenase Total Creatine Kinase CK-MB (CK-2) CK-MB (CK-2) % Troponin I Total Protein Albumin Globulin Albumin/Globulin Ratio Triglycerides Cholesterol LDL Cholesterol Direct HDL Cholesterol Procalcitonin TSH 3rd Generation Arterial Blood Potassium Venous Blood Potassium Urine Color Urine Appearance Urine pH Ur Specific [place] Urine Protein Urine Glucose (UA) Urine Ketones Urine Blood Urine Nitrate Urine Bilirubin Urine Urobilinogen Ur Leukocyte Esterase Urine RBC Urine WBC Urine Bacteria 04/21/18 04/21/18 04/21/18 02:00 02:12 03:26 WBC RBC Hgb Hct MCV MCH MCHC RDW Plt Count MPV Gran % Lymph % (Auto) [place] % (Auto) Eos % (Auto) Baso % (Auto) Gran # Lymph # (Auto) [place] # (Auto) Eos # (Auto) Baso # (Auto) pCO2 pO2 HCO3 ABG pH ABG Total CO2 ABG O2 Saturation ABG Base Excess ABG Potassium VBG pH VBG pCO2 VBG HCO3 VBG Total CO2 VBG O2 Sat (Calc) VBG Base Excess VBG Potassium Sodium Chloride Glucose Lactate FiO2 Potassium Carbon Dioxide Anion Gap BUN Creatinine Est GFR ( Amer) Est GFR (Non-Af Amer) POC Glucose (mg/dL) 210 H 204 H 277 H Random Glucose Calcium Phosphorus Magnesium Total Bilirubin AST ALT Alkaline Phosphatase Lactate Dehydrogenase Total Creatine Kinase CK-MB (CK-2) CK-MB (CK-2) % Troponin I Total Protein Albumin Globulin Albumin/Globulin Ratio Triglycerides Cholesterol LDL Cholesterol Direct HDL Cholesterol Procalcitonin TSH 3rd Generation Arterial Blood Potassium Venous Blood Potassium Urine Color Urine Appearance Urine pH Ur Specific [place] Urine Protein Urine Glucose (UA) Urine Ketones Urine Blood Urine Nitrate Urine Bilirubin Urine Urobilinogen Ur Leukocyte Esterase Urine RBC Urine WBC Urine Bacteria 04/21/18 04/21/18 04/21/18 04:06 04:11 05:02 WBC RBC Hgb Hct MCV MCH MCHC RDW Plt Count MPV Gran % Lymph % (Auto) [place] % (Auto) Eos % (Auto) Baso % (Auto) Gran # Lymph # (Auto) [place] # (Auto) Eos # (Auto) Baso # (Auto) pCO2 pO2 HCO3 ABG pH ABG Total CO2 ABG O2 Saturation ABG Base Excess ABG Potassium VBG pH VBG pCO2 VBG HCO3 VBG Total CO2 VBG O2 Sat (Calc) VBG Base Excess VBG Potassium Sodium Chloride Glucose Lactate FiO2 Potassium Carbon Dioxide Anion Gap BUN Creatinine Est GFR ( Amer) Est GFR (Non-Af Amer) POC Glucose (mg/dL) 206 H 213 H 205 H Random Glucose Calcium Phosphorus Magnesium Total Bilirubin AST ALT Alkaline Phosphatase Lactate Dehydrogenase Total Creatine Kinase CK-MB (CK-2) CK-MB (CK-2) % Troponin I Total Protein Albumin Globulin Albumin/Globulin Ratio Triglycerides Cholesterol LDL Cholesterol Direct HDL Cholesterol Procalcitonin TSH 3rd Generation Arterial Blood Potassium Venous Blood Potassium Urine Color Urine Appearance Urine pH Ur Specific [place] Urine Protein Urine Glucose (UA) Urine Ketones Urine Blood Urine Nitrate Urine Bilirubin Urine Urobilinogen Ur Leukocyte Esterase Urine RBC Urine WBC Urine Bacteria 04/21/18 04/21/18 04/21/18 06:00 06:00 06:00 WBC 34.1 H* RBC 3.76 Hgb 10.2 L Hct 32.5 L MCV 86.4 MCH 27.1 MCHC 31.4 RDW 15.7 H Plt Count 134 MPV 10.4 Gran % 91.3 H Lymph % (Auto) 0.9 L [place] % (Auto) 7.7 H Eos % (Auto) 0.0 L Baso % (Auto) 0.1 Gran # 31.11 H Lymph # (Auto) 0.3 L [place] # (Auto) 2.6 H Eos # (Auto) 0.0 Baso # (Auto) 0.02 pCO2 pO2 HCO3 ABG pH ABG Total CO2 ABG O2 Saturation ABG Base Excess ABG Potassium VBG pH VBG pCO2 VBG HCO3 VBG Total CO2 VBG O2 Sat (Calc) VBG Base Excess VBG Potassium Sodium 141 Chloride 107 Glucose Lactate FiO2 Potassium 3.2 L Carbon Dioxide 19 L Anion Gap 18 BUN 67 H Creatinine 4.0 H Est GFR ( Amer) 18 Est GFR (Non-Af Amer) 15 POC Glucose (mg/dL) Random Glucose 193 H Calcium 8.4 Phosphorus 3.0 Magnesium 1.7 Total Bilirubin AST ALT Alkaline Phosphatase Lactate Dehydrogenase 467 Total Creatine Kinase 491 H CK-MB (CK-2) 29.9 H CK-MB (CK-2) % 6.1 H Troponin I 9.57 H* D Total Protein Albumin Globulin Albumin/Globulin Ratio Triglycerides 75 Cholesterol < 50 L LDL Cholesterol Direct < 30 HDL Cholesterol 13 L Procalcitonin TSH 3rd Generation 1.54 Arterial Blood Potassium Venous Blood Potassium Urine Color Urine Appearance Urine pH Ur Specific [place] Urine Protein Urine Glucose (UA) Urine Ketones Urine Blood Urine Nitrate Urine Bilirubin Urine Urobilinogen Ur Leukocyte Esterase Urine RBC Urine WBC Urine Bacteria 04/21/18 04/21/18 04/21/18 06:01 07:09 07:52 WBC RBC Hgb Hct MCV MCH MCHC RDW Plt Count MPV Gran % Lymph % (Auto) [place] % (Auto) Eos % (Auto) Baso % (Auto) Gran # Lymph # (Auto) [place] # (Auto) Eos # (Auto) Baso # (Auto) pCO2 pO2 HCO3 ABG pH ABG Total CO2 ABG O2 Saturation ABG Base Excess ABG Potassium VBG pH VBG pCO2 VBG HCO3 VBG Total CO2 VBG O2 Sat (Calc) VBG Base Excess VBG Potassium Sodium Chloride Glucose Lactate FiO2 Potassium Carbon Dioxide Anion Gap BUN Creatinine Est GFR ( Amer) Est GFR (Non-Af Amer) POC Glucose (mg/dL) 204 H 177 H 244 H Random Glucose Calcium Phosphorus Magnesium Total Bilirubin AST ALT Alkaline Phosphatase Lactate Dehydrogenase Total Creatine Kinase CK-MB (CK-2) CK-MB (CK-2) % Troponin I Total Protein Albumin Globulin Albumin/Globulin Ratio Triglycerides Cholesterol LDL Cholesterol Direct HDL Cholesterol Procalcitonin TSH 3rd Generation Arterial Blood Potassium Venous Blood Potassium Urine Color Urine Appearance Urine pH Ur Specific [place] Urine Protein Urine Glucose (UA) Urine Ketones Urine Blood Urine Nitrate Urine Bilirubin Urine Urobilinogen Ur Leukocyte Esterase Urine RBC Urine WBC Urine Bacteria 04/21/18 04/21/18 04/21/18 08:49 09:58 10:54 WBC RBC Hgb Hct MCV MCH MCHC RDW Plt Count MPV Gran % Lymph % (Auto) [place] % (Auto) Eos % (Auto) Baso % (Auto) Gran # Lymph # (Auto) [place] # (Auto) Eos # (Auto) Baso # (Auto) pCO2 pO2 HCO3 ABG pH ABG Total CO2 ABG O2 Saturation ABG Base Excess ABG Potassium VBG pH VBG pCO2 VBG HCO3 VBG Total CO2 VBG O2 Sat (Calc) VBG Base Excess VBG Potassium Sodium Chloride Glucose Lactate FiO2 Potassium Carbon Dioxide Anion Gap BUN Creatinine Est GFR ( Amer) Est GFR (Non-Af Amer) POC Glucose (mg/dL) 182 H 178 H 153 H Random Glucose Calcium Phosphorus Magnesium Total Bilirubin AST ALT Alkaline Phosphatase Lactate Dehydrogenase Total Creatine Kinase CK-MB (CK-2) CK-MB (CK-2) % Troponin I Total Protein Albumin Globulin Albumin/Globulin Ratio Triglycerides Cholesterol LDL Cholesterol Direct HDL Cholesterol Procalcitonin TSH 3rd Generation Arterial Blood Potassium Venous Blood Potassium Urine Color Urine Appearance Urine pH Ur Specific [place] Urine Protein Urine Glucose (UA) Urine Ketones Urine Blood Urine Nitrate Urine Bilirubin Urine Urobilinogen Ur Leukocyte Esterase Urine RBC Urine WBC Urine Bacteria Fingerstick Blood Sugar Results: 177 Assessment/Plan - Assessment and Plan (Free Text) Assessment: 77 year old male past medical history pertinent for past TIA/CVA under ICU care for Multiorgan System Failure likely 2/2 Septic Shock due to UTI VS Cholecystitis. Septic Cardiomyopathy WINDY Encephalopathy Lactic Acidosis DKA/Hyperglycemia - Resolved Patient Head CT insignificant. Blood cultures are gram neg rods and patient has high WBC count of 34, consistent/stable with yesterday. Patient himself does not complain of any abdominal pain, but Abd U/s shows GB thickening c/w acalculus cystitis. EKG shows LVH with bifasciular block. Plan Neuro - Maintain normothermia Cardio - Septic shock: Milrinone, Levophed, Vasopressin gtt; wean Levophed; Fluid bolus and maintenance fluids. Stop bicarb gtt Pulm - Maintain saturation > 92% GI - PPX with protonix - Possible Cholecystitis: Dr. Maloney on consult, HIDA pending - no surgical intervention for now; cholecystostomy tubes from IR; NPO, IVF - GI Consult: no endoscopy for now; recommend possible re-vascularization by IR ; pending abdominal dopplers to r/o mesenteric ischemia /Renal - Anuric Renal Failure - monitor urine output, give fluids, avoid nephrotoxic drugs; renal consult: Dr. Cox Heme: - DVT PPX with heparin Endo: - Maintain Euglycemia; off insulin drip now ID: - Septic Shock: Stress dose steroids, Merrem, fluid resuscitation with bolus and maintenance. ID Consult: Dr. Richardson <Andrei Mtz - Last Filed: 04/21/18 12:39> CCU Objective - Vital Signs / Intake & Output Vital Signs (Last 4 hours): Vital Signs Temp Pulse Resp BP Pulse Ox 04/21/18 12:02 97.4 F L 91 H 19 97 04/21/18 11:50 91 H 20 95 04/21/18 11:40 89 17 91 L 04/21/18 11:30 87 18 98/59 L 96 04/21/18 11:20 88 25 H 97 04/21/18 11:10 85 19 96 04/21/18 11:00 97 H 19 118/53 L 94 L 04/21/18 10:50 89 19 97 04/21/18 10:45 96 H 18 109/63 96 04/21/18 10:40 86 22 96 04/21/18 10:30 93 H 20 101/53 L 96 04/21/18 10:20 93 H 94 L 04/21/18 10:15 89 26 H 110/49 L 98 04/21/18 10:10 87 20 96 04/21/18 10:00 90 100/57 L 89 L 04/21/18 09:50 84 19 98 04/21/18 09:45 93 H 21 113/44 L 90 L 04/21/18 09:40 82 20 96 04/21/18 09:30 88 21 96/48 L 92 L 04/21/18 09:20 87 25 H 95 04/21/18 09:15 96 H 21 124/90 88 L 04/21/18 09:10 82 19 97 04/21/18 09:01 90 21 87/54 L 97 04/21/18 09:00 84 21 84/51 L 96 04/21/18 08:50 87 23 97 04/21/18 08:40 91 H 17 88 L Intake and Output (Last 8hrs): Intake & Output 04/20/18 04/21/18 04/21/18 22:59 06:59 14:59 Intake Total 3341 2343 126 Output Total 22 200 Balance 3319 2143 126 Weight 156 lb 11.2 oz Intake: IV 3341 2343 126 Left Hand 3202 1800 Right Antecubital 150 Right Internal Jugular 66 352 Output: Urine 22 200 Urethral (Charles) 22 200 Other: Voiding Method Indwelling Catheter # Bowel Movements 2 2 - Medications Active Medications: Active Medications Generic Name Dose Route Start Last Admin Trade Name Freq PRN Reason Stop Dose Admin Aspirin 81 mg 04/21/18 10:00 04/21/18 10:46 Ecotrin PO 81 mg DAILY BONNIE Administration Enoxaparin Sodium 60 mg 04/21/18 10:00 04/21/18 10:45 Lovenox SC 60 mg DAILY BONNIE Administration Protocol Hydrocortisone Sodium Succinate 50 mg 04/20/18 14:45 04/21/18 08:18 Solu-Cortef IVP 50 mg Q6H BONNIE Administration Vasopressin 20 units/ Sodium 101 mls @ 9.09 mls/hr 04/20/18 14:45 04/21/18 02 :00 Chloride IV 9.09 mls/hr .[id number] BONNIE Administration Protocol 0.03 U/MIN Meropenem 500 mg/ Sodium 50 mls @ 100 mls/hr 04/20/18 22:00 04/21/18 10:46 Chloride IVPB 04/27/18 22:01 100 mls/hr Q12 BONNIE Administration Protocol Milrinone Lactate/Dextrose 100 mls @ 5.971 mls/hr 04/20/18 16:04 04/21/18 06: 04 Primacor 20mg/100ml D5w IV 0.28 mcg/kg/min .[id number] PRN 5.971 mls/hr TITRATE PER MD ORDER Administration Protocol 0.28 MCG/KG/MIN Norepinephrine Bitartrate 8 mg 508 mls @ 19.05 mls/hr 04/20/18 17:11 08:28 / Sodium Chloride IV 5 mcg/min .Q24H PRN 19.05 mls/hr TITRATE PER MD ORDER Titration Protocol 5 MCG/MIN Potassium Chloride 40 meq/ 1,020 mls @ 150 mls/hr 04/21/18 09:30 04/21/18 10: 44 Sodium Chloride IV 150 mls/hr .[id number] BONNIE Administration Protocol Metoprolol Tartrate 25 mg 04/20/18 18:00 04/20/18 17:30 Lopressor PO 25 mg BID BONNIE Administration Pantoprazole Sodium 40 mg 04/20/18 11:00 04/21/18 10:46 Protonix Inj IVP 40 mg DAILY BONNIE Administration - Patient Studies Lab Studies: Microbiology Studies 04/20/18 19:02 C. difficile Antigen & Toxin A,B (M - Final Stool 04/20/18 11:35 Urine Culture - Preliminary Urine Gram Negative Benjamin Gram Positive Cocci Lab Studies 04/21/18 04/21/18 04/21/18 Range/Units 12:05 10:54 09:58 WBC (4.5-11.0) 10^3/ul RBC (3.5-6.1) 10^6/uL Hgb (14.0-18.0) g/dL Hct (42.0-52.0) % MCV (80.0-105.0) fl MCH (25.0-35.0) pg MCHC (31.0-37.0) g/dl RDW (11.5-14.5) % Plt Count (120.0-450.0) 10^3/uL MPV (7.0-11.0) fl Gran % (50.0-68.0) % Lymph % (Auto) (22.0-35.0) % [place] % (Auto) (1.0-6.0) % Eos % (Auto) (1.5-5.0) % Baso % (Auto) (0.0-3.0) % Gran # (1.4-6.5) Lymph # (Auto) (1.2-3.4) [place] # (Auto) (0.1-0.6) Eos # (Auto) (0.0-0.7) Baso # (Auto) (0.0-2.0) K/mm3 pO2 (30-55) mm/Hg VBG pH (7.32-7.43) VBG pCO2 (40-60) VBG HCO3 (21-28) mmol/l VBG Total CO2 (22-28) mmol.L VBG O2 Sat (Calc) (40-65) % VBG Base Excess (0.0-2.0) mmol/L VBG Potassium (3.6-5.2) mmol/L Sodium (132-148) mmol/L Chloride (98-107) mmol/L Glucose (75-110) mg/dl Lactate (0.7-2.1) mmol/L FiO2 % Potassium (3.6-5.0) mmol/L Carbon Dioxide (21-33) mmol/L Anion Gap (10-20) BUN (7-21) mg/dL Creatinine (0.8-1.5) mg/dl Est GFR ( Amer) Est GFR (Non-Af Amer) POC Glucose (mg/dL) 213 H 153 H 178 H (65-110) mg/dL Random Glucose (70-110) mg/dL Calcium (8.4-10.5) mg/dL Phosphorus (2.5-4.5) mg/dL Magnesium (1.7-2.2) mg/dL Total Bilirubin (0.2-1.3) mg/dL AST (17-59) U/L ALT (7-56) U/L Alkaline Phosphatase (38-126) U/L Lactate Dehydrogenase (333-699) U/L Total Creatine Kinase (35-230) U/L CK-MB (CK-2) (0.0-3.6) ng/mL CK-MB (CK-2) % (2.5-3.0) % Troponin I ng/mL Total Protein (5.8-8.3) g/dL Albumin (3.0-4.8) g/dL Globulin gm/dL Albumin/Globulin Ratio (1.1-1.8) Triglycerides (35-160) mg/dL Cholesterol (130-200) mg/dL LDL Cholesterol Direct (0-129) mg/dL HDL Cholesterol (29-60) mg/dL Procalcitonin (0.19-0.49) NG/ML TSH 3rd Generation (0.46-4.68) mIU/mL Venous Blood Potassium (3.6-5.2) mmol/L Urine Color (YELLOW) Urine Appearance (CLEAR) Urine pH (4.7-8.0) Ur Specific [place] (1.005-1.035) Urine Protein (<30 mg/dL) mg/dL Urine Glucose (UA) (NEGATIVE) mg/dL Urine Ketones (NEGATIVE) mg/dL Urine Blood (NEGATIVE) Urine Nitrate (NEGATIVE) Urine Bilirubin (NEGATIVE) Urine Urobilinogen (<1 E.U./dL) E.U./dL Ur Leukocyte Esterase (NEGATIVE) Isaías/uL Urine RBC (0-2) /hpf Urine WBC (0-6) /hpf Urine Bacteria (NEG) 04/21/18 04/21/18 04/21/18 Range/Units 08:49 07:52 07:09 WBC (4.5-11.0) 10^3/ul RBC (3.5-6.1) 10^6/uL Hgb (14.0-18.0) g/dL Hct (42.0-52.0) % MCV (80.0-105.0) fl MCH (25.0-35.0) pg MCHC (31.0-37.0) g/dl RDW (11.5-14.5) % Plt Count (120.0-450.0) 10^3/uL MPV (7.0-11.0) fl Gran % (50.0-68.0) % Lymph % (Auto) (22.0-35.0) % [place] % (Auto) (1.0-6.0) % Eos % (Auto) (1.5-5.0) % Baso % (Auto) (0.0-3.0) % Gran # (1.4-6.5) Lymph # (Auto) (1.2-3.4) [place] # (Auto) (0.1-0.6) Eos # (Auto) (0.0-0.7) Baso # (Auto) (0.0-2.0) K/mm3 pO2 (30-55) mm/Hg VBG pH (7.32-7.43) VBG pCO2 (40-60) VBG HCO3 (21-28) mmol/l VBG Total CO2 (22-28) mmol.L VBG O2 Sat (Calc) (40-65) % VBG Base Excess (0.0-2.0) mmol/L VBG Potassium (3.6-5.2) mmol/L Sodium (132-148) mmol/L Chloride (98-107) mmol/L Glucose (75-110) mg/dl Lactate (0.7-2.1) mmol/L FiO2 % Potassium (3.6-5.0) mmol/L Carbon Dioxide (21-33) mmol/L Anion Gap (10-20) BUN (7-21) mg/dL Creatinine (0.8-1.5) mg/dl Est GFR ( Amer) Est GFR (Non-Af Amer) POC Glucose (mg/dL) 182 H 244 H 177 H (65-110) mg/dL Random Glucose (70-110) mg/dL Calcium (8.4-10.5) mg/dL Phosphorus (2.5-4.5) mg/dL Magnesium (1.7-2.2) mg/dL Total Bilirubin (0.2-1.3) mg/dL AST (17-59) U/L ALT (7-56) U/L Alkaline Phosphatase (38-126) U/L Lactate Dehydrogenase (333-699) U/L Total Creatine Kinase (35-230) U/L CK-MB (CK-2) (0.0-3.6) ng/mL CK-MB (CK-2) % (2.5-3.0) % Troponin I ng/mL Total Protein (5.8-8.3) g/dL Albumin (3.0-4.8) g/dL Globulin gm/dL Albumin/Globulin Ratio (1.1-1.8) Triglycerides (35-160) mg/dL Cholesterol (130-200) mg/dL LDL Cholesterol Direct (0-129) mg/dL HDL Cholesterol (29-60) mg/dL Procalcitonin (0.19-0.49) NG/ML TSH 3rd Generation (0.46-4.68) mIU/mL Venous Blood Potassium (3.6-5.2) mmol/L Urine Color (YELLOW) Urine Appearance (CLEAR) Urine pH (4.7-8.0) Ur Specific [place] (1.005-1.035) Urine Protein (<30 mg/dL) mg/dL Urine Glucose (UA) (NEGATIVE) mg/dL Urine Ketones (NEGATIVE) mg/dL Urine Blood (NEGATIVE) Urine Nitrate (NEGATIVE) Urine Bilirubin (NEGATIVE) Urine Urobilinogen (<1 E.U./dL) E.U./dL Ur Leukocyte Esterase (NEGATIVE) Isaías/uL Urine RBC (0-2) /hpf Urine WBC (0-6) /hpf Urine Bacteria (NEG) 04/21/18 04/21/18 04/21/18 Range/Units 06:01 06:00 06:00 WBC (4.5-11.0) 10^3/ul RBC (3.5-6.1) 10^6/uL Hgb (14.0-18.0) g/dL Hct (42.0-52.0) % MCV (80.0-105.0) fl MCH (25.0-35.0) pg MCHC (31.0-37.0) g/dl RDW (11.5-14.5) % Plt Count (120.0-450.0) 10^3/uL MPV (7.0-11.0) fl Gran % (50.0-68.0) % Lymph % (Auto) (22.0-35.0) % [place] % (Auto) (1.0-6.0) % Eos % (Auto) (1.5-5.0) % Baso % (Auto) (0.0-3.0) % Gran # (1.4-6.5) Lymph # (Auto) (1.2-3.4) [place] # (Auto) (0.1-0.6) Eos # (Auto) (0.0-0.7) Baso # (Auto) (0.0-2.0) K/mm3 pO2 (30-55) mm/Hg VBG pH (7.32-7.43) VBG pCO2 (40-60) VBG HCO3 (21-28) mmol/l VBG Total CO2 (22-28) mmol.L VBG O2 Sat (Calc) (40-65) % VBG Base Excess (0.0-2.0) mmol/L VBG Potassium (3.6-5.2) mmol/L Sodium 141 (132-148) mmol/L Chloride 107 (98-107) mmol/L Glucose (75-110) mg/dl Lactate (0.7-2.1) mmol/L FiO2 % Potassium 3.2 L (3.6-5.0) mmol/L Carbon Dioxide 19 L (21-33) mmol/L Anion Gap 18 (10-20) BUN 67 H (7-21) mg/dL Creatinine 4.0 H (0.8-1.5) mg/dl Est GFR ( Amer) 18 Est GFR (Non-Af Amer) 15 POC Glucose (mg/dL) 204 H (65-110) mg/dL Random Glucose 193 H (70-110) mg/dL Calcium 8.4 (8.4-10.5) mg/dL Phosphorus 3.0 (2.5-4.5) mg/dL Magnesium 1.7 (1.7-2.2) mg/dL Total Bilirubin (0.2-1.3) mg/dL AST (17-59) U/L ALT (7-56) U/L Alkaline Phosphatase (38-126) U/L Lactate Dehydrogenase 467 (333-699) U/L Total Creatine Kinase 491 H (35-230) U/L CK-MB (CK-2) 29.9 H (0.0-3.6) ng/mL CK-MB (CK-2) % 6.1 H (2.5-3.0) % Troponin I 9.57 H* D ng/mL Total Protein (5.8-8.3) g/dL Albumin (3.0-4.8) g/dL Globulin gm/dL Albumin/Globulin Ratio (1.1-1.8) Triglycerides 75 (35-160) mg/dL Cholesterol < 50 L (130-200) mg/dL LDL Cholesterol Direct < 30 (0-129) mg/dL HDL Cholesterol 13 L (29-60) mg/dL Procalcitonin (0.19-0.49) NG/ML TSH 3rd Generation 1.54 (0.46-4.68) mIU/mL Venous Blood Potassium (3.6-5.2) mmol/L Urine Color (YELLOW) Urine Appearance (CLEAR) Urine pH (4.7-8.0) Ur Specific [place] (1.005-1.035) Urine Protein (<30 mg/dL) mg/dL Urine Glucose (UA) (NEGATIVE) mg/dL Urine Ketones (NEGATIVE) mg/dL Urine Blood (NEGATIVE) Urine Nitrate (NEGATIVE) Urine Bilirubin (NEGATIVE) Urine Urobilinogen (<1 E.U./dL) E.U./dL Ur Leukocyte Esterase (NEGATIVE) Isaías/uL Urine RBC (0-2) /hpf Urine WBC (0-6) /hpf Urine Bacteria (NEG) 04/21/18 04/21/18 04/21/18 Range/Units 06:00 05:02 04:11 WBC 34.1 H* (4.5-11.0) 10^3/ul RBC 3.76 (3.5-6.1) 10^6/uL Hgb 10.2 L (14.0-18.0) g/dL Hct 32.5 L (42.0-52.0) % MCV 86.4 (80.0-105.0) fl MCH 27.1 (25.0-35.0) pg MCHC 31.4 (31.0-37.0) g/dl RDW 15.7 H (11.5-14.5) % Plt Count 134 (120.0-450.0) 10^3/uL MPV 10.4 (7.0-11.0) fl Gran % 91.3 H (50.0-68.0) % Lymph % (Auto) 0.9 L (22.0-35.0) % [place] % (Auto) 7.7 H (1.0-6.0) % Eos % (Auto) 0.0 L (1.5-5.0) % Baso % (Auto) 0.1 (0.0-3.0) % Gran # 31.11 H (1.4-6.5) Lymph # (Auto) 0.3 L (1.2-3.4) [place] # (Auto) 2.6 H (0.1-0.6) Eos # (Auto) 0.0 (0.0-0.7) Baso # (Auto) 0.02 (0.0-2.0) K/mm3 pO2 (30-55) mm/Hg VBG pH (7.32-7.43) VBG pCO2 (40-60) VBG HCO3 (21-28) mmol/l VBG Total CO2 (22-28) mmol.L VBG O2 Sat (Calc) (40-65) % VBG Base Excess (0.0-2.0) mmol/L VBG Potassium (3.6-5.2) mmol/L Sodium (132-148) mmol/L Chloride (98-107) mmol/L Glucose (75-110) mg/dl Lactate (0.7-2.1) mmol/L FiO2 % Potassium (3.6-5.0) mmol/L Carbon Dioxide (21-33) mmol/L Anion Gap (10-20) BUN (7-21) mg/dL Creatinine (0.8-1.5) mg/dl Est GFR ( Amer) Est GFR (Non-Af Amer) POC Glucose (mg/dL) 205 H 213 H (65-110) mg/dL Random Glucose (70-110) mg/dL Calcium (8.4-10.5) mg/dL Phosphorus (2.5-4.5) mg/dL Magnesium (1.7-2.2) mg/dL Total Bilirubin (0.2-1.3) mg/dL AST (17-59) U/L ALT (7-56) U/L Alkaline Phosphatase (38-126) U/L Lactate Dehydrogenase (333-699) U/L Total Creatine Kinase (35-230) U/L CK-MB (CK-2) (0.0-3.6) ng/mL CK-MB (CK-2) % (2.5-3.0) % Troponin I ng/mL Total Protein (5.8-8.3) g/dL Albumin (3.0-4.8) g/dL Globulin gm/dL Albumin/Globulin Ratio (1.1-1.8) Triglycerides (35-160) mg/dL Cholesterol (130-200) mg/dL LDL Cholesterol Direct (0-129) mg/dL HDL Cholesterol (29-60) mg/dL Procalcitonin (0.19-0.49) NG/ML TSH 3rd Generation (0.46-4.68) mIU/mL Venous Blood Potassium (3.6-5.2) mmol/L Urine Color (YELLOW) Urine Appearance (CLEAR) Urine pH (4.7-8.0) Ur Specific [place] (1.005-1.035) Urine Protein (<30 mg/dL) mg/dL Urine Glucose (UA) (NEGATIVE) mg/dL Urine Ketones (NEGATIVE) mg/dL Urine Blood (NEGATIVE) Urine Nitrate (NEGATIVE) Urine Bilirubin (NEGATIVE) Urine Urobilinogen (<1 E.U./dL) E.U./dL Ur Leukocyte Esterase (NEGATIVE) Isaías/uL Urine RBC (0-2) /hpf Urine WBC (0-6) /hpf Urine Bacteria (NEG) 04/21/18 04/21/18 04/21/18 Range/Units 04:06 03:26 02:12 WBC (4.5-11.0) 10^3/ul RBC (3.5-6.1) 10^6/uL Hgb (14.0-18.0) g/dL Hct (42.0-52.0) % MCV (80.0-105.0) fl MCH (25.0-35.0) pg MCHC (31.0-37.0) g/dl RDW (11.5-14.5) % Plt Count (120.0-450.0) 10^3/uL MPV (7.0-11.0) fl Gran % (50.0-68.0) % Lymph % (Auto) (22.0-35.0) % [place] % (Auto) (1.0-6.0) % Eos % (Auto) (1.5-5.0) % Baso % (Auto) (0.0-3.0) % Gran # (1.4-6.5) Lymph # (Auto) (1.2-3.4) [place] # (Auto) (0.1-0.6) Eos # (Auto) (0.0-0.7) Baso # (Auto) (0.0-2.0) K/mm3 pO2 (30-55) mm/Hg VBG pH (7.32-7.43) VBG pCO2 (40-60) VBG HCO3 (21-28) mmol/l VBG Total CO2 (22-28) mmol.L VBG O2 Sat (Calc) (40-65) % VBG Base Excess (0.0-2.0) mmol/L VBG Potassium (3.6-5.2) mmol/L Sodium (132-148) mmol/L Chloride (98-107) mmol/L Glucose (75-110) mg/dl Lactate (0.7-2.1) mmol/L FiO2 % Potassium (3.6-5.0) mmol/L Carbon Dioxide (21-33) mmol/L Anion Gap (10-20) BUN (7-21) mg/dL Creatinine (0.8-1.5) mg/dl Est GFR ( Amer) Est GFR (Non-Af Amer) POC Glucose (mg/dL) 206 H 277 H 204 H (65-110) mg/dL Random Glucose (70-110) mg/dL Calcium (8.4-10.5) mg/dL Phosphorus (2.5-4.5) mg/dL Magnesium (1.7-2.2) mg/dL Total Bilirubin (0.2-1.3) mg/dL AST (17-59) U/L ALT (7-56) U/L Alkaline Phosphatase (38-126) U/L Lactate Dehydrogenase (333-699) U/L Total Creatine Kinase (35-230) U/L CK-MB (CK-2) (0.0-3.6) ng/mL CK-MB (CK-2) % (2.5-3.0) % Troponin I ng/mL Total Protein (5.8-8.3) g/dL Albumin (3.0-4.8) g/dL Globulin gm/dL Albumin/Globulin Ratio (1.1-1.8) Triglycerides (35-160) mg/dL Cholesterol (130-200) mg/dL LDL Cholesterol Direct (0-129) mg/dL HDL Cholesterol (29-60) mg/dL Procalcitonin (0.19-0.49) NG/ML TSH 3rd Generation (0.46-4.68) mIU/mL Venous Blood Potassium (3.6-5.2) mmol/L Urine Color (YELLOW) Urine Appearance (CLEAR) Urine pH (4.7-8.0) Ur Specific [place] (1.005-1.035) Urine Protein (<30 mg/dL) mg/dL Urine Glucose (UA) (NEGATIVE) mg/dL Urine Ketones (NEGATIVE) mg/dL Urine Blood (NEGATIVE) Urine Nitrate (NEGATIVE) Urine Bilirubin (NEGATIVE) Urine Urobilinogen (<1 E.U./dL) E.U./dL Ur Leukocyte Esterase (NEGATIVE) Isaías/uL Urine RBC (0-2) /hpf Urine WBC (0-6) /hpf Urine Bacteria (NEG) 04/21/18 04/21/18 04/21/18 Range/Units 02:00 01:16 00:13 WBC (4.5-11.0) 10^3/ul RBC (3.5-6.1) 10^6/uL Hgb (14.0-18.0) g/dL Hct (42.0-52.0) % MCV (80.0-105.0) fl MCH (25.0-35.0) pg MCHC (31.0-37.0) g/dl RDW (11.5-14.5) % Plt Count (120.0-450.0) 10^3/uL MPV (7.0-11.0) fl Gran % (50.0-68.0) % Lymph % (Auto) (22.0-35.0) % [place] % (Auto) (1.0-6.0) % Eos % (Auto) (1.5-5.0) % Baso % (Auto) (0.0-3.0) % Gran # (1.4-6.5) Lymph # (Auto) (1.2-3.4) [place] # (Auto) (0.1-0.6) Eos # (Auto) (0.0-0.7) Baso # (Auto) (0.0-2.0) K/mm3 pO2 (30-55) mm/Hg VBG pH (7.32-7.43) VBG pCO2 (40-60) VBG HCO3 (21-28) mmol/l VBG Total CO2 (22-28) mmol.L VBG O2 Sat (Calc) (40-65) % VBG Base Excess (0.0-2.0) mmol/L VBG Potassium (3.6-5.2) mmol/L Sodium (132-148) mmol/L Chloride (98-107) mmol/L Glucose (75-110) mg/dl Lactate (0.7-2.1) mmol/L FiO2 % Potassium (3.6-5.0) mmol/L Carbon Dioxide (21-33) mmol/L Anion Gap (10-20) BUN (7-21) mg/dL Creatinine (0.8-1.5) mg/dl Est GFR ( Amer) Est GFR (Non-Af Amer) POC Glucose (mg/dL) 210 H 199 H 264 H (65-110) mg/dL Random Glucose (70-110) mg/dL Calcium (8.4-10.5) mg/dL Phosphorus (2.5-4.5) mg/dL Magnesium (1.7-2.2) mg/dL Total Bilirubin (0.2-1.3) mg/dL AST (17-59) U/L ALT (7-56) U/L Alkaline Phosphatase (38-126) U/L Lactate Dehydrogenase (333-699) U/L Total Creatine Kinase (35-230) U/L CK-MB (CK-2) (0.0-3.6) ng/mL CK-MB (CK-2) % (2.5-3.0) % Troponin I ng/mL Total Protein (5.8-8.3) g/dL Albumin (3.0-4.8) g/dL Globulin gm/dL Albumin/Globulin Ratio (1.1-1.8) Triglycerides (35-160) mg/dL Cholesterol (130-200) mg/dL LDL Cholesterol Direct (0-129) mg/dL HDL Cholesterol (29-60) mg/dL Procalcitonin (0.19-0.49) NG/ML TSH 3rd Generation (0.46-4.68) mIU/mL Venous Blood Potassium (3.6-5.2) mmol/L Urine Color (YELLOW) Urine Appearance (CLEAR) Urine pH (4.7-8.0) Ur Specific [place] (1.005-1.035) Urine Protein (<30 mg/dL) mg/dL Urine Glucose (UA) (NEGATIVE) mg/dL Urine Ketones (NEGATIVE) mg/dL Urine Blood (NEGATIVE) Urine Nitrate (NEGATIVE) Urine Bilirubin (NEGATIVE) Urine Urobilinogen (<1 E.U./dL) E.U./dL Ur Leukocyte Esterase (NEGATIVE) Isaías/uL Urine RBC (0-2) /hpf Urine WBC (0-6) /hpf Urine Bacteria (NEG) 04/20/18 04/20/18 04/20/18 Range/Units 23:13 22:35 22:35 WBC 32.9 H* (4.5-11.0) 10^3/ul RBC 3.74 (3.5-6.1) 10^6/uL Hgb 10.5 L (14.0-18.0) g/dL Hct 33.4 L (42.0-52.0) % MCV 89.3 (80.0-105.0) fl MCH 28.1 (25.0-35.0) pg MCHC 31.4 (31.0-37.0) g/dl RDW 16.1 H (11.5-14.5) % Plt Count 152 (120.0-450.0) 10^3/uL MPV 10.2 (7.0-11.0) fl Gran % 94.4 H (50.0-68.0) % Lymph % (Auto) 1.1 L (22.0-35.0) % [place] % (Auto) 4.4 (1.0-6.0) % Eos % (Auto) 0.0 L (1.5-5.0) % Baso % (Auto) 0.1 (0.0-3.0) % Gran # 31.07 H (1.4-6.5) Lymph # (Auto) 0.4 L (1.2-3.4) [place] # (Auto) 1.5 H (0.1-0.6) Eos # (Auto) 0.0 (0.0-0.7) Baso # (Auto) 0.03 (0.0-2.0) K/mm3 pO2 (30-55) mm/Hg VBG pH (7.32-7.43) VBG pCO2 (40-60) VBG HCO3 (21-28) mmol/l VBG Total CO2 (22-28) mmol.L VBG O2 Sat (Calc) (40-65) % VBG Base Excess (0.0-2.0) mmol/L VBG Potassium (3.6-5.2) mmol/L Sodium 139 (132-148) mmol/L Chloride 109 H (98-107) mmol/L Glucose (75-110) mg/dl Lactate (0.7-2.1) mmol/L FiO2 % Potassium 3.3 L (3.6-5.0) mmol/L Carbon Dioxide 14 L (21-33) mmol/L Anion Gap 20 (10-20) BUN 65 H (7-21) mg/dL Creatinine 4.2 H (0.8-1.5) mg/dl Est GFR ( Amer) 17 Est GFR (Non-Af Amer) 14 POC Glucose (mg/dL) 280 H (65-110) mg/dL Random Glucose 280 H (70-110) mg/dL Calcium 8.7 (8.4-10.5) mg/dL Phosphorus (2.5-4.5) mg/dL Magnesium (1.7-2.2) mg/dL Total Bilirubin (0.2-1.3) mg/dL AST (17-59) U/L ALT (7-56) U/L Alkaline Phosphatase (38-126) U/L Lactate Dehydrogenase 434 (333-699) U/L Total Creatine Kinase 807 H (35-230) U/L CK-MB (CK-2) 35.2 H (0.0-3.6) ng/mL CK-MB (CK-2) % 4.4 H (2.5-3.0) % Troponin I 5.59 H* D ng/mL Total Protein (5.8-8.3) g/dL Albumin (3.0-4.8) g/dL Globulin gm/dL Albumin/Globulin Ratio (1.1-1.8) Triglycerides (35-160) mg/dL Cholesterol (130-200) mg/dL LDL Cholesterol Direct (0-129) mg/dL HDL Cholesterol (29-60) mg/dL Procalcitonin (0.19-0.49) NG/ML TSH 3rd Generation (0.46-4.68) mIU/mL Venous Blood Potassium (3.6-5.2) mmol/L Urine Color (YELLOW) Urine Appearance (CLEAR) Urine pH (4.7-8.0) Ur Specific [place] (1.005-1.035) Urine Protein (<30 mg/dL) mg/dL Urine Glucose (UA) (NEGATIVE) mg/dL Urine Ketones (NEGATIVE) mg/dL Urine Blood (NEGATIVE) Urine Nitrate (NEGATIVE) Urine Bilirubin (NEGATIVE) Urine Urobilinogen (<1 E.U./dL) E.U./dL Ur Leukocyte Esterase (NEGATIVE) Isaías/uL Urine RBC (0-2) /hpf Urine WBC (0-6) /hpf Urine Bacteria (NEG) 04/20/18 04/20/18 04/20/18 Range/Units 22:01 19:16 17:48 WBC (4.5-11.0) 10^3/ul RBC (3.5-6.1) 10^6/uL Hgb (14.0-18.0) g/dL Hct (42.0-52.0) % MCV (80.0-105.0) fl MCH (25.0-35.0) pg MCHC (31.0-37.0) g/dl RDW (11.5-14.5) % Plt Count (120.0-450.0) 10^3/uL MPV (7.0-11.0) fl Gran % (50.0-68.0) % Lymph % (Auto) (22.0-35.0) % [place] % (Auto) (1.0-6.0) % Eos % (Auto) (1.5-5.0) % Baso % (Auto) (0.0-3.0) % Gran # (1.4-6.5) Lymph # (Auto) (1.2-3.4) [place] # (Auto) (0.1-0.6) Eos # (Auto) (0.0-0.7) Baso # (Auto) (0.0-2.0) K/mm3 pO2 (30-55) mm/Hg VBG pH (7.32-7.43) VBG pCO2 (40-60) VBG HCO3 (21-28) mmol/l VBG Total CO2 (22-28) mmol.L VBG O2 Sat (Calc) (40-65) % VBG Base Excess (0.0-2.0) mmol/L VBG Potassium (3.6-5.2) mmol/L Sodium (132-148) mmol/L Chloride (98-107) mmol/L Glucose (75-110) mg/dl Lactate (0.7-2.1) mmol/L FiO2 % Potassium (3.6-5.0) mmol/L Carbon Dioxide (21-33) mmol/L Anion Gap (10-20) BUN (7-21) mg/dL Creatinine (0.8-1.5) mg/dl Est GFR ( Amer) Est GFR (Non-Af Amer) POC Glucose (mg/dL) 338 H 317 H 342 H (65-110) mg/dL Random Glucose (70-110) mg/dL Calcium (8.4-10.5) mg/dL Phosphorus (2.5-4.5) mg/dL Magnesium (1.7-2.2) mg/dL Total Bilirubin (0.2-1.3) mg/dL AST (17-59) U/L ALT (7-56) U/L Alkaline Phosphatase (38-126) U/L Lactate Dehydrogenase (333-699) U/L Total Creatine Kinase (35-230) U/L CK-MB (CK-2) (0.0-3.6) ng/mL CK-MB (CK-2) % (2.5-3.0) % Troponin I ng/mL Total Protein (5.8-8.3) g/dL Albumin (3.0-4.8) g/dL Globulin gm/dL Albumin/Globulin Ratio (1.1-1.8) Triglycerides (35-160) mg/dL Cholesterol (130-200) mg/dL LDL Cholesterol Direct (0-129) mg/dL HDL Cholesterol (29-60) mg/dL Procalcitonin (0.19-0.49) NG/ML TSH 3rd Generation (0.46-4.68) mIU/mL Venous Blood Potassium (3.6-5.2) mmol/L Urine Color (YELLOW) Urine Appearance (CLEAR) Urine pH (4.7-8.0) Ur Specific [place] (1.005-1.035) Urine Protein (<30 mg/dL) mg/dL Urine Glucose (UA) (NEGATIVE) mg/dL Urine Ketones (NEGATIVE) mg/dL Urine Blood (NEGATIVE) Urine Nitrate (NEGATIVE) Urine Bilirubin (NEGATIVE) Urine Urobilinogen (<1 E.U./dL) E.U./dL Ur Leukocyte Esterase (NEGATIVE) Isaías/uL Urine RBC (0-2) /hpf Urine WBC (0-6) /hpf Urine Bacteria (NEG) 04/20/18 04/20/18 04/20/18 Range/Units 17:10 16:32 15:30 WBC 34.0 H* (4.5-11.0) 10^3/ul RBC 3.71 (3.5-6.1) 10^6/uL Hgb 10.3 L (14.0-18.0) g/dL Hct 33.8 L (42.0-52.0) % MCV 91.1 (80.0-105.0) fl MCH 27.8 (25.0-35.0) pg MCHC 30.5 L (31.0-37.0) g/dl RDW 16.4 H (11.5-14.5) % Plt Count 153 (120.0-450.0) 10^3/uL MPV 10.2 (7.0-11.0) fl Gran % 91.0 H (50.0-68.0) % Lymph % (Auto) 3.1 L (22.0-35.0) % [place] % (Auto) 6.9 H (1.0-6.0) % Eos % (Auto) 0.0 L (1.5-5.0) % Baso % (Auto) 0.1 (0.0-3.0) % Gran # 0.00 L (1.4-6.5) Lymph # (Auto) 0.0 L (1.2-3.4) [place] # (Auto) 2.3 H (0.1-0.6) Eos # (Auto) 0.0 (0.0-0.7) Baso # (Auto) 0.02 (0.0-2.0) K/mm3 pO2 43 (30-55) mm/Hg VBG pH 7.11 L* (7.32-7.43) VBG pCO2 31.0 L (40-60) VBG HCO3 9.8 L (21-28) mmol/l VBG Total CO2 10.8 L (22-28) mmol.L VBG O2 Sat (Calc) 81.6 H (40-65) % VBG Base Excess -18.5 L (0.0-2.0) mmol/L VBG Potassium 4.1 (3.6-5.2) mmol/L Sodium 136.0 (132-148) mmol/L Chloride 110.0 H (98-107) mmol/L Glucose 416 H* D (75-110) mg/dl Lactate 6.1 H* (0.7-2.1) mmol/L FiO2 21.0 % Potassium (3.6-5.0) mmol/L Carbon Dioxide (21-33) mmol/L Anion Gap (10-20) BUN (7-21) mg/dL Creatinine (0.8-1.5) mg/dl Est GFR ( Amer) Est GFR (Non-Af Amer) POC Glucose (mg/dL) 322 H (65-110) mg/dL Random Glucose (70-110) mg/dL Calcium (8.4-10.5) mg/dL Phosphorus (2.5-4.5) mg/dL Magnesium (1.7-2.2) mg/dL Total Bilirubin (0.2-1.3) mg/dL AST (17-59) U/L ALT (7-56) U/L Alkaline Phosphatase (38-126) U/L Lactate Dehydrogenase (333-699) U/L Total Creatine Kinase (35-230) U/L CK-MB (CK-2) (0.0-3.6) ng/mL CK-MB (CK-2) % (2.5-3.0) % Troponin I ng/mL Total Protein (5.8-8.3) g/dL Albumin (3.0-4.8) g/dL Globulin gm/dL Albumin/Globulin Ratio (1.1-1.8) Triglycerides (35-160) mg/dL Cholesterol (130-200) mg/dL LDL Cholesterol Direct (0-129) mg/dL HDL Cholesterol (29-60) mg/dL Procalcitonin (0.19-0.49) NG/ML TSH 3rd Generation (0.46-4.68) mIU/mL Venous Blood Potassium 4.1 (3.6-5.2) mmol/L Urine Color (YELLOW) Urine Appearance (CLEAR) Urine pH (4.7-8.0) Ur Specific [place] (1.005-1.035) Urine Protein (<30 mg/dL) mg/dL Urine Glucose (UA) (NEGATIVE) mg/dL Urine Ketones (NEGATIVE) mg/dL Urine Blood (NEGATIVE) Urine Nitrate (NEGATIVE) Urine Bilirubin (NEGATIVE) Urine Urobilinogen (<1 E.U./dL) E.U./dL Ur Leukocyte Esterase (NEGATIVE) Isaías/uL Urine RBC (0-2) /hpf Urine WBC (0-6) /hpf Urine Bacteria (NEG) 04/20/18 04/20/18 04/20/18 Range/Units 15:30 11:35 10:00 WBC (4.5-11.0) 10^3/ul RBC (3.5-6.1) 10^6/uL Hgb (14.0-18.0) g/dL Hct (42.0-52.0) % MCV (80.0-105.0) fl MCH (25.0-35.0) pg MCHC (31.0-37.0) g/dl RDW (11.5-14.5) % Plt Count (120.0-450.0) 10^3/uL MPV (7.0-11.0) fl Gran % (50.0-68.0) % Lymph % (Auto) (22.0-35.0) % [place] % (Auto) (1.0-6.0) % Eos % (Auto) (1.5-5.0) % Baso % (Auto) (0.0-3.0) % Gran # (1.4-6.5) Lymph # (Auto) (1.2-3.4) [place] # (Auto) (0.1-0.6) Eos # (Auto) (0.0-0.7) Baso # (Auto) (0.0-2.0) K/mm3 pO2 (30-55) mm/Hg VBG pH (7.32-7.43) VBG pCO2 (40-60) VBG HCO3 (21-28) mmol/l VBG Total CO2 (22-28) mmol.L VBG O2 Sat (Calc) (40-65) % VBG Base Excess (0.0-2.0) mmol/L VBG Potassium (3.6-5.2) mmol/L Sodium 140 (132-148) mmol/L Chloride 112 H (98-107) mmol/L Glucose (75-110) mg/dl Lactate (0.7-2.1) mmol/L FiO2 % Potassium 4.2 (3.6-5.0) mmol/L Carbon Dioxide 10 L (21-33) mmol/L Anion Gap 22 H (10-20) BUN 59 H (7-21) mg/dL Creatinine 4.2 H (0.8-1.5) mg/dl Est GFR ( Amer) 17 Est GFR (Non-Af Amer) 14 POC Glucose (mg/dL) (65-110) mg/dL Random Glucose 372 H* D (70-110) mg/dL Calcium 8.4 (8.4-10.5) mg/dL Phosphorus (2.5-4.5) mg/dL Magnesium (1.7-2.2) mg/dL Total Bilirubin 0.3 (0.2-1.3) mg/dL AST 64 H (17-59) U/L ALT 44 (7-56) U/L Alkaline Phosphatase 92 (38-126) U/L Lactate Dehydrogenase 328 L (333-699) U/L Total Creatine Kinase 947 H (35-230) U/L CK-MB (CK-2) 29.2 H (0.0-3.6) ng/mL CK-MB (CK-2) % 3.1 H (2.5-3.0) % Troponin I 3.52 H* ng/mL Total Protein 4.7 L (5.8-8.3) g/dL Albumin 2.3 L (3.0-4.8) g/dL Globulin 2.5 gm/dL Albumin/Globulin Ratio 0.9 L (1.1-1.8) Triglycerides (35-160) mg/dL Cholesterol (130-200) mg/dL LDL Cholesterol Direct (0-129) mg/dL HDL Cholesterol (29-60) mg/dL Procalcitonin 155.42 H (0.19-0.49) NG/ML TSH 3rd Generation (0.46-4.68) mIU/mL Venous Blood Potassium (3.6-5.2) mmol/L Urine Color Dark brown (YELLOW) Urine Appearance Cloudy (CLEAR) Urine pH 6.5 (4.7-8.0) Ur Specific [place] 1.020 (1.005-1.035) Urine Protein >=300 H (<30 mg/dL) mg/dL Urine Glucose (UA) 100 H (NEGATIVE) mg/dL Urine Ketones Trace H (NEGATIVE) mg/dL Urine Blood Large H (NEGATIVE) Urine Nitrate Positive H (NEGATIVE) Urine Bilirubin Moderate H (NEGATIVE) Urine Urobilinogen 1.0 H (<1 E.U./dL) E.U./dL Ur Leukocyte Esterase Moderate H (NEGATIVE) Isaías/uL Urine RBC Tntc (0-2) /hpf Urine WBC Tntc (0-6) /hpf Urine Bacteria Large (NEG) Laboratory Results - last 24 hr 04/20/18 04/20/18 04/20/18 10:00 11:35 15:30 WBC RBC Hgb Hct MCV MCH MCHC RDW Plt Count MPV Gran % Lymph % (Auto) [place] % (Auto) Eos % (Auto) Baso % (Auto) Gran # Lymph # (Auto) [place] # (Auto) Eos # (Auto) Baso # (Auto) pO2 VBG pH VBG pCO2 VBG HCO3 VBG Total CO2 VBG O2 Sat (Calc) VBG Base Excess VBG Potassium Sodium 140 Chloride 112 H Glucose Lactate FiO2 Potassium 4.2 Carbon Dioxide 10 L Anion Gap 22 H BUN 59 H Creatinine 4.2 H Est GFR ( Amer) 17 Est GFR (Non-Af Amer) 14 POC Glucose (mg/dL) Random Glucose 372 H* D Calcium 8.4 Phosphorus Magnesium Total Bilirubin 0.3 AST 64 H ALT 44 Alkaline Phosphatase 92 Lactate Dehydrogenase 328 L Total Creatine Kinase 947 H CK-MB (CK-2) 29.2 H CK-MB (CK-2) % 3.1 H Troponin I 3.52 H* Total Protein 4.7 L Albumin 2.3 L Globulin 2.5 Albumin/Globulin Ratio 0.9 L Triglycerides Cholesterol LDL Cholesterol Direct HDL Cholesterol Procalcitonin 155.42 H TSH 3rd Generation Venous Blood Potassium Urine Color Dark brown Urine Appearance Cloudy Urine pH 6.5 Ur Specific [place] 1.020 Urine Protein >=300 H Urine Glucose (UA) 100 H Urine Ketones Trace H Urine Blood Large H Urine Nitrate Positive H Urine Bilirubin Moderate H Urine Urobilinogen 1.0 H Ur Leukocyte Esterase Moderate H Urine RBC Tntc Urine WBC Tntc Urine Bacteria Large 04/20/18 04/20/18 04/20/18 15:30 16:32 17:10 WBC 34.0 H* RBC 3.71 Hgb 10.3 L Hct 33.8 L MCV 91.1 MCH 27.8 MCHC 30.5 L RDW 16.4 H Plt Count 153 MPV 10.2 Gran % 91.0 H Lymph % (Auto) 3.1 L [place] % (Auto) 6.9 H Eos % (Auto) 0.0 L Baso % (Auto) 0.1 Gran # 0.00 L Lymph # (Auto) 0.0 L [place] # (Auto) 2.3 H Eos # (Auto) 0.0 Baso # (Auto) 0.02 pO2 43 VBG pH 7.11 L* VBG pCO2 31.0 L VBG HCO3 9.8 L VBG Total CO2 10.8 L VBG O2 Sat (Calc) 81.6 H VBG Base Excess -18.5 L VBG Potassium 4.1 Sodium 136.0 Chloride 110.0 H Glucose 416 H* D Lactate 6.1 H* FiO2 21.0 Potassium Carbon Dioxide Anion Gap BUN Creatinine Est GFR ( Amer) Est GFR (Non-Af Amer) POC Glucose (mg/dL) 322 H Random Glucose Calcium Phosphorus Magnesium Total Bilirubin AST ALT Alkaline Phosphatase Lactate Dehydrogenase Total Creatine Kinase CK-MB (CK-2) CK-MB (CK-2) % Troponin I Total Protein Albumin Globulin Albumin/Globulin Ratio Triglycerides Cholesterol LDL Cholesterol Direct HDL Cholesterol Procalcitonin TSH 3rd Generation Venous Blood Potassium 4.1 Urine Color Urine Appearance Urine pH Ur Specific [place] Urine Protein Urine Glucose (UA) Urine Ketones Urine Blood Urine Nitrate Urine Bilirubin Urine Urobilinogen Ur Leukocyte Esterase Urine RBC Urine WBC Urine Bacteria 04/20/18 04/20/18 04/20/18 17:48 19:16 22:01 WBC RBC Hgb Hct MCV MCH MCHC RDW Plt Count MPV Gran % Lymph % (Auto) [place] % (Auto) Eos % (Auto) Baso % (Auto) Gran # Lymph # (Auto) [place] # (Auto) Eos # (Auto) Baso # (Auto) pO2 VBG pH VBG pCO2 VBG HCO3 VBG Total CO2 VBG O2 Sat (Calc) VBG Base Excess VBG Potassium Sodium Chloride Glucose Lactate FiO2 Potassium Carbon Dioxide Anion Gap BUN Creatinine Est GFR ( Amer) Est GFR (Non-Af Amer) POC Glucose (mg/dL) 342 H 317 H 338 H Random Glucose Calcium Phosphorus Magnesium Total Bilirubin AST ALT Alkaline Phosphatase Lactate Dehydrogenase Total Creatine Kinase CK-MB (CK-2) CK-MB (CK-2) % Troponin I Total Protein Albumin Globulin Albumin/Globulin Ratio Triglycerides Cholesterol LDL Cholesterol Direct HDL Cholesterol Procalcitonin TSH 3rd Generation Venous Blood Potassium Urine Color Urine Appearance Urine pH Ur Specific [place] Urine Protein Urine Glucose (UA) Urine Ketones Urine Blood Urine Nitrate Urine Bilirubin Urine Urobilinogen Ur Leukocyte Esterase Urine RBC Urine WBC Urine Bacteria 04/20/18 04/20/18 04/20/18 22:35 22:35 23:13 WBC 32.9 H* RBC 3.74 Hgb 10.5 L Hct 33.4 L MCV 89.3 MCH 28.1 MCHC 31.4 RDW 16.1 H Plt Count 152 MPV 10.2 Gran % 94.4 H Lymph % (Auto) 1.1 L [place] % (Auto) 4.4 Eos % (Auto) 0.0 L Baso % (Auto) 0.1 Gran # 31.07 H Lymph # (Auto) 0.4 L [place] # (Auto) 1.5 H Eos # (Auto) 0.0 Baso # (Auto) 0.03 pO2 VBG pH VBG pCO2 VBG HCO3 VBG Total CO2 VBG O2 Sat (Calc) VBG Base Excess VBG Potassium Sodium 139 Chloride 109 H Glucose Lactate FiO2 Potassium 3.3 L Carbon Dioxide 14 L Anion Gap 20 BUN 65 H Creatinine 4.2 H Est GFR ( Amer) 17 Est GFR (Non-Af Amer) 14 POC Glucose (mg/dL) 280 H Random Glucose 280 H Calcium 8.7 Phosphorus Magnesium Total Bilirubin AST ALT Alkaline Phosphatase Lactate Dehydrogenase 434 Total Creatine Kinase 807 H CK-MB (CK-2) 35.2 H CK-MB (CK-2) % 4.4 H Troponin I 5.59 H* D Total Protein Albumin Globulin Albumin/Globulin Ratio Triglycerides Cholesterol LDL Cholesterol Direct HDL Cholesterol Procalcitonin TSH 3rd Generation Venous Blood Potassium Urine Color Urine Appearance Urine pH Ur Specific [place] Urine Protein Urine Glucose (UA) Urine Ketones Urine Blood Urine Nitrate Urine Bilirubin Urine Urobilinogen Ur Leukocyte Esterase Urine RBC Urine WBC Urine Bacteria 04/21/18 04/21/18 04/21/18 00:13 01:16 02:00 WBC RBC Hgb Hct MCV MCH MCHC RDW Plt Count MPV Gran % Lymph % (Auto) [place] % (Auto) Eos % (Auto) Baso % (Auto) Gran # Lymph # (Auto) [place] # (Auto) Eos # (Auto) Baso # (Auto) pO2 VBG pH VBG pCO2 VBG HCO3 VBG Total CO2 VBG O2 Sat (Calc) VBG Base Excess VBG Potassium Sodium Chloride Glucose Lactate FiO2 Potassium Carbon Dioxide Anion Gap BUN Creatinine Est GFR ( Amer) Est GFR (Non-Af Amer) POC Glucose (mg/dL) 264 H 199 H 210 H Random Glucose Calcium Phosphorus Magnesium Total Bilirubin AST ALT Alkaline Phosphatase Lactate Dehydrogenase Total Creatine Kinase CK-MB (CK-2) CK-MB (CK-2) % Troponin I Total Protein Albumin Globulin Albumin/Globulin Ratio Triglycerides Cholesterol LDL Cholesterol Direct HDL Cholesterol Procalcitonin TSH 3rd Generation Venous Blood Potassium Urine Color Urine Appearance Urine pH Ur Specific [place] Urine Protein Urine Glucose (UA) Urine Ketones Urine Blood Urine Nitrate Urine Bilirubin Urine Urobilinogen Ur Leukocyte Esterase Urine RBC Urine WBC Urine Bacteria 04/21/18 04/21/18 04/21/18 02:12 03:26 04:06 WBC RBC Hgb Hct MCV MCH MCHC RDW Plt Count MPV Gran % Lymph % (Auto) [place] % (Auto) Eos % (Auto) Baso % (Auto) Gran # Lymph # (Auto) [place] # (Auto) Eos # (Auto) Baso # (Auto) pO2 VBG pH VBG pCO2 VBG HCO3 VBG Total CO2 VBG O2 Sat (Calc) VBG Base Excess VBG Potassium Sodium Chloride Glucose Lactate FiO2 Potassium Carbon Dioxide Anion Gap BUN Creatinine Est GFR ( Amer) Est GFR (Non-Af Amer) POC Glucose (mg/dL) 204 H 277 H 206 H Random Glucose Calcium Phosphorus Magnesium Total Bilirubin AST ALT Alkaline Phosphatase Lactate Dehydrogenase Total Creatine Kinase CK-MB (CK-2) CK-MB (CK-2) % Troponin I Total Protein Albumin Globulin Albumin/Globulin Ratio Triglycerides Cholesterol LDL Cholesterol Direct HDL Cholesterol Procalcitonin TSH 3rd Generation Venous Blood Potassium Urine Color Urine Appearance Urine pH Ur Specific [place] Urine Protein Urine Glucose (UA) Urine Ketones Urine Blood Urine Nitrate Urine Bilirubin Urine Urobilinogen Ur Leukocyte Esterase Urine RBC Urine WBC Urine Bacteria 04/21/18 04/21/18 04/21/18 04:11 05:02 06:00 WBC 34.1 H* RBC 3.76 Hgb 10.2 L Hct 32.5 L MCV 86.4 MCH 27.1 MCHC 31.4 RDW 15.7 H Plt Count 134 MPV 10.4 Gran % 91.3 H Lymph % (Auto) 0.9 L [place] % (Auto) 7.7 H Eos % (Auto) 0.0 L Baso % (Auto) 0.1 Gran # 31.11 H Lymph # (Auto) 0.3 L [place] # (Auto) 2.6 H Eos # (Auto) 0.0 Baso # (Auto) 0.02 pO2 VBG pH VBG pCO2 VBG HCO3 VBG Total CO2 VBG O2 Sat (Calc) VBG Base Excess VBG Potassium Sodium Chloride Glucose Lactate FiO2 Potassium Carbon Dioxide Anion Gap BUN Creatinine Est GFR ( Amer) Est GFR (Non-Af Amer) POC Glucose (mg/dL) 213 H 205 H Random Glucose Calcium Phosphorus Magnesium Total Bilirubin AST ALT Alkaline Phosphatase Lactate Dehydrogenase Total Creatine Kinase CK-MB (CK-2) CK-MB (CK-2) % Troponin I Total Protein Albumin Globulin Albumin/Globulin Ratio Triglycerides Cholesterol LDL Cholesterol Direct HDL Cholesterol Procalcitonin TSH 3rd Generation Venous Blood Potassium Urine Color Urine Appearance Urine pH Ur Specific [place] Urine Protein Urine Glucose (UA) Urine Ketones Urine Blood Urine Nitrate Urine Bilirubin Urine Urobilinogen Ur Leukocyte Esterase Urine RBC Urine WBC Urine Bacteria 04/21/18 04/21/18 04/21/18 06:00 06:00 06:01 WBC RBC Hgb Hct MCV MCH MCHC RDW Plt Count MPV Gran % Lymph % (Auto) [place] % (Auto) Eos % (Auto) Baso % (Auto) Gran # Lymph # (Auto) [place] # (Auto) Eos # (Auto) Baso # (Auto) pO2 VBG pH VBG pCO2 VBG HCO3 VBG Total CO2 VBG O2 Sat (Calc) VBG Base Excess VBG Potassium Sodium 141 Chloride 107 Glucose Lactate FiO2 Potassium 3.2 L Carbon Dioxide 19 L Anion Gap 18 BUN 67 H Creatinine 4.0 H Est GFR ( Amer) 18 Est GFR (Non-Af Amer) 15 POC Glucose (mg/dL) 204 H Random Glucose 193 H Calcium 8.4 Phosphorus 3.0 Magnesium 1.7 Total Bilirubin AST ALT Alkaline Phosphatase Lactate Dehydrogenase 467 Total Creatine Kinase 491 H CK-MB (CK-2) 29.9 H CK-MB (CK-2) % 6.1 H Troponin I 9.57 H* D Total Protein Albumin Globulin Albumin/Globulin Ratio Triglycerides 75 Cholesterol < 50 L LDL Cholesterol Direct < 30 HDL Cholesterol 13 L Procalcitonin TSH 3rd Generation 1.54 Venous Blood Potassium Urine Color Urine Appearance Urine pH Ur Specific [place] Urine Protein Urine Glucose (UA) Urine Ketones Urine Blood Urine Nitrate Urine Bilirubin Urine Urobilinogen Ur Leukocyte Esterase Urine RBC Urine WBC Urine Bacteria 04/21/18 04/21/18 04/21/18 07:09 07:52 08:49 WBC RBC Hgb Hct MCV MCH MCHC RDW Plt Count MPV Gran % Lymph % (Auto) [place] % (Auto) Eos % (Auto) Baso % (Auto) Gran # Lymph # (Auto) [place] # (Auto) Eos # (Auto) Baso # (Auto) pO2 VBG pH VBG pCO2 VBG HCO3 VBG Total CO2 VBG O2 Sat (Calc) VBG Base Excess VBG Potassium Sodium Chloride Glucose Lactate FiO2 Potassium Carbon Dioxide Anion Gap BUN Creatinine Est GFR ( Amer) Est GFR (Non-Af Amer) POC Glucose (mg/dL) 177 H 244 H 182 H Random Glucose Calcium Phosphorus Magnesium Total Bilirubin AST ALT Alkaline Phosphatase Lactate Dehydrogenase Total Creatine Kinase CK-MB (CK-2) CK-MB (CK-2) % Troponin I Total Protein Albumin Globulin Albumin/Globulin Ratio Triglycerides Cholesterol LDL Cholesterol Direct HDL Cholesterol Procalcitonin TSH 3rd Generation Venous Blood Potassium Urine Color Urine Appearance Urine pH Ur Specific [place] Urine Protein Urine Glucose (UA) Urine Ketones Urine Blood Urine Nitrate Urine Bilirubin Urine Urobilinogen Ur Leukocyte Esterase Urine RBC Urine WBC Urine Bacteria 04/21/18 04/21/18 04/21/18 09:58 10:54 12:05 WBC RBC Hgb Hct MCV MCH MCHC RDW Plt Count MPV Gran % Lymph % (Auto) [place] % (Auto) Eos % (Auto) Baso % (Auto) Gran # Lymph # (Auto) [place] # (Auto) Eos # (Auto) Baso # (Auto) pO2 VBG pH VBG pCO2 VBG HCO3 VBG Total CO2 VBG O2 Sat (Calc) VBG Base Excess VBG Potassium Sodium Chloride Glucose Lactate FiO2 Potassium Carbon Dioxide Anion Gap BUN Creatinine Est GFR ( Amer) Est GFR (Non-Af Amer) POC Glucose (mg/dL) 178 H 153 H 213 H Random Glucose Calcium Phosphorus Magnesium Total Bilirubin AST ALT Alkaline Phosphatase Lactate Dehydrogenase Total Creatine Kinase CK-MB (CK-2) CK-MB (CK-2) % Troponin I Total Protein Albumin Globulin Albumin/Globulin Ratio Triglycerides Cholesterol LDL Cholesterol Direct HDL Cholesterol Procalcitonin TSH 3rd Generation Venous Blood Potassium Urine Color Urine Appearance Urine pH Ur Specific [place] Urine Protein Urine Glucose (UA) Urine Ketones Urine Blood Urine Nitrate Urine Bilirubin Urine Urobilinogen Ur Leukocyte Esterase Urine RBC Urine WBC Urine Bacteria Assessment/Plan - Assessment and Plan (Free Text) Assessment: Patient seen and examined on rounds with resident, agree with note with following additions/exceptions: Patient is 77yo male with PMHx of CVA/TIA, a/w multi organ failure, septic shock 2/2 UTI, possible cholecystitis, on vasopressor support, weaning off. Patient is currently afebrile, on Levophed, and Vasopressin, stress dose steroids Blood cultures positive for gram neg rods, on Merrem Surgery following, no acute intervention at this time. Pt denies abd pain, N/V. Troponin uptrending, cardiology following Septic Shock UTI r/o Cholecystitis Elevated Troponin Multi Organ Failure Renal failure Dehydration Recommend: - cont with supp o2 as needed, duonebs PRN - COnt with broad spectrum abx, Merrem, Vanco renally dosed - IVF - DC insulin drip - DC Bicarb drip, bicarb 19 today, start on NS - would bolus 1L NS - follow up surgery, HIDA scan - follow up GI, IR - cont with vasopressor support, goal map>65 - stress dose steroids - follow up ECHO, cardiology - FS control - NPO - GI ppx - DVT ppx - monitor in MICU critical care time 45 minutes
--- NOTE | 2018-04-21 11:56 | CP.PCM.PN ---
Subjective - Date & Time of Evaluation Date of Evaluation: 04/21/18 Time of Evaluation: 09:53 - Subjective Subjective: Nathaniel Purvis PGY1 Surgery Consult Note for Dr. Maloney Patient was seen and examined in ICU. He remains altered and responds slowly to yes/no questions, but denies abdominal pain or chest pain. no overnight events. Objective - Vital Signs/Intake and Output Vital Signs (last 24 hours): Temp Pulse Resp BP Pulse Ox 97.6 F 93 H 20 101/53 L 96 04/21/18 07:52 04/21/18 10:30 04/21/18 10:30 04/21/18 10:30 04/21/18 10:30 Intake and Output: 04/21/18 04/21/18 06:59 18:59 Intake Total 5636 126 Output Total 222 Balance 5414 126 - Medications Medications: Current Medications Aspirin (Ecotrin) 81 mg PO DAILY [facility] Last Admin: 04/21/18 10:46 Dose: 81 mg Enoxaparin Sodium (Lovenox) 60 mg SC DAILY [facility] PRN Reason: Protocol Last Admin: 04/21/18 10:45 Dose: 60 mg Hydrocortisone Sodium Succinate (Solu-Cortef) 50 mg IVP Q6H [facility] Last Admin: 04/21/18 08:18 Dose: 50 mg Vasopressin 20 units/ Sodium (Chloride) 101 mls @ 9.09 mls/hr IV .Q11H7M [facility]; 0.03 U/MIN PRN Reason: Protocol Last Admin: 04/21/18 02:00 Dose: 9.09 mls/hr Meropenem 500 mg/ Sodium (Chloride) 50 mls @ 100 mls/hr IVPB Q12 [facility] PRN Reason: Protocol Stop: 04/27/18 22:01 Last Admin: 04/21/18 10:46 Dose: 100 mls/hr Milrinone Lactate/Dextrose (Primacor 20mg/100ml D5w) 100 mls @ 5.971 mls/hr IV .[id number] PRN; Protocol; 0.28 MCG/KG/MIN PRN Reason: TITRATE PER MD ORDER Last Admin: 04/21/18 06:04 Dose: 0.28 mcg/kg/min, 5.971 mls/hr Norepinephrine Bitartrate 8 mg (/ Sodium Chloride) 508 mls @ 19.05 mls/hr IV .Q24H PRN; Protocol; 5 MCG/MIN PRN Reason: TITRATE PER MD ORDER Last Titration: 04/21/18 08:28 Dose: 5 mcg/min, 19.05 mls/hr Potassium Chloride (Potassium Chloride 20 Meq/100 Ml) 20 meq in 100 mls @ 50 mls/hr IVPB Q2H [facility] Stop: 04/21/18 12:14 Last Admin: 04/21/18 11:05 Dose: 50 mls/hr Potassium Chloride 40 meq/ (Sodium Chloride) 1,020 mls @ 150 mls/hr IV .Q6H48M [facility]NIE PRN Reason: Protocol Last Admin: 04/21/18 10:44 Dose: 150 mls/hr Metoprolol Tartrate (Lopressor) 25 mg PO BID [facility] Last Admin: 04/20/18 17:30 Dose: 25 mg Pantoprazole Sodium (Protonix Inj) 40 mg IVP DAILY [facility] Last Admin: 04/21/18 10:46 Dose: 40 mg - Labs Labs: 04/21/18 06:00 04/21/18 06:00 PT 17.1 SECONDS (9.4-12.5) H 04/20/18 08:40 INR 1.48 (0.93-1.08) H 04/20/18 08:40 APTT 31.7 Seconds (25.1-36.5) 04/20/18 08:40 - Constitutional Appears: Non-toxic, No Acute Distress, Confused - Head Exam Head Exam: NORMAL INSPECTION - Eye Exam Eye Exam: Normal appearance - ENT Exam ENT Exam: Mucous Membranes Moist - Respiratory Exam Respiratory Exam: Wheezes - Cardiovascular Exam Cardiovascular Exam: RRR, +S1, +S2 - GI/Abdominal Exam GI & Abdominal Exam: Soft, Normal Bowel Sounds. absent: Distended, Tenderness - Extremities Exam Extremities Exam: Normal Inspection - Back Exam Back Exam: NORMAL INSPECTION - Neurological Exam Neurological Exam: Altered - Psychiatric Exam Psychiatric exam: Normal Mood - Skin Skin Exam: Normal Color Assessment and Plan - Assessment and Plan (Free Text) Assessment: 77yo male with a PMH of atrial fibrillation on xarelto, dementia ( altered at baseline), prior TIA, CHF, nephrolithiasis, hypertension, and NIDDM who presents with severe sepsis likely 2/2 UTI, unlikely gallbladder cause Plan: Sepsis likely 2/2 UTI, unlikely of gallbladder cause - abd US showed severe gallbladder wall thickening which may represent acalculous cholecystitis and multiple linear echogenic liver foci - HIDA showed patent cystic duct - urine cultures show G- rods and G+ cocci - blood cultures show G- rods - CT abd/pelvis showed diffuse mural thickening of gallbladder with stranding of fat and liver and along pericolic gutter. right staghorn calculus. - CT Head and CXR showed no acute processes - cont IV abx - gallbladder is unlikely cause given normal HIDA scan - patient not a candidate for surgery at this time considering DNR/DNI status and unstable vital signs as well - NPO - cont IVF - replete electrolyte imbalances - will f/u labs Case was reviewed and discussed with Dr. Maloney
--- NOTE | 2018-04-21 12:56 | CP.PCM.CON ---
History of Present Illness - History of Present Illness History of Present Illness: 77 year old male with PMH of chronic CHF, atrial fibrillation on anticoagulation , DM, HTN, dementia, S/P left hip surgery, S/P lumbar spine surgery, history of nephrolithiasis, significant smoking history came in to [facility] brought in by family after he was found to be initially restless then lethargic. He also had an episode of vomiting. There was no note of fever, as per the the patient was not complaining of nausea, did not complain of abdominal pain, no diarrhea, no SOB, no cough. In the ED, the patient was very weak, had hypoglycemia and hypotension. CT A/P and Ultrasound of the abdomen revealed cholecystitis and blood cx taken are now showing gram negative bacilli. The patient also has marked leukocytosis. Infectious diseases consult is requested to further evaluate and manage. Review of Systems - Review of Systems All systems: reviewed and no additional remarkable complaints except (as per HPI ) Past Patient History - Infectious Disease Hx of Infectious Diseases: None - Tetanus Immunizations Tetanus Immunization: Up to Date - Past Medical History & Family History Past Medical History?: Yes - Past Social History Smoking Status: Former Smoker - CARDIAC Hx Atrial Fibrillation: Yes Hx Hypotension: Yes Hx Pacemaker: No - PULMONARY Hx Respiratory Disorders: Yes Hx Pneumonia: Yes - NEUROLOGICAL Hx Dementia: Yes Hx Paralysis: No - HEENT Hx HEENT Problems: No - RENAL Hx Kidney Stones: Yes Hx Renal Failure: Yes Other/Comment: kidney stents 12/01/17. lithotripsy on 12/16/17 - ENDOCRINE/METABOLIC Hx Endocrine Disorders: Yes Hx Diabetes Mellitus Type 2: Yes - HEMATOLOGICAL/ONCOLOGICAL Hx Blood Transfusions: Yes Hx Blood Transfusion Reaction: No - INTEGUMENTARY Hx Dermatological Problems: Yes Other/Comment: b/l skin discolorations both arms/ flakey dry skin to feet and thick hard toenails, left buttock stage 1 opening buttocks rred, bandaid on left pinky toe for protection - MUSCULOSKELETAL/RHEUMATOLOGICAL Hx Musculoskeletal Disorders: Yes - GASTROINTESTINAL Hx Gastrointestinal Disorders: No - GENITOURINARY/GYNECOLOGICAL Hx Genitourinary Disorders: Yes Hx Hematuria: Yes Hx Incontinence: Yes (urine and stool) Hx Prostate Problems: Yes (bph) Hx Urinary Tract Infection: Yes - PSYCHIATRIC Hx Emotional Abuse: No Hx Physical Abuse: No Hx Substance Use: No - SURGICAL HISTORY Hx Orthopedic Surgery: Yes (bilat hips) - ANESTHESIA Hx Anesthesia Reactions: No Hx Malignant Hyperthermia: No Meds Allergies/Adverse Reactions: Allergies Allergy/AdvReac Type Severity Reaction Status Date / Time morphine Allergy Intermediate DIZZINESS Verified 12/20/17 12:34 - Medications Medications: Current Medications Aspirin (Ecotrin) 81 mg PO DAILY [facility] Daptomycin (Cubicin) 430 mg 6 mg/kg (430 mg) IV ONCE ONE PRN Reason: Protocol Stop: 04/20/18 15:01 Heparin Sodium (Porcine) (Heparin) 5,000 units SC Q8H [facility] PRN Reason: Protocol Last Admin: 04/20/18 11:10 Dose: 5,000 units Hydrocortisone Sodium Succinate (Solu-Cortef) 50 mg IVP Q6H [facility] Sodium Bicarbonate 150 meq/ (Dextrose) 1,150 mls @ 150 mls/hr IV .Q7H40M [facility] Last Admin: 04/20/18 11:08 Dose: 150 mls/hr Vasopressin 20 units/ Sodium (Chloride) 101 mls @ 9.09 mls/hr IV .Q11H7M [facility]ON[facility]IE; 0.03 U/MIN PRN Reason: Protocol Norepinephrine Bitartrate 8 mg (/ Sodium Chloride) 508 mls @ 15.24 mls/hr IV .Q24H PRN; 4 MCG/MIN PRN Reason: TITRATE PER MD ORDER Meropenem 500 mg/ Sodium (Chloride) 50 mls @ 100 mls/hr IVPB Q12 [facility]IE PRN Reason: Protocol Stop: 04/27/18 22:01 Daptomycin 430 mg/ Sodium (Chloride) 100 mls @ 200 mls/hr IV ONCE ONE Stop: 04/20/18 15:29 Metoprolol Tartrate (Lopressor) 25 mg PO BID [facility] Pantoprazole Sodium (Protonix Inj) 40 mg IVP DAILY [facility] Last Admin: 04/20/18 11:10 Dose: 40 mg Physical Exam - Constitutional Appears: Chronically Ill, Other (ill-appearing, awake ) - Head Exam Head Exam: NORMAL INSPECTION - ENT Exam ENT Exam: Mucous Membranes Moist - Neck Exam Neck exam: Negative for: Meningismus - Respiratory Exam Respiratory Exam: Decreased Breath Sounds - Cardiovascular Exam Cardiovascular Exam: +S1, +S2 - GI/Abdominal Exam GI & Abdominal Exam: Soft. absent: Tenderness Results - Vital Signs Recent Vital Signs: Last Vital Signs Temp 97.9 F 04/20/18 12:02 Pulse 98 H 04/20/18 12:02 Resp 20 04/20/18 12:02 BP 99/50 L 04/20/18 12:02 Pulse Ox 100 04/20/18 12:02 - Labs Result Diagrams: 04/21/18 06:00 04/21/18 06:00 Labs: Laboratory Results - last 24 hr 04/20/18 04/20/18 11:35 11:50 pCO2 20 L pO2 95.0 HCO3 7.5 L* ABG pH 7.18 L* ABG Total CO2 8.1 L ABG O2 Saturation 98.3 H ABG Base Excess -18.8 L ABG Potassium 3.4 L Sodium 138.0 Chloride 114.0 H Glucose 283 H Lactate 5.6 H* FiO2 28.0 Arterial Blood Potassium 3.4 L Urine Color Dark brown Urine Appearance Cloudy Urine pH 6.5 Ur Specific [place] 1.020 Urine Protein >=300 H Urine Glucose (UA) 100 H Urine Ketones Trace H Urine Blood Large H Urine Nitrate Positive H Urine Bilirubin Moderate H Urine Urobilinogen 1.0 H Ur Leukocyte Esterase Moderate H Urine RBC Tntc Urine WBC Tntc Urine Bacteria Large Assessment & Plan - Assessment and Plan (Free Text) Plan: Assessment septic shock with acute on chronic renal failure due to gram negative bacilli bacteremia probable from acute cholecystitis / biliary tract infection history of urinary tract infection in this patient with multiple non- obstructing renal calculi history of hypoglycemic episode with encephalopathy HTN DM atrial fibrillation on anticoagulation CVA S/P left hip and back surgery Plan Started Merrem and gave a dose of IV Amikacin, Daptomycin yesterday pending identification and sensitivities of the gram negative bacilli in the blood; follow up plans of surgery for the gallbladder will monitor clinically overall prognosis is guarded at best
--- NOTE | 2018-04-21 14:43 | PN ---
DATE: 04/21/2018 REASON FOR CONSULTATION AND FOLLOWUP: Paroxysmal atrial fibrillation admitted with diarrhea, sepsis, possible septic shock. SUBJECTIVE: The patient is lying flat in the bed. Denies any chest pain, shortness of breath, any palpitation. OBJECTIVE GENERAL: Not in apparent distress. VITAL SIGNS: Temperature afebrile, heart rate 92, blood pressure 104/47, on 3 vasopressors. HEENT: PERRLA, Intact. NECK: Supple. No carotid bruits. No thyromegaly. CHEST: Clear to auscultation. CARDIOPULMONARY: S1 and S2, regular. ABDOMEN: Soft. EXTREMITIES: Clubbing and cyanosis negative. LABORATORY DATA: Blood workup as follows: WBC 34.1, hemoglobin 10.2, hematocrit 32.5, platelet count 134. Chemistry shows sodium 141, potassium 3.5 anion gap of 19, BUN 61, creatinine 4. Troponin 9.57. IMPRESSION: Acute kidney disease with creatinine clearance of 15, stage V chronic kidney disease, non-ST segment myocardial infarction, fever, chills, sepsis, possible septic shock, hypokalemia, acute kidney injury, history of paroxysmal atrial fibrillation, history of rheumatoid arthritis, diabetes, hypertension, hyperlipidemia, chronic atrial fibrillation, on Xarelto, history of cerebrovascular accident, history of dementia, history of multiple strokes with left-sided weakness, most of the lower extremity, weakness in upper extremity, being followed by Dr. Garcia. RECOMMENDATIONS: Off Xarelto because of worsening renal insufficiency, non-ST segment myocardial infarction, started on aspirin. We will change to Lovenox 1 mg per kg every 24 hours. Broad-spectrum antibiotic. Overall, the patient is to continue beta radha. Not a candidate for nitrates, on 3 vasopressors because of septic shock. On Levophed, Jhonny-Synephrine and milrinone. Overall condition is critical. rodent exterminator prognosis guarded. Supplement potassium. We will follow with you. Charo Coto MD [facility]
--- NOTE | 2018-04-21 15:50 | CARD ---
APPROVED REPORT EXAM: Two-dimensional and M-mode echocardiogram with Doppler and color Doppler. INDICATION SEPSIS 2D DIMENSIONS Left Atrium (2D)4.5 (1.6-4.0cm)IVSd1.2 (0.7-1.1cm) LVDd4.7 (3.9-5.9cm)PWd1.2 (0.7-1.1cm) LVDs4.1 (2.5-4.0cm)FS (%) 13.5 % LVEF (%)28.7 (>50%) M-Mode DIMENSIONS Aortic Root3.30 (2.2-3.7cm)Aortic Cusp Exc.1.50 (1.5-2.0cm) Aortic Valve AoV Peak Fsaljugw557.0cm/Katelyn Peak GR.7mmHg Mitral Valve MV E Tzmtfwxc883.0cm/sMV A Fqyhzibe79.8cm/sE/A ratio2.0 TDI Lateral E' Peak V9.55cm/sMedial E' Peak V6.24cm/sE/Lateral E'11.1 E/Medial E'17.0 Pulmonary Valve PV Peak Ugnhaklx90.7cm/sPV Peak Grad.1mmHg Tricuspid Valve TR Peak Funcozoi384lg/sRAP [id number] Peak Gr.41mmHg [id number] LEFT VENTRICLE The left ventricle is normal size. There is mild concentric left ventricular hypertrophy. The systolic function is moderately impaired.EF30-35% There is moderate global hypokinesis of the left ventricle. Transmitral Doppler flow pattern is Grade II-pseudonormal filling dynamics. No left ventricle thrombus noted on this study. There is no ventricular septal defect visualized. There is no left ventricular aneurysm. There is no mass noted in the left ventricle. RIGHT VENTRICLE The right ventricle is normal size. There is normal right ventricular wall thickness. The right ventricular systolic function is normal. ATRIA The left atrium is moderately dilated. The right atrium size is normal. The interatrial septum is intact with no evidence for an atrial septal defect. AORTIC VALVE The aortic valve is calcified but opens well. The aortic valve is moderately sclerotic. There is trace aortic regurgitation. There is no aortic valvular stenosis. There is no aortic valvular vegetation. MITRAL VALVE The mitral valve is thickened but opens well. Mitral regurgitation is mild to moderate. There is no mitral valve stenosis. There is no evidence of mitral valve prolapse. TRICUSPID VALVE The tricuspid valve leaflets are thickened , but open well. There is mild to moderate tricuspid regurgitation.RVSP_51 mmof Hg. There is no tricuspid valve stenosis. There is no tricuspid valve prolapse or vegetation. PULMONIC VALVE The pulmonary valve is normal in structure. There is no pulmonic valvular regurgitation. There is no pulmonic valvular stenosis. GREAT VESSELS The aortic root is normal in size. The ascending aorta is normal in size. The pulmonary artery is normal. The IVC is normal in size and collapses >50% with inspiration. PERICARDIAL EFFUSION There is no pleural effusion. There is no pericardial effusion. <Conclusion> The left ventricle is normal size. There is mild concentric left ventricular hypertrophy. The systolic function is moderately impaired.EF30-35% There is trace aortic regurgitation. Mitral regurgitation is mild to moderate. There is mild to moderate tricuspid regurgitation.RVSP_51 mmof Hg. The IVC is normal in size and collapses >50% with inspiration. There is no pericardial effusion.
--- NOTE | 2018-04-21 17:46 | CP.PCM.PN ---
<Jose Bustamante - Last Filed: 04/21/18 17:42> Subjective - Date & Time of Evaluation Date of Evaluation: 04/21/18 Time of Evaluation: 15:20 - Subjective Subjective: PGY5 GI Fellow Progress Note Patient seen and examined bedside this afternoon. The patient is more responsive today but continues to only answer yes/no questions. Patient's and family at bedside. He has recently passed fresh blood per rectum. No other events overnight or earlier today. 12 system ROS performed and negative except where stated. Objective - Vital Signs/Intake and Output Vital Signs (last 24 hours): Temp Pulse Resp BP Pulse Ox 97.4 F L 88 19 123/68 97 04/21/18 12:02 04/21/18 14:00 04/21/18 12:02 04/21/18 14:45 04/21/18 12:02 Intake and Output: 04/21/18 04/21/18 06:59 18:59 Intake Total 5636 260.5 Output Total 222 Balance 5414 260.5 - Medications Medications: Current Medications Hydrocortisone Sodium Succinate (Solu-Cortef) 50 mg IVP Q6H [facility] Last Admin: 04/21/18 15:04 Dose: 50 mg Vasopressin 20 units/ Sodium (Chloride) 101 mls @ 9.09 mls/hr IV .Q11H7M [facility]; 0.03 U/MIN PRN Reason: Protocol Last Admin: 04/21/18 14:45 Dose: 9.09 mls/hr Meropenem 500 mg/ Sodium (Chloride) 50 mls @ 100 mls/hr IVPB Q12 [facility] PRN Reason: Protocol Stop: 04/27/18 22:01 Last Admin: 04/21/18 10:46 Dose: 100 mls/hr Milrinone Lactate/Dextrose (Primacor 20mg/100ml D5w) 100 mls @ 5.971 mls/hr IV .[id number] PRN; Protocol; 0.28 MCG/KG/MIN PRN Reason: TITRATE PER MD ORDER Last Admin: 04/21/18 06:04 Dose: 0.28 mcg/kg/min, 5.971 mls/hr Norepinephrine Bitartrate 8 mg (/ Sodium Chloride) 508 mls @ 19.05 mls/hr IV .Q24H PRN; Protocol; 5 MCG/MIN PRN Reason: TITRATE PER MD ORDER Last Titration: 04/21/18 17:39 Dose: 3 mcg/min, 11.43 mls/hr Potassium Chloride 40 meq/ (Sodium Chloride) 1,020 mls @ 150 mls/hr IV .Q6H48M [facility] PRN Reason: Protocol Last Admin: 04/21/18 10:44 Dose: 150 mls/hr Metoprolol Tartrate (Lopressor) 25 mg PO BID [facility] Last Admin: 04/21/18 10:00 Dose: Not Given Pantoprazole Sodium (Protonix Inj) 40 mg IVP DAILY [facility] Last Admin: 04/21/18 10:46 Dose: 40 mg - Labs Labs: 04/21/18 06:00 04/21/18 06:00 PT 17.1 SECONDS (9.4-12.5) H 04/20/18 08:40 INR 1.48 (0.93-1.08) H 04/20/18 08:40 APTT 31.7 Seconds (25.1-36.5) 04/20/18 08:40 - Constitutional Appears: No Acute Distress, Chronically Ill - Eye Exam Eye Exam: PERRL - ENT Exam ENT Exam: Mucous Membranes Dry - Respiratory Exam Respiratory Exam: Clear to Ausculation Bilateral. absent: Rales, Rhonchi, Wheezes - Cardiovascular Exam Cardiovascular Exam: Tachycardia, REGULAR RHYTHM, +S1, +S2 - GI/Abdominal Exam GI & Abdominal Exam: Soft, Normal Bowel Sounds. 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, dementia, nephrolithiasis, diabetes and HTN who presented to the ED for altered mentation -Septic shock with GNR in blood/urine -Hematochezia -UTI, bacteremia -WINDY R/O acute renal failure -Elevated troponin R/O ACS -High anion gap metabolic acidosis 2/2 above -Systolic CHF with EF 30-35% -Dementia -H/O paroxysmal atrial fibrillation and CVA/TIA Plan: -Hematochezia noted during rounds this afternoon -Recommend Q6H CBC for next 24H with blood products as needed -Awaiting mesenteric doppler study which was performed earlier today, consider IR evaluation for re-vascularization if indicated -Pressor requirement decreasing -Continue broad spectrum antibiotics and await microorganism identification -Concern for biliary dyskinesia in setting of abnormal sono/CT and GNR baceremia - consider PTC for biliary decompression -Cardiology, Nephrology, Surgery and ID consultations noted <Iván Sierra - Last Filed: 04/21/18 19:44> Objective - Vital Signs/Intake and Output Vital Signs (last 24 hours): Temp Pulse Resp BP Pulse Ox 97.4 F L 103 H 17 112/71 95 04/21/18 12:02 04/21/18 18:20 04/21/18 18:20 04/21/18 18:00 04/21/18 18:20 Intake and Output: 04/21/18 04/22/18 18:59 06:59 Intake Total 2706.5 Output Total 200 Balance 2506.5 - Medications Medications: Current Medications Hydrocortisone Sodium Succinate (Solu-Cortef) 50 mg IVP Q6H [facility] Last Admin: 04/21/18 15:04 Dose: 50 mg Vasopressin 20 units/ Sodium (Chloride) 101 mls @ 9.09 mls/hr IV .Q11H7M [facility]; 0.03 U/MIN PRN Reason: Protocol Last Admin: 04/21/18 14:45 Dose: 9.09 mls/hr Meropenem 500 mg/ Sodium (Chloride) 50 mls @ 100 mls/hr IVPB Q12 [facility] PRN Reason: Protocol Stop: 04/27/18 22:01 Last Admin: 04/21/18 10:46 Dose: 100 mls/hr Milrinone Lactate/Dextrose (Primacor 20mg/100ml D5w) 100 mls @ 5.971 mls/hr IV .[id number] PRN; Protocol; 0.28 MCG/KG/MIN PRN Reason: TITRATE PER MD ORDER Last Admin: 04/21/18 06:04 Dose: 0.28 mcg/kg/min, 5.971 mls/hr Norepinephrine Bitartrate 8 mg (/ Sodium Chloride) 508 mls @ 19.05 mls/hr IV .Q24H PRN; Protocol; 5 MCG/MIN PRN Reason: TITRATE PER MD ORDER Last Titration: 04/21/18 17:39 Dose: 3 mcg/min, 11.43 mls/hr Potassium Chloride 40 meq/ (Sodium Chloride) 1,020 mls @ 150 mls/hr IV .Q6H48M [facility] PRN Reason: Protocol Last Admin: 04/21/18 18:43 Dose: 150 mls/hr Metoprolol Tartrate (Lopressor) 25 mg PO BID [facility] Last Admin: 04/21/18 17:50 Dose: Not Given Pantoprazole Sodium (Protonix Inj) 40 mg IVP DAILY [facility] Last Admin: 04/21/18 10:46 Dose: 40 mg - Labs Labs: 04/21/18 17:50 04/21/18 06:00 PT 14.5 SECONDS (9.4-12.5) H 04/21/18 17:50 INR 1.27 (0.93-1.08) H 04/21/18 17:50 APTT 46.0 Seconds (25.1-36.5) H 04/21/18 17:50 Attending/Attestation - Attestation I have personally seen and examined this patient.: Yes I have fully participated in the care of the patient.: Yes I have reviewed all pertinent clinical information, including history, physical exam and plan: Yes Notes (Text): 04/21/18 19:41 This is a 77 yr old male with PMHx significant for atrial fibrillation on Xarelto, 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 GI consulted for cholilithaisis and acalculous cholecystitis. Today in MICU was found to have hematochezia. Will hold anti platelets and anti coagulation. Serial cbc. Awaiting mesenteric dopplers results and consider PTC for biliary drainage. -Continue broad spectrum antibiotics and await microorganism identification -Cardiology, Nephrology, Surgery and ID consultations noted
[2018-04-21 18:08] LABS: BASO # 0.01 K/mm3 (0.0-2.0); GRAN # 34.09 (1.4-6.5); GRAN % 93.2 % (50.0-68.0); HEMOGLOBIN 10.4 g/dL (14.0-18.0); LYMPH # 0.4 (1.2-3.4); MEAN CELL VOLUME 85.3 fl (80.0-105.0); MEAN CORPUSCULAR HEMOGLOBIN 27.7 pg (25.0-35.0); MEAN CORPUSCULAR HGB CONC 32.5 g/dl (31.0-37.0); MEAN PLATELET VOLUME 10.3 fl (7.0-11.0); MONO # 2.1 (0.1-0.6); MONO % 5.8 % (1.0-6.0); RBC 3.75 10^6/uL (3.5-6.1); RED CELL DISTRIBUTION WIDTH 15.7 % (11.5-14.5)
[2018-04-21 18:13] LABS: WHITE BLOOD COUNT 36.6 10^3/ul (4.5-11.0)
[2018-04-21 18:17] LABS: INR 1.27 (0.93-1.08); PROTHROMBIN TIME 14.5 SECONDS (9.4-12.5)
--- NOTE | 2018-04-21 19:56 | US ---
PROCEDURE: Duplex ultrasound of the mesenteric arteries. HISTORY: Abdominal pain. Evaluate for mesenteric ischemia. PHYSICIAN(S): Matt Otero MD. TECHNIQUE: Duplex sonography with color-flow Doppler was used to evaluate limited segments of the abdominal aorta and proximal segments of the mesenteric arteries. FINDINGS: Visualization of the origin of the celiac axis and SMA is adequate. The peak systolic velocity in the proximal celiac axis is 124cm/sec. This is consistent with a 0-49%stenosis of the proximal celiac axis. The peak systolic velocity in the proximal SMA is 109cm/sec. This is consistent with a 0 to 49% proximal SMA stenosis. The proximal HEIDE is patent with normal velocities IMPRESSION: 1. 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 2. 0 to 49% proximal SMA stenosis. 3. Patent proximal HEIDE
[2018-04-21 21:25] LABS: BASO # 0.02 K/mm3 (0.0-2.0); BASO % 0.1 % (0.0-3.0); HEMOGLOBIN 10.3 g/dL (14.0-18.0); MEAN CELL VOLUME 85.6 fl (80.0-105.0); MEAN CORPUSCULAR HEMOGLOBIN 27.5 pg (25.0-35.0); MEAN CORPUSCULAR HGB CONC 32.1 g/dl (31.0-37.0); MONO # 1.8 (0.1-0.6); MONO % 5.1 % (1.0-6.0); PLATELET COUNT 117 10^3/uL (120.0-450.0); RBC 3.75 10^6/uL (3.5-6.1); RED CELL DISTRIBUTION WIDTH 15.8 % (11.5-14.5)
[2018-04-21 21:29] LABS: WHITE BLOOD COUNT 35.8 10^3/ul (4.5-11.0)
--- NOTE | 2018-04-22 00:20 | HP ---
HISTORY OF PRESENT ILLNESS: A 77-year-old white male with a long history of chronic renal insufficiency; chronic nephrolithiasis; diabetes mellitus, poorly controlled; peripheral neuropathy; diabetic neuropathy; dementia; history of confusion in the past. The patient has history of multiple urinary tract infections in the past. The patient was at home, unresponsive, was brought in to the hospital, had a code sepsis done. The patient was started on IV antibiotics. He was hypotensive and hypoglycemic. At that time, he was given sugar, glucose, and IV fluids. His blood pressure improved. He was transferred to the Intensive Care Unit. Does have a BUN and creatinine of 67 and 4, potassium 3.2. White count was elevated markedly at 34,100. He was treated with broad-spectrum antibiotics for urosepsis. The patient is seen in Intensive Care Unit. PHYSICAL EXAMINATION: GENERAL: He is awake, somewhat responsive. He does have a history of dementia. Shows a well-developed, well-nourished white male. VITAL SIGNS: Blood pressure 102/47, temperature of 97.6, pulse of 92. CHEST: Clear to auscultation and percussion. HEART: Regular sinus rhythm. ABDOMEN: Benign. EXTREMITIES: Without cyanosis, clubbing, or edema. PLAN: To continue to hydrate, treat for sepsis, broad-spectrum antibiotics, renal consultation because of elevated BUN and creatinine. The patient is DNR/DNI by the family. The patient will be treated conservatively, but aggressively for his infection to attempt to return to baseline. Plan as above and he will be followed in the Intensive Care Unit. Ray Crump MD
[2018-04-22 06:29] LABS: BASO # 0.01 K/mm3 (0.0-2.0); GRAN # 33.57 (1.4-6.5); GRAN % 94.7 % (50.0-68.0); HEMOGLOBIN 10.3 g/dL (14.0-18.0); LYMPH # 0.4 (1.2-3.4); LYMPH % 1.2 % (22.0-35.0); MEAN CELL VOLUME 85.8 fl (80.0-105.0); MEAN CORPUSCULAR HEMOGLOBIN 27.7 pg (25.0-35.0); MEAN CORPUSCULAR HGB CONC 32.3 g/dl (31.0-37.0); MEAN PLATELET VOLUME 10.2 fl (7.0-11.0); MONO # 1.5 (0.1-0.6); MONO % 4.1 % (1.0-6.0); RBC 3.72 10^6/uL (3.5-6.1); RED CELL DISTRIBUTION WIDTH 15.9 % (11.5-14.5)
[2018-04-22] MEDS ORDERED: Vancomycin 2 GM in Sodium Chloride 0.9% 500 ML IVPB ONE (06:39)
[2018-04-22 06:46] LABS: WHITE BLOOD COUNT 35.5 10^3/ul (4.5-11.0)
[2018-04-22 07:27] LABS: CALCIUM 8.8 mg/dL (8.4-10.5)
[2018-04-22 07:47] LABS: ALB/GLOB RATIO 0.8 (1.1-1.8); ALBUMIN 2.2 g/dL (3.0-4.8); BILIRUBIN,DIRECT 0.3 mg/dL (0.0-0.4)
--- NOTE | 2018-04-22 08:01 | CP.PCM.PN ---
<Jose Bustamante - Last Filed: 04/22/18 08:40> Subjective - Date & Time of Evaluation Date of Evaluation: 04/22/18 Time of Evaluation: 07:54 - Subjective Subjective: PGY5 GI Fellow Progress Note Patient seen and examined bedside this morning. The patient continued to have liquid bloody stool overnight and rectal tube was inserted. No other events overnight. Pressor requirements decreased. Patient denies any complaints, specifically no abdominal pain presently. 12 system ROS performed but limited given dementia Objective - Vital Signs/Intake and Output Vital Signs (last 24 hours): Temp Pulse Resp BP Pulse Ox 98.8 F 115 H 17 130/70 94 L 04/22/18 04:00 04/22/18 06:30 04/22/18 06:30 04/22/18 06:30 04/22/18 06:30 Intake and Output: 04/22/18 04/22/18 06:59 18:59 Intake Total 2247.0 Output Total 330 Balance 1917.0 - Medications Medications: Current Medications Hydrocortisone Sodium Succinate (Solu-Cortef) 50 mg IVP Q6H [facility] Last Admin: 04/22/18 02:31 Dose: 50 mg Vasopressin 20 units/ Sodium (Chloride) 101 mls @ 9.09 mls/hr IV .Q11H7M [facility]; 0.03 U/MIN PRN Reason: Protocol Last Admin: 04/21/18 14:45 Dose: 9.09 mls/hr Meropenem 500 mg/ Sodium (Chloride) 50 mls @ 100 mls/hr IVPB Q12 [facility] PRN Reason: Protocol Stop: 04/27/18 22:01 Last Admin: 04/21/18 21:26 Dose: 100 mls/hr Milrinone Lactate/Dextrose (Primacor 20mg/100ml D5w) 100 mls @ 5.971 mls/hr IV .[id number] PRN; Protocol; 0.28 MCG/KG/MIN PRN Reason: TITRATE PER MD ORDER Last Admin: 04/21/18 06:04 Dose: 0.28 mcg/kg/min, 5.971 mls/hr Norepinephrine Bitartrate 8 mg (/ Sodium Chloride) 508 mls @ 19.05 mls/hr IV .Q24H PRN; Protocol; 5 MCG/MIN PRN Reason: TITRATE PER MD ORDER Last Titration: 04/22/18 06:00 Dose: 0 mcg/min, 0 mls/hr Potassium Chloride 40 meq/ (Sodium Chloride) 1,020 mls @ 150 mls/hr IV .Q6H48M [facility] PRN Reason: Protocol Last Admin: 04/21/18 18:43 Dose: 150 mls/hr Vancomycin HCl 2 gm/ Sodium (Chloride) 500 mls @ 170 mls/hr IVPB ONCE ONE PRN Reason: Protocol Stop: 04/22/18 09:35 Metoprolol Tartrate (Lopressor) 25 mg PO BID [facility] Last Admin: 04/21/18 17:50 Dose: Not Given Pantoprazole Sodium (Protonix Inj) 40 mg IVP DAILY [facility] Last Admin: 04/21/18 10:46 Dose: 40 mg - Labs Labs: 04/22/18 06:10 04/22/18 06:10 PT 14.5 SECONDS (9.4-12.5) H 04/21/18 17:50 INR 1.27 (0.93-1.08) H 04/21/18 17:50 APTT 46.0 Seconds (25.1-36.5) H 04/21/18 17:50 - Constitutional Appears: No Acute Distress, Confused - Eye Exam Eye Exam: EOMI, PERRL - ENT Exam ENT Exam: Mucous Membranes Dry - Respiratory Exam Respiratory Exam: Clear to Ausculation Bilateral. absent: Rales, Rhonchi, Wheezes - Cardiovascular Exam Cardiovascular Exam: Tachycardia, REGULAR RHYTHM, +S1, +S2 - GI/Abdominal Exam GI & Abdominal Exam: Soft, Normal Bowel Sounds. 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, dementia, nephrolithiasis, diabetes and HTN who presented to the ED for altered mentation -Septic shock with GNR in blood/urine -Hematochezia -UTI, bacteremia -WINDY R/O acute renal failure -Elevated troponin R/O ACS -High anion gap metabolic acidosis 2/2 above -Systolic CHF with EF 30-35% -Dementia -H/O paroxysmal atrial fibrillation and CVA/TIA Plan: -Given presence and persistence of rectal bleeding and unclear source of sepsis , will recommend patient have bedside flexible sigmoidoscopy to rule out ischemic colitis as precipitating cause -Awaiting identification of microorganisms - on broad spectrum antibiotics -CBC stable, thrombocytopenia persists -Consider switching PPI to H2 radha -Mesenteric doppler study unremarkable -Acalculous cholecystitis remains in differential and could be source of sepsis , would require PTC drainage -Cardiology, Nephrology, Surgery and ID following <Willem Olivia - Last Filed: 04/22/18 12:28> Objective - Vital Signs/Intake and Output Vital Signs (last 24 hours): Temp Pulse Resp BP Pulse Ox 98.8 F 115 H 17 130/70 94 L 04/22/18 04:00 04/22/18 06:30 04/22/18 06:30 04/22/18 06:30 04/22/18 06:30 Intake and Output: 04/22/18 04/22/18 06:59 18:59 Intake Total 2247.0 Output Total 330 Balance 1917.0 - Medications Medications: Current Medications Hydrocortisone Sodium Succinate (Solu-Cortef) 50 mg IVP Q6H [facility] Last Admin: 04/22/18 08:50 Dose: 50 mg Vasopressin 20 units/ Sodium (Chloride) 101 mls @ 9.09 mls/hr IV .Q11H7M [facility]; 0.03 U/MIN PRN Reason: Protocol Last Admin: 04/21/18 14:45 Dose: 9.09 mls/hr Meropenem 500 mg/ Sodium (Chloride) 50 mls @ 100 mls/hr IVPB Q12 [facility] PRN Reason: Protocol Stop: 04/27/18 22:01 Last Admin: 04/21/18 21:26 Dose: 100 mls/hr Milrinone Lactate/Dextrose (Primacor 20mg/100ml D5w) 100 mls @ 5.971 mls/hr IV .[id number] PRN; Protocol; 0.28 MCG/KG/MIN PRN Reason: TITRATE PER MD ORDER Last Admin: 04/21/18 06:04 Dose: 0.28 mcg/kg/min, 5.971 mls/hr Norepinephrine Bitartrate 8 mg (/ Sodium Chloride) 508 mls @ 19.05 mls/hr IV .Q24H PRN; Protocol; 5 MCG/MIN PRN Reason: TITRATE PER MD ORDER Last Titration: 04/22/18 06:00 Dose: 0 mcg/min, 0 mls/hr Potassium Chloride 40 meq/ (Sodium Chloride) 1,020 mls @ 150 mls/hr IV .Q6H48M [facility] PRN Reason: Protocol Last Admin: 04/21/18 18:43 Dose: 150 mls/hr Vancomycin HCl 2 gm/ Sodium (Chloride) 500 mls @ 170 mls/hr IVPB ONCE ONE PRN Reason: Protocol Stop: 04/22/18 09:35 Last Admin: 04/22/18 08:46 Dose: 170 mls/hr Metoprolol Tartrate (Lopressor) 25 mg PO BID [facility] Last Admin: 04/21/18 17:50 Dose: Not Given Pantoprazole Sodium (Protonix Inj) 40 mg IVP DAILY [facility] Last Admin: 04/21/18 10:46 Dose: 40 mg - Labs Labs: 04/22/18 06:10 04/22/18 06:10 PT 14.5 SECONDS (9.4-12.5) H 04/21/18 17:50 INR 1.27 (0.93-1.08) H 04/21/18 17:50 APTT 46.0 Seconds (25.1-36.5) H 04/21/18 17:50 Attending/Attestation - Attestation I have personally seen and examined this patient.: Yes I have fully participated in the care of the patient.: Yes I have reviewed all pertinent clinical information, including history, physical exam and plan: Yes Notes (Text): 04/22/18 09:14 77 year old with multiple medical problems including afib, chf, dementia a/w septic shock and GNR bacteremia, now with rectal bleeding. US dopplers reviewed , unremarkable. Will perform unprepped colonoscopy today to evaluate for rectal bleeding and possible colonic ischemia. Addendum: 12:26 pm Severe inflammation in ascending colon, with purple, erythematous, ulcerated mucosa, circumferentially. Scope could not pass. Suspected isolated right sided colonic ischemia. Appreciate surgical input. More likely this is cause of sepsis than gallbladder. No need of perc oscar tube. Continue broad spectrum abx. Angiography contraindicated due to renal failure, but could consider IR consult to see if there is any role for attempt at revascularization, probably low yield due to negative doppler exam.
--- NOTE | 2018-04-22 09:57 | PN ---
DATE: 04/22/2018 SUBJECTIVE: A 77-year-old white male in the Intensive Care Unit after being brought in with sepsis syndrome and cardiac arrest, severe sepsis with white count ____ 35,000. The patient also developed GI bleed today. He has platelet count of 94,000, hemoglobin has not dropped from 10.3, white count is 35.5. He is afebrile. Today, he is on IV antibiotics. His pressors were changed to vasopressin from Levophed. BUN and creatinine are 73 and 4.2, potassium is 4.7. Blood pressure is 130/70. The patient has marianela red blood per rectum, most likely lower GI hemorrhoid versus diverticular bleeding. The patient is awake today. He is more alert. He does have history of dementia, but he holds the conversation today. PHYSICAL EXAMINATION: CHEST: Clear to auscultation and percussion. HEART: Regular sinus rhythm, but sinus tachycardia. PLAN: Is to continue PPI, change to vasopressin, GI evaluation and continued IV antibiotics for sepsis syndrome. Ray Crump MD
[2018-04-22] MEDS ORDERED: Propofol 10 mg/ml Inj (20 ML) ONE (09:59)
[2018-04-22] MEDS ORDERED: Etomidate 20 mg/10ml Inj IV ONE (10:00)
--- NOTE | 2018-04-22 11:11 | CP.CCUPN ---
<Taj Carey - Last Filed: 04/22/18 11:37> CCU Subjective - Physician Review Events Since Last Encounter (Free Text): 04/22/18 09:00 Patient seen and examined at bedside -patient did have gross melena of 200 cc overnight with maintained bp and stable H/H CCU Objective - Vital Signs / Intake & Output Intake and Output (Last 8hrs): Intake & Output 04/21/18 04/22/18 04/22/18 22:59 06:59 14:59 Intake Total 2520.5 2247.0 Output Total 200 330 Balance 2320.5 1917.0 Intake: IV 2520.5 2247.0 NS KCL 40 meq 600 NS bolus 1000 Right Internal Jugular 1800 Sodium Bicarb drip 375 antibiotics 50 50 insulin 10 levophed 45 110 potassium chloride 200 primacor 66 72 vasopressin 100 108 Output: Urine 200 150 Urethral (Charles) 200 150 Stool 180 Other: Voiding Method Indwelling Catheter # Bowel Movements 2 2 - Physical Exam Head: Positive for: Atraumatic, Normocephalic Pupils: Positive for: PERRL Extroacular Muscles: Positive for: EOMI Conjunctiva: Positive for: Normal Mouth: Positive for: Dry Neck: Positive for: Normal Range of Motion Respiratory/Chest: Positive for: Clear to Auscultation. Negative for: Respiratory Distress, Wheezes, Rales, Rhonchi Cardiovascular: Positive for: Regular Rate and Rhythm, Normal S1, S2. Negative for: Murmurs, Rub, Gallop Abdomen: Negative for: Tenderness, Distention, Rebound, Guarding Upper Extremity: Positive for: Normal Inspection. Negative for: Cyanosis, Edema Lower Extremity: Positive for: Normal Inspection. Negative for: Edema Neurological: Negative for: Motor Func Grossly Intact (Planning Supervisor strength R 4/5, L 3/ 5, LE strength R 3/5, L 2/5), Memory Normal Skin: Positive for: Warm, Dry, Normal Color. Negative for: Rashes Psychiatric: Positive for: Alert. Negative for: Oriented x 3 (oriented only to self) - Medications Active Medications: Active Medications Generic Name Dose Route Start Last Admin Trade Name Freq PRN Reason Stop Dose Admin Famotidine 40 mg 04/22/18 22:00 Pepcid PO HS BONNIE Hydrocortisone Sodium Succinate 50 mg 04/22/18 10:15 Solu-Cortef IVP Q12H BONNIE Vasopressin 20 units/ Sodium 101 mls @ 9.09 mls/hr 04/20/18 14:45 04/21/18 14 :45 Chloride IV 9.09 mls/hr .[id number] BONNIE Administration Protocol 0.03 U/MIN Meropenem 500 mg/ Sodium 50 mls @ 100 mls/hr 04/20/18 22:00 04/21/18 21:26 Chloride IVPB 04/27/18 22:01 100 mls/hr Q12 BONNIE Administration Protocol Norepinephrine Bitartrate 8 mg 508 mls @ 19.05 mls/hr 04/20/18 17:11 06:00 / Sodium Chloride IV 0 mcg/min .Q24H PRN 0 mls/hr TITRATE PER MD ORDER Titration Protocol 5 MCG/MIN Potassium Chloride 40 meq/ 1,020 mls @ 150 mls/hr 04/21/18 09:30 04/21/18 18: 43 Sodium Chloride IV 150 mls/hr .[id number] BONNIE Administration Protocol Metoprolol Tartrate 25 mg 04/20/18 18:00 04/21/18 17:50 Lopressor PO Not Given BID BONNIE - Patient Studies Lab Studies: Microbiology Studies 04/20/18 11:35 Urine Culture - Final Urine Enterobacter Aerogenes Enterococcus Faecalis 04/20/18 19:02 C. difficile Antigen & Toxin A,B (M - Final Stool Lab Studies 04/22/18 04/22/18 04/22/18 Range/Units 07:32 06:29 06:10 WBC (4.5-11.0) 10^3/ul RBC (3.5-6.1) 10^6/uL Hgb (14.0-18.0) g/dL Hct (42.0-52.0) % MCV (80.0-105.0) fl MCH (25.0-35.0) pg MCHC (31.0-37.0) g/dl RDW (11.5-14.5) % Plt Count (120.0-450.0) 10^3/uL MPV (7.0-11.0) fl Gran % (50.0-68.0) % Lymph % (Auto) (22.0-35.0) % [place] % (Auto) (1.0-6.0) % Eos % (Auto) (1.5-5.0) % Baso % (Auto) (0.0-3.0) % Gran # (1.4-6.5) Lymph # (Auto) (1.2-3.4) [place] # (Auto) (0.1-0.6) Eos # (Auto) (0.0-0.7) Baso # (Auto) (0.0-2.0) K/mm3 PT (9.4-12.5) SECONDS INR (0.93-1.08) APTT (25.1-36.5) Seconds Sodium 142 (132-148) mmol/L Potassium 4.7 (3.6-5.0) mmol/L Chloride 114 H (98-107) mmol/L Carbon Dioxide 16 L (21-33) mmol/L Anion Gap 17 (10-20) BUN 73 H (7-21) mg/dL Creatinine 4.2 H (0.8-1.5) mg/dl Est GFR ( Amer) 17 Est GFR (Non-Af Amer) 14 POC Glucose (mg/dL) 149 H (65-110) mg/dL Random Glucose 146 H (70-110) mg/dL Hemoglobin A1c (4.2-6.5) % Calcium 8.8 (8.4-10.5) mg/dL Total Bilirubin 0.3 (0.2-1.3) mg/dL Direct Bilirubin 0.3 (0.0-0.4) mg/dL AST 38 (17-59) U/L ALT 44 (7-56) U/L Alkaline Phosphatase 105 (38-126) U/L Total Protein 4.7 L (5.8-8.3) g/dL Albumin 2.2 L (3.0-4.8) g/dL Globulin 2.6 gm/dL Albumin/Globulin Ratio 0.8 L (1.1-1.8) Stool Occult Blood (NEGATIVE) Ur L.pneumophila Ag (NEGATIVE) Blood Type Antibody Screen Crossmatch BBK History Checked 04/22/18 04/22/18 04/22/18 Range/Units 06:10 04:08 02:04 WBC 35.5 H* (4.5-11.0) 10^3/ul RBC 3.72 (3.5-6.1) 10^6/uL Hgb 10.3 L (14.0-18.0) g/dL Hct 31.9 L (42.0-52.0) % MCV 85.8 (80.0-105.0) fl MCH 27.7 (25.0-35.0) pg MCHC 32.3 (31.0-37.0) g/dl RDW 15.9 H (11.5-14.5) % Plt Count 94 L (120.0-450.0) 10^3/uL MPV 10.2 (7.0-11.0) fl Gran % 94.7 H (50.0-68.0) % Lymph % (Auto) 1.2 L (22.0-35.0) % [place] % (Auto) 4.1 (1.0-6.0) % Eos % (Auto) 0.0 L (1.5-5.0) % Baso % (Auto) 0.0 (0.0-3.0) % Gran # 33.57 H (1.4-6.5) Lymph # (Auto) 0.4 L (1.2-3.4) [place] # (Auto) 1.5 H (0.1-0.6) Eos # (Auto) 0.0 (0.0-0.7) Baso # (Auto) 0.01 (0.0-2.0) K/mm3 PT (9.4-12.5) SECONDS INR (0.93-1.08) APTT (25.1-36.5) Seconds Sodium (132-148) mmol/L Potassium (3.6-5.0) mmol/L Chloride (98-107) mmol/L Carbon Dioxide (21-33) mmol/L Anion Gap (10-20) BUN (7-21) mg/dL Creatinine (0.8-1.5) mg/dl Est GFR ( Amer) Est GFR (Non-Af Amer) POC Glucose (mg/dL) 146 H 183 H (65-110) mg/dL Random Glucose (70-110) mg/dL Hemoglobin A1c (4.2-6.5) % Calcium (8.4-10.5) mg/dL Total Bilirubin (0.2-1.3) mg/dL Direct Bilirubin (0.0-0.4) mg/dL AST (17-59) U/L ALT (7-56) U/L Alkaline Phosphatase (38-126) U/L Total Protein (5.8-8.3) g/dL Albumin (3.0-4.8) g/dL Globulin gm/dL Albumin/Globulin Ratio (1.1-1.8) Stool Occult Blood (NEGATIVE) Ur L.pneumophila Ag (NEGATIVE) Blood Type Antibody Screen Crossmatch BBK History Checked 04/22/18 04/21/18 04/21/18 Range/Units 00:05 21:55 20:55 WBC (4.5-11.0) 10^3/ul RBC (3.5-6.1) 10^6/uL Hgb (14.0-18.0) g/dL Hct (42.0-52.0) % MCV (80.0-105.0) fl MCH (25.0-35.0) pg MCHC (31.0-37.0) g/dl RDW (11.5-14.5) % Plt Count (120.0-450.0) 10^3/uL MPV (7.0-11.0) fl Gran % (50.0-68.0) % Lymph % (Auto) (22.0-35.0) % [place] % (Auto) (1.0-6.0) % Eos % (Auto) (1.5-5.0) % Baso % (Auto) (0.0-3.0) % Gran # (1.4-6.5) Lymph # (Auto) (1.2-3.4) [place] # (Auto) (0.1-0.6) Eos # (Auto) (0.0-0.7) Baso # (Auto) (0.0-2.0) K/mm3 PT (9.4-12.5) SECONDS INR (0.93-1.08) APTT (25.1-36.5) Seconds Sodium (132-148) mmol/L Potassium (3.6-5.0) mmol/L Chloride (98-107) mmol/L Carbon Dioxide (21-33) mmol/L Anion Gap (10-20) BUN (7-21) mg/dL Creatinine (0.8-1.5) mg/dl Est GFR ( Amer) Est GFR (Non-Af Amer) POC Glucose (mg/dL) 142 H 172 H (65-110) mg/dL Random Glucose (70-110) mg/dL Hemoglobin A1c (4.2-6.5) % Calcium (8.4-10.5) mg/dL Total Bilirubin (0.2-1.3) mg/dL Direct Bilirubin (0.0-0.4) mg/dL AST (17-59) U/L ALT (7-56) U/L Alkaline Phosphatase (38-126) U/L Total Protein (5.8-8.3) g/dL Albumin (3.0-4.8) g/dL Globulin gm/dL Albumin/Globulin Ratio (1.1-1.8) Stool Occult Blood (NEGATIVE) Ur L.pneumophila Ag (NEGATIVE) Blood Type AB POSITIVE Antibody Screen Negative Crossmatch See Detail BBK History Checked Patient has bt 04/21/18 04/21/18 04/21/18 Range/Units 20:55 20:12 17:50 WBC 35.8 H* (4.5-11.0) 10^3/ul RBC 3.75 (3.5-6.1) 10^6/uL Hgb 10.3 L (14.0-18.0) g/dL Hct 32.1 L (42.0-52.0) % MCV 85.6 (80.0-105.0) fl MCH 27.5 (25.0-35.0) pg MCHC 32.1 (31.0-37.0) g/dl RDW 15.8 H (11.5-14.5) % Plt Count 117 L (120.0-450.0) 10^3/uL MPV 11.0 (7.0-11.0) fl Gran % (50.0-68.0) % Lymph % (Auto) (22.0-35.0) % [place] % (Auto) 5.1 (1.0-6.0) % Eos % (Auto) 0.0 L (1.5-5.0) % Baso % (Auto) 0.1 (0.0-3.0) % Gran # (1.4-6.5) Lymph # (Auto) (1.2-3.4) [place] # (Auto) 1.8 H (0.1-0.6) Eos # (Auto) 0.0 (0.0-0.7) Baso # (Auto) 0.02 (0.0-2.0) K/mm3 PT 14.5 H (9.4-12.5) SECONDS INR 1.27 H (0.93-1.08) APTT 46.0 H (25.1-36.5) Seconds Sodium (132-148) mmol/L Potassium (3.6-5.0) mmol/L Chloride (98-107) mmol/L Carbon Dioxide (21-33) mmol/L Anion Gap (10-20) BUN (7-21) mg/dL Creatinine (0.8-1.5) mg/dl Est GFR ( Amer) Est GFR (Non-Af Amer) POC Glucose (mg/dL) 208 H (65-110) mg/dL Random Glucose (70-110) mg/dL Hemoglobin A1c (4.2-6.5) % Calcium (8.4-10.5) mg/dL Total Bilirubin (0.2-1.3) mg/dL Direct Bilirubin (0.0-0.4) mg/dL AST (17-59) U/L ALT (7-56) U/L Alkaline Phosphatase (38-126) U/L Total Protein (5.8-8.3) g/dL Albumin (3.0-4.8) g/dL Globulin gm/dL Albumin/Globulin Ratio (1.1-1.8) Stool Occult Blood (NEGATIVE) Ur L.pneumophila Ag (NEGATIVE) Blood Type Antibody Screen Crossmatch BBK History Checked 04/21/18 04/21/18 04/21/18 Range/Units 17:50 17:42 16:56 WBC 36.6 H* (4.5-11.0) 10^3/ul RBC 3.75 (3.5-6.1) 10^6/uL Hgb 10.4 L (14.0-18.0) g/dL Hct 32.0 L (42.0-52.0) % MCV 85.3 (80.0-105.0) fl MCH 27.7 (25.0-35.0) pg MCHC 32.5 (31.0-37.0) g/dl RDW 15.7 H (11.5-14.5) % Plt Count 113 L (120.0-450.0) 10^3/uL MPV 10.3 (7.0-11.0) fl Gran % 93.2 H (50.0-68.0) % Lymph % (Auto) 1.0 L (22.0-35.0) % [place] % (Auto) 5.8 (1.0-6.0) % Eos % (Auto) 0.0 L (1.5-5.0) % Baso % (Auto) 0.0 (0.0-3.0) % Gran # 34.09 H (1.4-6.5) Lymph # (Auto) 0.4 L (1.2-3.4) [place] # (Auto) 2.1 H (0.1-0.6) Eos # (Auto) 0.0 (0.0-0.7) Baso # (Auto) 0.01 (0.0-2.0) K/mm3 PT (9.4-12.5) SECONDS INR (0.93-1.08) APTT (25.1-36.5) Seconds Sodium (132-148) mmol/L Potassium (3.6-5.0) mmol/L Chloride (98-107) mmol/L Carbon Dioxide (21-33) mmol/L Anion Gap (10-20) BUN (7-21) mg/dL Creatinine (0.8-1.5) mg/dl Est GFR ( Amer) Est GFR (Non-Af Amer) POC Glucose (mg/dL) 148 H 144 H (65-110) mg/dL Random Glucose (70-110) mg/dL Hemoglobin A1c (4.2-6.5) % Calcium (8.4-10.5) mg/dL Total Bilirubin (0.2-1.3) mg/dL Direct Bilirubin (0.0-0.4) mg/dL AST (17-59) U/L ALT (7-56) U/L Alkaline Phosphatase (38-126) U/L Total Protein (5.8-8.3) g/dL Albumin (3.0-4.8) g/dL Globulin gm/dL Albumin/Globulin Ratio (1.1-1.8) Stool Occult Blood (NEGATIVE) Ur L.pneumophila Ag (NEGATIVE) Blood Type Antibody Screen Crossmatch BBK History Checked 04/21/18 04/21/18 04/21/18 Range/Units 15:15 14:52 12:05 WBC (4.5-11.0) 10^3/ul RBC (3.5-6.1) 10^6/uL Hgb (14.0-18.0) g/dL Hct (42.0-52.0) % MCV (80.0-105.0) fl MCH (25.0-35.0) pg MCHC (31.0-37.0) g/dl RDW (11.5-14.5) % Plt Count (120.0-450.0) 10^3/uL MPV (7.0-11.0) fl Gran % (50.0-68.0) % Lymph % (Auto) (22.0-35.0) % [place] % (Auto) (1.0-6.0) % Eos % (Auto) (1.5-5.0) % Baso % (Auto) (0.0-3.0) % Gran # (1.4-6.5) Lymph # (Auto) (1.2-3.4) [place] # (Auto) (0.1-0.6) Eos # (Auto) (0.0-0.7) Baso # (Auto) (0.0-2.0) K/mm3 PT (9.4-12.5) SECONDS INR (0.93-1.08) APTT (25.1-36.5) Seconds Sodium (132-148) mmol/L Potassium (3.6-5.0) mmol/L Chloride (98-107) mmol/L Carbon Dioxide (21-33) mmol/L Anion Gap (10-20) BUN (7-21) mg/dL Creatinine (0.8-1.5) mg/dl Est GFR ( Amer) Est GFR (Non-Af Amer) POC Glucose (mg/dL) 164 H 213 H (65-110) mg/dL Random Glucose (70-110) mg/dL Hemoglobin A1c (4.2-6.5) % Calcium (8.4-10.5) mg/dL Total Bilirubin (0.2-1.3) mg/dL Direct Bilirubin (0.0-0.4) mg/dL AST (17-59) U/L ALT (7-56) U/L Alkaline Phosphatase (38-126) U/L Total Protein (5.8-8.3) g/dL Albumin (3.0-4.8) g/dL Globulin gm/dL Albumin/Globulin Ratio (1.1-1.8) Stool Occult Blood Positive H (NEGATIVE) Ur L.pneumophila Ag (NEGATIVE) Blood Type Antibody Screen Crossmatch BBK History Checked 04/21/18 04/20/18 Range/Units 06:00 22:41 WBC (4.5-11.0) 10^3/ul RBC (3.5-6.1) 10^6/uL Hgb (14.0-18.0) g/dL Hct (42.0-52.0) % MCV (80.0-105.0) fl MCH (25.0-35.0) pg MCHC (31.0-37.0) g/dl RDW (11.5-14.5) % Plt Count (120.0-450.0) 10^3/uL MPV (7.0-11.0) fl Gran % (50.0-68.0) % Lymph % (Auto) (22.0-35.0) % [place] % (Auto) (1.0-6.0) % Eos % (Auto) (1.5-5.0) % Baso % (Auto) (0.0-3.0) % Gran # (1.4-6.5) Lymph # (Auto) (1.2-3.4) [place] # (Auto) (0.1-0.6) Eos # (Auto) (0.0-0.7) Baso # (Auto) (0.0-2.0) K/mm3 PT (9.4-12.5) SECONDS INR (0.93-1.08) APTT (25.1-36.5) Seconds Sodium (132-148) mmol/L Potassium (3.6-5.0) mmol/L Chloride (98-107) mmol/L Carbon Dioxide (21-33) mmol/L Anion Gap (10-20) BUN (7-21) mg/dL Creatinine (0.8-1.5) mg/dl Est GFR ( Amer) Est GFR (Non-Af Amer) POC Glucose (mg/dL) (65-110) mg/dL Random Glucose (70-110) mg/dL Hemoglobin A1c 7.9 H (4.2-6.5) % Calcium (8.4-10.5) mg/dL Total Bilirubin (0.2-1.3) mg/dL Direct Bilirubin (0.0-0.4) mg/dL AST (17-59) U/L ALT (7-56) U/L Alkaline Phosphatase (38-126) U/L Total Protein (5.8-8.3) g/dL Albumin (3.0-4.8) g/dL Globulin gm/dL Albumin/Globulin Ratio (1.1-1.8) Stool Occult Blood (NEGATIVE) Ur L.pneumophila Ag Negative (NEGATIVE) Blood Type Antibody Screen Crossmatch BBK History Checked Laboratory Results - last 24 hr 04/20/18 04/21/18 04/21/18 22:41 06:00 12:05 WBC RBC Hgb Hct MCV MCH MCHC RDW Plt Count MPV Gran % Lymph % (Auto) [place] % (Auto) Eos % (Auto) Baso % (Auto) Gran # Lymph # (Auto) [place] # (Auto) Eos # (Auto) Baso # (Auto) PT INR APTT Sodium Potassium Chloride Carbon Dioxide Anion Gap BUN Creatinine Est GFR ( Amer) Est GFR (Non-Af Amer) POC Glucose (mg/dL) 213 H Random Glucose Hemoglobin A1c 7.9 H Calcium Total Bilirubin Direct Bilirubin AST ALT Alkaline Phosphatase Total Protein Albumin Globulin Albumin/Globulin Ratio Stool Occult Blood Ur L.pneumophila Ag Negative Blood Type Antibody Screen Crossmatch BBK History Checked 04/21/18 04/21/18 04/21/18 14:52 15:15 16:56 WBC RBC Hgb Hct MCV MCH MCHC RDW Plt Count MPV Gran % Lymph % (Auto) [place] % (Auto) Eos % (Auto) Baso % (Auto) Gran # Lymph # (Auto) [place] # (Auto) Eos # (Auto) Baso # (Auto) PT INR APTT Sodium Potassium Chloride Carbon Dioxide Anion Gap BUN Creatinine Est GFR ( Amer) Est GFR (Non-Af Amer) POC Glucose (mg/dL) 164 H 144 H Random Glucose Hemoglobin A1c Calcium Total Bilirubin Direct Bilirubin AST ALT Alkaline Phosphatase Total Protein Albumin Globulin Albumin/Globulin Ratio Stool Occult Blood Positive H Ur L.pneumophila Ag Blood Type Antibody Screen Crossmatch BBK History Checked 04/21/18 04/21/18 04/21/18 17:42 17:50 17:50 WBC 36.6 H* RBC 3.75 Hgb 10.4 L Hct 32.0 L MCV 85.3 MCH 27.7 MCHC 32.5 RDW 15.7 H Plt Count 113 L MPV 10.3 Gran % 93.2 H Lymph % (Auto) 1.0 L [place] % (Auto) 5.8 Eos % (Auto) 0.0 L Baso % (Auto) 0.0 Gran # 34.09 H Lymph # (Auto) 0.4 L [place] # (Auto) 2.1 H Eos # (Auto) 0.0 Baso # (Auto) 0.01 PT 14.5 H INR 1.27 H APTT 46.0 H Sodium Potassium Chloride Carbon Dioxide Anion Gap BUN Creatinine Est GFR ( Amer) Est GFR (Non-Af Amer) POC Glucose (mg/dL) 148 H Random Glucose Hemoglobin A1c Calcium Total Bilirubin Direct Bilirubin AST ALT Alkaline Phosphatase Total Protein Albumin Globulin Albumin/Globulin Ratio Stool Occult Blood Ur L.pneumophila Ag Blood Type Antibody Screen Crossmatch BBK History Checked 04/21/18 04/21/18 04/21/18 20:12 20:55 20:55 WBC 35.8 H* RBC 3.75 Hgb 10.3 L Hct 32.1 L MCV 85.6 MCH 27.5 MCHC 32.1 RDW 15.8 H Plt Count 117 L MPV 11.0 Gran % Lymph % (Auto) [place] % (Auto) 5.1 Eos % (Auto) 0.0 L Baso % (Auto) 0.1 Gran # Lymph # (Auto) [place] # (Auto) 1.8 H Eos # (Auto) 0.0 Baso # (Auto) 0.02 PT INR APTT Sodium Potassium Chloride Carbon Dioxide Anion Gap BUN Creatinine Est GFR ( Amer) Est GFR (Non-Af Amer) POC Glucose (mg/dL) 208 H Random Glucose Hemoglobin A1c Calcium Total Bilirubin Direct Bilirubin AST ALT Alkaline Phosphatase Total Protein Albumin Globulin Albumin/Globulin Ratio Stool Occult Blood Ur L.pneumophila Ag Blood Type AB POSITIVE Antibody Screen Negative Crossmatch See Detail BBK History Checked Patient has bt 04/21/18 04/22/18 04/22/18 21:55 00:05 02:04 WBC RBC Hgb Hct MCV MCH MCHC RDW Plt Count MPV Gran % Lymph % (Auto) [place] % (Auto) Eos % (Auto) Baso % (Auto) Gran # Lymph # (Auto) [place] # (Auto) Eos # (Auto) Baso # (Auto) PT INR APTT Sodium Potassium Chloride Carbon Dioxide Anion Gap BUN Creatinine Est GFR ( Amer) Est GFR (Non-Af Amer) POC Glucose (mg/dL) 172 H 142 H 183 H Random Glucose Hemoglobin A1c Calcium Total Bilirubin Direct Bilirubin AST ALT Alkaline Phosphatase Total Protein Albumin Globulin Albumin/Globulin Ratio Stool Occult Blood Ur L.pneumophila Ag Blood Type Antibody Screen Crossmatch BBK History Checked 04/22/18 04/22/18 04/22/18 04:08 06:10 06:10 WBC 35.5 H* RBC 3.72 Hgb 10.3 L Hct 31.9 L MCV 85.8 MCH 27.7 MCHC 32.3 RDW 15.9 H Plt Count 94 L MPV 10.2 Gran % 94.7 H Lymph % (Auto) 1.2 L [place] % (Auto) 4.1 Eos % (Auto) 0.0 L Baso % (Auto) 0.0 Gran # 33.57 H Lymph # (Auto) 0.4 L [place] # (Auto) 1.5 H Eos # (Auto) 0.0 Baso # (Auto) 0.01 PT INR APTT Sodium 142 Potassium 4.7 Chloride 114 H Carbon Dioxide 16 L Anion Gap 17 BUN 73 H Creatinine 4.2 H Est GFR ( Amer) 17 Est GFR (Non-Af Amer) 14 POC Glucose (mg/dL) 146 H Random Glucose 146 H Hemoglobin A1c Calcium 8.8 Total Bilirubin Direct Bilirubin AST ALT Alkaline Phosphatase Total Protein Albumin Globulin Albumin/Globulin Ratio Stool Occult Blood Ur L.pneumophila Ag Blood Type Antibody Screen Crossmatch BBK History Checked 04/22/18 04/22/18 06:29 07:32 WBC RBC Hgb Hct MCV MCH MCHC RDW Plt Count MPV Gran % Lymph % (Auto) [place] % (Auto) Eos % (Auto) Baso % (Auto) Gran # Lymph # (Auto) [place] # (Auto) Eos # (Auto) Baso # (Auto) PT INR APTT Sodium Potassium Chloride Carbon Dioxide Anion Gap BUN Creatinine Est GFR ( Amer) Est GFR (Non-Af Amer) POC Glucose (mg/dL) 149 H Random Glucose Hemoglobin A1c Calcium Total Bilirubin 0.3 Direct Bilirubin 0.3 AST 38 ALT 44 Alkaline Phosphatase 105 Total Protein 4.7 L Albumin 2.2 L Globulin 2.6 Albumin/Globulin Ratio 0.8 L Stool Occult Blood Ur L.pneumophila Ag Blood Type Antibody Screen Crossmatch BBK History Checked Fingerstick Blood Sugar Results: 149 Assessment/Plan - Assessment and Plan (Free Text) Assessment: 77 year old male past medical history pertinent for past TIA/CVA under ICU care for Multiorgan System Failure likely 2/2 Septic Shock due to UTI VS Cholecystitis. Septic Cardiomyopathy WINDY Encephalopathy Lactic Acidosis DKA/Hyperglycemia - Resolved Patient Head CT insignificant. Blood cultures are gram neg rods and patient has high WBC count of 35, up from yesterday, consistent/stable with yesterday. Patient himself does not complain of any abdominal pain, but Abd U/s shows GB thickening c/w acalculus cystitis. EKG shows LVH with bifasciular block. In terms of finding a source of the Sepsis, patient's Urine Cx shows E. Faecalis and E. Aerogenes; and blood cultures show E. Aerogenes - this indicates that source is likely urine in the absence of HIDA scan findings and negative Abd dopplers. Plan Neuro - Maintain normothermia Cardio - Septic shock: Milrinone and Vasopressin are stopped; Levophed, gtt; wean Levophed; Fluid bolus and maintenance fluids. Stop bicarb gtt Pulm - Maintain saturation > 92% GI - PPX with protonix - Possible Cholecystitis: Dr. Maloney on consult, HIDA pending - no surgical intervention for now; cholecystostomy tubes from IR; NPO, IVF - GI Consult: Sigmoidoscopy being done today /Renal - Anuric Renal Failure - monitor urine output, give fluids, avoid nephrotoxic drugs; renal consult: Dr. Cox Heme: - DVT PPX with pepcid per GI recs Endo: - Maintain Euglycemia; off insulin drip now ID: - Septic Shock: Stress dose steroids, Merrem, fluid resuscitation with bolus and maintenance. ID Consult: Dr. Richardson <Andrei Mtz - Last Filed: 04/22/18 12:00> CCU Objective - Vital Signs / Intake & Output Intake and Output (Last 8hrs): Intake & Output 04/21/18 04/22/18 04/22/18 22:59 06:59 14:59 Intake Total 2520.5 2247.0 Output Total 200 330 Balance 2320.5 1917.0 Intake: IV 2520.5 2247.0 NS KCL 40 meq 600 NS bolus 1000 Right Internal Jugular 1800 Sodium Bicarb drip 375 antibiotics 50 50 insulin 10 levophed 45 110 potassium chloride 200 primacor 66 72 vasopressin 100 108 Output: Urine 200 150 Urethral (Charles) 200 150 Stool 180 Other: Voiding Method Indwelling Catheter # Bowel Movements 2 2 - Medications Active Medications: Active Medications Generic Name Dose Route Start Last Admin Trade Name Freq PRN Reason Stop Dose Admin Famotidine 40 mg 04/22/18 22:00 Pepcid PO HS BONNIE Hydrocortisone Sodium Succinate 50 mg 04/22/18 10:15 Solu-Cortef IVP Q12H BONNIE Vasopressin 20 units/ Sodium 101 mls @ 9.09 mls/hr 04/20/18 14:45 04/21/18 14 :45 Chloride IV 9.09 mls/hr .Q11H7M BONNIE Administration Protocol 0.03 U/MIN Meropenem 500 mg/ Sodium 50 mls @ 100 mls/hr 04/20/18 22:00 04/21/18 21:26 Chloride IVPB 04/27/18 22:01 100 mls/hr Q12 BONNIE Administration Protocol Norepinephrine Bitartrate 8 mg 508 mls @ 19.05 mls/hr 04/20/18 17:11 06:00 / Sodium Chloride IV 0 mcg/min .Q24H PRN 0 mls/hr TITRATE PER MD ORDER Titration Protocol 5 MCG/MIN Potassium Chloride 40 meq/ 1,020 mls @ 150 mls/hr 04/21/18 09:30 04/21/18 18: 43 Sodium Chloride IV 150 mls/hr .[id number] [facility] Administration Protocol Metoprolol Tartrate 25 mg 04/20/18 18:00 04/21/18 17:50 Lopressor PO Not Given BID [facility] - Patient Studies Lab Studies: Microbiology Studies 04/20/18 12:50 MRSA Culture (Admit) - Final Naris MRSA NOT DETECTED 04/20/18 11:35 Urine Culture - Final Urine Enterobacter Aerogenes Enterococcus Faecalis 04/20/18 19:02 C. difficile Antigen & Toxin A,B (M - Final Stool Lab Studies 04/22/18 04/22/18 04/22/18 Range/Units 07:32 06:29 06:10 WBC (4.5-11.0) 10^3/ul RBC (3.5-6.1) 10^6/uL Hgb (14.0-18.0) g/dL Hct (42.0-52.0) % MCV (80.0-105.0) fl MCH (25.0-35.0) pg MCHC (31.0-37.0) g/dl RDW (11.5-14.5) % Plt Count (120.0-450.0) 10^3/uL MPV (7.0-11.0) fl Gran % (50.0-68.0) % Lymph % (Auto) (22.0-35.0) % [place] % (Auto) (1.0-6.0) % Eos % (Auto) (1.5-5.0) % Baso % (Auto) (0.0-3.0) % Gran # (1.4-6.5) Lymph # (Auto) (1.2-3.4) [place] # (Auto) (0.1-0.6) Eos # (Auto) (0.0-0.7) Baso # (Auto) (0.0-2.0) K/mm3 PT (9.4-12.5) SECONDS INR (0.93-1.08) APTT (25.1-36.5) Seconds Sodium 142 (132-148) mmol/L Potassium 4.7 (3.6-5.0) mmol/L Chloride 114 H (98-107) mmol/L Carbon Dioxide 16 L (21-33) mmol/L Anion Gap 17 (10-20) BUN 73 H (7-21) mg/dL Creatinine 4.2 H (0.8-1.5) mg/dl Est GFR ( Amer) 17 Est GFR (Non-Af Amer) 14 POC Glucose (mg/dL) 149 H (65-110) mg/dL Random Glucose 146 H (70-110) mg/dL Hemoglobin A1c (4.2-6.5) % Calcium 8.8 (8.4-10.5) mg/dL Total Bilirubin 0.3 (0.2-1.3) mg/dL Direct Bilirubin 0.3 (0.0-0.4) mg/dL AST 38 (17-59) U/L ALT 44 (7-56) U/L Alkaline Phosphatase 105 (38-126) U/L Total Protein 4.7 L (5.8-8.3) g/dL Albumin 2.2 L (3.0-4.8) g/dL Globulin 2.6 gm/dL Albumin/Globulin Ratio 0.8 L (1.1-1.8) Stool Occult Blood (NEGATIVE) Ur L.pneumophila Ag (NEGATIVE) Blood Type Antibody Screen Crossmatch BBK History Checked 04/22/18 04/22/18 04/22/18 Range/Units 06:10 04:08 02:04 WBC 35.5 H* (4.5-11.0) 10^3/ul RBC 3.72 (3.5-6.1) 10^6/uL Hgb 10.3 L (14.0-18.0) g/dL Hct 31.9 L (42.0-52.0) % MCV 85.8 (80.0-105.0) fl MCH 27.7 (25.0-35.0) pg MCHC 32.3 (31.0-37.0) g/dl RDW 15.9 H (11.5-14.5) % Plt Count 94 L (120.0-450.0) 10^3/uL MPV 10.2 (7.0-11.0) fl Gran % 94.7 H (50.0-68.0) % Lymph % (Auto) 1.2 L (22.0-35.0) % [place] % (Auto) 4.1 (1.0-6.0) % Eos % (Auto) 0.0 L (1.5-5.0) % Baso % (Auto) 0.0 (0.0-3.0) % Gran # 33.57 H (1.4-6.5) Lymph # (Auto) 0.4 L (1.2-3.4) [place] # (Auto) 1.5 H (0.1-0.6) Eos # (Auto) 0.0 (0.0-0.7) Baso # (Auto) 0.01 (0.0-2.0) K/mm3 PT (9.4-12.5) SECONDS INR (0.93-1.08) APTT (25.1-36.5) Seconds Sodium (132-148) mmol/L Potassium (3.6-5.0) mmol/L Chloride (98-107) mmol/L Carbon Dioxide (21-33) mmol/L Anion Gap (10-20) BUN (7-21) mg/dL Creatinine (0.8-1.5) mg/dl Est GFR ( Amer) Est GFR (Non-Af Amer) POC Glucose (mg/dL) 146 H 183 H (65-110) mg/dL Random Glucose (70-110) mg/dL Hemoglobin A1c (4.2-6.5) % Calcium (8.4-10.5) mg/dL Total Bilirubin (0.2-1.3) mg/dL Direct Bilirubin (0.0-0.4) mg/dL AST (17-59) U/L ALT (7-56) U/L Alkaline Phosphatase (38-126) U/L Total Protein (5.8-8.3) g/dL Albumin (3.0-4.8) g/dL Globulin gm/dL Albumin/Globulin Ratio (1.1-1.8) Stool Occult Blood (NEGATIVE) Ur L.pneumophila Ag (NEGATIVE) Blood Type Antibody Screen Crossmatch BBK History Checked 04/22/18 04/21/18 04/21/18 Range/Units 00:05 21:55 20:55 WBC (4.5-11.0) 10^3/ul RBC (3.5-6.1) 10^6/uL Hgb (14.0-18.0) g/dL Hct (42.0-52.0) % MCV (80.0-105.0) fl MCH (25.0-35.0) pg MCHC (31.0-37.0) g/dl RDW (11.5-14.5) % Plt Count (120.0-450.0) 10^3/uL MPV (7.0-11.0) fl Gran % (50.0-68.0) % Lymph % (Auto) (22.0-35.0) % [place] % (Auto) (1.0-6.0) % Eos % (Auto) (1.5-5.0) % Baso % (Auto) (0.0-3.0) % Gran # (1.4-6.5) Lymph # (Auto) (1.2-3.4) [place] # (Auto) (0.1-0.6) Eos # (Auto) (0.0-0.7) Baso # (Auto) (0.0-2.0) K/mm3 PT (9.4-12.5) SECONDS INR (0.93-1.08) APTT (25.1-36.5) Seconds Sodium (132-148) mmol/L Potassium (3.6-5.0) mmol/L Chloride (98-107) mmol/L Carbon Dioxide (21-33) mmol/L Anion Gap (10-20) BUN (7-21) mg/dL Creatinine (0.8-1.5) mg/dl Est GFR ( Amer) Est GFR (Non-Af Amer) POC Glucose (mg/dL) 142 H 172 H (65-110) mg/dL Random Glucose (70-110) mg/dL Hemoglobin A1c (4.2-6.5) % Calcium (8.4-10.5) mg/dL Total Bilirubin (0.2-1.3) mg/dL Direct Bilirubin (0.0-0.4) mg/dL AST (17-59) U/L ALT (7-56) U/L Alkaline Phosphatase (38-126) U/L Total Protein (5.8-8.3) g/dL Albumin (3.0-4.8) g/dL Globulin gm/dL Albumin/Globulin Ratio (1.1-1.8) Stool Occult Blood (NEGATIVE) Ur L.pneumophila Ag (NEGATIVE) Blood Type AB POSITIVE Antibody Screen Negative Crossmatch See Detail BBK History Checked Patient has bt 04/21/18 04/21/18 04/21/18 Range/Units 20:55 20:12 17:50 WBC 35.8 H* (4.5-11.0) 10^3/ul RBC 3.75 (3.5-6.1) 10^6/uL Hgb 10.3 L (14.0-18.0) g/dL Hct 32.1 L (42.0-52.0) % MCV 85.6 (80.0-105.0) fl MCH 27.5 (25.0-35.0) pg MCHC 32.1 (31.0-37.0) g/dl RDW 15.8 H (11.5-14.5) % Plt Count 117 L (120.0-450.0) 10^3/uL MPV 11.0 (7.0-11.0) fl Gran % (50.0-68.0) % Lymph % (Auto) (22.0-35.0) % [place] % (Auto) 5.1 (1.0-6.0) % Eos % (Auto) 0.0 L (1.5-5.0) % Baso % (Auto) 0.1 (0.0-3.0) % Gran # (1.4-6.5) Lymph # (Auto) (1.2-3.4) [place] # (Auto) 1.8 H (0.1-0.6) Eos # (Auto) 0.0 (0.0-0.7) Baso # (Auto) 0.02 (0.0-2.0) K/mm3 PT 14.5 H (9.4-12.5) SECONDS INR 1.27 H (0.93-1.08) APTT 46.0 H (25.1-36.5) Seconds Sodium (132-148) mmol/L Potassium (3.6-5.0) mmol/L Chloride (98-107) mmol/L Carbon Dioxide (21-33) mmol/L Anion Gap (10-20) BUN (7-21) mg/dL Creatinine (0.8-1.5) mg/dl Est GFR ( Amer) Est GFR (Non-Af Amer) POC Glucose (mg/dL) 208 H (65-110) mg/dL Random Glucose (70-110) mg/dL Hemoglobin A1c (4.2-6.5) % Calcium (8.4-10.5) mg/dL Total Bilirubin (0.2-1.3) mg/dL Direct Bilirubin (0.0-0.4) mg/dL AST (17-59) U/L ALT (7-56) U/L Alkaline Phosphatase (38-126) U/L Total Protein (5.8-8.3) g/dL Albumin (3.0-4.8) g/dL Globulin gm/dL Albumin/Globulin Ratio (1.1-1.8) Stool Occult Blood (NEGATIVE) Ur L.pneumophila Ag (NEGATIVE) Blood Type Antibody Screen Crossmatch BBK History Checked 04/21/18 04/21/18 04/21/18 Range/Units 17:50 17:42 16:56 WBC 36.6 H* (4.5-11.0) 10^3/ul RBC 3.75 (3.5-6.1) 10^6/uL Hgb 10.4 L (14.0-18.0) g/dL Hct 32.0 L (42.0-52.0) % MCV 85.3 (80.0-105.0) fl MCH 27.7 (25.0-35.0) pg MCHC 32.5 (31.0-37.0) g/dl RDW 15.7 H (11.5-14.5) % Plt Count 113 L (120.0-450.0) 10^3/uL MPV 10.3 (7.0-11.0) fl Gran % 93.2 H (50.0-68.0) % Lymph % (Auto) 1.0 L (22.0-35.0) % [place] % (Auto) 5.8 (1.0-6.0) % Eos % (Auto) 0.0 L (1.5-5.0) % Baso % (Auto) 0.0 (0.0-3.0) % Gran # 34.09 H (1.4-6.5) Lymph # (Auto) 0.4 L (1.2-3.4) [place] # (Auto) 2.1 H (0.1-0.6) Eos # (Auto) 0.0 (0.0-0.7) Baso # (Auto) 0.01 (0.0-2.0) K/mm3 PT (9.4-12.5) SECONDS INR (0.93-1.08) APTT (25.1-36.5) Seconds Sodium (132-148) mmol/L Potassium (3.6-5.0) mmol/L Chloride (98-107) mmol/L Carbon Dioxide (21-33) mmol/L Anion Gap (10-20) BUN (7-21) mg/dL Creatinine (0.8-1.5) mg/dl Est GFR ( Amer) Est GFR (Non-Af Amer) POC Glucose (mg/dL) 148 H 144 H (65-110) mg/dL Random Glucose (70-110) mg/dL Hemoglobin A1c (4.2-6.5) % Calcium (8.4-10.5) mg/dL Total Bilirubin (0.2-1.3) mg/dL Direct Bilirubin (0.0-0.4) mg/dL AST (17-59) U/L ALT (7-56) U/L Alkaline Phosphatase (38-126) U/L Total Protein (5.8-8.3) g/dL Albumin (3.0-4.8) g/dL Globulin gm/dL Albumin/Globulin Ratio (1.1-1.8) Stool Occult Blood (NEGATIVE) Ur L.pneumophila Ag (NEGATIVE) Blood Type Antibody Screen Crossmatch BBK History Checked 04/21/18 04/21/18 04/21/18 Range/Units 15:15 14:52 12:05 WBC (4.5-11.0) 10^3/ul RBC (3.5-6.1) 10^6/uL Hgb (14.0-18.0) g/dL Hct (42.0-52.0) % MCV (80.0-105.0) fl MCH (25.0-35.0) pg MCHC (31.0-37.0) g/dl RDW (11.5-14.5) % Plt Count (120.0-450.0) 10^3/uL MPV (7.0-11.0) fl Gran % (50.0-68.0) % Lymph % (Auto) (22.0-35.0) % [place] % (Auto) (1.0-6.0) % Eos % (Auto) (1.5-5.0) % Baso % (Auto) (0.0-3.0) % Gran # (1.4-6.5) Lymph # (Auto) (1.2-3.4) [place] # (Auto) (0.1-0.6) Eos # (Auto) (0.0-0.7) Baso # (Auto) (0.0-2.0) K/mm3 PT (9.4-12.5) SECONDS INR (0.93-1.08) APTT (25.1-36.5) Seconds Sodium (132-148) mmol/L Potassium (3.6-5.0) mmol/L Chloride (98-107) mmol/L Carbon Dioxide (21-33) mmol/L Anion Gap (10-20) BUN (7-21) mg/dL Creatinine (0.8-1.5) mg/dl Est GFR ( Amer) Est GFR (Non-Af Amer) POC Glucose (mg/dL) 164 H 213 H (65-110) mg/dL Random Glucose (70-110) mg/dL Hemoglobin A1c (4.2-6.5) % Calcium (8.4-10.5) mg/dL Total Bilirubin (0.2-1.3) mg/dL Direct Bilirubin (0.0-0.4) mg/dL AST (17-59) U/L ALT (7-56) U/L Alkaline Phosphatase (38-126) U/L Total Protein (5.8-8.3) g/dL Albumin (3.0-4.8) g/dL Globulin gm/dL Albumin/Globulin Ratio (1.1-1.8) Stool Occult Blood Positive H (NEGATIVE) Ur L.pneumophila Ag (NEGATIVE) Blood Type Antibody Screen Crossmatch BBK History Checked 04/21/18 04/20/18 Range/Units 06:00 22:41 WBC (4.5-11.0) 10^3/ul RBC (3.5-6.1) 10^6/uL Hgb (14.0-18.0) g/dL Hct (42.0-52.0) % MCV (80.0-105.0) fl MCH (25.0-35.0) pg MCHC (31.0-37.0) g/dl RDW (11.5-14.5) % Plt Count (120.0-450.0) 10^3/uL MPV (7.0-11.0) fl Gran % (50.0-68.0) % Lymph % (Auto) (22.0-35.0) % [place] % (Auto) (1.0-6.0) % Eos % (Auto) (1.5-5.0) % Baso % (Auto) (0.0-3.0) % Gran # (1.4-6.5) Lymph # (Auto) (1.2-3.4) [place] # (Auto) (0.1-0.6) Eos # (Auto) (0.0-0.7) Baso # (Auto) (0.0-2.0) K/mm3 PT (9.4-12.5) SECONDS INR (0.93-1.08) APTT (25.1-36.5) Seconds Sodium (132-148) mmol/L Potassium (3.6-5.0) mmol/L Chloride (98-107) mmol/L Carbon Dioxide (21-33) mmol/L Anion Gap (10-20) BUN (7-21) mg/dL Creatinine (0.8-1.5) mg/dl Est GFR ( Amer) Est GFR (Non-Af Amer) POC Glucose (mg/dL) (65-110) mg/dL Random Glucose (70-110) mg/dL Hemoglobin A1c 7.9 H (4.2-6.5) % Calcium (8.4-10.5) mg/dL Total Bilirubin (0.2-1.3) mg/dL Direct Bilirubin (0.0-0.4) mg/dL AST (17-59) U/L ALT (7-56) U/L Alkaline Phosphatase (38-126) U/L Total Protein (5.8-8.3) g/dL Albumin (3.0-4.8) g/dL Globulin gm/dL Albumin/Globulin Ratio (1.1-1.8) Stool Occult Blood (NEGATIVE) Ur L.pneumophila Ag Negative (NEGATIVE) Blood Type Antibody Screen Crossmatch BBK History Checked Laboratory Results - last 24 hr 04/20/18 04/21/18 04/21/18 22:41 06:00 12:05 WBC RBC Hgb Hct MCV MCH MCHC RDW Plt Count MPV Gran % Lymph % (Auto) [place] % (Auto) Eos % (Auto) Baso % (Auto) Gran # Lymph # (Auto) [place] # (Auto) Eos # (Auto) Baso # (Auto) PT INR APTT Sodium Potassium Chloride Carbon Dioxide Anion Gap BUN Creatinine Est GFR ( Amer) Est GFR (Non-Af Amer) POC Glucose (mg/dL) 213 H Random Glucose Hemoglobin A1c 7.9 H Calcium Total Bilirubin Direct Bilirubin AST ALT Alkaline Phosphatase Total Protein Albumin Globulin Albumin/Globulin Ratio Stool Occult Blood Ur L.pneumophila Ag Negative Blood Type Antibody Screen Crossmatch BBK History Checked 04/21/18 04/21/18 04/21/18 14:52 15:15 16:56 WBC RBC Hgb Hct MCV MCH MCHC RDW Plt Count MPV Gran % Lymph % (Auto) [place] % (Auto) Eos % (Auto) Baso % (Auto) Gran # Lymph # (Auto) [place] # (Auto) Eos # (Auto) Baso # (Auto) PT INR APTT Sodium Potassium Chloride Carbon Dioxide Anion Gap BUN Creatinine Est GFR ( Amer) Est GFR (Non-Af Amer) POC Glucose (mg/dL) 164 H 144 H Random Glucose Hemoglobin A1c Calcium Total Bilirubin Direct Bilirubin AST ALT Alkaline Phosphatase Total Protein Albumin Globulin Albumin/Globulin Ratio Stool Occult Blood Positive H Ur L.pneumophila Ag Blood Type Antibody Screen Crossmatch BBK History Checked 04/21/18 04/21/18 04/21/18 17:42 17:50 17:50 WBC 36.6 H* RBC 3.75 Hgb 10.4 L Hct 32.0 L MCV 85.3 MCH 27.7 MCHC 32.5 RDW 15.7 H Plt Count 113 L MPV 10.3 Gran % 93.2 H Lymph % (Auto) 1.0 L [place] % (Auto) 5.8 Eos % (Auto) 0.0 L Baso % (Auto) 0.0 Gran # 34.09 H Lymph # (Auto) 0.4 L [place] # (Auto) 2.1 H Eos # (Auto) 0.0 Baso # (Auto) 0.01 PT 14.5 H INR 1.27 H APTT 46.0 H Sodium Potassium Chloride Carbon Dioxide Anion Gap BUN Creatinine Est GFR ( Amer) Est GFR (Non-Af Amer) POC Glucose (mg/dL) 148 H Random Glucose Hemoglobin A1c Calcium Total Bilirubin Direct Bilirubin AST ALT Alkaline Phosphatase Total Protein Albumin Globulin Albumin/Globulin Ratio Stool Occult Blood Ur L.pneumophila Ag Blood Type Antibody Screen Crossmatch BBK History Checked 04/21/18 04/21/18 04/21/18 20:12 20:55 20:55 WBC 35.8 H* RBC 3.75 Hgb 10.3 L Hct 32.1 L MCV 85.6 MCH 27.5 MCHC 32.1 RDW 15.8 H Plt Count 117 L MPV 11.0 Gran % Lymph % (Auto) [place] % (Auto) 5.1 Eos % (Auto) 0.0 L Baso % (Auto) 0.1 Gran # Lymph # (Auto) [place] # (Auto) 1.8 H Eos # (Auto) 0.0 Baso # (Auto) 0.02 PT INR APTT Sodium Potassium Chloride Carbon Dioxide Anion Gap BUN Creatinine Est GFR ( Amer) Est GFR (Non-Af Amer) POC Glucose (mg/dL) 208 H Random Glucose Hemoglobin A1c Calcium Total Bilirubin Direct Bilirubin AST ALT Alkaline Phosphatase Total Protein Albumin Globulin Albumin/Globulin Ratio Stool Occult Blood Ur L.pneumophila Ag Blood Type AB POSITIVE Antibody Screen Negative Crossmatch See Detail BBK History Checked Patient has bt 04/21/18 04/22/18 04/22/18 21:55 00:05 02:04 WBC RBC Hgb Hct MCV MCH MCHC RDW Plt Count MPV Gran % Lymph % (Auto) [place] % (Auto) Eos % (Auto) Baso % (Auto) Gran # Lymph # (Auto) [place] # (Auto) Eos # (Auto) Baso # (Auto) PT INR APTT Sodium Potassium Chloride Carbon Dioxide Anion Gap BUN Creatinine Est GFR ( Amer) Est GFR (Non-Af Amer) POC Glucose (mg/dL) 172 H 142 H 183 H Random Glucose Hemoglobin A1c Calcium Total Bilirubin Direct Bilirubin AST ALT Alkaline Phosphatase Total Protein Albumin Globulin Albumin/Globulin Ratio Stool Occult Blood Ur L.pneumophila Ag Blood Type Antibody Screen Crossmatch BBK History Checked 04/22/18 04/22/18 04/22/18 04:08 06:10 06:10 WBC 35.5 H* RBC 3.72 Hgb 10.3 L Hct 31.9 L MCV 85.8 MCH 27.7 MCHC 32.3 RDW 15.9 H Plt Count 94 L MPV 10.2 Gran % 94.7 H Lymph % (Auto) 1.2 L [place] % (Auto) 4.1 Eos % (Auto) 0.0 L Baso % (Auto) 0.0 Gran # 33.57 H Lymph # (Auto) 0.4 L [place] # (Auto) 1.5 H Eos # (Auto) 0.0 Baso # (Auto) 0.01 PT INR APTT Sodium 142 Potassium 4.7 Chloride 114 H Carbon Dioxide 16 L Anion Gap 17 BUN 73 H Creatinine 4.2 H Est GFR ( Amer) 17 Est GFR (Non-Af Amer) 14 POC Glucose (mg/dL) 146 H Random Glucose 146 H Hemoglobin A1c Calcium 8.8 Total Bilirubin Direct Bilirubin AST ALT Alkaline Phosphatase Total Protein Albumin Globulin Albumin/Globulin Ratio Stool Occult Blood Ur L.pneumophila Ag Blood Type Antibody Screen Crossmatch BBK History Checked 04/22/18 04/22/18 06:29 07:32 WBC RBC Hgb Hct MCV MCH MCHC RDW Plt Count MPV Gran % Lymph % (Auto) [place] % (Auto) Eos % (Auto) Baso % (Auto) Gran # Lymph # (Auto) [place] # (Auto) Eos # (Auto) Baso # (Auto) PT INR APTT Sodium Potassium Chloride Carbon Dioxide Anion Gap BUN Creatinine Est GFR ( Amer) Est GFR (Non-Af Amer) POC Glucose (mg/dL) 149 H Random Glucose Hemoglobin A1c Calcium Total Bilirubin 0.3 Direct Bilirubin 0.3 AST 38 ALT 44 Alkaline Phosphatase 105 Total Protein 4.7 L Albumin 2.2 L Globulin 2.6 Albumin/Globulin Ratio 0.8 L Stool Occult Blood Ur L.pneumophila Ag Blood Type Antibody Screen Crossmatch BBK History Checked Assessment/Plan - Assessment and Plan (Free Text) Assessment: Patient seen and examined on rounds with resident, agree with note with following additions/exceptions: Patient is 77yo male with PMHx of CVA/TIA, a/w multi organ failure, septic shock 2/2 UTI, possible cholecystitis, OFF ALL vasopressor support. Patient is currently afebrile, BP stable, HH stable. Blood cultures positive for gram neg rods, on Merrem Surgery following, no acute intervention at this time. Pt denies abd pain, N/V. Troponin uptrending, cardiology following Patient had flex sig done this morning with GI Septic Shock, resolved Bacteremia UTI r/o Cholecystitis Elevated Troponin Multi Organ Failure Renal failure Dehydration r/o ischemic colitis Recommend: - cont with supp o2 as needed, duonebs PRN - Cont with broad spectrum abx, Merrem, Vanco renally dosed - IVF - follow up surgery - follow up GI, IR - taper stress dose steroids - follow up ECHO, cardiology - FS control - NPO - GI ppx - DVT ppx - monitor in MICU critical care time 35 minutes
--- NOTE | 2018-04-22 11:59 | CP.PCM.PN ---
Subjective - Date & Time of Evaluation Date of Evaluation: 04/22/18 Time of Evaluation: 09:05 - Subjective Subjective: Patient is somewhat lethargic but easily arousable, no fevers, still ill- appearing. Objective - Vital Signs/Intake and Output Vital Signs (last 24 hours): Temp Pulse Resp BP Pulse Ox 98.8 F 115 H 17 130/70 94 L 04/22/18 04:00 04/22/18 06:30 04/22/18 06:30 04/22/18 06:30 04/22/18 06:30 Intake and Output: 04/21/18 04/22/18 18:59 06:59 Intake Total 2706.5 Output Total 200 Balance 2506.5 - Medications Medications: Current Medications Hydrocortisone Sodium Succinate (Solu-Cortef) 50 mg IVP Q6H BONNIE Last Admin: 04/22/18 02:31 Dose: 50 mg Vasopressin 20 units/ Sodium (Chloride) 101 mls @ 9.09 mls/hr IV .[id number] BONNIE; 0.03 U/MIN PRN Reason: Protocol Last Admin: 04/21/18 14:45 Dose: 9.09 mls/hr Meropenem 500 mg/ Sodium (Chloride) 50 mls @ 100 mls/hr IVPB Q12 BONNIE PRN Reason: Protocol Stop: 04/27/18 22:01 Last Admin: 04/21/18 21:26 Dose: 100 mls/hr Milrinone Lactate/Dextrose (Primacor 20mg/100ml D5w) 100 mls @ 5.971 mls/hr IV .[id number] PRN; Protocol; 0.28 MCG/KG/MIN PRN Reason: TITRATE PER MD ORDER Last Admin: 04/21/18 06:04 Dose: 0.28 mcg/kg/min, 5.971 mls/hr Norepinephrine Bitartrate 8 mg (/ Sodium Chloride) 508 mls @ 19.05 mls/hr IV .Q24H PRN; Protocol; 5 MCG/MIN PRN Reason: TITRATE PER MD ORDER Last Titration: 04/21/18 17:39 Dose: 3 mcg/min, 11.43 mls/hr Potassium Chloride 40 meq/ (Sodium Chloride) 1,020 mls @ 150 mls/hr IV .[id number] BONNIE PRN Reason: Protocol Last Admin: 04/21/18 18:43 Dose: 150 mls/hr Metoprolol Tartrate (Lopressor) 25 mg PO BID [facility] Last Admin: 04/21/18 17:50 Dose: Not Given Pantoprazole Sodium (Protonix Inj) 40 mg IVP DAILY [facility] Last Admin: 04/21/18 10:46 Dose: 40 mg - Labs Labs: 04/21/18 20:55 04/21/18 06:00 PT 14.5 SECONDS (9.4-12.5) H 04/21/18 17:50 INR 1.27 (0.93-1.08) H 04/21/18 17:50 APTT 46.0 Seconds (25.1-36.5) H 04/21/18 17:50 - Constitutional Appears: Chronically Ill - Head Exam Head Exam: NORMAL INSPECTION - ENT Exam ENT Exam: Mucous Membranes Moist - Neck Exam Neck Exam: absent: Meningismus - Respiratory Exam Respiratory Exam: Decreased Breath Sounds - Cardiovascular Exam Cardiovascular Exam: +S1, +S2 - GI/Abdominal Exam GI & Abdominal Exam: Soft. absent: Tenderness Assessment and Plan - Assessment and Plan (Free Text) Plan: Assessment septic shock with acute on chronic renal failure due to gram negative bacilli bacteremia probable from acute cholecystitis / biliary tract infection, R/O UTI history of urinary tract infection in this patient with multiple non- obstructing renal calculi history of hypoglycemic episode with encephalopathy HTN DM atrial fibrillation on anticoagulation CVA S/P left hip and back surgery Plan continue Merrem and gave a dose of IV Amikacin, Daptomycin pending identification and sensitivities of the gram negative bacilli in the blood; follow up plans by Surgery service for the gallbladder there are bacteria in the urine and will continue Merrem and give another dose of IV Vancomycin will continue to monitor clinically overall prognosis is guarded at best
[2018-04-22 12:44] LABS: BASO # 0.01 K/mm3 (0.0-2.0); GRAN # 33.94 (1.4-6.5); GRAN % 94.3 % (50.0-68.0); HEMOGLOBIN 10.3 g/dL (14.0-18.0); LYMPH # 0.4 (1.2-3.4); LYMPH % 1.2 % (22.0-35.0); MEAN CELL VOLUME 85.9 fl (80.0-105.0); MEAN CORPUSCULAR HEMOGLOBIN 27.5 pg (25.0-35.0); MONO # 1.6 (0.1-0.6); MONO % 4.5 % (1.0-6.0); PLATELET COUNT 86 10^3/uL (120.0-450.0); RBC 3.75 10^6/uL (3.5-6.1)
--- NOTE | 2018-04-22 15:12 | PN ---
DATE: 04/22/2018 REASON FOR CONSULTATION AND FOLLOWUP: Paroxysmal atrial fibrillation, admitted with diarrhea, sepsis, possible septic shock, borderline troponin positive, acute kidney injury. Last night, the patient had a GI bleed. SUBJECTIVE: The patient lying flat on the bed. Denies any chest pain, shortness of breath, or any palpitations. The patient not in apparent distress, as mentioned had bright red blood per rectum x3. The patient was on heparin. PHYSICAL EXAMINATION: VITAL SIGNS: Temperature afebrile, heart rate 113, atrial fibrillation, blood pressure 111/82. HEENT: PERRLA. Extraocular muscles intact. NECK: Supple. No carotid bruit or thyromegaly. CHEST: Clear to auscultation. HEART: S1, S2 regular. ABDOMEN: Soft. EXTREMITIES: Clubbing and cyanosis negative. LABORATORY DATA: Blood workup as follows: WBC 35.5, hemoglobin 10.3, hematocrit 31.9, platelet count 94. Chemistry shows sodium 140, potassium 4.3, chloride 114, carbon dioxide 16, anion gap of 17, BUN 73, creatinine is 4.2. IMPRESSION: Acute kidney injury, troponin positive, non-ST segment myocardial infarction, acute kidney injury, anemia, gastrointestinal bleed, paroxysmal atrial fibrillation, creatinine clearance 15 mL, stage V chronic kidney disease. Last night, there was bright red blood per rectum; history of paroxysmal atrial fibrillation; septic shock; hemodynamic instability, on vasopressors and Levophed; history of cerebrovascular accident; history of atrial fibrillation, was on Xarelto at home. RECOMMENDATIONS: Off Xarelto, discontinue heparin, then continue vasopressors as blood pressure is tolerated, avoid heparin and all kind of anticoagulation because of GI bleed. The patient had echocardiography done on 04/20/2018 that showed a normal LV size, concentric LV ejection fraction 30 to 35%, trace aortic regurgitation, [id number] mitral regurgitation and [id number] tricuspid regurgitation, RV systolic pressure 51, mild pulmonary hypertension, cardiomyopathy, moderate tricuspid regurgitation. Definitely off anticoagulation, continue vasopressors, continue broad-spectrum antibiotics. Overall, the patient's condition is critical, long-term prognosis is extremely poor. Code status DNR. In the interim, continue metoprolol to try to prevent heart rate going faster. Continue IV fluids, monitor H and H and the patient has been immunocompromised because of steroid at home. We will follow with you. Thank you, Dr. Crump, for providing us the opportunity in taking care of the patient, Yaakov Cox. Charo Coto MD
[2018-04-22] MEDS: Meropenem 500 MG in Sodium Chloride 0.9% 50 ML IVPB SCH ×2 (15:54→22:05)
[2018-04-22] MEDS ORDERED: Morphine 2 mg/ml ISec IVP PRN (17:35)
[2018-04-22] MEDS ORDERED: Dextrose 50% SYRINGE Inj (50 ml) IVP ONE (22:39)
[2018-04-23 06:35] LABS: BASO # 0.03 K/mm3 (0.0-2.0); BASO % 0.1 % (0.0-3.0); HEMOGLOBIN 11.9 g/dL (14.0-18.0); MEAN CELL VOLUME 85.8 fl (80.0-105.0); MEAN CORPUSCULAR HEMOGLOBIN 27.7 pg (25.0-35.0); MEAN CORPUSCULAR HGB CONC 32.2 g/dl (31.0-37.0); MONO # 1.4 (0.1-0.6); MONO % 3.1 % (1.0-6.0); PLATELET COUNT 92 10^3/uL (120.0-450.0); RED CELL DISTRIBUTION WIDTH 16.2 % (11.5-14.5)
[2018-04-23 06:59] LABS: WHITE BLOOD COUNT 44.2 10^3/ul (4.5-11.0)
[2018-04-23 07:10] LABS: CALCIUM 9.4 mg/dL (8.4-10.5)
--- NOTE | 2018-04-23 07:11 | CP.PCM.PN ---
<Jose Bustamante - Last Filed: 04/23/18 10:31> Subjective - Date & Time of Evaluation Date of Evaluation: 04/23/18 Time of Evaluation: 07:07 - Subjective Subjective: PGY5 GI Fellow Progress Note Patient seen and examined bedside this morning. The patient now complains of right sided abdominal pain when prompted. Had significant agitation last night and confusion requiring Haldol administration. Per , patient suffers with sundowning at home. Continues to pass mucoid/liquid stool tinged with blood. 12 system ROS limited given dementia. Objective - Vital Signs/Intake and Output Vital Signs (last 24 hours): Temp Pulse Resp BP Pulse Ox 97.8 F 123 H 17 165/83 H 100 04/23/18 04:00 04/22/18 17:30 04/22/18 17:30 04/22/18 17:30 04/22/18 17:30 Intake and Output: 04/23/18 04/23/18 06:59 18:59 Intake Total 2000 Output Total 100 Balance 1900 - Medications Medications: Current Medications Famotidine (Pepcid) 10 mg IVP BID [facility] Last Admin: 04/22/18 18:59 Dose: 10 mg Hydrocortisone Sodium Succinate (Solu-Cortef) 50 mg IVP Q12H [facility] Last Admin: 04/22/18 22:09 Dose: 50 mg Meropenem 500 mg/ Sodium (Chloride) 50 mls @ 100 mls/hr IVPB Q12 [facility] PRN Reason: Protocol Stop: 04/27/18 22:01 Last Admin: 04/22/18 22:05 Dose: 100 mls/hr Potassium Chloride 40 meq/ (Sodium Chloride) 1,020 mls @ 150 mls/hr IV .Q6H48M [facility] PRN Reason: Protocol Last Admin: 04/23/18 05:00 Dose: 150 mls/hr Metoprolol Tartrate (Lopressor) 25 mg PO BID [facility] Last Admin: 04/22/18 12:13 Dose: Not Given - Labs Labs: 04/23/18 06:15 04/22/18 06:10 PT 14.5 SECONDS (9.4-12.5) H 04/21/18 17:50 INR 1.27 (0.93-1.08) H 04/21/18 17:50 APTT 46.0 Seconds (25.1-36.5) H 04/21/18 17:50 - Constitutional Appears: No Acute Distress, Chronically Ill - Eye Exam Eye Exam: EOMI, PERRL - ENT Exam ENT Exam: Mucous Membranes Dry - Respiratory Exam Respiratory Exam: Clear to Ausculation Bilateral. absent: Rales, Rhonchi, Wheezes - Cardiovascular Exam Cardiovascular Exam: Tachycardia, REGULAR RHYTHM, +S1, +S2 - GI/Abdominal Exam GI & Abdominal Exam: Distended, Soft, Tenderness (right sided), Hypoactive Bowel Sounds. absent: Firm, Guarding, Rigid, Organomegaly - Extremities Exam Additional comments: B/L LE edema - Neurological Exam Neurological Exam: Altered, Awake - Psychiatric Exam Psychiatric exam: Normal Affect, Normal Mood - Skin Skin Exam: Dry, Warm Assessment and Plan - Assessment and Plan (Free Text) Assessment: Patient is a 77yo male with PMHx significant for atrial fibrillation on Xarelto , 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, dementia, nephrolithiasis, diabetes and HTN who presented to the ED for altered mentation -Septic shock with GNR in blood/urine - suspect source 2/2 isolated right sided ischemic colitis (IRIC) given endoscopic findings -Hematochezia 2/2 IRIC -UTI, bacteremia -WINDY R/O acute renal failure -Elevated troponin R/O ACS -High anion gap metabolic acidosis 2/2 above -Systolic CHF with EF 30-35% -Dementia -H/O paroxysmal atrial fibrillation and CVA/TIA Plan: -Endoscopic findings highly suspicious for isolated right sided ischemic colitis , R/O malignancy - biopsies taken, pending -Do not suspect gallbladder as source of sepsis and would not place PTC at this time -Recommend surgical re-evaluation given findings - appreciate input -Agree with continued broad spectrum antibiotics - Merem; ID following -Adequate IVF as tolerated in setting of CHF/severe CKD -Clarifications on goals of care <Billy Power - Last Filed: 04/23/18 11:28> Objective - Vital Signs/Intake and Output Vital Signs (last 24 hours): Temp Pulse Resp BP Pulse Ox 97.8 F 118 H 13 156/86 H 93 L 04/23/18 04:00 04/23/18 07:50 04/23/18 07:50 04/23/18 07:50 04/23/18 07:50 Intake and Output: 04/23/18 04/23/18 06:59 18:59 Intake Total 2000 Output Total 100 Balance 1900 - Medications Medications: Current Medications Famotidine (Pepcid) 10 mg IVP BID [facility] Last Admin: 04/23/18 09:00 Dose: 10 mg Hydrocortisone Sodium Succinate (Solu-Cortef) 50 mg IVP Q12H [facility] Last Admin: 04/23/18 09:00 Dose: 50 mg Meropenem 500 mg/ Sodium (Chloride) 50 mls @ 100 mls/hr IVPB Q12 [facility] PRN Reason: Protocol Stop: 04/27/18 22:01 Last Admin: 04/23/18 09:17 Dose: 100 mls/hr Sodium Chloride (Sodium Chloride 0.9%) 1,000 mls @ 150 mls/hr IV .Q6H40M [facility] Last Admin: 04/23/18 07:45 Dose: 150 mls/hr Metoprolol Tartrate (Lopressor) 25 mg PO BID [facility] Last Admin: 04/22/18 12:13 Dose: Not Given Metoprolol Tartrate (Lopressor) 5 mg IVP Q6H [facility] Last Admin: 04/23/18 07:50 Dose: 5 mg - Labs Labs: 04/23/18 06:30 04/23/18 06:15 PT 14.5 SECONDS (9.4-12.5) H 04/21/18 17:50 INR 1.27 (0.93-1.08) H 04/21/18 17:50 APTT 46.0 Seconds (25.1-36.5) H 04/21/18 17:50 Attending/Attestation - Attestation I have personally seen and examined this patient.: Yes I have fully participated in the care of the patient.: Yes I have reviewed all pertinent clinical information, including history, physical exam and plan: Yes Notes (Text): 04/23/18 11:25 I have seen and examined patient with GI fellow. No acute events overnight, he remains in intensive care unit under observation. He continues to endorse right sided abdominal pain and is having scant mucoid/bloody discharge per rectum. There is no reported nausea, vomiting. Atrial fibrillation on xarelto TIA/CVA Dementia DM / HTN Septic shock, bacteremia s/p colonoscopy yesterday showing isolated right sided ischemic colitis UTI Renal insufficiency - Recommend clear liquid diet as tolerated - Continue with broad spectrum antibiotic therapy - Follow up colonoscopy biopsy results - Follow up surgical recommendations for consideration of potential intervention given clinical scenario - No further planned GI intervention, will sign off case. Please reconsult as necessary, thank you.
[2018-04-23] MEDS ORDERED: Sodium Chloride 0.9% 1,000 ML IV SCH ×5 (07:45→14:19)
[2018-04-23] MEDS ORDERED: Metoprolol 1 mg/ml Inj IVP SCH (07:45)
[2018-04-23] MEDS ORDERED: Sod Polystyrene Sulf 15 gm/60 ml Susp PO ONE (08:18)
--- NOTE | 2018-04-23 08:20 | CP.PCM.CON ---
Past Patient History - Infectious Disease Hx of Infectious Diseases: None - Tetanus Immunizations Tetanus Immunization: Up to Date - Past Medical History & Family History Past Medical History?: Yes - Past Social History Smoking Status: Former Smoker - CARDIAC Hx Atrial Fibrillation: Yes Hx Hypotension: Yes Hx Pacemaker: No - PULMONARY Hx Respiratory Disorders: Yes Hx Pneumonia: Yes - NEUROLOGICAL Hx Dementia: Yes Hx Paralysis: No - HEENT Hx HEENT Problems: No - RENAL Hx Kidney Stones: Yes Hx Renal Failure: Yes Other/Comment: kidney stents 12/01/17. lithotripsy on 12/16/17 - ENDOCRINE/METABOLIC Hx Endocrine Disorders: Yes Hx Diabetes Mellitus Type 2: Yes - HEMATOLOGICAL/ONCOLOGICAL Hx Blood Transfusions: Yes Hx Blood Transfusion Reaction: No - INTEGUMENTARY Hx Dermatological Problems: Yes Other/Comment: b/l skin discolorations both arms/ flakey dry skin to feet and thick hard toenails, left buttock stage 1 opening buttocks rred, bandaid on left pinky toe for protection - MUSCULOSKELETAL/RHEUMATOLOGICAL Hx Musculoskeletal Disorders: Yes - GASTROINTESTINAL Hx Gastrointestinal Disorders: No - GENITOURINARY/GYNECOLOGICAL Hx Genitourinary Disorders: Yes Hx Hematuria: Yes Hx Incontinence: Yes (urine and stool) Hx Prostate Problems: Yes (bph) Hx Urinary Tract Infection: Yes - PSYCHIATRIC Hx Emotional Abuse: No Hx Physical Abuse: No Hx Substance Use: No - SURGICAL HISTORY Hx Surgeries: Yes - ANESTHESIA Hx Anesthesia Reactions: No Hx Malignant Hyperthermia: No Meds Allergies/Adverse Reactions: Allergies Allergy/AdvReac Type Severity Reaction Status Date / Time morphine Allergy Intermediate DIZZINESS Verified 12/20/17 12:34 - Medications Medications: Current Medications Famotidine (Pepcid) 10 mg IVP BID [facility] Last Admin: 04/22/18 18:59 Dose: 10 mg Hydrocortisone Sodium Succinate (Solu-Cortef) 50 mg IVP Q12H [facility] Last Admin: 04/22/18 22:09 Dose: 50 mg Meropenem 500 mg/ Sodium (Chloride) 50 mls @ 100 mls/hr IVPB Q12 [facility] PRN Reason: Protocol Stop: 04/27/18 22:01 Last Admin: 04/22/18 22:05 Dose: 100 mls/hr Sodium Chloride (Sodium Chloride 0.9%) 1,000 mls @ 150 mls/hr IV .Q6H40M [facility] Last Admin: 04/23/18 07:45 Dose: 150 mls/hr Metoprolol Tartrate (Lopressor) 25 mg PO BID [facility] Last Admin: 04/22/18 12:13 Dose: Not Given Metoprolol Tartrate (Lopressor) 5 mg IVP Q6H [facility] Last Admin: 04/23/18 07:50 Dose: 5 mg Results - Vital Signs Recent Vital Signs: Last Vital Signs Temp 97.8 F 04/23/18 04:00 Pulse 118 H 04/23/18 07:50 Resp 13 04/23/18 07:50 BP 156/86 H 04/23/18 07:50 Pulse Ox 93 L 04/23/18 07:50 - Labs Result Diagrams: 04/23/18 06:15 04/23/18 06:15 Labs: Laboratory Results - last 24 hr 04/22/18 04/22/18 04/23/18 12:20 22:32 02:29 WBC 36.0 H* RBC 3.75 Hgb 10.3 L Hct 32.2 L MCV 85.9 MCH 27.5 MCHC 32.0 RDW 16.0 H Plt Count 86 L MPV Gran % 94.3 H Lymph % (Auto) 1.2 L Waller % (Auto) 4.5 Eos % (Auto) 0.0 L Baso % (Auto) 0.0 Gran # 33.94 H Lymph # (Auto) 0.4 L Waller # (Auto) 1.6 H Eos # (Auto) 0.0 Baso # (Auto) 0.01 Sodium Potassium Chloride Carbon Dioxide Anion Gap BUN Creatinine Est GFR ( Amer) Est GFR (Non-Af Amer) POC Glucose (mg/dL) 57 L 80 Random Glucose Calcium 04/23/18 04/23/18 04/23/18 06:15 06:15 06:40 WBC 44.2 H* D RBC 4.30 Hgb 11.9 L Hct 36.9 L MCV 85.8 MCH 27.7 MCHC 32.2 RDW 16.2 H Plt Count 92 L MPV 11.0 Gran % Lymph % (Auto) Waller % (Auto) 3.1 Eos % (Auto) 0.0 L Baso % (Auto) 0.1 Gran # Lymph # (Auto) Waller # (Auto) 1.4 H Eos # (Auto) 0.0 Baso # (Auto) 0.03 Sodium 148 Potassium 5.7 H* D Chloride 121 H Carbon Dioxide 15 L Anion Gap 18 BUN 77 H Creatinine 4.5 H Est GFR ( Amer) 15 Est GFR (Non-Af Amer) 13 POC Glucose (mg/dL) 75 Random Glucose 79 Calcium 9.4
[2018-04-23] MEDS ORDERED: Dextrose 50% SYRINGE Inj (50 ml) IV ONE (08:45)
[2018-04-23] MEDS ORDERED: Insulin Regular 1 UNITS/0.01 ML ML SC ONE (08:45)
--- NOTE | 2018-04-23 08:47 | CP.PCM.PN ---
Subjective - Date & Time of Evaluation Date of Evaluation: 04/23/18 Time of Evaluation: 07:00 - Subjective Subjective: Patient seen and examined at the bedside this AM. Patient had some hallucinations overnight and haldol was administered. Patient underwent endoscopy yesterday which revealed severe ulceration of the ascending colon near the hepatic flexure concerning for ischemic colitis and a 5mm polyp in the sigmoid colon was discovered. Per nursing patient was complaining of abdominal pain yesterday but Patient denies any abdominal pain, nausea, or vomiting at this time Objective - Vital Signs/Intake and Output Vital Signs (last 24 hours): Temp Pulse Resp BP Pulse Ox 97.8 F 118 H 13 156/86 H 93 L 04/23/18 04:00 04/23/18 07:50 04/23/18 07:50 04/23/18 07:50 04/23/18 07:50 Intake and Output: 04/23/18 04/23/18 06:59 18:59 Intake Total 2000 Output Total 100 Balance 1900 - Medications Medications: Current Medications Dextrose (Dextrose 50% Inj) 50 ml IV ONCE ONE Stop: 04/23/18 08:46 Famotidine (Pepcid) 10 mg IVP BID [facility] Last Admin: 04/22/18 18:59 Dose: 10 mg Hydrocortisone Sodium Succinate (Solu-Cortef) 50 mg IVP Q12H [facility] Last Admin: 04/22/18 22:09 Dose: 50 mg Meropenem 500 mg/ Sodium (Chloride) 50 mls @ 100 mls/hr IVPB Q12 [facility] PRN Reason: Protocol Stop: 04/27/18 22:01 Last Admin: 04/22/18 22:05 Dose: 100 mls/hr Sodium Chloride (Sodium Chloride 0.9%) 1,000 mls @ 150 mls/hr IV .Q6H40M [facility] Last Admin: 04/23/18 07:45 Dose: 150 mls/hr Insulin Human Regular (Humulin R) 10 units SC ONCE ONE Stop: 04/23/18 08:46 Metoprolol Tartrate (Lopressor) 25 mg PO BID [facility] Last Admin: 04/22/18 12:13 Dose: Not Given Metoprolol Tartrate (Lopressor) 5 mg IVP Q6H [facility] Last Admin: 04/23/18 07:50 Dose: 5 mg - Labs Labs: 04/23/18 06:15 04/23/18 06:15 PT 14.5 SECONDS (9.4-12.5) H 04/21/18 17:50 INR 1.27 (0.93-1.08) H 04/21/18 17:50 APTT 46.0 Seconds (25.1-36.5) H 04/21/18 17:50 - Constitutional Appears: Well, Non-toxic, No Acute Distress - Head Exam Head Exam: ATRAUMATIC, NORMOCEPHALIC - Eye Exam Eye Exam: Normal appearance. absent: Conjunctival injection, Scleral icterus - ENT Exam ENT Exam: Mucous Membranes Moist, Normal Oropharynx - Respiratory Exam Respiratory Exam: NORMAL BREATHING PATTERN. absent: Accessory Muscle Use, Respiratory Distress - Cardiovascular Exam Cardiovascular Exam: RRR - GI/Abdominal Exam GI & Abdominal Exam: Soft. absent: Distended, Tenderness - Extremities Exam Extremities Exam: absent: Calf Tenderness, Tenderness - Neurological Exam Neurological Exam: Alert, Altered, Awake - Psychiatric Exam Psychiatric exam: Normal Affect, Normal Mood - Skin Skin Exam: Dry, Intact, Normal Color, Warm Assessment and Plan - Assessment and Plan (Free Text) Assessment: 77M with septic shock now improving, UTI with WINDY, possible acalculus cholecystitis, and concern for right sided ischemic colitis Plan: Continue to trend CBC--Hgb stable at this time. WBC increasing but patient on steroid No surgical intervention indicated at this time--Patient not a good candidate, recommend conservative management with IV hydration as tolerated in the face of CHF and antibiotics. May consider an abdominal angiography if patient is hemodynamically stable and patient does not clinically improve except that pateint has WINDY with poor renal function. Will continue to re-evaluate Continue antibiotics per ID Management per ICU team and primary team Discussed with Dr. Haider Fraser, Pgy2
[2018-04-23] MEDS: Meropenem 500 MG in Sodium Chloride 0.9% 50 ML IVPB SCH ×2 (09:17→22:09)
--- NOTE | 2018-04-23 09:19 | CP.CCUPN ---
<CherryTaj Buckley - Last Filed: 04/23/18 10:06> CCU Subjective - Physician Review Events Since Last Encounter (Free Text): 04/23/18 08:30A Patient seen and examined at bedside, patient has been tachycardic overnight; it should be noted that patient has a history of A-Fib. Patient was hyperkalemic, insulin and dextrose were given. Patient does state that he has been having mild pain, which is a positive change from before when he was not feeling pain even with painful procedures like the central line placement. CCU Objective - Vital Signs / Intake & Output Vital Signs (Last 4 hours): Vital Signs Pulse Resp BP Pulse Ox 04/23/18 07:50 113 H 13 156/86 H 93 L 04/23/18 07:40 119 H 38 H 93 L 04/23/18 07:30 124 H 38 H 92 L 04/23/18 07:20 121 H 35 H 94 L 04/23/18 07:10 120 H 27 H 88 L 04/23/18 07:00 114 H 19 156/86 H 93 L 04/23/18 06:50 114 H 18 94 L 04/23/18 06:40 118 H 23 95 04/23/18 06:30 117 H 21 98 04/23/18 06:20 115 H 21 97 04/23/18 06:10 121 H 33 H 95 04/23/18 06:00 165/102 H 92 L 04/23/18 05:50 117 H 17 97 04/23/18 05:40 113 H 17 98 04/23/18 05:30 107 H 18 97 04/23/18 05:20 130 H 18 98 Intake and Output (Last 8hrs): Intake & Output 04/22/18 04/23/18 04/23/18 22:59 06:59 14:59 Intake Total 555 2000 Output Total 200 100 Balance 355 1900 Intake: IV 555 2000 NS KCL 40 meq 1800 antibiotics 550 200 vasopressin 5 Oral 0 Output: Urine 100 Urethral (Charles) 100 Stool 100 Urine/Stool Mix 100 - Physical Exam Head: Positive for: Atraumatic, Normocephalic Pupils: Positive for: PERRL Extroacular Muscles: Positive for: EOMI Conjunctiva: Positive for: Normal Mouth: Positive for: Dry Neck: Positive for: Normal Range of Motion Respiratory/Chest: Positive for: Clear to Auscultation. Negative for: Respiratory Distress, Wheezes, Rales, Rhonchi Cardiovascular: Positive for: Regular Rate and Rhythm, Normal S1, S2. Negative for: Murmurs, Rub, Gallop Abdomen: Negative for: Tenderness, Distention, Rebound, Guarding Upper Extremity: Positive for: Normal Inspection. Negative for: Cyanosis, Edema Lower Extremity: Positive for: Normal Inspection. Negative for: Edema Neurological: Negative for: Motor Func Grossly Intact (Toddler Caregiver strength R 4/5, L 3/ 5, LE strength R 3/5, L 2/5), Memory Normal Skin: Positive for: Warm, Dry, Normal Color. Negative for: Rashes Psychiatric: Positive for: Alert. Negative for: Oriented x 3 (oriented only to self) - Medications Active Medications: Active Medications Generic Name Dose Route Start Last Admin Trade Name Freq PRN Reason Stop Dose Admin Famotidine 10 mg 04/22/18 18:00 04/22/18 18:59 Pepcid IVP 10 mg BID BONNIE Administration Hydrocortisone Sodium Succinate 50 mg 04/22/18 10:15 04/22/18 22:09 Solu-Cortef IVP 50 mg Q12H BONNIE Administration Meropenem 500 mg/ Sodium 50 mls @ 100 mls/hr 04/20/18 22:00 04/22/18 22:05 Chloride IVPB 04/27/18 22:01 100 mls/hr Q12 BONNIE Administration Protocol Sodium Chloride 1,000 mls @ 150 mls/hr 04/23/18 07:45 04/23/18 07:45 Sodium Chloride 0.9% IV 150 mls/hr .Q6H40M BONNIE Administration Metoprolol Tartrate 25 mg 04/20/18 18:00 04/22/18 12:13 Lopressor PO Not Given BID BONNIE Metoprolol Tartrate 5 mg 04/23/18 07:45 04/23/18 07:50 Lopressor IVP 5 mg Q6H BONNIE Administration - Patient Studies Lab Studies: Microbiology Studies 04/22/18 07:00 Blood Culture - Preliminary Blood NO GROWTH AFTER 24 HOURS 04/22/18 07:15 Blood Culture - Preliminary Blood NO GROWTH AFTER 24 HOURS 04/20/18 12:50 MRSA Culture (Admit) - Final Naris MRSA NOT DETECTED 06/12/18 11:35 Urine Culture - Final Urine Enterobacter Aerogenes Enterococcus Faecalis Lab Studies 04/23/18 04/23/18 04/23/18 Range/Units 06:40 06:15 06:15 WBC 44.2 H* D (4.5-11.0) 10^3/ul RBC 4.30 (3.5-6.1) 10^6/uL Hgb 11.9 L (14.0-18.0) g/dL Hct 36.9 L (42.0-52.0) % MCV 85.8 (80.0-105.0) fl MCH 27.7 (25.0-35.0) pg MCHC 32.2 (31.0-37.0) g/dl RDW 16.2 H (11.5-14.5) % Plt Count 92 L (120.0-450.0) 10^3/uL MPV 11.0 (7.0-11.0) fl Gran % (50.0-68.0) % Lymph % (Auto) (22.0-35.0) % [place] % (Auto) 3.1 (1.0-6.0) % Eos % (Auto) 0.0 L (1.5-5.0) % Baso % (Auto) 0.1 (0.0-3.0) % Gran # (1.4-6.5) Lymph # (Auto) (1.2-3.4) [place] # (Auto) 1.4 H (0.1-0.6) Eos # (Auto) 0.0 (0.0-0.7) Baso # (Auto) 0.03 (0.0-2.0) K/mm3 Sodium 148 (132-148) mmol/L Potassium 5.7 H* D (3.6-5.0) mmol/L Chloride 121 H (98-107) mmol/L Carbon Dioxide 15 L (21-33) mmol/L Anion Gap 18 (10-20) BUN 77 H (7-21) mg/dL Creatinine 4.5 H (0.8-1.5) mg/dl Est GFR ( Amer) 15 Est GFR (Non-Af Amer) 13 POC Glucose (mg/dL) 75 (65-110) mg/dL Random Glucose 79 (70-110) mg/dL Calcium 9.4 (8.4-10.5) mg/dL 04/23/18 04/22/18 04/22/18 Range/Units 02:29 22:32 12:20 WBC 36.0 H* (4.5-11.0) 10^3/ul RBC 3.75 (3.5-6.1) 10^6/uL Hgb 10.3 L (14.0-18.0) g/dL Hct 32.2 L (42.0-52.0) % MCV 85.9 (80.0-105.0) fl MCH 27.5 (25.0-35.0) pg MCHC 32.0 (31.0-37.0) g/dl RDW 16.0 H (11.5-14.5) % Plt Count 86 L (120.0-450.0) 10^3/uL MPV (7.0-11.0) fl Gran % 94.3 H (50.0-68.0) % Lymph % (Auto) 1.2 L (22.0-35.0) % [place] % (Auto) 4.5 (1.0-6.0) % Eos % (Auto) 0.0 L (1.5-5.0) % Baso % (Auto) 0.0 (0.0-3.0) % Gran # 33.94 H (1.4-6.5) Lymph # (Auto) 0.4 L (1.2-3.4) [place] # (Auto) 1.6 H (0.1-0.6) Eos # (Auto) 0.0 (0.0-0.7) Baso # (Auto) 0.01 (0.0-2.0) K/mm3 Sodium (132-148) mmol/L Potassium (3.6-5.0) mmol/L Chloride (98-107) mmol/L Carbon Dioxide (21-33) mmol/L Anion Gap (10-20) BUN (7-21) mg/dL Creatinine (0.8-1.5) mg/dl Est GFR ( Amer) Est GFR (Non-Af Amer) POC Glucose (mg/dL) 80 57 L (65-110) mg/dL Random Glucose (70-110) mg/dL Calcium (8.4-10.5) mg/dL Laboratory Results - last 24 hr 04/22/18 04/22/18 04/23/18 12:20 22:32 02:29 WBC 36.0 H* RBC 3.75 Hgb 10.3 L Hct 32.2 L MCV 85.9 MCH 27.5 MCHC 32.0 RDW 16.0 H Plt Count 86 L MPV Gran % 94.3 H Lymph % (Auto) 1.2 L [place] % (Auto) 4.5 Eos % (Auto) 0.0 L Baso % (Auto) 0.0 Gran # 33.94 H Lymph # (Auto) 0.4 L [place] # (Auto) 1.6 H Eos # (Auto) 0.0 Baso # (Auto) 0.01 Sodium Potassium Chloride Carbon Dioxide Anion Gap BUN Creatinine Est GFR ( Amer) Est GFR (Non-Af Amer) POC Glucose (mg/dL) 57 L 80 Random Glucose Calcium 04/23/18 04/23/18 04/23/18 06:15 06:15 06:40 WBC 44.2 H* D RBC 4.30 Hgb 11.9 L Hct 36.9 L MCV 85.8 MCH 27.7 MCHC 32.2 RDW 16.2 H Plt Count 92 L MPV 11.0 Gran % Lymph % (Auto) [place] % (Auto) 3.1 Eos % (Auto) 0.0 L Baso % (Auto) 0.1 Gran # Lymph # (Auto) [place] # (Auto) 1.4 H Eos # (Auto) 0.0 Baso # (Auto) 0.03 Sodium 148 Potassium 5.7 H* D Chloride 121 H Carbon Dioxide 15 L Anion Gap 18 BUN 77 H Creatinine 4.5 H Est GFR ( Amer) 15 Est GFR (Non-Af Amer) 13 POC Glucose (mg/dL) 75 Random Glucose 79 Calcium 9.4 Fingerstick Blood Sugar Results: 75 Assessment/Plan - Assessment and Plan (Free Text) Assessment: 77 year old male past medical history pertinent for past TIA/CVA under ICU care for Multiorgan System Failure likely 2/2 Septic Shock due to UTI VS Cholecystitis. Septic Cardiomyopathy WINDY Encephalopathy Lactic Acidosis DKA/Hyperglycemia - Resolved Patient Head CT insignificant. Blood cultures are gram neg rods and patient has high WBC count of 35, up from yesterday, consistent/stable with yesterday. Patient himself does not complain of any abdominal pain, but Abd U/s shows GB thickening c/w acalculus cystitis. EKG shows LVH with bifasciular block. In terms of finding a source of the Sepsis, patient's Urine Cx shows E. Faecalis and E. Aerogenes; and blood cultures show E. Aerogenes - this indicates that source is likely urine in the absence of HIDA scan findings and negative Abd dopplers. Of note, patient is retaining urine and U/O has only been ~220 over 24 hours. Plan Neuro - Maintain normothermia Cardio - Septic shock: Milrinone and Vasopressin are stopped; Levophed, gtt; wean Levophed; Fluid bolus and maintenance fluids. Stop bicarb gtt Pulm - Maintain saturation > 92% GI - PPX with protonix - Possible Cholecystitis: Dr. Maloney on consult, HIDA pending - no surgical intervention for now; cholecystostomy tubes from IR; NPO, IVF - GI Consult: Sigmoidoscopy yesterday revealed possible GI obstruction and possible ischemic bowel - keep patient NPO /Renal - Anuric Renal Failure - monitor urine output, give fluids, avoid nephrotoxic drugs; renal consult: Dr. Cox. Perform bladder scan Heme: - DVT PPX with pepcid per GI recs - Patient CBC counts bumped up today - blood smear Endo: - Maintain Euglycemia; off insulin drip now ID: - Septic Shock: Stress dose steroids - TAPER, Merrem, fluid resuscitation with bolus and maintenance. ID Consult: Dr. Richardson <Andrei Mtz - Last Filed: 04/23/18 10:42> CCU Objective - Vital Signs / Intake & Output Vital Signs (Last 4 hours): Vital Signs Pulse Resp BP Pulse Ox 04/23/18 07:50 113 H 13 156/86 H 93 L 04/23/18 07:40 119 H 38 H 93 L 04/23/18 07:30 124 H 38 H 92 L 04/23/18 07:20 121 H 35 H 94 L 04/23/18 07:10 120 H 27 H 88 L 04/23/18 07:00 114 H 19 156/86 H 93 L 04/23/18 06:50 114 H 18 94 L 04/23/18 06:40 118 H 23 95 Intake and Output (Last 8hrs): Intake & Output 04/22/18 04/23/18 04/23/18 22:59 06:59 14:59 Intake Total 555 2000 Output Total 200 100 Balance 355 1900 Intake: IV 555 2000 NS KCL 40 meq 1800 antibiotics 550 200 vasopressin 5 Oral 0 Output: Urine 100 Urethral (Charlse) 100 Stool 100 Urine/Stool Mix 100 - Medications Active Medications: Active Medications Generic Name Dose Route Start Last Admin Trade Name Freq PRN Reason Stop Dose Admin Famotidine 10 mg 04/22/18 18:00 04/23/18 09:00 Pepcid IVP 10 mg BID BONNIE Administration Hydrocortisone Sodium Succinate 50 mg 04/22/18 10:15 04/23/18 09:00 Solu-Cortef IVP 50 mg Q12H BONNIE Administration Meropenem 500 mg/ Sodium 50 mls @ 100 mls/hr 04/20/18 22:00 04/23/18 09:17 Chloride IVPB 04/27/18 22:01 100 mls/hr Q12 BONNIE Administration Protocol Sodium Chloride 1,000 mls @ 150 mls/hr 04/23/18 07:45 04/23/18 07:45 Sodium Chloride 0.9% IV 150 mls/hr .Q6H40M BONNIE Administration Metoprolol Tartrate 25 mg 04/20/18 18:00 04/22/18 12:13 Lopressor PO Not Given BID BONNIE Metoprolol Tartrate 5 mg 04/23/18 07:45 04/23/18 07:50 Lopressor IVP 5 mg Q6H BONNIE Administration - Patient Studies Lab Studies: Microbiology Studies 04/22/18 07:00 Blood Culture - Preliminary Blood Gram Negative Benjamin Gram Stain - Final 04/22/18 07:15 Blood Culture - Preliminary Blood Gram Negative Benjamin Gram Stain - Final 04/20/18 12:50 MRSA Culture (Admit) - Final Naris MRSA NOT DETECTED 04/20/18 11:35 Urine Culture - Final Urine Enterobacter Aerogenes Enterococcus Faecalis Lab Studies 04/23/18 04/23/18 04/23/18 Range/Units 09:40 06:40 06:15 WBC (4.5-11.0) 10^3/ul RBC (3.5-6.1) 10^6/uL Hgb (14.0-18.0) g/dL Hct (42.0-52.0) % MCV (80.0-105.0) fl MCH (25.0-35.0) pg MCHC (31.0-37.0) g/dl RDW (11.5-14.5) % Plt Count (120.0-450.0) 10^3/uL MPV (7.0-11.0) fl Gran % (50.0-68.0) % Lymph % (Auto) (22.0-35.0) % [place] % (Auto) (1.0-6.0) % Eos % (Auto) (1.5-5.0) % Baso % (Auto) (0.0-3.0) % Gran # (1.4-6.5) Lymph # (Auto) (1.2-3.4) [place] # (Auto) (0.1-0.6) Eos # (Auto) (0.0-0.7) Baso # (Auto) (0.0-2.0) K/mm3 Sodium 148 (132-148) mmol/L Potassium 5.7 H* D (3.6-5.0) mmol/L Chloride 121 H (98-107) mmol/L Carbon Dioxide 15 L (21-33) mmol/L Anion Gap 18 (10-20) BUN 77 H (7-21) mg/dL Creatinine 4.5 H (0.8-1.5) mg/dl Est GFR ( Amer) 15 Est GFR (Non-Af Amer) 13 POC Glucose (mg/dL) 75 (65-110) mg/dL Random Glucose 79 (70-110) mg/dL Calcium 9.4 (8.4-10.5) mg/dL Random Vancomycin 21.7 (20-40) ug/mL 04/23/18 04/23/18 04/22/18 Range/Units 06:15 02:29 22:32 WBC 44.2 H* D (4.5-11.0) 10^3/ul RBC 4.30 (3.5-6.1) 10^6/uL Hgb 11.9 L (14.0-18.0) g/dL Hct 36.9 L (42.0-52.0) % MCV 85.8 (80.0-105.0) fl MCH 27.7 (25.0-35.0) pg MCHC 32.2 (31.0-37.0) g/dl RDW 16.2 H (11.5-14.5) % Plt Count 92 L (120.0-450.0) 10^3/uL MPV 11.0 (7.0-11.0) fl Gran % (50.0-68.0) % Lymph % (Auto) (22.0-35.0) % [place] % (Auto) 3.1 (1.0-6.0) % Eos % (Auto) 0.0 L (1.5-5.0) % Baso % (Auto) 0.1 (0.0-3.0) % Gran # (1.4-6.5) Lymph # (Auto) (1.2-3.4) [place] # (Auto) 1.4 H (0.1-0.6) Eos # (Auto) 0.0 (0.0-0.7) Baso # (Auto) 0.03 (0.0-2.0) K/mm3 Sodium (132-148) mmol/L Potassium (3.6-5.0) mmol/L Chloride (98-107) mmol/L Carbon Dioxide (21-33) mmol/L Anion Gap (10-20) BUN (7-21) mg/dL Creatinine (0.8-1.5) mg/dl Est GFR ( Amer) Est GFR (Non-Af Amer) POC Glucose (mg/dL) 80 57 L (65-110) mg/dL Random Glucose (70-110) mg/dL Calcium (8.4-10.5) mg/dL Random Vancomycin (20-40) ug/mL 04/22/18 Range/Units 12:20 WBC 36.0 H* (4.5-11.0) 10^3/ul RBC 3.75 (3.5-6.1) 10^6/uL Hgb 10.3 L (14.0-18.0) g/dL Hct 32.2 L (42.0-52.0) % MCV 85.9 (80.0-105.0) fl MCH 27.5 (25.0-35.0) pg MCHC 32.0 (31.0-37.0) g/dl RDW 16.0 H (11.5-14.5) % Plt Count 86 L (120.0-450.0) 10^3/uL MPV (7.0-11.0) fl Gran % 94.3 H (50.0-68.0) % Lymph % (Auto) 1.2 L (22.0-35.0) % [place] % (Auto) 4.5 (1.0-6.0) % Eos % (Auto) 0.0 L (1.5-5.0) % Baso % (Auto) 0.0 (0.0-3.0) % Gran # 33.94 H (1.4-6.5) Lymph # (Auto) 0.4 L (1.2-3.4) [place] # (Auto) 1.6 H (0.1-0.6) Eos # (Auto) 0.0 (0.0-0.7) Baso # (Auto) 0.01 (0.0-2.0) K/mm3 Sodium (132-148) mmol/L Potassium (3.6-5.0) mmol/L Chloride (98-107) mmol/L Carbon Dioxide (21-33) mmol/L Anion Gap (10-20) BUN (7-21) mg/dL Creatinine (0.8-1.5) mg/dl Est GFR ( Amer) Est GFR (Non-Af Amer) POC Glucose (mg/dL) (65-110) mg/dL Random Glucose (70-110) mg/dL Calcium (8.4-10.5) mg/dL Random Vancomycin (20-40) ug/mL Laboratory Results - last 24 hr 04/22/18 04/22/18 04/23/18 12:20 22:32 02:29 WBC 36.0 H* RBC 3.75 Hgb 10.3 L Hct 32.2 L MCV 85.9 MCH 27.5 MCHC 32.0 RDW 16.0 H Plt Count 86 L MPV Gran % 94.3 H Lymph % (Auto) 1.2 L [place] % (Auto) 4.5 Eos % (Auto) 0.0 L Baso % (Auto) 0.0 Gran # 33.94 H Lymph # (Auto) 0.4 L [place] # (Auto) 1.6 H Eos # (Auto) 0.0 Baso # (Auto) 0.01 Sodium Potassium Chloride Carbon Dioxide Anion Gap BUN Creatinine Est GFR ( Amer) Est GFR (Non-Af Amer) POC Glucose (mg/dL) 57 L 80 Random Glucose Calcium Random Vancomycin 04/23/1818 18 06:15 06:15 06:40 WBC 44.2 H* D RBC 4.30 Hgb 11.9 L Hct 36.9 L MCV 85.8 MCH 27.7 MCHC 32.2 RDW 16.2 H Plt Count 92 L MPV 11.0 Gran % Lymph % (Auto) [place] % (Auto) 3.1 Eos % (Auto) 0.0 L Baso % (Auto) 0.1 Gran # Lymph # (Auto) [place] # (Auto) 1.4 H Eos # (Auto) 0.0 Baso # (Auto) 0.03 Sodium 148 Potassium 5.7 H* D Chloride 121 H Carbon Dioxide 15 L Anion Gap 18 BUN 77 H Creatinine 4.5 H Est GFR ( Amer) 15 Est GFR (Non-Af Amer) 13 POC Glucose (mg/dL) 75 Random Glucose 79 Calcium 9.4 Random Vancomycin 04/23/18 09:40 WBC RBC Hgb Hct MCV MCH MCHC RDW Plt Count MPV Gran % Lymph % (Auto) [place] % (Auto) Eos % (Auto) Baso % (Auto) Gran # Lymph # (Auto) [place] # (Auto) Eos # (Auto) Baso # (Auto) Sodium Potassium Chloride Carbon Dioxide Anion Gap BUN Creatinine Est GFR ( Amer) Est GFR (Non-Af Amer) POC Glucose (mg/dL) Random Glucose Calcium Random Vancomycin 21.7 Assessment/Plan - Assessment and Plan (Free Text) Assessment: Patient seen and examined on rounds with resident, agree with note with following additions/exceptions: Patient is 77yo male with PMHx of CVA/TIA, a/w multi organ failure, septic shock 2/2 UTI, possible cholecystitis, currently OFF ALL vasopressor support. Patient is currently afebrile, BP stable, HH stable. Blood cultures positive for gram neg rods, on Merrem Surgery following, no acute intervention at this time. Patient had colonoscopy Rule out ischemic colitis, no acute surgical intervention at this time Patient today with mild abd tenderness, no rebound or guarding. Palliative care consulted IR--no acute intervention Septic Shock, resolved Bacteremia, resolved UTI r/o Cholecystitis Elevated Troponin Multi Organ Failure Renal failure Dehydration r/o ischemic colitis Recommend: - cont with supp o2 as needed - Cont with broad spectrum abx, Merrem, Renally dosed Vanco - IVF - follow up surgery - follow up GI - DC steroids - FS control - NPO - GI ppx - DVT ppx - monitor in MICU - DNR/DNI - palliative care consult critical care time 32 minutes
--- NOTE | 2018-04-23 10:01 | CP.PCM.CON ---
History of Present Illness - History of Present Illness History of Present Illness: Palliative consult requested by Dr Gibran Crump Reason: Goals of care 77 year old male with history of chronic CHF, A Fib, DM, HTN ,dementia who [facility] with restlessness, lethargy and vomiting. The family denied fever, chills, SOB, abdominal pain, diarrhea, cough. CT of abdomen showed diffuse gall bladder thickening with stranding of the fat inferior to the gall bladder and liver along the right periconic gutter slight appearance of right staghorn renal calculi, no hydronephrosis. Abdominal US showed 0-49% proximal celiac axis stenosis, 0-49% proximal SMA stenosis, patent proximal HEIDE. Head CT negative. Nuclear scan patent cystic duct. Initial labs; leukocytosis, anemia, thrombocytopenia, venous lactate 7.5,urine positive for leukocytes, blood and nitrites, stool positive for occult blood. Endo showing severe inflammation in ascending colon with ischemic colitis Labs: WBC 44.2, Hgb 11.9, Plt 92, Na 148, K 5.7, Chl 121, BUN 77, Creat. 4.5, Albumin 2.2 Vital Signs: P113, BP 156/86, R 13, o2 sta 93% PMHx: dementia, CHF, A Fib, DM, HTN anemia, renal calculate s/p lithrotripsy, incontinence , s/p maria d. hip surgery, s/p lumbar spine surgery,UTI. Social History : Former heavy smoker,no alcohol or drug use. Lives with spouse Family History: Non contributory Advance Care Planning: The patient is DNR/DNI. It is not known whether he has and advanced directive. Review of Systems: As per HPI, patient is altered unable to obtain complete review Past Patient History - Infectious Disease Hx of Infectious Diseases: None - Tetanus Immunizations Tetanus Immunization: Up to Date - Past Medical History & Family History Past Medical History?: Yes - Past Social History Smoking Status: Former Smoker - CARDIAC Hx Atrial Fibrillation: Yes Hx Hypotension: Yes Hx Pacemaker: No - PULMONARY Hx Respiratory Disorders: Yes Hx Pneumonia: Yes - NEUROLOGICAL Hx Dementia: Yes Hx Paralysis: No - HEENT Hx HEENT Problems: No - RENAL Hx Kidney Stones: Yes Hx Renal Failure: Yes Other/Comment: kidney stents 12/01/17. lithotripsy on 12/16/17 - ENDOCRINE/METABOLIC Hx Endocrine Disorders: Yes Hx Diabetes Mellitus Type 2: Yes - HEMATOLOGICAL/ONCOLOGICAL Hx Blood Transfusions: Yes Hx Blood Transfusion Reaction: No - INTEGUMENTARY Hx Dermatological Problems: Yes Other/Comment: b/l skin discolorations both arms/ flakey dry skin to feet and thick hard toenails, left buttock stage 1 opening buttocks rred, bandaid on left pinky toe for protection - MUSCULOSKELETAL/RHEUMATOLOGICAL Hx Musculoskeletal Disorders: Yes - GASTROINTESTINAL Hx Gastrointestinal Disorders: No - GENITOURINARY/GYNECOLOGICAL Hx Genitourinary Disorders: Yes Hx Hematuria: Yes Hx Incontinence: Yes (urine and stool) Hx Prostate Problems: Yes (bph) Hx Urinary Tract Infection: Yes - PSYCHIATRIC Hx Emotional Abuse: No Hx Physical Abuse: No Hx Substance Use: No - SURGICAL HISTORY Hx Surgeries: Yes - ANESTHESIA Hx Anesthesia Reactions: No Hx Malignant Hyperthermia: No Meds Allergies/Adverse Reactions: Allergies Allergy/AdvReac Type Severity Reaction Status Date / Time morphine Allergy Intermediate DIZZINESS Verified 12/20/17 12:34 - Medications Medications: Current Medications Famotidine (Pepcid) 10 mg IVP BID [facility] Last Admin: 04/23/18 09:00 Dose: 10 mg Hydrocortisone Sodium Succinate (Solu-Cortef) 50 mg IVP Q12H [facility] Last Admin: 04/23/18 09:00 Dose: 50 mg Meropenem 500 mg/ Sodium (Chloride) 50 mls @ 100 mls/hr IVPB Q12 [facility] PRN Reason: Protocol Stop: 04/27/18 22:01 Last Admin: 04/23/18 09:17 Dose: 100 mls/hr Sodium Chloride (Sodium Chloride 0.9%) 1,000 mls @ 150 mls/hr IV .Q6H40M [facility] Last Admin: 04/23/18 07:45 Dose: 150 mls/hr Metoprolol Tartrate (Lopressor) 25 mg PO BID [facility] Last Admin: 04/22/18 12:13 Dose: Not Given Metoprolol Tartrate (Lopressor) 5 mg IVP Q6H [facility] Last Admin: 04/23/18 07:50 Dose: 5 mg Physical Exam - Constitutional Appears: Cachectic, Chronically Ill - Head Exam Head Exam: NORMAL INSPECTION - Eye Exam Eye Exam: Normal appearance, PERRL - ENT Exam ENT Exam: Mucous Membranes Moist, Normal Oropharynx - Neck Exam Neck exam: Positive for: Normal Inspection - Respiratory Exam Respiratory Exam: Decreased Breath Sounds, NORMAL BREATHING PATTERN - Cardiovascular Exam Cardiovascular Exam: Irregular Rhythm, +S1 - GI/Abdominal Exam GI & Abdominal Exam: Normal Bowel Sounds, Soft - Extremities Exam Extremities exam: Positive for: pedal pulses present - Back Exam Back exam: NORMAL INSPECTION - Neurological Exam Neurological exam: Altered - Psychiatric Exam Additional comments: restless - Skin Skin Exam: Dry, Pallor - Additional Findings Additional findings: palliative performance scale rating 30 % Results - Vital Signs Recent Vital Signs: Last Vital Signs Temp 97.8 F 04/23/18 04:00 Pulse 118 H 04/23/18 07:50 Resp 13 04/23/18 07:50 BP 156/86 H 04/23/18 07:50 Pulse Ox 93 L 04/23/18 07:50 - Labs Result Diagrams: 04/23/18 06:30 04/23/18 06:15 Labs: Laboratory Results - last 24 hr 04/22/18 04/22/18 04/23/18 12:20 22:32 02:29 WBC 36.0 H* RBC 3.75 Hgb 10.3 L Hct 32.2 L MCV 85.9 MCH 27.5 MCHC 32.0 RDW 16.0 H Plt Count 86 L MPV Gran % 94.3 H Lymph % (Auto) 1.2 L [place] % (Auto) 4.5 Eos % (Auto) 0.0 L Baso % (Auto) 0.0 Gran # 33.94 H Lymph # (Auto) 0.4 L [place] # (Auto) 1.6 H Eos # (Auto) 0.0 Baso # (Auto) 0.01 Sodium Potassium Chloride Carbon Dioxide Anion Gap BUN Creatinine Est GFR ( Amer) Est GFR (Non-Af Amer) POC Glucose (mg/dL) 57 L 80 Random Glucose Calcium 04/23/18 04/23/18 04/23/18 06:15 06:15 06:40 WBC 44.2 H* D RBC 4.30 Hgb 11.9 L Hct 36.9 L MCV 85.8 MCH 27.7 MCHC 32.2 RDW 16.2 H Plt Count 92 L MPV 11.0 Gran % Lymph % (Auto) [place] % (Auto) 3.1 Eos % (Auto) 0.0 L Baso % (Auto) 0.1 Gran # Lymph # (Auto) [place] # (Auto) 1.4 H Eos # (Auto) 0.0 Baso # (Auto) 0.03 Sodium 148 Potassium 5.7 H* D Chloride 121 H Carbon Dioxide 15 L Anion Gap 18 BUN 77 H Creatinine 4.5 H Est GFR ( Amer) 15 Est GFR (Non-Af Amer) 13 POC Glucose (mg/dL) 75 Random Glucose 79 Calcium 9.4 Assessment & Plan - Assessment and Plan (Free Text) Assessment: 77 year old male with history of dementia, CHF,CVA, DM, HTN, A Fib on anticoagulation who is admitted with sepsis, WINDY, acute cholecysistitis, bacteremia,UTI. Poor candidate for surgical intervention of gallbladder disease. Patients at bedside. aware of patients medical condition. I explained that due to multi organ failure his prognosis was extremely guarded. I also explained that despite medical interventions her may not improve. verbalizes understanding of situation. We discussed options for comfort care if his condition continues to deteriorate. The patient is DNR/DNI. While stiill hopeful she states she is also "realistic". states she understands the gravity of the situation but would like to give things a little more time. Psychosocial support provided. Spiritual support offered, requesting distribution manager. Time spent with family in goals of care and advance care planning, 30 minutes Plan: Sepsis: Followed by ID, on Mer[place] GI: Protonix,continue antibiotics, awaiting path report. Randy; SIGIFREDO following, continue Merrem, repeat cultures. Surgery: Monitor clinically, follow up regarding surgical intervention Hyperkalemia: Discontinue K supplements, IVF's. Goals of care and advance care planning. Spiritual counseling
--- NOTE | 2018-04-23 10:17 | CP.PCM.PN ---
Subjective - Date & Time of Evaluation Date of Evaluation: 04/23/18 Time of Evaluation: 09:30 - Subjective Subjective: No fevers, a little more awake today, no vomiting, with abdominal pain. Objective - Vital Signs/Intake and Output Vital Signs (last 24 hours): Temp Pulse Resp BP Pulse Ox 97.8 F 118 H 13 156/86 H 93 L 04/23/18 04:00 04/23/18 07:50 04/23/18 07:50 04/23/18 07:50 04/23/18 07:50 Intake and Output: 04/23/18 04/23/18 06:59 18:59 Intake Total 2000 Output Total 100 Balance 1900 - Medications Medications: Current Medications Famotidine (Pepcid) 10 mg IVP BID [facility] Last Admin: 04/22/18 18:59 Dose: 10 mg Hydrocortisone Sodium Succinate (Solu-Cortef) 50 mg IVP Q12H [facility] Last Admin: 04/22/18 22:09 Dose: 50 mg Meropenem 500 mg/ Sodium (Chloride) 50 mls @ 100 mls/hr IVPB Q12 [facility] PRN Reason: Protocol Stop: 04/27/18 22:01 Last Admin: 04/22/18 22:05 Dose: 100 mls/hr Sodium Chloride (Sodium Chloride 0.9%) 1,000 mls @ 150 mls/hr IV .Q6H40M [facility] Last Admin: 04/23/18 07:45 Dose: 150 mls/hr Metoprolol Tartrate (Lopressor) 25 mg PO BID [facility] Last Admin: 04/22/18 12:13 Dose: Not Given Metoprolol Tartrate (Lopressor) 5 mg IVP Q6H [facility] Last Admin: 04/23/18 07:50 Dose: 5 mg - Labs Labs: 04/23/18 06:15 04/23/18 06:15 PT 14.5 SECONDS (9.4-12.5) H 04/21/18 17:50 INR 1.27 (0.93-1.08) H 04/21/18 17:50 APTT 46.0 Seconds (25.1-36.5) H 04/21/18 17:50 - Constitutional Appears: Chronically Ill - Head Exam Head Exam: NORMAL INSPECTION - ENT Exam ENT Exam: Mucous Membranes Moist - Neck Exam Neck Exam: absent: Meningismus - Respiratory Exam Respiratory Exam: Decreased Breath Sounds - Cardiovascular Exam Cardiovascular Exam: +S1, +S2 - GI/Abdominal Exam GI & Abdominal Exam: Soft, Tenderness (right sided). absent: Distended, Firm, Guarding, Rigid, Rebound Assessment and Plan - Assessment and Plan (Free Text) Plan: Assessment severe sepsis S/P septic shock with acute on chronic renal failure due to enterobacter bacteremia consider due to ischemic colitis R/O UTI with Enterobacter and E. faecalis history of urinary tract infection in this patient with multiple non- obstructing renal calculi history of hypoglycemic episode with encephalopathy HTN DM atrial fibrillation on anticoagulation CVA S/P left hip and back surgery Plan continue Merrem and is also on intermittent Vancomycin - will get Vanco random level today reviewed colonoscopy results showing probable ischemic colitis on the right side will continue to monitor clinically overall prognosis is guarded at best
--- NOTE | 2018-04-23 10:26 | PN ---
DATE: 04/23/2018 A 77-year-old white male admitted to the hospital with sepsis syndrome. The patient is seen in Intensive Care Unit today. He is awake and alert and conversant with me today. He did yesterday have some GI bleed who has had an endoscopy done and was found to have a severe ischemic colitis. His white count is elevated today at 44,200 with a left shift. His H and H is 11.9 and 36. His potassium is 5.7. He does have some renal insufficiency of 77 and 4.5 for BUN and creatinine. His sugar is 75 today. He is slightly tachycardiac today. His heart rate is 113. His blood pressure 156/86. His oxygen saturation is 93. He is afebrile today. The patient is stable. He is on IV antibiotics, broad-spectrum IV antibiotics. In the Intensive Care Unit, he is getting pressors and the bleeding has somewhat stopped. On his endoscopy report, he was found to have most likely ischemic colitis. Biopsies were done, I am awaiting results. The patient is a DNR/DNI by the family. His condition is considered serious. Plan is to continue broad-spectrum antibiotics, pressors to keep maintaining blood pressure. - the patient n.p.o. at this point and to continue to monitor kidney and renal function. Ray Crump MD
[2018-04-23 10:47] LABS: WHITE BLOOD COUNT 44.2 10^3/ul (4.5-11.0)
[2018-04-23 10:48] LABS: HEMOGLOBIN 11.9 g/dL (14.0-18.0); MEAN CELL VOLUME 85.8 fl (80.0-105.0); MEAN CORPUSCULAR HEMOGLOBIN 27.7 pg (25.0-35.0); MEAN CORPUSCULAR HGB CONC 32.2 g/dl (31.0-37.0); PLATELET COUNT 92 10^3/uL (120.0-450.0); RED CELL DISTRIBUTION WIDTH 16.2 % (11.5-14.5)
[2018-04-23] MEDS ORDERED: metroNIDAZOLE IV 250mg/50 ml 250 MG/50 ML BAG IVPB SCH (14:00)
--- NOTE | 2018-04-23 15:14 | RAD ---
HISTORY: CHF COMPARISON: 04/20/2018 FINDINGS: LUNGS: No active pulmonary disease. PLEURA: No significant pleural effusion identified, no pneumothorax apparent. CARDIOVASCULAR: Normal. OSSEOUS STRUCTURES: No significant abnormalities. VISUALIZED UPPER ABDOMEN: Normal. OTHER FINDINGS: Right-sided central line unchanged IMPRESSION: No active disease.
--- NOTE | 2018-04-23 15:34 | CP.PCM.CON ---
History of Present Illness - History of Present Illness History of Present Illness: Nephrology Consultation Note: Assessment: critical oligoanuric Acute Kidney Injury (N17.9) likely due to ATN, sepsis/shock HAGMA, hyperkalemia, hypernatremia Diabetic chronic Kidney Disease (E11.22) Hypertensive Chronic Kidney Disease (I12.9) Chronic Kidney Disease (N18.3) Stage 3 with ? 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 CHF with EF 30-35%, NSTEMI Plan No acute need for renal replacement therapy at this time but may need soon, will need close follow up. will need further d/w /family about it. Palliative care has seen pt. he is now DNR/DNI. Hypertension control with meds as ordered. Patient not on ACEI/ARB due to WINDY Monitor Input/Output, daily weights and renal function with basic metabolic panel start sodium bicarbonate 1300 mg TID continue with IVF but as 0.45% saline @ 50-75 ml/hr to keep I/O balanced. CXR : no effusions or pulm congestion/edema avoid kayexylate Dose meds/antibiotics for reduced GFR <10. Avoid fleets enema/magnesium based laxatives. Avoid nephrotoxins/NSAIDs/ iodinated contrast (unless needed emergently) Glycemic control Further work up/management as per primary team Thanks for allowing me to participate in care of your patient. Will follow patient with you. Please call if any Qs. d/w team Dr Phil Goins Office: [phone] Chief Complaint; unable Reason for consult: WINDY HPI: Pt is a 77 M with hx of diabetes Mellitus hypertension A fib, CVA, dementia , Rt staghorn calculi and left renal calculi, CKD stage 3 with baseline cr 1.7- 1.9 with episodes of AKIs in past initially admitted with septic shock, UTI, lactic acidosis and WINDY. renal consult for WINDY management. he was unable to provide much hx. He just said When I am going home. also having diarrhoea with colitis. CHF with EF 30-35%, NSTEMI no knwon OTC/herbal meds or NSAIDs No recent iodinated contrast exposure. ROS: pt unable to provide hx Physical Examination: General Appearance: Comfortable, in no acute respiratory distress. Vitals reviewed and noted as below Head; Atraumatic, normocephalic ENT: unable EYES: Pupils are equal, round and reactive to light accommodation. Eye muscles and extraocular movement intact. Sclera is anicteric. Neck; supple no lymphadenopathy, no thyromegaly or bruit Lungs: Normal respiratory rate/effort. Breath sounds bilateral equal and clear anteriorly Heart: Increased rate. s1s2 normal. No rub or gallop. Extremities: no edema. No varicose veins Neurological: Patient is alert, awake and disoriented to person, place and time. confused Skin: Warm and dry. Normal turgor. No rash. Palpitation: Normal elasticity for age Abdomen: Abdomen is soft. Bowel sounds +. There is no abdominal tenderness, no guarding/rigidity no organomegaly. has rectal tube Psych: lack insight and flat affect/mood MSK: no joint tenderness or swelling. Digits and nails normal, no deformity : kidney or bladder not palpable. has salcedo Labs/imaging reviewed. Past medical history, past surgical history, family history, social history, allergy reviewed and noted as below Family hx: no hx of CKD. Rest non-contributory renal imaging: Rt staghorn calculi and small left side calculi UA: 3+ protein with large blood/WBC and bacteria Past Patient History - Infectious Disease Hx of Infectious Diseases: None - Tetanus Immunizations Tetanus Immunization: Up to Date - Past Medical History & Family History Past Medical History?: Yes - Past Social History Smoking Status: Former Smoker - CARDIAC Hx Atrial Fibrillation: Yes Hx Hypotension: Yes Hx Pacemaker: No - PULMONARY Hx Respiratory Disorders: Yes Hx Pneumonia: Yes - NEUROLOGICAL Hx Dementia: Yes Hx Paralysis: No - HEENT Hx HEENT Problems: No - RENAL Hx Kidney Stones: Yes Hx Renal Failure: Yes Other/Comment: kidney stents 12/01/17. lithotripsy on 12/16/17 - ENDOCRINE/METABOLIC Hx Endocrine Disorders: Yes Hx Diabetes Mellitus Type 2: Yes - HEMATOLOGICAL/ONCOLOGICAL Hx Blood Transfusions: Yes Hx Blood Transfusion Reaction: No - INTEGUMENTARY Hx Dermatological Problems: Yes Other/Comment: b/l skin discolorations both arms/ flakey dry skin to feet and thick hard toenails, left buttock stage 1 opening buttocks rred, bandaid on left pinky toe for protection - MUSCULOSKELETAL/RHEUMATOLOGICAL Hx Musculoskeletal Disorders: Yes - GASTROINTESTINAL Hx Gastrointestinal Disorders: No - GENITOURINARY/GYNECOLOGICAL Hx Genitourinary Disorders: Yes Hx Hematuria: Yes Hx Incontinence: Yes (urine and stool) Hx Prostate Problems: Yes (bph) Hx Urinary Tract Infection: Yes - PSYCHIATRIC Hx Emotional Abuse: No Hx Physical Abuse: No Hx Substance Use: No - SURGICAL HISTORY Hx Surgeries: Yes - ANESTHESIA Hx Anesthesia Reactions: No Hx Malignant Hyperthermia: No Meds Allergies/Adverse Reactions: Allergies Allergy/AdvReac Type Severity Reaction Status Date / Time morphine Allergy Intermediate DIZZINESS Verified 12/20/17 12:34 - Medications Medications: Current Medications Famotidine (Pepcid) 10 mg IVP BID [facility] Last Admin: 04/23/18 09:00 Dose: 10 mg Hydrocortisone Sodium Succinate (Solu-Cortef) 50 mg IVP Q12H [facility] Last Admin: 04/23/18 09:00 Dose: 50 mg Meropenem 500 mg/ Sodium (Chloride) 50 mls @ 100 mls/hr IVPB Q12 [facility] PRN Reason: Protocol Stop: 04/27/18 22:01 Last Admin: 04/23/18 09:17 Dose: 100 mls/hr Sodium Chloride (Sodium Chloride 0.45%) 1,000 mls @ 50 mls/hr IV .Q20H [facility] Metoprolol Tartrate (Lopressor) 25 mg PO BID [facility] Rivastigmine (Exelon 9.5 Mg/24 Hr Patch) 1 patch TD DAILY [facility] Last Admin: 04/23/18 12:36 Dose: 1 patch Verapamil HCl (Calan Tab) 80 mg PO TID [facility] Last Admin: 04/23/18 14:18 Dose: Not Given Results - Vital Signs Recent Vital Signs: Last Vital Signs Temp 99.2 F 04/23/18 12:00 Pulse 101 H 04/23/18 14:00 Resp 15 04/23/18 14:00 BP 122/61 04/23/18 14:00 Pulse Ox 95 04/23/18 14:00 - Labs Result Diagrams: 04/23/18 06:30 04/23/18 06:15 Labs: Laboratory Results - last 24 hr 04/22/18 04/23/18 04/23/18 22:32 02:29 06:15 WBC 44.2 H* D RBC 4.30 Hgb 11.9 L Hct 36.9 L MCV 85.8 MCH 27.7 MCHC 32.2 RDW 16.2 H Plt Count 92 L MPV 11.0 [place] % (Auto) 3.1 Eos % (Auto) 0.0 L Baso % (Auto) 0.1 [place] # (Auto) 1.4 H Eos # (Auto) 0.0 Baso # (Auto) 0.03 Sodium Potassium Chloride Carbon Dioxide Anion Gap BUN Creatinine Est GFR ( Amer) Est GFR (Non-Af Amer) POC Glucose (mg/dL) 57 L 80 Random Glucose Calcium Random Vancomycin 04/23/18 04/23/18 04/23/18 06:15 06:30 06:40 WBC 44.2 H* RBC 4.30 Hgb 11.9 L Hct 36.9 L MCV 85.8 MCH 27.7 MCHC 32.2 RDW 16.2 H Plt Count 92 L MPV 11.0 [place] % (Auto) Eos % (Auto) Baso % (Auto) [place] # (Auto) Eos # (Auto) Baso # (Auto) Sodium 148 Potassium 5.7 H* D Chloride 121 H Carbon Dioxide 15 L Anion Gap 18 BUN 77 H Creatinine 4.5 H Est GFR ( Amer) 15 Est GFR (Non-Af Amer) 13 POC Glucose (mg/dL) 75 Random Glucose 79 Calcium 9.4 Random Vancomycin 04/23/18 04/23/18 04/23/18 09:40 10:48 14:04 WBC RBC Hgb Hct MCV MCH MCHC RDW Plt Count MPV [place] % (Auto) Eos % (Auto) Baso % (Auto) [place] # (Auto) Eos # (Auto) Baso # (Auto) Sodium Potassium Chloride Carbon Dioxide Anion Gap BUN Creatinine Est GFR ( Amer) Est GFR (Non-Af Amer) POC Glucose (mg/dL) 102 74 Random Glucose Calcium Random Vancomycin 21.7
[2018-04-23] MEDS: Sodium Chloride 0.45% 1,000 ML IV SCH (16:10)
[2018-04-23] MEDS ORDERED: Dextrose 50% SYRINGE Inj (50 ml) IVP ONE (18:06)
[2018-04-23] MEDS ORDERED: Dextrose 50% SYRINGE Inj (50 ml) ONE (18:12)
--- NOTE | 2018-04-23 18:43 | PN ---
DATE: 04/23/2018 REASON FOR CONSULTATION AND FOLLOWUP: Paroxysmal atrial fibrillation, admitted with diarrhea, sepsis, possible septic shock, borderline positive troponin, acute kidney injury, GI bleed, n.p.o. because of possible colitis. SUBJECTIVE: The patient denies any chest pain, shortness of breath, or any palpitation. OBJECTIVE: GENERAL: Not in apparent distress, lying flat in the bed. VITAL SIGNS: Temperature afebrile, heart rate 120, blood pressure 156/86. HEENT: PERRLA. Extraocular muscles intact. NECK: Supple. No carotid bruit or thyromegaly. CHEST: Clear to auscultation. HEART: S1 and S2, regular. ABDOMEN: Soft. EXTREMITIES: Clubbing and cyanosis negative. LABORATORY DATA: Blood workup as follows: WBC 44.2, hemoglobin 11.3, hematocrit 36.9, platelet count 92. Chemistry shows sodium 140, potassium 5.7, chloride 121, carbon dioxide of 15, anion gap of 18. BUN 77, creatinine 4.5. Total protein 4.7, albumin 2.2, albumin-globulin ratio 0.8. IMPRESSION: Gastrointestinal bleed, diarrhea, colitis, possible sepsis, septic shock syndrome, atrial fibrillation, rheumatoid arthritis, acute on chronic renal insufficiency, paroxysmal atrial fibrillation with rapid rate. The patient is n.p.o., getting 150 mL of the fluid. Protein-calorie malnutrition, severe, which was not present on admission. History of prior transient ischemic attack, dementia. History of paroxysmal atrial fibrillation, was on Xarelto on admission. RECOMMENDATION: Off Xarelto because of the GI bleed, n.p.o. because of GI bleed and possible right-sided colitis, protein-calorie malnutrition. Decrease IV fluid from 150 mL to 50 mL preventing from going to pulmonary edema in third spacing. I will resume back metoprolol p.o. and also start low-dose of verapamil to control the heart rate and tachycardia. We will give 40 mg stat dose of verapamil p.o. and then 80 t.i.d. We will discontinue IV fluid to decrease to 50 mL an hour. If prolonged n.p.o. is anticipated, consider PPN. With patient suffering with severe protein-calorie malnutrition, needs to be started on nutrition support. Overall, the patient's condition is critical, long-term prognosis is guarded. We will follow with you. Thank you, Dr. Crump for providing us the opportunity in taking care of the patient, Yaakov Cox. Charo Coto MD
[2018-04-23 19:07] LABS: CALCIUM 9.1 mg/dL (8.4-10.5)
[2018-04-24 07:12] LABS: BASO # 0.02 K/mm3 (0.0-2.0); BASO % 0.1 % (0.0-3.0); GRAN # 24.47 (1.4-6.5); GRAN % 92.3 % (50.0-68.0); HEMOGLOBIN 10.5 g/dL (14.0-18.0); LYMPH # 0.6 (1.2-3.4); LYMPH % 2.1 % (22.0-35.0); MEAN CELL VOLUME 87.5 fl (80.0-105.0); MEAN CORPUSCULAR HEMOGLOBIN 27.4 pg (25.0-35.0); MEAN CORPUSCULAR HGB CONC 31.3 g/dl (31.0-37.0); MEAN PLATELET VOLUME 11.5 fl (7.0-11.0); MONO # 1.5 (0.1-0.6); MONO % 5.5 % (1.0-6.0); PLATELET COUNT 67 10^3/uL (120.0-450.0); RBC 3.83 10^6/uL (3.5-6.1); RED CELL DISTRIBUTION WIDTH 16.1 % (11.5-14.5)
[2018-04-24 07:22] LABS: WHITE BLOOD COUNT 26.5 10^3/ul (4.5-11.0)
[2018-04-24 07:29] LABS: CALCIUM 9.1 mg/dL (8.4-10.5)
[2018-04-24 08:09] LABS: LYMPHOCYTE 4 % (22.0-35.0); MONOCYTE 9 % (1.0-6.0); NEUTROPHIL 87 % (50.0-70.0)
--- NOTE | 2018-04-24 09:02 | CP.PCM.PN ---
Subjective - Date & Time of Evaluation Date of Evaluation: 04/24/18 Time of Evaluation: 09:01 - Subjective Subjective: Nephrology Consultation Note: Assessment: critical oligoanuric Acute Kidney Injury (N17.9) likely due to ATN, sepsis/shock HAGMA, hyperkalemia, hypernatremia Diabetic chronic Kidney Disease (E11.22) Hypertensive Chronic Kidney Disease (I12.9) Chronic Kidney Disease (N18.3) Stage 3 with ? 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 CHF with EF 30-35%, NSTEMI Plan No acute need for renal replacement therapy at this time but may need soon, will need close follow up. will need further d/w /family about it. Palliative care has seen pt. he is now DNR/DNI. Hypertension control with meds as ordered. Patient not on ACEI/ARB due to WINDY Monitor Input/Output, daily weights and renal function with basic metabolic panel continue with sodium bicarbonate 1300 mg TID continue with IVF but as 0.45% saline @ 50-75 ml/hr to keep I/O balanced. CXR : no effusions or pulm congestion/edema avoid kayexylate Dose meds/antibiotics for reduced GFR <10. Avoid fleets enema/magnesium based laxatives. Avoid nephrotoxins/NSAIDs/ iodinated contrast (unless needed emergently) Glycemic control Further work up/management as per primary team Thanks for allowing me to participate in care of your patient. Will follow patient with you. Please call if any Qs. had d/w team Dr Phil Goins Office: [phone] Chief Complaint; unable Reason for consult: WINDY HPI: Pt is a 77 M with hx of diabetes Mellitus hypertension A fib, CVA, dementia , Rt staghorn calculi and left renal calculi, CKD stage 3 with baseline cr 1.7- 1.9 with episodes of AKIs in past initially admitted with septic shock, UTI, lactic acidosis and WINDY. renal consult for WINDY management. he was unable to provide much hx. He just said When I am going home. also having diarrhoea with colitis. CHF with EF 30-35%, NSTEMI no knwon OTC/herbal meds or NSAIDs No recent iodinated contrast exposure. ROS: pt unable to provide hx Physical Examination: General Appearance: Comfortable, in no acute respiratory distress. Vitals reviewed and noted as below Head; Atraumatic, normocephalic ENT: unable EYES: Pupils are equal, round and reactive to light accommodation. Eye muscles and extraocular movement intact. Sclera is anicteric. Neck; supple no lymphadenopathy, no thyromegaly or bruit Lungs: Normal respiratory rate/effort. Breath sounds bilateral equal and clear anteriorly Heart: Increased rate. s1s2 normal. No rub or gallop. Extremities: no edema. No varicose veins Neurological: Patient is alert, awake and disoriented to person, place and time. confused Skin: Warm and dry. Normal turgor. No rash. Palpitation: Normal elasticity for age Abdomen: Abdomen is soft. Bowel sounds +. There is no abdominal tenderness, no guarding/rigidity no organomegaly. has rectal tube Psych: lack insight and flat affect/mood MSK: no joint tenderness or swelling. Digits and nails normal, no deformity : kidney or bladder not palpable. has salcedo Labs/imaging reviewed. Past medical history, past surgical history, family history, social history, allergy reviewed and noted as below Family hx: no hx of CKD. Rest non-contributory renal imaging: Rt staghorn calculi and small left side calculi UA: 3+ protein with large blood/WBC and bacteria Objective - Vital Signs/Intake and Output Vital Signs (last 24 hours): Temp Pulse Resp BP Pulse Ox 97.7 F 113 H 17 162/90 H 81 L 04/24/18 04:00 04/24/18 08:01 04/24/18 08:01 04/24/18 08:01 04/24/18 08:01 Intake and Output: 04/24/18 04/24/18 06:59 18:59 Intake Total 800 Output Total 500 Balance 300 - Medications Medications: Current Medications Famotidine (Pepcid) 10 mg IVP BID [facility] Last Admin: 04/23/18 17:56 Dose: 10 mg Hydrocortisone Sodium Succinate (Solu-Cortef) 50 mg IVP Q12H [facility] Last Admin: 04/23/18 22:09 Dose: 50 mg Meropenem 500 mg/ Sodium (Chloride) 50 mls @ 100 mls/hr IVPB Q12 [facility] PRN Reason: Protocol Stop: 04/27/18 22:01 Last Admin: 04/23/18 22:09 Dose: 100 mls/hr Sodium Chloride (Sodium Chloride 0.45%) 1,000 mls @ 50 mls/hr IV .Q20H [facility] Last Admin: 04/23/18 16:10 Dose: 50 mls/hr Metoprolol Tartrate (Lopressor) 25 mg PO BID [facility] Last Admin: 04/23/18 17:56 Dose: 25 mg Rivastigmine (Exelon 9.5 Mg/24 Hr Patch) 1 patch TD DAILY [facility] Last Admin: 04/23/18 12:36 Dose: 1 patch Sodium Bicarbonate (Sodium Bicarbonate Tab) 1,300 mg PO TID [facility] Last Admin: 04/23/18 17:58 Dose: 1,300 mg Verapamil HCl (Calan Tab) 80 mg PO TID [facility] Last Admin: 04/23/18 17:57 Dose: 80 mg - Labs Labs: 04/24/18 07:00 04/24/18 07:00 PT 14.5 SECONDS (9.4-12.5) H 04/21/18 17:50 INR 1.27 (0.93-1.08) H 04/21/18 17:50 APTT 46.0 Seconds (25.1-36.5) H 04/21/18 17:50
--- NOTE | 2018-04-24 09:54 | PN ---
DATE: 04/24/2018 CORD TIRE BUILDER NOTE LOCATION: [facility]. SUBJECTIVE: The patient is resting in bed, awake, but not responding verbally to questions. The patient has no respiratory distress and did have some diarrhea yesterday, but not sure if it was continued last night. No obvious pain. PHYSICAL EXAMINATION: VITAL SIGNS: Physical exam note that his temperature is 97.7, pulse is 112, respirations are 18 and BP is 150/97. SKIN: Warm and dry. HEENT: Head atraumatic, normocephalic. Eyes reactive to light. Ear, nose and throat seemed to be within normal limits. NECK: Supple. No JVD. No thyroid enlargement. No lymph nodes. HEART: Has irregular rate and rhythm. Normal S1, S2. LUNGS: Reveal decreased breath sounds at the bases. ABDOMEN: Soft. Decreased bowel sounds. GENITALIA AND RECTAL: Deferred. MUSCULOSKELETAL: No joint deformities. EXTREMITIES: Reveal positive upper and lower extremity edema. NEUROLOGICAL: The patient seemed to be moving all extremities, but does not give verbal response, but seems to be awake. LABORATORY DATA: As far as his laboratories, his white count is 26.5, hemoglobin is 10.5 and hematocrit is 33.5 with platelets of 67,000. The patient's sodium is 147, potassium 4.7, chloride 121, CO2 of 14 with a BUN of 82, creatinine of 4.7 and glucose of 91. Chest x-ray: No active disease. IMPRESSION: As far as my impression, this patient has sepsis, possible septic shock and had a an acute gastrointestinal bleed as well as myocardial infarction with increased troponins. He has acute kidney insufficiency or failure and has noted to have atrial fibrillation as well. The patient has metabolic acidosis as well as anemia and thrombocytopenia. PLAN: As far as our plan, note that the patient is DNR/DNI and is on IV fluids of one-half normal saline. The patient is getting verapamil as well as Lopressor and Pepcid. He is also on Solu-Cortef. He is getting some bicarb tabs as well. We will continue to follow closely along with the other consultants and the primary care doctor and continue to treat aggressively. Aurelio Garnett MD
[2018-04-24] MEDS: Meropenem 500 MG in Sodium Chloride 0.9% 50 ML IVPB SCH ×2 (10:55→21:57)
--- NOTE | 2018-04-24 10:55 | CP.PCM.PN ---
Subjective - Date & Time of Evaluation Date of Evaluation: 04/24/18 Time of Evaluation: 07:55 - Subjective Subjective: General Surgery Pt Seen and Examined. Pt says he is feeling better today. No complaints at this time. Denies abd pain. No issues overnight per nursing staff. WBC improving. Objective - Vital Signs/Intake and Output Vital Signs (last 24 hours): Temp Pulse Resp BP Pulse Ox 98.1 F 113 H 17 162/90 H 81 L 04/24/18 08:00 04/24/18 08:01 04/24/18 08:01 04/24/18 08:01 04/24/18 08:01 Intake and Output: 04/24/18 04/24/18 06:59 18:59 Intake Total 800 Output Total 500 Balance 300 - Medications Medications: Current Medications Famotidine (Pepcid) 10 mg IVP BID [facility] Last Admin: 04/23/18 17:56 Dose: 10 mg Hydrocortisone Sodium Succinate (Solu-Cortef) 50 mg IVP Q12H [facility] Last Admin: 04/23/18 22:09 Dose: 50 mg Meropenem 500 mg/ Sodium (Chloride) 50 mls @ 100 mls/hr IVPB Q12 [facility] PRN Reason: Protocol Stop: 04/27/18 22:01 Last Admin: 04/23/18 22:09 Dose: 100 mls/hr Sodium Chloride (Sodium Chloride 0.45%) 1,000 mls @ 50 mls/hr IV .Q20H [facility] Last Admin: 04/23/18 16:10 Dose: 50 mls/hr Metoprolol Tartrate (Lopressor) 25 mg PO BID [facility] Last Admin: 04/23/18 17:56 Dose: 25 mg Rivastigmine (Exelon 9.5 Mg/24 Hr Patch) 1 patch TD DAILY [facility] Last Admin: 04/23/18 12:36 Dose: 1 patch Sodium Bicarbonate (Sodium Bicarbonate Tab) 1,300 mg PO TID [facility] Last Admin: 04/23/18 17:58 Dose: 1,300 mg Verapamil HCl (Calan Tab) 80 mg PO TID [facility] Last Admin: 04/23/18 17:57 Dose: 80 mg - Labs Labs: 04/24/18 07:00 04/24/18 07:00 PT 14.5 SECONDS (9.4-12.5) H 04/21/18 17:50 INR 1.27 (0.93-1.08) H 04/21/18 17:50 APTT 46.0 Seconds (25.1-36.5) H 04/21/18 17:50 - Constitutional Appears: No Acute Distress, Chronically Ill - Head Exam Head Exam: ATRAUMATIC, NORMOCEPHALIC - Eye Exam Eye Exam: EOMI. absent: Scleral icterus - Respiratory Exam Respiratory Exam: NORMAL BREATHING PATTERN. absent: Respiratory Distress - Cardiovascular Exam Cardiovascular Exam: Tachycardia. absent: Bradycardia - GI/Abdominal Exam GI & Abdominal Exam: Soft. absent: Distended, Firm, Guarding, Rigid, Tenderness - Extremities Exam Extremities Exam: absent: Calf Tenderness - Neurological Exam Neurological Exam: Alert, Awake - Skin Skin Exam: Dry, Warm Assessment and Plan - Assessment and Plan (Free Text) Assessment: 77M with septic shock now improving, UTI with WINDY, possible acalculus cholecystitis, and concern for right sided ischemic colitis Plan: Continue to trend CBC No surgical intervention indicated at this time as patient not a good candidate. Recommend conservative management with IV hydration as tolerated in the face of CHF and antibiotics. Consider an abdominal angiography if patient is hemodynamically stable and does not clinically improve since he has WINDY with poor renal function. Will continue to re-evaluate. Continue antibiotics per ID. Management per ICU team and primary team. D/W Dr. Haider Smith PGY4
--- NOTE | 2018-04-24 11:27 | PN ---
DATE: 04/24/2018 SUBJECTIVE: A 77-year-old white male seen in the Intensive Care Unit. The patient is awake and alert. Speech is fluent. The patient is tolerating his diet well. PHYSICAL EXAMINATION: VITAL SIGNS: The patient's blood pressure is 160/80, heart rate is 115. He is afebrile today. CHEST: Clear. HEART: Sinus tachycardia. ABDOMEN: Today, his abdomen is soft. Bowel sounds are normoactive. EXTREMITIES: Without cyanosis, clubbing or edema. LABORATORY DATA: His BUN and creatinine are elevated at 82 and 4.7, potassium is 4.7. His white count has dropped from 44,000 to 26,000. ASSESSMENT AND PLAN: The patient is doing well possible post ischemic colitis on broad-spectrum antibiotics, off pressors at this point. Continue to progress. Plan is to get out of bed to chair. Continue to aliment and continue IV antibiotics. Ray Crump MD
[2018-04-24] MEDS: Sodium Chloride 0.45% 1,000 ML IV SCH (11:53)
--- NOTE | 2018-04-24 11:59 | PN ---
DATE: 04/24/2018 SUBJECTIVE: The patient is in bed, no acute distress, was seen earlier today in 129 and uneventful night. PHYSICAL EXAMINATION: VITAL SIGNS: Temperature is 98, blood pressure is 150/97, respiratory rate of 24, heart rate of 109. HEENT: Examination of HEENT is unremarkable. NECK: Supple. LUNGS: Have decreased breath sounds. HEART: Normal S1, S2. ABDOMEN: Soft, nontender. LABORATORY DATA: Laboratory examination reveals a white count of 26,000, hemoglobin 10, platelets of 67. BUN of 82, creatinine of 4.7. Urinalysis is noted, tgi-[id number]-[id number]-count wbc's. Vanco level is noted to be at 21 from yesterday. Urine for Legionella antigen is negative. Blood cultures are positive for gram-negative bess. The repeat ones have gram-negative rods. Initial cultures from 04/20 grew Enterobacter aerogenes and the urine has Enterobacter aerogenes and for the sensitive organism resistant to cefazolin. The patient is currently on meropenem. ASSESSMENT AND PLAN: A 77-year-old male seen earlier today in [facility], bed 1. He is awake with severe sepsis, status post septic shock with [id number] renal failure with Enterobacter bacteremia secondary to ischemic colitis and Enterobacter urinary tract infection and with history of urinary tract infection and nonobstructive renal calculi; history of hypertension; diabetes; atrial fibrillation, on anticoagulation; cerebrovascular accident; on meropenem and repeat blood cultures are still positive from the 04/22. Clostridium difficile antigen and toxin are both negative. Dosing of meropenem is 500 every 12 hours with a creatinine of 4.5. We will repeat blood cultures today. Siva Richardson MD
[2018-04-25] MEDS: Sodium Chloride 0.45% 1,000 ML IV SCH (05:02)
--- NOTE | 2018-04-25 08:52 | PN ---
DATE: 04/25/2018 SUBJECTIVE: The patient is resting in bed, awake, but not responding to verbal questions. That is appropriate. He is awake, but not responding to verbal questions. The patient has no respiratory distress. No cough or congestion. No pain. No nausea or vomiting. No diarrhea. PHYSICAL EXAMINATION: VITAL SIGNS: Physical exam note that his temperature is 97.5, pulse is 104, respirations are 18 and BP is 134/84. SKIN: Warm and dry. HEENT: Head atraumatic, normocephalic. Eyes are active to light. Ear, nose and throat seemed to be within normal limits. NECK: His neck is supple. No JVD. No thyroid enlargement. No lymph nodes. HEART: Has a regular rate and rhythm. Normal S1, S2 with tachycardic. LUNGS: Reveal good breath sounds bilaterally. ABDOMEN: Soft. Decreased bowel sounds. GENITALIA AND RECTAL: Deferred. MUSCULOSKELETAL: No joint deformities. EXTREMITIES: Reveal trace lower extremity edema. NEUROLOGICAL: The patient is awake, but does not respond verbally. LABORATORY DATA: Laboratories are pending. IMPRESSION: The patient has sepsis and an acute gastrointestinal bleed as well as myocardial infarction with increased troponins. He has acute kidney insufficiency and atrial fibrillation as well as anemia, thrombocytopenia and status post metabolic acidosis. PLAN: We will continue with IV fluids. Note, the patient is a DNR/DNI. Is getting Lopressor, Pepcid and verapamil and is on Solu-Cortef as well. We will continue to treat aggressively along with the other consultants and the primary care doctor. Aurelio Garnett MD
[2018-04-25] MEDS: Meropenem 500 MG in Sodium Chloride 0.9% 50 ML IVPB SCH ×2 (09:03→21:12)
--- NOTE | 2018-04-25 09:14 | CP.PCM.PN ---
Subjective - Date & Time of Evaluation Date of Evaluation: 04/25/18 Time of Evaluation: 07:10 - Subjective Subjective: Patient was seen and examined at bedside thsi AM. Patient is having hallucinations and confused speech, stating that his mother was at bedside with a knife. Was not oriented to place or time. Patient denies any pain, nausea, or vomiting. Patient was also having active afib with tachycardia of 110 during exam. Objective - Vital Signs/Intake and Output Vital Signs (last 24 hours): Temp Pulse Resp BP Pulse Ox 97.2 F L 101 H 11 L 152/91 H 75 L 04/25/18 08:00 04/25/18 09:02 04/25/18 08:59 04/25/18 09:02 04/25/18 04:00 Intake and Output: 04/25/18 04/25/18 06:59 18:59 Intake Total 600 Output Total 375 Balance 225 - Medications Medications: Current Medications Famotidine (Pepcid) 10 mg IVP BID [facility] Last Admin: 04/25/18 09:01 Dose: 10 mg Hydrocortisone Sodium Succinate (Solu-Cortef) 50 mg IVP Q12H [facility] Last Admin: 04/24/18 21:49 Dose: 50 mg Meropenem 500 mg/ Sodium (Chloride) 50 mls @ 100 mls/hr IVPB Q12 [facility] PRN Reason: Protocol Stop: 04/27/18 22:01 Last Admin: 04/25/18 09:03 Dose: 100 mls/hr Sodium Chloride (Sodium Chloride 0.45%) 1,000 mls @ 50 mls/hr IV .Q20H [facility] Last Admin: 04/25/18 05:02 Dose: 50 mls/hr Metoprolol Tartrate (Lopressor) 25 mg PO BID [facility] Last Admin: 04/25/18 09:02 Dose: 25 mg Rivastigmine (Exelon 9.5 Mg/24 Hr Patch) 1 patch TD DAILY [facility] Last Admin: 04/25/18 09:04 Dose: 1 patch Sodium Bicarbonate (Sodium Bicarbonate Tab) 1,300 mg PO TID [facility] Last Admin: 04/25/18 09:04 Dose: 1,300 mg Verapamil HCl (Calan Tab) 80 mg PO TID [facility] Last Admin: 04/25/18 09:00 Dose: 80 mg - Labs Labs: 04/24/18 07:00 04/24/18 07:00 PT 14.5 SECONDS (9.4-12.5) H 04/21/18 17:50 INR 1.27 (0.93-1.08) H 04/21/18 17:50 APTT 46.0 Seconds (25.1-36.5) H 04/21/18 17:50 - Constitutional Appears: Well, Non-toxic, No Acute Distress - Head Exam Head Exam: ATRAUMATIC, NORMOCEPHALIC - Eye Exam Eye Exam: Normal appearance. absent: Conjunctival injection, Scleral icterus - ENT Exam ENT Exam: Mucous Membranes Moist, Normal Oropharynx - Respiratory Exam Respiratory Exam: NORMAL BREATHING PATTERN. absent: Accessory Muscle Use, Respiratory Distress - Cardiovascular Exam Cardiovascular Exam: Tachycardia, Irregular Rhythm - GI/Abdominal Exam GI & Abdominal Exam: Soft. absent: Distended, Tenderness - Extremities Exam Extremities Exam: absent: Calf Tenderness, Pedal Edema, Tenderness - Neurological Exam Neurological Exam: Alert, Awake. absent: Oriented x3 - Psychiatric Exam Psychiatric exam: Normal Affect, Normal Mood - Skin Skin Exam: Dry, Intact, Normal Color, Warm Assessment and Plan - Assessment and Plan (Free Text) Assessment: 77M with sepsis d/t UTI and ischemic colitis of the right colon. Plan: Continue to monitor with daily abdominal exams. Monitor bowel function for any bowel movements No surgical intervention planned at this time--patient's abdominal exam remains benign, he is afebrile, and has no further bloody bowel movements. Patient's currently WINDY is a contra-indication for any angiograms of the mesentary at this time, will continue to re-assess if clinical exam changes or patient has a bloody stool. Patient is currently a DNR/DNI per family's wishes F/U nephrology recs Continue to monitor vitals PRN pain and nausea medication IVF Advance diet as per GI Discussed with DR. Maloney, further recs per him Kaylee Fraser, PGY2
--- NOTE | 2018-04-25 12:40 | PN ---
DATE: 04/25/2018 SUBJECTIVE: The patient is in bed, in no acute distress, was seen earlier today in 129, bed 1. He is awake. No fevers. No chills. Uneventful night. PHYSICAL EXAMINATION: VITAL SIGNS: Temperature of 97, blood pressure is 158/90, respiratory rate of 18, heart rate of 117. HEENT: Examination of HEENT is unremarkable. NECK: Supple. LUNGS: Have decreased breath sounds. HEART: Normal S1, S2. ABDOMEN: Soft, nontender. LABORATORY DATA: Laboratory examination reveals a white count of 26,000, hemoglobin of 10, platelets of 67. Chemistries reveals the patient to have a BUN of 82, creatinine is 4.7 and procalcitonin is elevated at 155. Microbiology reveals gram-negative bess in the blood. The patient's chest x-ray from 04/23/2018 is reviewed. No active disease. Dr. Anand Maloney's note from yesterday is also reviewed. Dr. Goins's note is also reviewed. Review of the orders, colonoscopy, colon pathology is reviewed. Colon mucosa is showing diffuse hemorrhage and consistent with ischemic colitis. Dr. Crump's note is reviewed. ASSESSMENT AND PLAN: A 77-year-old male, seen earlier today in 129, bed 1 with severe sepsis, status post septic shock with [id number] renal failure with Enterobacter bacteremia secondary to ischemic colitis and Enterobacter urinary tract infection and history of hypertension, diabetes, atrial fibrillation, cerebrovascular accident, currently on meropenem with repeat blood cultures still positive for a gram-negative bess. Blood cultures from yesterday are pending. The patient is on Solu-Cortef. We will follow closely with you. Siva Richardson MD
[2018-04-25] MEDS ORDERED: Vitamin A/D oint 60G TP PRN (13:42)
--- NOTE | 2018-04-25 14:19 | CP.PCM.PN ---
Subjective - Date & Time of Evaluation Date of Evaluation: 04/25/18 Time of Evaluation: 09:00 - Subjective Subjective: Nephrology Consultation Note: Assessment: critical oligoanuric Acute Kidney Injury (N17.9) likely due to ATN, sepsis/shock HAGMA, hyperkalemia, hypernatremia Diabetic chronic Kidney Disease (E11.22) Hypertensive Chronic Kidney Disease (I12.9) Chronic Kidney Disease (N18.3) Stage 3 with ? 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 CHF with EF 30-35%, NSTEMI Plan No acute need for renal replacement therapy at this time but may need soon, will need close follow up. will need further d/w /family about it. Palliative care has seen pt. he is now DNR/DNI. Hypertension control with meds as ordered. Patient not on ACEI/ARB due to WINDY Monitor Input/Output, daily weights and renal function with basic metabolic panel continue with sodium bicarbonate 1300 mg TID lasix 40 mg/day in view of edema and low UOP avoid kayexylate Dose meds/antibiotics for reduced GFR <10. Avoid fleets enema/magnesium based laxatives. Avoid nephrotoxins/NSAIDs/ iodinated contrast (unless needed emergently) Glycemic control Further work up/management as per primary team Thanks for allowing me to participate in care of your patient. Will follow patient with you. Please call if any Qs. 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 renal consult for WINDY management. he was unable to provide much hx. He just said When I am going home. also having diarrhoea with colitis. CHF with EF 30-35%, NSTEMI no knwon OTC/herbal meds or NSAIDs No recent iodinated contrast exposure. ROS: pt unable to provide hx Physical Examination: General Appearance: Comfortable, in no acute respiratory distress. Vitals reviewed and noted as below Head; Atraumatic, normocephalic ENT: unable EYES: Pupils are equal, round and reactive to light accommodation. Eye muscles and extraocular movement intact. Sclera is anicteric. Neck; supple no lymphadenopathy, no thyromegaly or bruit Lungs: Normal respiratory rate/effort. Breath sounds bilateral equal and clear anteriorly Heart: Increased rate. s1s2 normal. No rub or gallop. Extremities: 1+ edema. No varicose veins Neurological: Patient is sleepy and disoriented to person, place and time. confused Skin: Warm and dry. Normal turgor. No rash. Palpitation: Normal elasticity for age Abdomen: Abdomen is soft. Bowel sounds +. There is no abdominal tenderness, no guarding/rigidity no organomegaly. has rectal tube Psych: lack insight and flat affect/mood MSK: no joint tenderness or swelling. Digits and nails normal, no deformity : kidney or bladder not palpable. has salcedo Labs/imaging reviewed. Past medical history, past surgical history, family history, social history, allergy reviewed and noted as below Family hx: no hx of CKD. Rest non-contributory renal imaging: Rt staghorn calculi and small left side calculi UA: 3+ protein with large blood/WBC and bacteria Objective - Vital Signs/Intake and Output Vital Signs (last 24 hours): Temp Pulse Resp BP Pulse Ox 97.2 F L 92 H 30 H 102/64 90 L 04/25/18 08:00 04/25/18 13:32 04/25/18 11:59 04/25/18 13:32 04/25/18 11:00 Intake and Output: 18 04/25/18 06:59 18:59 Intake Total 600 Output Total 375 Balance 225 - Medications Medications: Current Medications Famotidine (Pepcid) 10 mg IVP BID [facility] Last Admin: 04/25/18 09:01 Dose: 10 mg Hydrocortisone Sodium Succinate (Solu-Cortef) 50 mg IVP Q12H [facility] Last Admin: 04/25/18 10:41 Dose: 50 mg Meropenem 500 mg/ Sodium (Chloride) 50 mls @ 100 mls/hr IVPB Q12 [facility] PRN Reason: Protocol Stop: 04/27/18 22:01 Last Admin: 04/25/18 09:03 Dose: 100 mls/hr Sodium Chloride (Sodium Chloride 0.45%) 1,000 mls @ 50 mls/hr IV .Q20H [facility] Last Admin: 04/25/18 05:02 Dose: 50 mls/hr Metoprolol Tartrate (Lopressor) 25 mg PO BID [facility] Last Admin: 04/25/18 09:02 Dose: 25 mg Rivastigmine (Exelon 9.5 Mg/24 Hr Patch) 1 patch TD DAILY [facility] Last Admin: 04/25/18 09:04 Dose: 1 patch Sodium Bicarbonate (Sodium Bicarbonate Tab) 1,300 mg PO TID [facility] Last Admin: 04/25/18 13:33 Dose: 1,300 mg Verapamil HCl (Calan Tab) 80 mg PO TID [facility] Last Admin: 04/25/18 13:32 Dose: 80 mg Vitamin A (Vitamin A&D) 1 applic TP Q8 PRN PRN Reason: Dry skin - Labs Labs: 04/24/18 07:00 04/24/18 07:00 PT 14.5 SECONDS (9.4-12.5) H 04/21/18 17:50 INR 1.27 (0.93-1.08) H 04/21/18 17:50 APTT 46.0 Seconds (25.1-36.5) H 04/21/18 17:50
[2018-04-25] MEDS ORDERED: Vitamins A & D Oint UD Foilpak TOP PRN (14:22)
[2018-04-25] MEDS: Insulin Reg-LOW-Coverage SC SCH ×2 (17:29→21:58)
[2018-04-26] MEDS: Sodium Chloride 0.45% 1,000 ML IV SCH (01:11)
[2018-04-26 06:29] LABS: BASO # 0.01 K/mm3 (0.0-2.0); BASO % 0.1 % (0.0-3.0); EOS % 0.1 % (1.5-5.0); GRAN # 10.9 (1.4-6.5); GRAN % 87.8 % (50.0-68.0); HEMOGLOBIN 10.6 g/dL (14.0-18.0); LYMPH # 1.1 (1.2-3.4); LYMPH % 9.1 % (22.0-35.0); MEAN CORPUSCULAR HEMOGLOBIN 27.7 pg (25.0-35.0); MEAN CORPUSCULAR HGB CONC 31.5 g/dl (31.0-37.0); MEAN PLATELET VOLUME 10.5 fl (7.0-11.0); MONO # 0.4 (0.1-0.6); MONO % 2.9 % (1.0-6.0); RBC 3.83 10^6/uL (3.5-6.1); WHITE BLOOD COUNT 12.4 10^3/ul (4.5-11.0)
[2018-04-26 07:11] LABS: ALB/GLOB RATIO 0.9 (1.1-1.8); CALCIUM 8.1 mg/dL (8.4-10.5)
[2018-04-26] MEDS ORDERED: Magnesium Sulfate 1 gm in D5W 1 GM/100 ML BAG IVPB ONE (07:48)
[2018-04-26] MEDS: Insulin Reg-LOW-Coverage SC SCH ×4 (08:23→21:40)
[2018-04-26] MEDS: Meropenem 500 MG in Sodium Chloride 0.9% 50 ML IVPB SCH ×2 (11:03→21:41)
--- NOTE | 2018-04-26 11:09 | PN ---
DATE: 04/26/2018 SUBJECTIVE: A 77-year-old white male admitted to the hospital with possible ischemic colitis. The patient is markedly improved as far as laboratory data. He is in acute renal failure with chronic renal insufficiency. His white count has dropped from as high as 45,000 to 12,400, his hemoglobin is holding. His potassium is 4.2, his and creatinine is elevated at 92 and 4.8. The patient is DNR/DNI. He is afebrile. He is tachycardic, but blood pressure is holding. He is more awake and alert and tolerating diet well. Surgery is holding off on any intervention at this point because of his status and hopefully, the patient will be able to avoid surgery. At this point, he is looking better although his kidney function is markedly deteriorated. The patient continues to be hydrated and on a renal diet and on broad-spectrum antibiotics. PHYSICAL EXAMINATION: HEART: Sinus tachycardia. CHEST: Clear. ABDOMEN: Soft. EXTREMITIES: Without cyanosis, clubbing, edema. The patient does have dementia and history of multiple comorbid problems. Ray Crump MD
--- NOTE | 2018-04-26 12:02 | CP.CCUPN ---
<Taj Carey - Last Filed: 04/26/18 11:51> CCU Subjective - Physician Review Events Since Last Encounter (Free Text): 04/26/18 10:00 Patient seen and examined at bedside. No acute events overnight, patient resting comfortably having breakfast on my interview. No complaints. CCU Objective - Vital Signs / Intake & Output Vital Signs (Last 4 hours): Vital Signs Pulse BP 04/26/18 11:27 134/82 04/26/18 11:19 112 H 04/26/18 11:04 110 H 134/82 Intake and Output (Last 8hrs): Intake & Output 04/25/18 04/26/18 04/26/18 22:59 06:59 14:59 Intake Total 2040 Output Total 350 Balance 1690 Intake: IV 1200 1/2 NS 600 Right Internal Jugular 600 Oral 840 Output: Urine 300 Urethral (Charles) 300 Stool 50 - Physical Exam Head: Positive for: Atraumatic, Normocephalic Pupils: Positive for: PERRL Extroacular Muscles: Positive for: EOMI Conjunctiva: Positive for: Normal Mouth: Positive for: Dry Neck: Positive for: Normal Range of Motion Respiratory/Chest: Positive for: Clear to Auscultation. Negative for: Respiratory Distress, Wheezes, Rales, Rhonchi Cardiovascular: Positive for: Regular Rate and Rhythm, Normal S1, S2. Negative for: Murmurs, Rub, Gallop Abdomen: Negative for: Tenderness, Distention, Rebound, Guarding Upper Extremity: Positive for: Normal Inspection. Negative for: Cyanosis, Edema Lower Extremity: Positive for: Normal Inspection. Negative for: Edema Neurological: Negative for: Motor Func Grossly Intact ([employer] strength R 4/5, L 3/ 5, LE strength R 3/5, L 2/5), Memory Normal Skin: Positive for: Warm, Dry, Normal Color. Negative for: Rashes Psychiatric: Positive for: Alert. Negative for: Oriented x 3 (oriented only to self) - Medications Active Medications: Active Medications Generic Name Dose Route Start Last Admin Trade Name Freq PRN Reason Stop Dose Admin Famotidine 10 mg 04/22/18 18:00 04/26/18 11:05 Pepcid IVP 10 mg BID BONNIE Administration Hydrocortisone Sodium Succinate 50 mg 04/22/18 10:15 04/26/18 11:18 Solu-Cortef IVP 50 mg Q12H BONNIE Administration Meropenem 500 mg/ Sodium 50 mls @ 100 mls/hr 04/20/18 22:00 04/26/18 11:03 Chloride IVPB 04/27/18 22:01 100 mls/hr Q12 BONNIE Administration Protocol Insulin Human Regular 0 units 04/25/18 16:30 04/26/18 08:23 Humulin R Low SC 1 units ACHS BONNIE Administration Protocol Metoprolol Tartrate 25 mg 04/23/18 18:00 04/26/18 11:19 Lopressor PO 25 mg BID BONNIE Administration Rivastigmine 1 patch 04/23/18 12:15 04/26/18 11:27 Exelon 9.5 Mg/24 Hr Patch TD 1 patch DAILY BONNIE Administration Sodium Bicarbonate 1,300 mg 04/26/18 10:30 04/26/18 11:05 Sodium Bicarbonate Tab PO 1,300 mg QID BONNIE Administration Verapamil HCl 80 mg 04/23/18 14:00 04/26/18 11:04 Calan Tab PO 80 mg TID BONNIE Administration Vitamin A 1 ea 04/25/18 14:22 Vitamin A & D Oint Ud Foilpak TOP Q8 PRN DRY SKIN - Patient Studies Lab Studies: Microbiology Studies 04/24/18 10:00 Blood Culture - Preliminary Blood-Venous NO GROWTH AFTER 48 HOURS 04/24/18 09:45 Blood Culture - Preliminary Blood-Venous NO GROWTH AFTER 48 HOURS 04/22/18 07:15 Blood Culture - Final Blood Enterobacter Aerogenes Gram Stain - Final 04/22/18 07:00 Blood Culture - Final Blood Enterobacter Aerogenes Gram Stain - Final Lab Studies 04/26/18 04/26/18 04/26/18 Range/Units 11:21 07:23 05:30 WBC (4.5-11.0) 10^3/ul RBC (3.5-6.1) 10^6/uL Hgb (14.0-18.0) g/dL Hct (42.0-52.0) % MCV (80.0-105.0) fl MCH (25.0-35.0) pg MCHC (31.0-37.0) g/dl RDW (11.5-14.5) % Plt Count (120.0-450.0) 10^3/uL MPV (7.0-11.0) fl Gran % (50.0-68.0) % Lymph % (Auto) (22.0-35.0) % [place] % (Auto) (1.0-6.0) % Eos % (Auto) (1.5-5.0) % Baso % (Auto) (0.0-3.0) % Gran # (1.4-6.5) Lymph # (Auto) (1.2-3.4) [place] # (Auto) (0.1-0.6) Eos # (Auto) (0.0-0.7) Baso # (Auto) (0.0-2.0) K/mm3 Sodium 145 (132-148) mmol/L Potassium 4.2 (3.6-5.0) mmol/L Chloride 119 H (98-107) mmol/L Carbon Dioxide 13 L (21-33) mmol/L Anion Gap 18 (10-20) BUN 92 H (7-21) mg/dL Creatinine 4.8 H (0.8-1.5) mg/dl Est GFR ( Amer) 14 Est GFR (Non-Af Amer) 12 POC Glucose (mg/dL) 204 H 172 H (65-110) mg/dL Random Glucose 174 H (70-110) mg/dL Calcium 8.1 L (8.4-10.5) mg/dL Phosphorus 5.9 H (2.5-4.5) mg/dL Magnesium 1.7 (1.7-2.2) mg/dL Total Bilirubin 0.2 (0.2-1.3) mg/dL AST 17 D (17-59) U/L ALT 35 (7-56) U/L Alkaline Phosphatase 93 (38-126) U/L Total Protein 4.3 L (5.8-8.3) g/dL Albumin 2.0 L (3.0-4.8) g/dL Globulin 2.3 gm/dL Albumin/Globulin Ratio 0.9 L (1.1-1.8) 04/26/18 04/25/18 04/25/18 Range/Units 05:30 21:56 17:13 WBC 12.4 H D (4.5-11.0) 10^3/ul RBC 3.83 (3.5-6.1) 10^6/uL Hgb 10.6 L (14.0-18.0) g/dL Hct 33.7 L (42.0-52.0) % MCV 88.0 (80.0-105.0) fl MCH 27.7 (25.0-35.0) pg MCHC 31.5 (31.0-37.0) g/dl RDW 16.0 H (11.5-14.5) % Plt Count 101 L (120.0-450.0) 10^3/uL MPV 10.5 (7.0-11.0) fl Gran % 87.8 H (50.0-68.0) % Lymph % (Auto) 9.1 L (22.0-35.0) % [place] % (Auto) 2.9 (1.0-6.0) % Eos % (Auto) 0.1 L (1.5-5.0) % Baso % (Auto) 0.1 (0.0-3.0) % Gran # 10.90 H (1.4-6.5) Lymph # (Auto) 1.1 L (1.2-3.4) [place] # (Auto) 0.4 (0.1-0.6) Eos # (Auto) 0.0 (0.0-0.7) Baso # (Auto) 0.01 (0.0-2.0) K/mm3 Sodium (132-148) mmol/L Potassium (3.6-5.0) mmol/L Chloride (98-107) mmol/L Carbon Dioxide (21-33) mmol/L Anion Gap (10-20) BUN (7-21) mg/dL Creatinine (0.8-1.5) mg/dl Est GFR ( Amer) Est GFR (Non-Af Amer) POC Glucose (mg/dL) 214 H 209 H (65-110) mg/dL Random Glucose (70-110) mg/dL Calcium (8.4-10.5) mg/dL Phosphorus (2.5-4.5) mg/dL Magnesium (1.7-2.2) mg/dL Total Bilirubin (0.2-1.3) mg/dL AST (17-59) U/L ALT (7-56) U/L Alkaline Phosphatase (38-126) U/L Total Protein (5.8-8.3) g/dL Albumin (3.0-4.8) g/dL Globulin gm/dL Albumin/Globulin Ratio (1.1-1.8) 04/25/18 Range/Units 11:52 WBC (4.5-11.0) 10^3/ul RBC (3.5-6.1) 10^6/uL Hgb (14.0-18.0) g/dL Hct (42.0-52.0) % MCV (80.0-105.0) fl MCH (25.0-35.0) pg MCHC (31.0-37.0) g/dl RDW (11.5-14.5) % Plt Count (120.0-450.0) 10^3/uL MPV (7.0-11.0) fl Gran % (50.0-68.0) % Lymph % (Auto) (22.0-35.0) % [place] % (Auto) (1.0-6.0) % Eos % (Auto) (1.5-5.0) % Baso % (Auto) (0.0-3.0) % Gran # (1.4-6.5) Lymph # (Auto) (1.2-3.4) [place] # (Auto) (0.1-0.6) Eos # (Auto) (0.0-0.7) Baso # (Auto) (0.0-2.0) K/mm3 Sodium (132-148) mmol/L Potassium (3.6-5.0) mmol/L Chloride (98-107) mmol/L Carbon Dioxide (21-33) mmol/L Anion Gap (10-20) BUN (7-21) mg/dL Creatinine (0.8-1.5) mg/dl Est GFR ( Amer) Est GFR (Non-Af Amer) POC Glucose (mg/dL) 185 H (65-110) mg/dL Random Glucose (70-110) mg/dL Calcium (8.4-10.5) mg/dL Phosphorus (2.5-4.5) mg/dL Magnesium (1.7-2.2) mg/dL Total Bilirubin (0.2-1.3) mg/dL AST (17-59) U/L ALT (7-56) U/L Alkaline Phosphatase (38-126) U/L Total Protein (5.8-8.3) g/dL Albumin (3.0-4.8) g/dL Globulin gm/dL Albumin/Globulin Ratio (1.1-1.8) Laboratory Results - last 24 hr 04/25/18 04/25/18 04/25/18 11:52 17:13 21:56 WBC RBC Hgb Hct MCV MCH MCHC RDW Plt Count MPV Gran % Lymph % (Auto) [place] % (Auto) Eos % (Auto) Baso % (Auto) Gran # Lymph # (Auto) [place] # (Auto) Eos # (Auto) Baso # (Auto) Sodium Potassium Chloride Carbon Dioxide Anion Gap BUN Creatinine Est GFR ( Amer) Est GFR (Non-Af Amer) POC Glucose (mg/dL) 185 H 209 H 214 H Random Glucose Calcium Phosphorus Magnesium Total Bilirubin AST ALT Alkaline Phosphatase Total Protein Albumin Globulin Albumin/Globulin Ratio 04/26/18 04/26/18 04/26/18 05:30 05:30 07:23 WBC 12.4 H D RBC 3.83 Hgb 10.6 L Hct 33.7 L MCV 88.0 MCH 27.7 MCHC 31.5 RDW 16.0 H Plt Count 101 L MPV 10.5 Gran % 87.8 H Lymph % (Auto) 9.1 L [place] % (Auto) 2.9 Eos % (Auto) 0.1 L Baso % (Auto) 0.1 Gran # 10.90 H Lymph # (Auto) 1.1 L [place] # (Auto) 0.4 Eos # (Auto) 0.0 Baso # (Auto) 0.01 Sodium 145 Potassium 4.2 Chloride 119 H Carbon Dioxide 13 L Anion Gap 18 BUN 92 H Creatinine 4.8 H Est GFR ( Amer) 14 Est GFR (Non-Af Amer) 12 POC Glucose (mg/dL) 172 H Random Glucose 174 H Calcium 8.1 L Phosphorus 5.9 H Magnesium 1.7 Total Bilirubin 0.2 AST 17 D ALT 35 Alkaline Phosphatase 93 Total Protein 4.3 L Albumin 2.0 L Globulin 2.3 Albumin/Globulin Ratio 0.9 L 06/18/18 11:21 WBC RBC Hgb Hct MCV MCH MCHC RDW Plt Count MPV Gran % Lymph % (Auto) [place] % (Auto) Eos % (Auto) Baso % (Auto) Gran # Lymph # (Auto) [place] # (Auto) Eos # (Auto) Baso # (Auto) Sodium Potassium Chloride Carbon Dioxide Anion Gap BUN Creatinine Est GFR ( Amer) Est GFR (Non-Af Amer) POC Glucose (mg/dL) 204 H Random Glucose Calcium Phosphorus Magnesium Total Bilirubin AST ALT Alkaline Phosphatase Total Protein Albumin Globulin Albumin/Globulin Ratio Fingerstick Blood Sugar Results: 172 Critical Care Progress Note - Nutrition Nutrition: Nutrition Category Date Time Status Liquid Diet [DIET] Diets 04/25/18 Dinner Ordered Assessment/Plan - Assessment and Plan (Free Text) Assessment: 77 year old male past medical history pertinent for past TIA/CVA under ICU care for Multiorgan System Failure likely 2/2 Septic Shock due to UTI VS Cholecystitis. Septic Cardiomyopathy WINDY Encephalopathy Lactic Acidosis DKA/Hyperglycemia - Resolved Patient Head CT insignificant. Blood cultures are gram neg rods and patient has high WBC count of 35, up from yesterday, consistent/stable with yesterday. Patient himself does not complain of any abdominal pain, but Abd U/s shows GB thickening c/w acalculus cystitis. EKG shows LVH with bifasciular block. In terms of finding a source of the Sepsis, patient's Urine Cx shows E. Faecalis and E. Aerogenes; and blood cultures show E. Aerogenes - this indicates that source is likely urine in the absence of HIDA scan findings and negative Abd dopplers. Of note, patient is retaining urine and U/O has only been ~220 over 24 hours for the past several days. Plan Neuro - Maintain normothermia - Rivastigmine Cardio - Septic shock: Milrinone, Levophed gtt and Vasopressin are stopped; Maintenance fluids of 1/2NS Pulm - Maintain saturation > 92% GI - PPX with protonix - Possible Cholecystitis: Dr. Maloney on consult, HIDA pending - no surgical intervention for now; cholecystostomy tubes from IR; NPO, IVF - GI Consult: Sigmoidoscopy yesterday revealed possible GI obstruction and possible ischemic bowel - keep patient NPO /Renal - Anuric Renal Failure - monitor urine output, give fluids, avoid nephrotoxic drugs; renal consult: Dr. Goins - trial of lasix 40 Heme: - DVT PPX with pepcid per GI recs - Patient CBC count has dropped today Endo: - Maintain Euglycemia; off insulin drip now ID: - Septic Shock: Stress dose steroids - TAPER, Merrem, fluid resuscitation with bolus and maintenance. ID Consult: Dr. Richardson Dispo: At this time, patient is stable for transfer to telemetry <Dinh Colindres - Last Filed: 04/26/18 14:56> CCU Objective - Vital Signs / Intake & Output Vital Signs (Last 4 hours): Vital Signs Pulse BP 04/26/18 11:27 134/82 04/26/18 11:19 112 H 04/26/18 11:04 110 H 134/82 Intake and Output (Last 8hrs): Intake & Output 04/25/18 04/26/18 04/26/18 22:59 06:59 14:59 Intake Total 2040 Output Total 350 Balance 1690 Intake: IV 1200 1/2 NS 600 Right Internal Jugular 600 Oral 840 Output: Urine 300 Urethral (Charles) 300 Stool 50 - Medications Active Medications: Active Medications Generic Name Dose Route Start Last Admin Trade Name Freq PRN Reason Stop Dose Admin Famotidine 10 mg 04/22/18 18:00 04/26/18 11:05 Pepcid IVP 10 mg BID BONNIE Administration Hydrocortisone Sodium Succinate 50 mg 04/27/18 10:00 Solu-Cortef IVP DAILY BONNIE Meropenem 500 mg/ Sodium 50 mls @ 100 mls/hr 04/20/18 22:00 04/26/18 11:03 Chloride IVPB 04/27/18 22:01 100 mls/hr Q12 BONNIE Administration Protocol Insulin Human Regular 0 units 04/25/18 16:30 04/26/18 08:23 Humulin R Low SC 1 units ACHS BONNIE Administration Protocol Metoprolol Tartrate 25 mg 04/23/18 18:00 04/26/18 11:19 Lopressor PO 25 mg BID BONNIE Administration Rivastigmine 1 patch 04/23/18 12:15 04/26/18 11:27 Exelon 9.5 Mg/24 Hr Patch TD 1 patch DAILY BONNIE Administration Sodium Bicarbonate 1,300 mg 04/26/18 10:30 04/26/18 11:05 Sodium Bicarbonate Tab PO 1,300 mg QID BONNIE Administration Verapamil HCl 80 mg 04/23/18 14:00 04/26/18 11:04 Calan Tab PO 80 mg TID BONNIE Administration Vitamin A 1 ea 04/25/18 14:22 Vitamin A & D Oint Ud Foilpak TOP Q8 PRN DRY SKIN - Patient Studies Lab Studies: Microbiology Studies 04/24/18 10:00 Blood Culture - Preliminary Blood-Venous NO GROWTH AFTER 48 HOURS 04/24/18 09:45 Blood Culture - Preliminary Blood-Venous NO GROWTH AFTER 48 HOURS 04/22/18 07:15 Blood Culture - Final Blood Enterobacter Aerogenes Gram Stain - Final 04/22/18 07:00 Blood Culture - Final Blood Enterobacter Aerogenes Gram Stain - Final Lab Studies 04/26/18 04/26/18 04/26/18 Range/Units 11:21 07:23 05:30 WBC (4.5-11.0) 10^3/ul RBC (3.5-6.1) 10^6/uL Hgb (14.0-18.0) g/dL Hct (42.0-52.0) % MCV (80.0-105.0) fl MCH (25.0-35.0) pg MCHC (31.0-37.0) g/dl RDW (11.5-14.5) % Plt Count (120.0-450.0) 10^3/uL MPV (7.0-11.0) fl Gran % (50.0-68.0) % Lymph % (Auto) (22.0-35.0) % [place] % (Auto) (1.0-6.0) % Eos % (Auto) (1.5-5.0) % Baso % (Auto) (0.0-3.0) % Gran # (1.4-6.5) Lymph # (Auto) (1.2-3.4) [place] # (Auto) (0.1-0.6) Eos # (Auto) (0.0-0.7) Baso # (Auto) (0.0-2.0) K/mm3 Sodium 145 (132-148) mmol/L Potassium 4.2 (3.6-5.0) mmol/L Chloride 119 H (98-107) mmol/L Carbon Dioxide 13 L (21-33) mmol/L Anion Gap 18 (10-20) BUN 92 H (7-21) mg/dL Creatinine 4.8 H (0.8-1.5) mg/dl Est GFR ( Amer) 14 Est GFR (Non-Af Amer) 12 POC Glucose (mg/dL) 204 H 172 H (65-110) mg/dL Random Glucose 174 H (70-110) mg/dL Calcium 8.1 L (8.4-10.5) mg/dL Phosphorus 5.9 H (2.5-4.5) mg/dL Magnesium 1.7 (1.7-2.2) mg/dL Total Bilirubin 0.2 (0.2-1.3) mg/dL AST 17 D (17-59) U/L ALT 35 (7-56) U/L Alkaline Phosphatase 93 (38-126) U/L Total Protein 4.3 L (5.8-8.3) g/dL Albumin 2.0 L (3.0-4.8) g/dL Globulin 2.3 gm/dL Albumin/Globulin Ratio 0.9 L (1.1-1.8) 04/26/18 04/25/18 04/25/18 Range/Units 05:30 21:56 17:13 WBC 12.4 H D (4.5-11.0) 10^3/ul RBC 3.83 (3.5-6.1) 10^6/uL Hgb 10.6 L (14.0-18.0) g/dL Hct 33.7 L (42.0-52.0) % MCV 88.0 (80.0-105.0) fl MCH 27.7 (25.0-35.0) pg MCHC 31.5 (31.0-37.0) g/dl RDW 16.0 H (11.5-14.5) % Plt Count 101 L (120.0-450.0) 10^3/uL MPV 10.5 (7.0-11.0) fl Gran % 87.8 H (50.0-68.0) % Lymph % (Auto) 9.1 L (22.0-35.0) % [place] % (Auto) 2.9 (1.0-6.0) % Eos % (Auto) 0.1 L (1.5-5.0) % Baso % (Auto) 0.1 (0.0-3.0) % Gran # 10.90 H (1.4-6.5) Lymph # (Auto) 1.1 L (1.2-3.4) [place] # (Auto) 0.4 (0.1-0.6) Eos # (Auto) 0.0 (0.0-0.7) Baso # (Auto) 0.01 (0.0-2.0) K/mm3 Sodium (132-148) mmol/L Potassium (3.6-5.0) mmol/L Chloride (98-107) mmol/L Carbon Dioxide (21-33) mmol/L Anion Gap (10-20) BUN (7-21) mg/dL Creatinine (0.8-1.5) mg/dl Est GFR ( Amer) Est GFR (Non-Af Amer) POC Glucose (mg/dL) 214 H 209 H (65-110) mg/dL Random Glucose (70-110) mg/dL Calcium (8.4-10.5) mg/dL Phosphorus (2.5-4.5) mg/dL Magnesium (1.7-2.2) mg/dL Total Bilirubin (0.2-1.3) mg/dL AST (17-59) U/L ALT (7-56) U/L Alkaline Phosphatase (38-126) U/L Total Protein (5.8-8.3) g/dL Albumin (3.0-4.8) g/dL Globulin gm/dL Albumin/Globulin Ratio (1.1-1.8) Laboratory Results - last 24 hr 04/25/18 04/25/18 04/26/18 17:13 21:56 05:30 WBC 12.4 H D RBC 3.83 Hgb 10.6 L Hct 33.7 L MCV 88.0 MCH 27.7 MCHC 31.5 RDW 16.0 H Plt Count 101 L MPV 10.5 Gran % 87.8 H Lymph % (Auto) 9.1 L [place] % (Auto) 2.9 Eos % (Auto) 0.1 L Baso % (Auto) 0.1 Gran # 10.90 H Lymph # (Auto) 1.1 L [place] # (Auto) 0.4 Eos # (Auto) 0.0 Baso # (Auto) 0.01 Sodium Potassium Chloride Carbon Dioxide Anion Gap BUN Creatinine Est GFR ( Amer) Est GFR (Non-Af Amer) POC Glucose (mg/dL) 209 H 214 H Random Glucose Calcium Phosphorus Magnesium Total Bilirubin AST ALT Alkaline Phosphatase Total Protein Albumin Globulin Albumin/Globulin Ratio 04/26/18 04/26/18 04/26/18 05:30 07:23 11:21 WBC RBC Hgb Hct MCV MCH MCHC RDW Plt Count MPV Gran % Lymph % (Auto) [place] % (Auto) Eos % (Auto) Baso % (Auto) Gran # Lymph # (Auto) [place] # (Auto) Eos # (Auto) Baso # (Auto) Sodium 145 Potassium 4.2 Chloride 119 H Carbon Dioxide 13 L Anion Gap 18 BUN 92 H Creatinine 4.8 H Est GFR ( Amer) 14 Est GFR (Non-Af Amer) 12 POC Glucose (mg/dL) 172 H 204 H Random Glucose 174 H Calcium 8.1 L Phosphorus 5.9 H Magnesium 1.7 Total Bilirubin 0.2 AST 17 D ALT 35 Alkaline Phosphatase 93 Total Protein 4.3 L Albumin 2.0 L Globulin 2.3 Albumin/Globulin Ratio 0.9 L Critical Care Progress Note - Nutrition Nutrition: Nutrition Category Date Time Status Dysphagia/Modified Consistency Diet [DIET] Diets 04/26/18 Dinner Ordered Liquid Diet [DIET] Diets 04/25/18 Dinner Ordered Attending/Attestation - Attestation I have personally seen and examined this patient.: Yes I have fully participated in the care of the patient.: Yes I have reviewed all pertinent clinical information: Yes Notes (Text): 04/26/18 14:50 77 yo male who recovered from septic shock with MODS secondary to UTI. Last positive bc with enterobacter on 04/22-->is on meropenem and may require prison abx: picc line will be placed and cvc will be removed, discussed with GI--> advnace diet+will remove flex-tube. Patient is OOB to chair, comfortable, tolerates oral nutrition. Still oliguric and creatinine plateaued-->discussed with Dr. Goins-->hold on HD+try lasix, but then if in a couple of days renal function wont improve--> permacath will be placed for prison HD. PT/OT--> patient will be going for subacute rehab tomorrow or day after tomorrow. dvt/gi prophyalxis ccm time 40 min
--- NOTE | 2018-04-26 13:00 | CP.PCM.PN ---
Subjective - Date & Time of Evaluation Date of Evaluation: 04/26/18 Time of Evaluation: 12:57 - Subjective Subjective: Nephrology Consultation Note: Assessment: critical oligoanuric Acute Kidney Injury (N17.9) likely due to ATN, sepsis/shock HAGMA, hyperkalemia, hypernatremia Diabetic chronic Kidney Disease (E11.22) Hypertensive Chronic Kidney Disease (I12.9) Chronic Kidney Disease (N18.3) Stage 3 with ? 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 CHF with EF 30-35%, NSTEMI Plan No emergent need for renal replacement therapy at this time but likely will need soon, will need close follow up. will need further d/w /family about it. Palliative care has seen pt. he is now DNR/DNI. Hypertension control with meds as ordered. Patient not on ACEI/ARB due to WINDY Monitor Input/Output, daily weights and renal function with basic metabolic panel continue with sodium bicarbonate 1300 mg QID lasix 40 mg/day in view of edema and low UOP. d/c IVF avoid kayexylate due to colitis check TSAT/Ferritin, VIt D and PTH bacteremia persistent with staghorn calculus, consider further input from and ID Dose meds/antibiotics for reduced GFR <10. Avoid fleets enema/magnesium based laxatives. Avoid nephrotoxins/NSAIDs/ iodinated contrast (unless needed emergently) Glycemic control Further work up/management as per primary team Thanks for allowing me to participate in care of your patient. Will follow patient with you. Please call if any Qs. had d/w team Dr Phil Goins Office: [phone] Chief Complaint; unable Reason for consult: WINDY HPI: Pt is a 77 M with hx of diabetes Mellitus hypertension A fib, CVA, dementia , Rt staghorn calculi and left renal calculi, CKD stage 3 with baseline cr 1.7- 1.9 with episodes of AKIs in past initially admitted with septic shock, UTI, lactic acidosis and WINDY. renal consult for WINDY management. he was unable to provide much hx. He just said When I am going home. also having diarrhoea with colitis. CHF with EF 30-35%, NSTEMI no knwon OTC/herbal meds or NSAIDs No recent iodinated contrast exposure. ROS: pt unable to provide hx Physical Examination: General Appearance: Comfortable, in no acute respiratory distress. Vitals reviewed and noted as below Head; Atraumatic, normocephalic ENT: unable EYES: Pupils are equal, round and reactive to light accommodation. Eye muscles and extraocular movement intact. Sclera is anicteric. Neck; supple no lymphadenopathy, no thyromegaly or bruit Lungs: Normal respiratory rate/effort. Breath sounds bilateral equal and clear anteriorly Heart: Increased rate. s1s2 normal. No rub or gallop. Extremities: 1+ edema. No varicose veins Neurological: Patient is sleepy and disoriented to person, place and time. confused Skin: Warm and dry. Normal turgor. No rash. Palpitation: Normal elasticity for age Abdomen: Abdomen is soft. Bowel sounds +. There is no abdominal tenderness, no guarding/rigidity no organomegaly. has rectal tube Psych: lack insight and flat affect/mood MSK: no joint tenderness or swelling. Digits and nails normal, no deformity : kidney or bladder not palpable. has salcedo Labs/imaging reviewed. Past medical history, past surgical history, family history, social history, allergy reviewed and noted as below Family hx: no hx of CKD. Rest non-contributory renal imaging: Rt staghorn calculi and small left side calculi UA: 3+ protein with large blood/WBC and bacteria Objective - Vital Signs/Intake and Output Vital Signs (last 24 hours): Temp Pulse Resp BP Pulse Ox 98.0 F 112 H 12 134/82 83 L 04/25/18 20:00 04/26/18 11:19 04/26/18 05:23 04/26/18 11:27 04/26/18 03:00 - Medications Medications: Current Medications Famotidine (Pepcid) 10 mg IVP BID [facility] Last Admin: 04/26/18 11:05 Dose: 10 mg Hydrocortisone Sodium Succinate (Solu-Cortef) 50 mg IVP Q12H [facility] Last Admin: 04/26/18 11:18 Dose: 50 mg Meropenem 500 mg/ Sodium (Chloride) 50 mls @ 100 mls/hr IVPB Q12 [facility] PRN Reason: Protocol Stop: 04/27/18 22:01 Last Admin: 04/26/18 11:03 Dose: 100 mls/hr Insulin Human Regular (Humulin R Low) 0 units SC ACHS [facility] PRN Reason: Protocol Last Admin: 04/26/18 08:23 Dose: 1 units Metoprolol Tartrate (Lopressor) 25 mg PO BID [facility] Last Admin: 04/26/18 11:19 Dose: 25 mg Rivastigmine (Exelon 9.5 Mg/24 Hr Patch) 1 patch TD DAILY [facility] Last Admin: 04/26/18 11:27 Dose: 1 patch Sodium Bicarbonate (Sodium Bicarbonate Tab) 1,300 mg PO QID [facility] Last Admin: 04/26/18 11:05 Dose: 1,300 mg Verapamil HCl (Calan Tab) 80 mg PO TID [facility] Last Admin: 04/26/18 11:04 Dose: 80 mg Vitamin A (Vitamin A & D Oint Ud Foilpak) 1 ea TOP Q8 PRN PRN Reason: DRY SKIN - Labs Labs: 04/26/18 05:30 04/26/18 05:30 PT 14.5 SECONDS (9.4-12.5) H 04/21/18 17:50 INR 1.27 (0.93-1.08) H 04/21/18 17:50 APTT 46.0 Seconds (25.1-36.5) H 04/21/18 17:50
--- NOTE | 2018-04-26 15:05 | CP.PCM.PN ---
Subjective - Date & Time of Evaluation Date of Evaluation: 04/26/18 Time of Evaluation: 12:10 - Subjective Subjective: Comfortable on a chair, no fevers, still with some right sided abdominal pain, but no nausea or vomiting. Objective - Vital Signs/Intake and Output Vital Signs (last 24 hours): Temp Pulse Resp BP Pulse Ox 98.0 F 84 12 114/74 83 L 04/25/18 20:00 04/26/18 05:23 04/26/18 05:23 04/26/18 05:24 04/26/18 03:00 - Medications Medications: Current Medications Famotidine (Pepcid) 10 mg IVP BID [facility] Last Admin: 04/25/18 17:33 Dose: 10 mg Hydrocortisone Sodium Succinate (Solu-Cortef) 50 mg IVP Q12H [facility] Last Admin: 04/25/18 21:23 Dose: 50 mg Meropenem 500 mg/ Sodium (Chloride) 50 mls @ 100 mls/hr IVPB Q12 [facility] PRN Reason: Protocol Stop: 04/27/18 22:01 Last Admin: 04/25/18 21:12 Dose: 100 mls/hr Sodium Chloride (Sodium Chloride 0.45%) 1,000 mls @ 50 mls/hr IV .Q20H [facility] Last Admin: 04/26/18 01:11 Dose: 50 mls/hr Insulin Human Regular (Humulin R Low) 0 units SC ACHS [facility] PRN Reason: Protocol Last Admin: 04/25/18 21:58 Dose: Not Given Metoprolol Tartrate (Lopressor) 25 mg PO BID [facility] Last Admin: 04/25/18 17:32 Dose: 25 mg Rivastigmine (Exelon 9.5 Mg/24 Hr Patch) 1 patch TD DAILY [facility] Last Admin: 04/25/18 09:04 Dose: 1 patch Sodium Bicarbonate (Sodium Bicarbonate Tab) 1,300 mg PO TID [facility] Last Admin: 04/25/18 17:29 Dose: 1,300 mg Verapamil HCl (Calan Tab) 80 mg PO TID [facility] Last Admin: 04/25/18 17:28 Dose: 80 mg Vitamin A (Vitamin A & D Oint Ud Foilpak) 1 ea TOP Q8 PRN PRN Reason: DRY SKIN - Labs Labs: 04/24/18 07:00 04/24/18 07:00 PT 14.5 SECONDS (9.4-12.5) H 04/21/18 17:50 INR 1.27 (0.93-1.08) H 04/21/18 17:50 APTT 46.0 Seconds (25.1-36.5) H 04/21/18 17:50 - Constitutional Appears: Chronically Ill - Head Exam Head Exam: NORMAL INSPECTION - ENT Exam ENT Exam: Mucous Membranes Moist - Neck Exam Neck Exam: absent: Meningismus - Respiratory Exam Respiratory Exam: Decreased Breath Sounds - Cardiovascular Exam Cardiovascular Exam: +S1, +S2 - GI/Abdominal Exam GI & Abdominal Exam: Soft. absent: Tenderness Assessment and Plan - Assessment and Plan (Free Text) Plan: Assessment severe sepsis S/P septic shock with acute on chronic renal failure due to enterobacter bacteremia consider due to ischemic colitis R/O UTI history of urinary tract infection in this patient with multiple non- obstructing renal calculi history of hypoglycemic episode with encephalopathy HTN DM atrial fibrillation on anticoagulation CVA S/P left hip and back surgery Plan continue Merrem and repeat blood cx from 04/24/2018 are negative x 48 hours - will need at least 28 days of antibiotics overall prognosis is poor follow up further plans of Surgery
--- NOTE | 2018-04-26 17:56 | PN ---
DATE: 04/26/2018 LOCATION: The patient in CCU 129, bed 1. REASON FOR CONSULTATION AND FOLLOWUP: Paroxysmal atrial fibrillation, diarrhea, sepsis, septic shock, borderline positive troponin, acute kidney injury, GI bleeding, SUBJECTIVE: The patient is lying comfortably in bed without any chest pain, shortness of breath, or palpitation and no apparent respiratory distress. PHYSICAL EXAMINATION: VITAL SIGNS: Blood pressure is 134/82, respirations 18, pulse 112. The patient is afebrile. HEENT: Head: Normocephalic. Eyes: Pupils normal. Conjunctivae slightly pale. NECK: JVP low. Carotids equal. THORAX: AP diameter normal. LUNGS: Clear. CARDIOVASCULAR: S1 and S2. ABDOMEN: Soft. No tenderness. No organomegaly. Bowel sound normal. EXTREMITIES: No clubbing. No cyanosis. LABORATORY DATA: WBC 12.4, hemoglobin 10.6, hematocrit 33.7, platelets 101. Sodium 145, potassium is 4.2, BUN 92, creatinine 4.8, sugar 204. Total protein 4.3, albumin 2. DIAGNOSES: Gastrointestinal bleeding, diarrhea, possible colitis, possible sepsis, septic shock syndrome, atrial fibrillation, rheumatoid arthritis, [id number] renal failure, paroxysmal atrial fibrillation with rapid rate, protein-calorie malnutrition, history of prior transient ischemic attack and cerebrovascular accident, dementia. PLAN: The patient at home was on Xarelto, but has been on hold because of GI bleeding, possible right-sided colitis, protein-calorie malnutrition, atrial fibrillation. The patient on verapamil 80 mg t.i.d., metoprolol 25 b.i.d. The patient received magnesium sulfate 1 g today. The patient on meropenem 500 mg IV every 12 hours, famotidine 10 mg IV b.i.d., hydrocortisone 50 mg IV daily. The patient's heart rate is stable. We will continue present therapy and we will follow with you. Charo Huerta MD
[2018-04-27 06:05] LABS: BASO # 0.02 K/mm3 (0.0-2.0); BASO % 0.1 % (0.0-3.0); EOS # 0.3 (0.0-0.7); EOS % 1.7 % (1.5-5.0); GRAN # 12.96 (1.4-6.5); GRAN % 80.4 % (50.0-68.0); HEMOGLOBIN 11.8 g/dL (14.0-18.0); LYMPH # 1.5 (1.2-3.4); LYMPH % 9.2 % (22.0-35.0); MEAN CELL VOLUME 86.1 fl (80.0-105.0); MEAN CORPUSCULAR HEMOGLOBIN 27.3 pg (25.0-35.0); MEAN CORPUSCULAR HGB CONC 31.7 g/dl (31.0-37.0); MONO # 1.4 (0.1-0.6); MONO % 8.6 % (1.0-6.0); RBC 4.32 10^6/uL (3.5-6.1); RED CELL DISTRIBUTION WIDTH 15.8 % (11.5-14.5); WHITE BLOOD COUNT 16.1 10^3/ul (4.5-11.0)
[2018-04-27 07:02] VITALS: O2SAT 97
[2018-04-27 07:23] LABS: ALB/GLOB RATIO 0.9 (1.1-1.8); ALBUMIN 2.1 g/dL (3.0-4.8); CALCIUM 7.9 mg/dL (8.4-10.5)
[2018-04-27] MEDS: Insulin Reg-LOW-Coverage SC SCH ×3 (08:34→17:50)
--- NOTE | 2018-04-27 08:38 | PN ---
DATE: 04/26/2018 Seen in the ICU. His abdomen is soft and nontender. He has no pain. His white count is now 12. I believe he had an ischemic issue to his right colon and possibly the gallbladder that has never resolved. We will watch peripherally without surgical intent. Anand Maloney MD
--- NOTE | 2018-04-27 08:48 | RAD ---
HISTORY: [facility] COMPARISON: 04/23/2018 FINDINGS: LUNGS: No active pulmonary disease. PLEURA: No significant pleural effusion identified, no pneumothorax apparent. CARDIOVASCULAR: Normal. OSSEOUS STRUCTURES: No significant abnormalities. VISUALIZED UPPER ABDOMEN: Normal. OTHER FINDINGS: There is a right internal jugular line unchanged IMPRESSION: No active disease.
--- NOTE | 2018-04-27 09:16 | CP.PCM.PN ---
Subjective - Date & Time of Evaluation Date of Evaluation: 04/26/18 Time of Evaluation: 14:00 - Subjective Subjective: Alert, confused, no acute distress Objective - Vital Signs/Intake and Output Vital Signs (last 24 hours): Temp Pulse Resp BP Pulse Ox 97.8 F 94 H 20 141/75 97 04/27/18 06:00 04/27/18 06:00 04/27/18 06:00 04/27/18 06:00 04/27/18 06:00 Intake and Output: 04/27/18 04/27/18 06:59 18:59 Intake Total 240 Output Total 1100 Balance -860 - Medications Medications: Current Medications Famotidine (Pepcid) 10 mg IVP BID [facility] Last Admin: 04/26/18 18:49 Dose: 10 mg Hydrocortisone Sodium Succinate (Solu-Cortef) 50 mg IVP DAILY [facility] Meropenem 500 mg/ Sodium (Chloride) 50 mls @ 100 mls/hr IVPB Q12 [facility] PRN Reason: Protocol Stop: 04/27/18 22:01 Last Admin: 04/26/18 21:41 Dose: 100 mls/hr Insulin Human Regular (Humulin R Low) 0 units SC ACHS [facility] PRN Reason: Protocol Last Admin: 04/27/18 08:34 Dose: Not Given Metoprolol Tartrate (Lopressor) 25 mg PO BID [facility] Last Admin: 04/26/18 11:19 Dose: 25 mg Rivastigmine (Exelon 9.5 Mg/24 Hr Patch) 1 patch TD DAILY [facility] Last Admin: 04/26/18 11:27 Dose: 1 patch Sodium Bicarbonate (Sodium Bicarbonate Tab) 1,300 mg PO QID [facility] Last Admin: 04/26/18 21:41 Dose: 1,300 mg Verapamil HCl (Calan Tab) 80 mg PO TID [facility] Last Admin: 04/26/18 17:59 Dose: 80 mg Vitamin A (Vitamin A & D Oint Ud Foilpak) 1 ea TOP Q8 PRN PRN Reason: DRY SKIN - Labs Labs: 04/27/18 05:40 04/27/18 05:40 PT 14.5 SECONDS (9.4-12.5) H 04/21/18 17:50 INR 1.27 (0.93-1.08) H 04/21/18 17:50 APTT 46.0 Seconds (25.1-36.5) H 04/21/18 17:50 - Constitutional Appears: Chronically Ill - Eye Exam Eye Exam: Normal appearance, PERRL - ENT Exam ENT Exam: Mucous Membranes Moist - Respiratory Exam Respiratory Exam: Decreased Breath Sounds, NORMAL BREATHING PATTERN - Cardiovascular Exam Cardiovascular Exam: REGULAR RHYTHM, +S1, +S2 - GI/Abdominal Exam GI & Abdominal Exam: Soft, Hyperactive Bowel Sounds - Extremities Exam Extremities Exam: Normal Capillary Refill, Pedal Edema - Neurological Exam Neurological Exam: Altered - Psychiatric Exam Psychiatric exam: Anxious - Skin Skin Exam: Dry, Pallor Assessment and Plan - Assessment and Plan (Free Text) Assessment: 77 year old male with history of Alzheimer dementia, CKD, who is admitted with sepsis, cholecystitis, WINDY on CKD, ischemic bowel. Patients at bedside. understands that although scar is more alert, he remains critically ill. aware that in addition to ischemic bowel, kidney function is also declining. Long discussion regarding goals of care ensued. conflicted about whether she will agree to dialysis. feels that patient would not want this. concerned with her husbands quality of life. Ramifications of dialysis explained. Encouraged to discuss she concerns with her sons. Psychosocial support provided Time spent with family in goals of care discussion ,30 minutes Plan: Goals of care
--- NOTE | 2018-04-27 09:32 | PN ---
DATE: 04/27/2018 A 77-year-old white male transferred from ICU to the floor. The patient is awake and alert. Speech is somewhat dysarthric, but stable. Vital signs are stable. Blood pressure is 141/75. The patient is afebrile. He does have rising BUN and creatinine of 93 and 4.9, potassium is stable at 4.9. His bicarbonate is 14. The patient has been DNR/DNI by the family. He is status post episode of ischemic colitis, resolving. White count has been as high as 45,000, it is down to 16,000. He is afebrile. Today, his abdomen is soft. He is tolerating his diet. His hemoglobin is 11.8. Plan will be to discuss further treatment of impending renal failure with the family. Continue IV antibiotics. The patient is growing Enterobacter in the blood. His C. diff was negative. Plan is to consult Physical Therapy and Occupational Therapy and make final determination regarding his renal insufficiency and impending renal failure. Ray Crump MD
[2018-04-27] MEDS: Meropenem 500 MG in Sodium Chloride 0.9% 50 ML IVPB SCH (10:06)
[2018-04-27 12:13] VITALS: RESP 19
--- NOTE | 2018-04-27 14:14 | CP.PCM.PN ---
Subjective - Date & Time of Evaluation Date of Evaluation: 04/27/18 Time of Evaluation: 14:09 - Subjective Subjective: Nephrology Consultation Note: Assessment: stable oligoanuric Acute Kidney Injury (N17.9) likely due to ATN, sepsis/shock HAGMA, hyperkalemia, hypernatremia Diabetic chronic Kidney Disease (E11.22) Hypertensive Chronic Kidney Disease (I12.9) Chronic Kidney Disease (N18.3) Stage 3 with ? 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 CHF with EF 30-35%, NSTEMI Plan No emergent need for renal replacement therapy at this time but likely will need soon, will need close follow up. as per other physician notes, not decided. I called her as well but no answer on phone. so far, UOP better with lasix. Hypertension control with meds as ordered. Patient not on ACEI/ARB due to WINDY Monitor Input/Output, daily weights and renal function with basic metabolic panel continue with sodium bicarbonate 1300 mg QID lasix 40 mg bid added started iron supplements, MVI, Vit D weekly and phos binders as phoslo. plan for HEATH if Hb <10 avoid kayexylate due to colitis if bacteremia persistent with staghorn calculus, consider further input from and ID Dose meds/antibiotics for reduced GFR <10. Avoid fleets enema/magnesium based laxatives. Avoid nephrotoxins/NSAIDs/ iodinated contrast (unless needed emergently) Glycemic control Further work up/management as per primary team Thanks for allowing me to participate in care of your patient. Will follow patient with you. Please call if any Qs. had d/w team Dr Phil Goins Office: [phone] Chief Complaint; unable Reason for consult: WINDY HPI: Pt is a 77 M with hx of diabetes Mellitus hypertension A fib, CVA, dementia , Rt staghorn calculi and left renal calculi, CKD stage 3 with baseline cr 1.7- 1.9 with episodes of AKIs in past initially admitted with septic shock, UTI, lactic acidosis and WINDY. renal consult for WINDY management. he was unable to provide much hx. He just said When I am going home. also having diarrhoea with colitis. CHF with EF 30-35%, NSTEMI no knwon OTC/herbal meds or NSAIDs No recent iodinated contrast exposure. ROS: pt unable to provide hx Physical Examination: General Appearance: Comfortable, in no acute respiratory distress. Vitals reviewed and noted as below Head; Atraumatic, normocephalic ENT: unable EYES: Pupils are equal, round and reactive to light accommodation. Eye muscles and extraocular movement intact. Sclera is anicteric. Neck; supple no lymphadenopathy, no thyromegaly or bruit Lungs: Normal respiratory rate/effort. Breath sounds bilateral equal and clear anteriorly Heart: Increased rate. s1s2 normal. No rub or gallop. Extremities: 1+ edema. No varicose veins Neurological: Patient is sleepy and disoriented to person, place and time. confused Skin: Warm and dry. Normal turgor. No rash. Palpitation: Normal elasticity for age Abdomen: Abdomen is soft. Bowel sounds +. There is no abdominal tenderness, no guarding/rigidity no organomegaly. has rectal tube Psych: lack insight and flat affect/mood MSK: no joint tenderness or swelling. Digits and nails normal, no deformity : kidney or bladder not palpable. has salcedo Labs/imaging reviewed. Past medical history, past surgical history, family history, social history, allergy reviewed and noted as below Family hx: no hx of CKD. Rest non-contributory renal imaging: Rt staghorn calculi and small left side calculi UA: 3+ protein with large blood/WBC and bacteria TSAT 30% Ferritin 158 Vit D 16 PTH 319 Objective - Vital Signs/Intake and Output Vital Signs (last 24 hours): Temp Pulse Resp BP Pulse Ox 97.9 F 99 H 19 145/62 97 04/27/18 12:00 04/27/18 14:01 04/27/18 12:00 04/27/18 14:01 04/27/18 06:00 Intake and Output: 04/27/18 04/27/18 06:59 18:59 Intake Total 240 Output Total 1100 Balance -860 - Medications Medications: Current Medications Calcium Acetate (Phoslo) 667 mg PO WM [facility] Ergocalciferol (Drisdol 50,000 Intl Units Cap) 1 cap PO Q7D [facility] Famotidine (Pepcid) 10 mg PO BID [facility] Last Admin: 04/27/18 10:06 Dose: 10 mg Ferrous Gluconate (Fergon) 324 mg PO TID [facility] Furosemide (Lasix) 40 mg PO BID [facility] Last Admin: 04/27/18 13:55 Dose: 40 mg Hydrocortisone Sodium Succinate (Solu-Cortef) 50 mg IVP DAILY [facility] Last Admin: 04/27/18 09:59 Dose: 50 mg Meropenem 500 mg/ Sodium (Chloride) 50 mls @ 100 mls/hr IVPB Q12 [facility] PRN Reason: Protocol Stop: 04/27/18 22:01 Last Admin: 04/27/18 10:06 Dose: 100 mls/hr Insulin Human Regular (Humulin R Low) 0 units SC ACHS [facility] PRN Reason: Protocol Last Admin: 04/27/18 12:00 Dose: Not Given Metoprolol Tartrate (Lopressor) 25 mg PO BID [facility] Last Admin: 04/27/18 10:07 Dose: 25 mg Rivastigmine (Exelon 9.5 Mg/24 Hr Patch) 1 patch TD DAILY [facility] Last Admin: 04/27/18 10:00 Dose: 1 patch Sodium Bicarbonate (Sodium Bicarbonate Tab) 1,300 mg PO QID [facility] Last Admin: 04/27/18 13:54 Dose: 1,300 mg Verapamil HCl (Calan Tab) 80 mg PO TID [facility] Last Admin: 04/27/18 14:01 Dose: 80 mg Vitamin A (Vitamin A & D Oint Ud Foilpak) 1 ea TOP Q8 PRN PRN Reason: DRY SKIN Vitamin B Complex/Vit C/Folic Acid (Nephro-Abi) 1 tab PO 0800 [facility] - Labs Labs: 04/27/18 05:40 04/27/18 05:40 PT 14.5 SECONDS (9.4-12.5) H 04/21/18 17:50 INR 1.27 (0.93-1.08) H 04/21/18 17:50 APTT 46.0 Seconds (25.1-36.5) H 04/21/18 17:50
[2018-04-27] MEDS ORDERED: Ergocalciferol 50,000 Intl Units Cap PO SCH (14:15)
--- NOTE | 2018-04-27 15:08 | PN ---
DATE: 04/27/2018 LOCATION: The patient in room 265, bed 1. REASON FOR CONSULTATION AND FOLLOWUP: Paroxysmal atrial fibrillation, diarrhea, sepsis, septic shock, borderline positive troponin, acute kidney injury, GI bleeding. SUBJECTIVE: Patient is lying in bed comfortably without any cardiac symptom, chest pain, shortness of breath or palpitation. PHYSICAL EXAMINATION: VITAL SIGNS: Blood pressure 141/75, respirations 20, pulse 57, temperature 97.8. HEENT: Head: Normocephalic. Eyes: Pupils normal. Conjunctivae slightly pale. NECK: JVP low. Carotids equal. THORAX: AP diameter normal. LUNGS: Clear. CARDIOVASCULAR: S1 and S2. ABDOMEN: Soft, nontender. No organomegaly. Bowel sound normal. EXTREMITIES: No clubbing. No cyanosis. LABORATORY DATA: WBC 16.1, hemoglobin 11.8, hematocrit 37.2, platelet 179. Sodium 145, potassium 3.9, BUN 93, creatinine 4.9. Calcium 7.9, phosphorous 5.9, magnesium 1.9. Total protein 4.6, albumin 2.1. DIAGNOSES: Gastrointestinal bleeding, diarrhea, possible colitis, possible sepsis, septic shock syndrome, atrial fibrillation, rheumatoid arthritis, vrktm-ej-cbivtst renal insufficiency, paroxysmal atrial fibrillation with rapid rate, protein-calorie malnutrition, history of prior cerebrovascular accident and dementia. PLAN: Patient's anticoagulation because of GI bleeding. Patient was on Xarelto at home. Now patient is on verapamil 80 t.i.d., metoprolol 25 b.i.d., sodium bicarbonate 1300 mg p.o. four times a day, hydrocortisone 50 mg IV daily. We will continue present therapy and increase nutrition support. We will continue present therapy and we will follow with you. Charo Huerta MD
[2018-04-27 17:54] VITALS: PULSE 86
[2018-04-27 18:16] VITALS: TEMP 98.3
[2018-04-27 19:50] VITALS: BP 114/76
--- NOTE | 2018-04-27 21:19 | PN ---
DATE: 04/27/2018 SUBJECTIVE: Patient is in bed, no acute distress, nontoxic, was seen earlier this morning in 265, bed 1. No fevers and chills. PHYSICAL EXAMINATION: VITAL SIGNS: Temperature is 98, blood pressure is 145/60, respiratory rate of 19, heart rate of 99. HEENT: Unremarkable. NECK: Supple. LUNGS: Have decreased breath sounds. HEART: Normal S1 and S2 ABDOMEN: Soft. LABORATORY DATA: Reveals a white count of 16,100, hemoglobin of 11. Chemistry reveals a BUN of 93, creatinine of 4.9. Urinalysis is noted. Stool occult blood is positive. Random vancomycin level of 21. Urine for Legionella antigen is negative. Microbiology reveals blood culture is positive for Enterobacter aerogenes on admission, and again on the repeat one from the 04/22/2018 and one from 04/24/2018 are negative. It is sensitive to ertapenem and resistant to Cipro, cefepime, Zosyn. Review of orders reveal the patient to be on meropenem, which requires renewal, which we will do so. ASSESSMENT AND PLAN: This is a 77-year-old who was seen earlier today with severe sepsis, status post septic shock, [id number] renal failure, Enterobacter bacteremia secondary to Enterobacter urinary tract infection and ischemic colitis, currently on meropenem, and a history of hypertension, diabetes, atrial fibrillation, cerebrovascular accident. Overall prognosis is poor. Siva Richardson MD
[2018-04-28] MEDS ORDERED: Multivitamin Vitamin B Complex (Nephro-Vite) Tab PO SCH (08:00)
--- NOTE | 2018-04-29 00:11 | DS ---
HISTORY OF PRESENT ILLNESS: The patient is a 77-year-old white male, who was admitted with sepsis and was found to have ischemic colitis and renal failure. The patient received a course of antibiotics with reduction of his white count. He was started to tolerate liquids and solids, but he continued to have rising BUN and creatinine. He was seen in consultation with Dr. Schaefer. The patient's family has made the patient a DNR/DNI in the past because of his severe dementia and other comorbid problems. The patient's case was discussed with the family. They are not interested at dialysis. The patient will be transferred to a subacute rehab for possible long-term care and palliative care. The patient also has history of fluid overload, congestive heart failure in the past. FINAL DISCHARGE DIAGNOSES: Sepsis syndrome, acute ischemic colitis, chronic renal failure with acute renal insufficiency, chronic obstructive pulmonary and dementia. Ray Crump MD
== END 2018-04-27 20:22 | DRG 871 ==
LOC: ED 08:20 → ERH 09:46 → ICU 12:28 → CCU 04-22 18:01 → 2RNO 04-26 23:59
PROVIDERS: ADMIT Internal Medicine; ATTEND Internal Medicine
PROC: 05HM33Z Insertion of Infusion Device into Right Internal Jugular Vein, Percutaneous Approach (ICD-10-PCS; principal; 2018-04-20)
PROC: B543ZZA Ultrasonography of Right Jugular Veins, Guidance (ICD-10-PCS; 2018-04-20)
PROC: 3E033XZ Introduction of Vasopressor into Peripheral Vein, Percutaneous Approach (ICD-10-PCS; 2018-04-20)
PROC: 0DBK8ZX Excision of Ascending Colon, Via Natural or Artificial Opening Endoscopic, Diagnostic (ICD-10-PCS; 2018-04-22)
PROC: 02HV33Z Insertion of Infusion Device into Superior Vena Cava, Percutaneous Approach (ICD-10-PCS; 2018-04-26)
PROC: B54MZZA Ultrasonography of Right Upper Extremity Veins, Guidance (ICD-10-PCS; 2018-04-26)
DX: A41.59 Other Gram-negative sepsis (principal); R65.21 Severe sepsis with septic shock; N17.0 Acute kidney failure with tubular necrosis; I21.4 Non-ST elevation (NSTEMI) myocardial infarction; G93.40 Encephalopathy, unspecified; E43 Unspecified severe protein-calorie malnutrition; K55.9 Vascular disorder of intestine, unspecified; I13.2 Hypertensive heart and chronic kidney disease with heart failure and with stage 5 chronic kidney disease, or end stage renal disease; N18.5 Chronic kidney disease, stage 5; I50.20 Unspecified systolic (congestive) heart failure; E87.2 Acidosis; E87.0 Hyperosmolality and hypernatremia; K81.0 Acute cholecystitis; I42.9 Cardiomyopathy, unspecified; K63.3 Ulcer of intestine; E87.6 Hypokalemia; N30.90 Cystitis, unspecified without hematuria; E86.0 Dehydration; I48.0 Paroxysmal atrial fibrillation; E11.22 Type 2 diabetes mellitus with diabetic chronic kidney disease; E11.42 Type 2 diabetes mellitus with diabetic polyneuropathy; E11.65 Type 2 diabetes mellitus with hyperglycemia; M06.9 Rheumatoid arthritis, unspecified; N20.0 Calculus of kidney; N40.0 Benign prostatic hyperplasia without lower urinary tract symptoms; G30.9 Alzheimer's disease, unspecified; Z66 Do not resuscitate; F02.80 Dementia in other diseases classified elsewhere, unspecified severity, without behavioral disturbance, psychotic disturbance, mood disturbance, and anxiety; E78.5 Hyperlipidemia, unspecified; I48.2 Chronic atrial fibrillation; E87.5 Hyperkalemia; I27.20 Pulmonary hypertension, unspecified; D69.6 Thrombocytopenia, unspecified; K64.8 Other hemorrhoids; K63.5 Polyp of colon; D64.9 Anemia, unspecified; I08.3 Combined rheumatic disorders of mitral, aortic and tricuspid valves; Z79.84 Long term (current) use of oral hypoglycemic drugs; Z79.01 Long term (current) use of anticoagulants; Z87.891 Personal history of nicotine dependence; Z88.5 Allergy status to narcotic agent; Z86.73 Personal history of transient ischemic attack (TIA), and cerebral infarction without residual deficits; Z80.7 Family history of other malignant neoplasms of lymphoid, hematopoietic and related tissues; Z80.0 Family history of malignant neoplasm of digestive organs; Z99.3 Dependence on wheelchair